=== PATIENT | male | born 1965 | race Caucasian/White ===

== ENCOUNTER 2021-09-25 09:35 | Outpatient (REF) | payer OTHER, SELFPAY ==
[2021-09-25 10:18] LABS: INTERNATIONAL NORM RATIO 1.1 (0.9-1.1); Prothrombin Time 12.8 SEC (9.9-13.0)
[2021-09-25 10:54] LABS: Vitamin D 25-OH Total 34.6 ng/mL (>30)
== END 2021-09-25 09:36 | disposition home or self-care (01) ==
LOC: HO.LAB 09:35
PROVIDERS: PCP Physician Assistant; Visit Provider Physician Assistant
DX: I48.0 Paroxysmal atrial fibrillation (principal); E66.01 Morbid (severe) obesity due to excess calories; Z68.41 Body mass index [BMI] 40.0-44.9, adult
CPT/HCPCS: 36415; 82306; 85610

== ENCOUNTER → 2021-09-27 14:06 | Outpatient (BNVA) | payer OTHER, SELFPAY | PROVIDERS: PCP Physician Assistant; Referring Provider Physician Assistant; Visit Provider Internal Medicine | DX: I48.0 Paroxysmal atrial fibrillation (principal); E66.01 Morbid (severe) obesity due to excess calories; G47.33 Obstructive sleep apnea (adult) (pediatric) | CPT/HCPCS: 93005 ==

== ENCOUNTER 2021-11-09 13:06 | Outpatient (REF) | payer OTHER, SELFPAY ==
[2021-11-09 13:34] LABS: MANUAL DIFF FLAG NO
[2021-11-09 13:44] LABS: Eosinophils Absolute Auto 0.7 X10*3/uL (0.0-0.4); Hematocrit 42.7 % (42.0-52.0); Hemoglobin 14.8 g/dl (14.0-18.0); Imm Gran Abs Auto 0.03 X10*3/uL (0.00-0.03); Imm Gran Pct Auto 0.6 % (0.0-0.4); Lymphocytes Absolute Auto 1.4 X10*3/uL (1.2-4.9); Lymphocytes Percent Auto 28.6 % (20-40); Mean Corpuscular HGB Conc 34.7 g/dl (31.0-36.0); Mean Corpuscular Hemoglobin 32.3 pg (27.0-33.0); Mean Corpuscular Volume 93.2 fL (80.0-98.0); Mean Platelet Volume 10.8 fL (9.4-12.4); Monocytes Absolute Auto 0.6 X10*3/uL (0.1-1.2); Monocytes Percent Auto 12.6 % (2-11); Neutrophils Absolute Auto 2.3 x10*3/uL (2.0-8.3); Neutrophils Percent Auto 45.2 % (45-73); Platelet Count 206 X10*3/uL (160-400); Red Blood Count 4.58 X10*6/uL (4.60-5.80); Red Cell Distribution Width 11.4 % (11.0-16.0)
[2021-11-09 13:53] LABS: Estimated Average Glucose 94 mg/dL; Hemoglobin A1c % 4.9 %
[2021-11-09 14:34] LABS: Alanine Aminotransferase 58 U/L (0-40); Albumin Level 4.1 g/dL (3.5-5.0); Alkaline Phosphatase 62 U/L (39-117); Anion Gap 12 (12-20); Aspartate Amino Transferase 39 U/L (5-37); Bilirubin Total 1.1 mg/dL (0.0-1.0); Blood Urea Nitrogen 12 mg/dL (9-16); Carbon Dioxide 23 mmol/L (22-29); Chloride 107 mmol/L (96-108); Cholesterol 125 mg/dL; Estimated Glomerular Filt Rate 60; Glucose Fasting 97 mg/dL (60-99); HDL Cholesterol 30 mg/dL; LDL Cholesterol Calculated 68 mg/dl; Potassium 4.3 mmol/L (3.3-5.1); Sodium 138 mmol/L (135-145); Total Protein 7.1 g/dL (6.5-8.0); Triglycerides 138 mg/dL
[2021-11-09 14:42] LABS: Prostate Specific Antigen Scr 0.54 ng/mL (<0.05-4.0); TSH reflex Free T4 2.05 uIU/mL (0.32-4.0)
[2021-11-09 15:13] LABS: Creatinine Urine 286.08 mg/dL; Microalbum/Creatinine Ratio Ur 76.2 ug/mg cr
== END 2021-11-09 13:07 | disposition home or self-care (01) ==
LOC: HO.LAB 13:06
PROVIDERS: Visit Provider Physician Assistant
DX: I10 Essential (primary) hypertension (principal); R05.9 Cough, unspecified; Z12.5 Encounter for screening for malignant neoplasm of prostate
CPT/HCPCS: 36415; 80053; 80061; 82043; 83036; 84153; 84443; 85025

== ENCOUNTER 2021-11-10 11:19 | Outpatient (REF) | payer OTHER, SELFPAY ==
[2021-11-10 12:03] LABS: Binax Internal Control QC Valid; Binax Now Covid-19 Ag Positive (Negative)
== END 2021-11-10 11:20 | disposition home or self-care (01) ==
LOC: HO.LAB 11:19
PROVIDERS: Internal Medicine; PCP Physician Assistant; Visit Provider Nurse Practitioner Family
DX: Z20.822 Contact with and (suspected) exposure to COVID-19 (principal)
CPT/HCPCS: 36415; C9803

== ENCOUNTER 2021-11-17 15:52 | Outpatient (REF) | payer OTHER, SELFPAY ==
[2021-11-17 16:12] LABS: MANUAL DIFF FLAG NO
[2021-11-17 16:33] LABS: Basophils Percent Auto 0.3 % (0-2); Eosinophils Absolute Auto 0.6 X10*3/uL (0.0-0.4); Eosinophils Percent Auto 7.5 % (0-4); Hematocrit 41.7 % (42.0-52.0); Hemoglobin 14.3 g/dl (14.0-18.0); Imm Gran Abs Auto 0.07 X10*3/uL (0.00-0.03); Imm Gran Pct Auto 0.9 % (0.0-0.4); Lymphocytes Absolute Auto 1.9 X10*3/uL (1.2-4.9); Mean Corpuscular HGB Conc 34.3 g/dl (31.0-36.0); Mean Corpuscular Hemoglobin 31.6 pg (27.0-33.0); Mean Corpuscular Volume 92.3 fL (80.0-98.0); Mean Platelet Volume 11.1 fL (9.4-12.4); Monocytes Absolute Auto 0.8 X10*3/uL (0.1-1.2); Monocytes Percent Auto 10.4 % (2-11); Neutrophils Absolute Auto 4.3 x10*3/uL (2.0-8.3); Neutrophils Percent Auto 55.9 % (45-73); Platelet Count 233 X10*3/uL (160-400); Red Blood Count 4.52 X10*6/uL (4.60-5.80); Red Cell Distribution Width 11.4 % (11.0-16.0); White Blood Count 7.7 X10*3/uL (4.8-10.8)
[2021-11-20 05:13] LABS: HBS Num1 0.57 mIU/mL (0-7.99); HBsAGNum1 0.25 S/CO (0.00-0.99); Hepatitis B Core Antibody Nonreactive (Nonreactive); Hepatitis B Surface Antigen Negative (Negative); ~Hepatitis B Surface Antibody NONREACTIVE (Nonreactive)
[2021-11-20 05:49] LABS: ~HepC Num1 0.11 S/CO (0.00-0.79); ~Hepatitis C Antibody Nonreactive (Nonreactive)
[2021-11-22 04:40] LABS: Hepatitis A Antibody IgM 0.12 Index (0-0.79); ~Hepatitis A Antibody IgM Nonreactive (Nonreactive)
== END 2021-11-17 15:53 | disposition home or self-care (01) ==
LOC: HO.LAB 15:52
PROVIDERS: PCP Internal Medicine; Visit Provider Nurse Practitioner Family
DX: R05.9 Cough, unspecified (principal); R79.89 Other specified abnormal findings of blood chemistry
CPT/HCPCS: 36415; 85025; 86704; 86706; 86709; 86803; 87340

== ENCOUNTER → 2021-12-06 09:11 | Outpatient (BNVA) | payer OTHER, SELFPAY | PROVIDERS: PCP Internal Medicine; Visit Provider Nurse Practitioner Family ==

== ENCOUNTER → 2022-01-04 09:27 | Outpatient (BNVA) | payer OTHER, SELFPAY | PROVIDERS: PCP Internal Medicine; Referring Provider Internal Medicine; Visit Provider Internal Medicine ==

== ENCOUNTER 2022-01-20 17:02 | Emergency (ER) | payer OTHER, SELFPAY ==
--- NOTE | 2022-01-20 | ECG_ITS ---
Test Reason : CHEST PAIN Blood Pressure : / mmHG Vent. Rate : 070 BPM Atrial Rate : 070 BPM P-R Int : 162 ms QRS Dur : 086 ms QT Int : 404 ms P-R-T Axes : 002 -14 005 degrees QTc Int : 436 ms Normal sinus rhythm Normal ECG No previous ECGs available Referred By: Generic ED Physician Electronically Signed By:WERNER GUPTA
--- NOTE | ~2022-01-20 | XR_ITS ---
EXAMINATION: XR CHEST CLINICAL INFORMATION: Chest pain COMPARISON: None TECHNIQUE: Frontal portable view of the chest was obtained. 1835 hours FINDINGS: No significant abnormality is noted involving the heart, lungs, mediastinum, bony thorax or soft tissues. XR/XR chest 1V IMPRESSION: Unremarkable examination.
[2022-01-20 17:12] VITALS: BP 128/79; PULSE 72; RESP 18; TEMP 36.5; O2SAT 97; BMI 41.1
--- NOTE | 2022-01-20 17:28 | ED_ITS ---
HPI - Chest Pain General Chief Complaint: Chest Pain Stated Complaint: chest pain, every couple of minutes, Afib Time Seen by Provider: 01/20/22 17:17 Source: patient Mode of arrival: ambulatory Limitations: no limitations History of Present Illness HPI narrative: patient thinks his symptoms are due to his CPAP leaking all night and he woke up gasping multiple times complaint: chest pain Pertinent past history: other (PAF with hx of multiple ablations states has had clean cardiac caths in the past 2 years ago) Onset (ago): hour(s) (around 830am, no chest pain now) Timing of current episode: episodic Prior episodes: No Onset: during rest and during exertion Pain location: substernal Pain radiation: none Severity: moderate Quality: heaviness and sharp Relieving factors: nothing Exacerbating factors: nothing Associated symptoms: dyspnea Treatment prior to arrival: none and other (did take his medications today including eliquis) Related Data Home Medications Medication Instructions Recorded Confirmed albuterol sulfate 90 mcg/actuation 2 puff PO Q4H PRN 10/26/20 01/04/22 aerosol inhaler apixaban 5 mg tablet 5 mg PO BID 10/26/20 01/04/22 Previous Rx's Medication Instructions Recorded benzonatate 100 mg capsule 100 mg PO BEDTIME PRN #14 cap 11/08/21 lisinopril 5 mg tablet 5 mg PO DAILY 30 Days #30 tab 11/23/21 trazodone 50 mg tablet 25 - 50 mg PO BEDTIME PRN 30 Days 12/06/21 #30 tab semaglutide 3 mg tablet (Rybelsus) 3 mg PO DAILY 30 Days #30 tab 12/18/21 Allergies Allergy/AdvReac Type Severity Reaction Status Date / Time No Known Allergies Allergy Verified 01/04/22 09:33 Review of Systems Review of Systems: Constitutional : No Weight loss, No Fever, No Chills ENT/Mouth : No sore throat, No Rhinorrhea Eyes: No Eye Pain, No Swelling Cardiovascular : pos Chest Pain, pos SOB, no Dyspnea on Exertion, No Orthopnea, No Edema, No Palpitations Respiratory : No Cough, No Sputum Gastrointestinal : no Nausea, No Vomiting, No Diarrhea, No abdominal Pain, No Hematochezia, No Melena Genitourinary : No Dysuria, No Urinary Frequency Musculoskeletal : No joint pain, No Myalgias, No Joint Swelling Skin : No Skin Lesions, No rash Neuro : No Weakness, No Numbness, No Dizziness, No Headache Psych : No Anxiety/Panic, No Depression Heme/Lymph: No Bruising, No Lymphadenopathy Endocrine : No Polyuria, No Polydipsia All other systems reviewed and are negative [facility] Past Medical History Attestation statement: The following information was validated with the patient. Medical History Elevated LFTs HTN (hypertension) Morbid obesity LAYNE (obstructive sleep apnea) PAF (paroxysmal atrial fibrillation) Surgical History H/O prior ablation treatment History of lymph node excision History of prior ablation treatment Family History Family History Father CAD (coronary artery disease) History of partial colectomy Hypertension CVD (cardiovascular disease) Alzheimers disease Mother Asthma Brother Hepatitis Sister Family history of thyroid problem Social History Social History Housing: House Alcohol intake: never Patient Tobacco Use Status: Never used Tobacco e-Cigarette/Vaping Use: Never Used Second Hand Smoke Exposure: No Advance Directives: No Advance Directives Information Provided: No service: No Current occupational status: employed Cognitive needs: No Hearing needs: No Vision needs: No Physical Exam Vital Signs: Vital Signs: Last Vital Signs Temp 98.1 F 01/20/22 17:33 Pulse 59 01/20/22 21:21 Resp 18 01/20/22 21:21 BP 144/77 H 01/20/22 21:21 Pulse Ox 96 01/20/22 21:21 BMI result Body Mass Index 41.1 Appearance: Alert. Oriented X3. No acute distress. Eyes: Pupils equal, round and reactive to light. ENT: Pharynx normal. Neck: Normal inspection. Neck supple. CVS: Normal heart rate and rhythm. Pulses normal. Respiratory: No respiratory distress. Breath sounds normal. Abdomen: Soft and nontender. Skin: Skin warm and dry. Normal skin color. Normal skin turgor. Extremities: No lower extremity edema. No calf ttp Neuro: Oriented X 3. No motor deficit. No sensory deficit. Course Course Course Narrative: cath report from [facility] requested 6pm ddimer under normal limits doubt PE no cardiac cath report from [facility] listed - but non obs cardiac ds listed in notes trop flat x 2, atypical pain, EKG nonischemic, ddimer negative symptoms all day stable for DC MDM - Chest Pain MDM Narrative Medical decision making narrative: 56 yo male with hx of LAYNE, afib, obesity on eliquis notes since 830am intermittent abrupt sharp like paroxysmal chest pains that last seconds with some dyspnea that have been happening all day. He has some mild dyspnea. He notes he has had cardiac caths and thinks he had a normal one in the last two years. He does have some new t wave inversions in III and aVF - his symptoms are somewhat atypical given they are paroxysmal and brief in nature will obtain troponin x 2, ddimer, CXR, he has no pain now and was instructed to let us know if his pain returns. He did take his eliquis this AM. Lab Data Result diagrams: 01/20/22 18:00 01/20/22 18:51 Labs: Lab Results 01/20/22 01/20/22 01/20/22 Range/Units 16:00 17:19 18:00 WBC 9.3 (4.8-10.8) X10*3/uL RBC 3.96 L (4.60-5.80) X10*6/uL Hgb 12.9 L (14.0-18.0) g/dl Hct 36.9 L (42.0-52.0) % MCV 93.2 (80.0-98.0) fL MCH 32.6 (27.0-33.0) pg MCHC 35.0 (31.0-36.0) g/dl RDW 11.7 (11.0-16.0) % Plt Count 232 (160-400) X10*3/uL MPV 11.8 (9.4-12.4) fL Immature Gran % (Auto) 0.3 (0.0-0.4) % Neut % (Auto) 49.7 (45-73) % Lymph % (Auto) 29.6 (20-40) % [place] % (Auto) 10.5 (2-11) % Eos % (Auto) 9.7 H (0-4) % Baso % (Auto) 0.2 (0-2) % Lymph # (Auto) 2.8 (1.2-4.9) X10*3/uL [place] # (Auto) 1.0 (0.1-1.2) X10*3/uL Eos # (Auto) 0.9 H (0.0-0.4) X10*3/uL Baso # (Auto) 0.0 (0.0-0.2) X10*3/uL Abs Immat Gran (auto) 0.03 (0.00-0.03) X10*3/uL Absolute Neuts (auto) 4.6 (2.0-8.3) x10*3/uL Absolute Nucleated RBC 0.000 (0.0-0.012) X10*3/uL Nucleated RBC % (auto) 0.0 (0.0-0.2) /100WBC PT (9.9-13.0) SEC INR (0.9-1.1) APTT (24.1-38.0) SEC D-Dimer High Sensitivty Sodium (135-145) mmol/L Potassium (3.3-5.1) mmol/L Chloride (96-108) mmol/L Carbon Dioxide (22-29) mmol/L Anion Gap (12-20) BUN (9-16) mg/dL Creatinine (0.5-1.4) mg/dL Estim Creat Clear Calc Estimated GFR Random Glucose (60-115) mg/dL Calcium (8.4-10.2) mg/dL Magnesium (1.6-2.6) mg/dL Total Bilirubin (0.0-1.0) mg/dL Direct Bilirubin (0.0-0.5) mg/dL AST (5-37) U/L ALT (0-40) U/L Alkaline Phosphatase (39-117) U/L Troponin I High Sens < 3.5 (<3.5-35.0) ng/L Total Protein (6.5-8.0) g/dL Albumin (3.5-5.0) g/dL Lipase (8-78) U/L COVID-19 (GAGAN) Negative (Negative) COVID-19 Clin Com See Note 01/20/22 01/20/22 01/20/22 Range/Units 18:00 18:51 18:51 WBC (4.8-10.8) X10*3/uL RBC (4.60-5.80) X10*6/uL Hgb (14.0-18.0) g/dl Hct (42.0-52.0) % MCV (80.0-98.0) fL MCH (27.0-33.0) pg MCHC (31.0-36.0) g/dl RDW (11.0-16.0) % Plt Count (160-400) X10*3/uL MPV (9.4-12.4) fL Immature Gran % (Auto) (0.0-0.4) % Neut % (Auto) (45-73) % Lymph % (Auto) (20-40) % [place] % (Auto) (2-11) % Eos % (Auto) (0-4) % Baso % (Auto) (0-2) % Lymph # (Auto) (1.2-4.9) X10*3/uL [place] # (Auto) (0.1-1.2) X10*3/uL Eos # (Auto) (0.0-0.4) X10*3/uL Baso # (Auto) (0.0-0.2) X10*3/uL Abs Immat Gran (auto) (0.00-0.03) X10*3/uL Absolute Neuts (auto) (2.0-8.3) x10*3/uL Absolute Nucleated RBC (0.0-0.012) X10*3/uL Nucleated RBC % (auto) (0.0-0.2) /100WBC PT 13.5 H (9.9-13.0) SEC INR 1.2 H (0.9-1.1) APTT 39.4 H (24.1-38.0) SEC D-Dimer High Sensitivty Cancelled 164 Sodium 138 (135-145) mmol/L Potassium 4.2 (3.3-5.1) mmol/L Chloride 107 (96-108) mmol/L Carbon Dioxide 23 (22-29) mmol/L Anion Gap 12 (12-20) BUN 16 (9-16) mg/dL Creatinine 1.05 (0.5-1.4) mg/dL Estim Creat Clear Calc 107.0 Estimated GFR > 60 Random Glucose 95 (60-115) mg/dL Calcium 9.3 (8.4-10.2) mg/dL Magnesium 2.3 (1.6-2.6) mg/dL Total Bilirubin 0.8 (0.0-1.0) mg/dL Direct Bilirubin 0.3 (0.0-0.5) mg/dL AST 37 (5-37) U/L ALT 58 H (0-40) U/L Alkaline Phosphatase 60 (39-117) U/L Troponin I High Sens (<3.5-35.0) ng/L Total Protein 6.7 (6.5-8.0) g/dL Albumin 4.1 (3.5-5.0) g/dL Lipase 32 (8-78) U/L COVID-19 (GAGAN) (Negative) COVID-19 Clin Com 01/20/22 01/20/22 Range/Units 18:51 21:03 WBC (4.8-10.8) X10*3/uL RBC (4.60-5.80) X10*6/uL Hgb (14.0-18.0) g/dl Hct (42.0-52.0) % MCV (80.0-98.0) fL MCH (27.0-33.0) pg MCHC (31.0-36.0) g/dl RDW (11.0-16.0) % Plt Count (160-400) X10*3/uL MPV (9.4-12.4) fL Immature Gran % (Auto) (0.0-0.4) % Neut % (Auto) (45-73) % Lymph % (Auto) (20-40) % [place] % (Auto) (2-11) % Eos % (Auto) (0-4) % Baso % (Auto) (0-2) % Lymph # (Auto) (1.2-4.9) X10*3/uL [place] # (Auto) (0.1-1.2) X10*3/uL Eos # (Auto) (0.0-0.4) X10*3/uL Baso # (Auto) (0.0-0.2) X10*3/uL Abs Immat Gran (auto) (0.00-0.03) X10*3/uL Absolute Neuts (auto) (2.0-8.3) x10*3/uL Absolute Nucleated RBC (0.0-0.012) X10*3/uL Nucleated RBC % (auto) (0.0-0.2) /100WBC PT (9.9-13.0) SEC INR (0.9-1.1) APTT (24.1-38.0) SEC D-Dimer High Sensitivty Sodium (135-145) mmol/L Potassium (3.3-5.1) mmol/L Chloride (96-108) mmol/L Carbon Dioxide (22-29) mmol/L Anion Gap (12-20) BUN (9-16) mg/dL Creatinine (0.5-1.4) mg/dL Estim Creat Clear Calc Estimated GFR Random Glucose (60-115) mg/dL Calcium (8.4-10.2) mg/dL Magnesium (1.6-2.6) mg/dL Total Bilirubin (0.0-1.0) mg/dL Direct Bilirubin (0.0-0.5) mg/dL AST (5-37) U/L ALT (0-40) U/L Alkaline Phosphatase (39-117) U/L Troponin I High Sens < 3.5 < 3.5 (<3.5-35.0) ng/L Total Protein (6.5-8.0) g/dL Albumin (3.5-5.0) g/dL Lipase (8-78) U/L COVID-19 (GAGAN) (Negative) COVID-19 Clin Com ECG Data ECG #1: Attestation: I personally reviewed and interpreted this ECG as follows: ECG interpretation date: 01/20/22 ECG interpretation time: 17:29 Interpretation: Rate: 73 Rhythm: NSR [place]: left Normal P waves. Normal TUTU. Normal QRS complex. ST T wave : no HAO, inverted III and aVF qTC: normal prior studies: changed t waves from 2020 The study has been interpreted contemporaneously by me. . ECG #2: Attestation: I personally reviewed and interpreted this ECG as follows: ECG interpretation date: 01/20/22 ECG interpretation time: 18:10 Interpretation: Rate: 70 Rhythm: NSR [place]: left Normal P waves. Normal UTTU. Normal QRS complex. ST T wave : on HAO, flattened III and aVF qTC: normal prior studies: t wave inversions improved - improved The study has been interpreted contemporaneously by me. Discharge Plan Discharge Clinical Impression: Atypical chest pain Patient Disposition: Home, Self-Care Instructions: Chest Pain (ED) Additional Instructions: return to ED for any worsening symptoms or concerns please call your database specialist Saturday and follow up Prescriptions: No Action lisinopril 5 mg tablet 5 mg PO DAILY 30 Days Qty: 30 3RF Eliquis 5 mg tablet 5 mg PO BID 0RF albuterol sulfate 90 mcg/actuation HFA aerosol inhaler 2 puff PO Q4H PRN (Reason: wheezing) 0RF benzonatate 100 mg capsule 100 mg PO BEDTIME PRN (Reason: cough) Qty: 14 0RF Rybelsus 3 mg tablet 3 mg PO DAILY 30 Days Qty: 30 1RF trazodone 50 mg tablet 25 - 50 mg PO BEDTIME PRN (Reason: sleep) 30 Days Qty: 30 3RF Stand Alone Forms: Work/School Release
[2022-01-20 17:33] VITALS: BP 139/81; PULSE 72; RESP 13; TEMP 36.7; O2SAT 97
[2022-01-20 18:12] LABS: MANUAL DIFF FLAG NO
[2022-01-20 18:16] LABS: Basophils Percent Auto 0.2 % (0-2); Eosinophils Absolute Auto 0.9 X10*3/uL (0.0-0.4); Eosinophils Percent Auto 9.7 % (0-4); Hematocrit 36.9 % (42.0-52.0); Hemoglobin 12.9 g/dl (14.0-18.0); Imm Gran Abs Auto 0.03 X10*3/uL (0.00-0.03); Imm Gran Pct Auto 0.3 % (0.0-0.4); Lymphocytes Absolute Auto 2.8 X10*3/uL (1.2-4.9); Lymphocytes Percent Auto 29.6 % (20-40); Mean Corpuscular Hemoglobin 32.6 pg (27.0-33.0); Mean Corpuscular Volume 93.2 fL (80.0-98.0); Mean Platelet Volume 11.8 fL (9.4-12.4); Monocytes Percent Auto 10.5 % (2-11); Neutrophils Absolute Auto 4.6 x10*3/uL (2.0-8.3); Neutrophils Percent Auto 49.7 % (45-73); Platelet Count 232 X10*3/uL (160-400); Red Blood Count 3.96 X10*6/uL (4.60-5.80); Red Cell Distribution Width 11.7 % (11.0-16.0); White Blood Count 9.3 X10*3/uL (4.8-10.8)
[2022-01-20 18:26] LABS: COVID-19 Test Negative (Negative); IDNOW Serial# 16C4AD1C
[2022-01-20 18:33] LABS: Troponin-I High Sensitivity < 3.5 ng/L (<3.5-35.0)
[2022-01-20 19:04] LABS: INTERNATIONAL NORM RATIO 1.2 (0.9-1.1); Prothrombin Time 13.5 SEC (9.9-13.0)
[2022-01-20 19:06] LABS: D Dimer High Sensitivity 164 NG/ML; Partial Thromboplastin Time 39.4 SEC (24.1-38.0)
[2022-01-20 19:12] LABS: Alanine Aminotransferase 58 U/L (0-40); Albumin Level 4.1 g/dL (3.5-5.0); Alkaline Phosphatase 60 U/L (39-117); Anion Gap 12 (12-20); Aspartate Amino Transferase 37 U/L (5-37); Bilirubin Direct 0.3 mg/dL (0.0-0.5); Bilirubin Total 0.8 mg/dL (0.0-1.0); Blood Urea Nitrogen 16 mg/dL (9-16); Calcium 9.3 mg/dL (8.4-10.2); Carbon Dioxide 23 mmol/L (22-29); Chloride 107 mmol/L (96-108); Estimated Glomerular Filt Rate > 60; Glucose Random 95 mg/dL (60-115); Lipase 32 U/L (8-78); Magnesium 2.3 mg/dL (1.6-2.6); Potassium 4.2 mmol/L (3.3-5.1); Sodium 138 mmol/L (135-145); Total Protein 6.7 g/dL (6.5-8.0)
[2022-01-20 19:17] LABS: Troponin-I High Sensitivity < 3.5 ng/L (<3.5-35.0)
[2022-01-20 21:21] VITALS: BP 144/77; PULSE 59; RESP 18; O2SAT 96
[2022-01-20 21:29] LABS: Troponin-I High Sensitivity < 3.5 ng/L (<3.5-35.0)
== END 2022-01-20 22:04 | disposition home or self-care (01) ==
PROVIDERS: Emergency Provider Emergency Medicine; PCP Physician Assistant
DX: R07.89 Other chest pain (principal); R06.02 Shortness of breath; I48.0 Paroxysmal atrial fibrillation; I10 Essential (primary) hypertension; Z79.01 Long term (current) use of anticoagulants; Z20.822 Contact with and (suspected) exposure to COVID-19
CPT/HCPCS: 36415; 71045; 80048; 80076; 83690; 83735; 84484; 85025; 85379; 85610; 85730; 87635; 93005; 99283; 99285

== ENCOUNTER → 2022-02-01 09:22 | Outpatient (BNVA) | payer OTHER, SELFPAY | PROVIDERS: PCP Physician Assistant; Referring Provider Physician Assistant; Visit Provider Physician Assistant | DX: Z13.89 Encounter for screening for other disorder (principal) ==

== ENCOUNTER 2022-02-05 08:16 | Outpatient (REF) | payer OTHER, SELFPAY ==
--- NOTE | ~2022-02-05 | US_ITS ---
EXAMINATION: US ABDOMEN COMPLETE CLINICAL INFORMATION: Elevated LFTs, rule out fatty liver. COMPARISON: None TECHNIQUE: Real-time imaging of the abdominal viscera. FINDINGS: PANCREAS: Limited. The visualized pancreatic head and body are normal in appearance. The remainder of the pancreas is obscured from visualization by the overlying bowel gas. ABDOMINAL AORTA: The proximal, mid, and distal segments are normal in caliber. INFERIOR VENA CAVA: Visualized portions are normal. LIVER: There is diffuse increased liver parenchymal echogenicity. No focal hepatic mass is seen. The liver is normal in size and contour. No biliary ductal dilatation. GALLBLADDER: Normal. The gallbladder is physiologically distended without evidence of stones, sludge, polyps, wall thickening or pericholecystic fluid. COMMON BILE DUCT: Normal in caliber measuring 0.5 cm in diameter. RIGHT KIDNEY: At the interpolar aspect, a 6 mm in maximal diameter anechoic, simple cyst is seen. At the lower pole, a 7 mm in maximal diameter anechoic, simple cyst is seen. No hydronephrosis or renal calculi. The kidney measures 12.7 cm in maximum dimension. LEFT KIDNEY: Normal. No hydronephrosis. No renal calculi or focal parenchymal lesions. The kidney measures 12.0 cm in maximum dimension. SPLEEN: Normal. The spleen measures 10.1 cm in maximum dimension. FREE FLUID: None. US/US abdomen complete IMPRESSION: 1. There is generalized increase in hepatic echotexture, consistent with fatty infiltration or hepatocellular disease. Please correlate clinically. No focal hepatic mass or intrahepatic biliary dilatation is seen. 2. Tiny simple right renal cysts are of incidental note. 3. Technically limited ultrasound examination of the pancreatic tail.
== END 2022-02-05 08:17 | disposition home or self-care (01) ==
LOC: HO.US 08:16
PROVIDERS: PCP Physician Assistant; Visit Provider Physician Assistant
DX: R94.5 Abnormal results of liver function studies (principal)
CPT/HCPCS: 76700

== ENCOUNTER 2022-04-02 09:35 | Emergency (ER) | payer OTHER, SELFPAY ==
[2022-04-02 09:42] VITALS: BP 120/80; PULSE 68; RESP 18; TEMP 36.3; O2SAT 99; BMI 41.1
--- NOTE | 2022-04-02 10:00 | ED.GENADULT ---
HPI - General Adult General Chief complaint: Back Pain/Injury Stated complaint: Back Pain S/P WC Injury Time Seen by Provider: 04/02/22 10:00 Source: patient Mode of arrival: ambulatory Limitations: no limitations History of Present Illness HPI narrative: Patient is a 56 year old male presenting to the emergency department today with middle back pain. Patient states that last night he was turned towards his left side for an extended period of time and now he is having pain. Patient states that he is currently on eliquis. Patient denies any dizziness, lightheadedness, abdominal pain, nausea, vomiting, fever, chills, blurry vision, double vision, loss of vision, chest pain, difficulty breathing, shortness of breath, night sweats, pain with urination, increased urinary frequency, increased urinary urgency, blood in his urine or stool, syncope or a near syncopal episode, recent trauma or falls, bowel incontinence, bladder incontinence, bowel retention, bladder retention, or any other complaints at this time. Onset (ago): hour(s) Location: back Radiation: non-radiation Severity: mild Severity scale (1-10): 2 Quality: dull Pain Consistency: intermittent Relieving factors: none Exacerbating factors: none Associated symptoms: denies other symptoms Treatments prior to arrival: none Related Data Home Medications Medication Instructions Recorded Confirmed albuterol sulfate 90 mcg/actuation 2 puff PO Q4H PRN 10/26/20 01/04/22 aerosol inhaler apixaban 5 mg tablet 5 mg PO BID 10/26/20 02/01/22 Previous Rx's Medication Instructions Recorded lisinopril 5 mg tablet 5 mg PO DAILY 30 Days #30 tab 02/26/22 cyclobenzaprine 10 mg tablet 10 mg PO TID PRN 7 Days #21 tab 04/02/22 Allergies Allergy/AdvReac Type Severity Reaction Status Date / Time No Known Allergies Allergy Verified 01/04/22 09:33 Review of Systems Constitutional: Constitutional: Reports no additional constitutional complaints, Denies chills, Denies fever(s) and Denies night sweats Eyes: Eyes: Reports no additional eye complaints, Denies blurry vision, Denies change in vision, Denies diplopia, Denies eye discharge, Denies loss of vision and Denies eye pain ENT: Denies dizziness Cardiovascular: Cardiovascular: Reports no additional cardiovascular complaints, Denies chest pain, Denies lightheadedness, Denies Loss of Consciousness and Denies dyspnea Respiratory: Respiratory: Reports no additional respiratory complaints and Denies dyspnea Gastrointestinal: Gastrointestinal: Reports no additional gastrointestinal complaints, Denies abdominal pain, Denies melena, Denies hematochezia, Denies change in bowel habits and Denies change in stool character Genitourinary: Genitourinary: Reports no additional male genitourinary complaints, Denies hematuria, Denies oliguria, Denies difficulty urinating, Denies dysuria, Denies urinary frequency, Denies urinary hesitancy, Denies urinary incontinence and Denies urinary urgency Musculoskeletal: Musculoskeletal: Reports no additional musculoskeletal complaints, Reports back pain, Denies numbness and Denies tingling Neurologic: Denies dizziness, Denies loss of vision, Denies numbness and Denies tingling Psychiatric: Psychiatric: Reports no additional psychiatric complaints Endocrine: Endocrine: Reports no additional endocrine complaints Hematologic/Lymphatic: Hematologic/Lymphatic: Reports no additional hematologic/lymphatic complaints Allergic/Immunologic: Allergic/Immunologic: Reports no additional allergic/immunologic complaints [facility] Past Medical History Attestation statement: The following information was validated with the patient. Source: old records reviewed Medical History Elevated LFTs HTN (hypertension) Morbid obesity LAYNE (obstructive sleep apnea) PAF (paroxysmal atrial fibrillation) Surgical History H/O prior ablation treatment History of lymph node excision History of prior ablation treatment Family History Family History Father CAD (coronary artery disease) History of partial colectomy Hypertension CVD (cardiovascular disease) Alzheimers disease Mother Asthma Brother Hepatitis Sister Family history of thyroid problem Social History Social History Housing: House Alcohol intake: never Patient Tobacco Use Status: Never used Tobacco e-Cigarette/Vaping Use: Never Used Second Hand Smoke Exposure: No Advance Directives: No Advance Directives Information Provided: No service: No Current occupational status: employed Current occupation: [employer] Cognitive needs: No Hearing needs: No Vision needs: No Physical Exam ED Vital Signs: Vital Signs - 24 hr 04/02/22 09:42 Temperature 97.4 F Pulse Rate 68 Respiratory Rate 18 Blood Pressure 120/80 Pulse Oximetry 99 BMI result Body Mass Index 41.1 Const General: cooperative, no acute distress, alert and awake Nutritional Appearance: well nourished Orientation/consciousness: patient oriented x3 Limitations: no limitations HENMT Head: Yes normal to inspection and Yes atraumatic Ears: hearing grossly normal bilaterally and external ears normal General nose exam: Normal external nose present, no nasal discharge noted and no epistaxis Face and sinus: Yes normal facial exam, No abrasion and No laceration Mouth: Normal oral and palatal mucosa present, no drooling and no muffled voice Eyes General: appearance normal, both eyes and all related structures Periorbital: periorbital findings normal Eyelids: Yes eyelids normal Conjunctivae: conjunctivae normal Pupils: Equal, round and reactive pupils present EOM: EOMs intact bilaterally Neck Neck: Yes normal visual inspection, Yes full ROM and Yes no lymphadenopathy Chest Chest palpation & inspection: normal inspection of the chest Resp Effort & Inspection: normal respiratory effort and able to speak in complete sentences Auscultation: clear to auscultation bilaterally Cardio Rate: regular rate Rhythm: regular rhythm GI Inspection: Yes normal to inspection General: Yes no CVA tenderness Back/Spine/Pelvis Back: no CVA tenderness Cervical Spine: normal cervical lordosis and cervical ROM normal Thoracic/Lumbar Spine: thoracic and lumbar spine normal to inspection and thoraco-lumbar ROM normal Neuro General: patient oriented x3 and moves all extremities Cranial nerves: Yes Equal, round and reactive pupils present Cognition (Neuro): normal cognition Motor exam (neuro): 5/5 motor strength present throughout Sensory Exam: Normal double simultaneous stimulation for sensation Coordination: [id number] test normal Extrem General: Yes normal to inspection, Yes full ROM and Yes capillary refill normal Psych Appearance: grossly normal Mental Status: mental status grossly normal Affect: normal affect Attitude: cooperative Thought process: Normal thought process present Thought content: Normal thought content present Insight: Good insight present (Psych) Medical Decision Making MDM Narrative Medical decision making narrative: Patient is a 56 year old male presenting to the emergency department today with back pain. Patient's physical exam was unremarkable. I explained my physical exam findings to the patient. I answered all questions asked by the patient. Patient received PO Flexeril which he stated helped his symptoms significantly. I stressed the importance of the patient taking his medication as prescribed. I stressed the importance of the patient following up with his primary care provider. I stressed the importance of the patient returning to the emergency department immediately if his symptoms were to worsen or if he were to develop any dizziness, shortness of breath, difficulty breathing, chest pain, blurry vision, loss of vision, nausea, vomiting, abdominal pain, fever, chills, back pain, or any other complaints. Patient verbalized agreement and understanding with this treatment plan and discharge. Differential Diagnosis Differential Diagnosis: back strain Medical Records Medical records reviewed: Yes I reviewed the patient's medical records. Discharge Plan Discharge Clinical Impression: Back pain Patient Disposition: Home, Self-Care Instructions: Back Pain (ED) Additional Instructions: Follow up with your primary care provider. Return to the emergency department immediately if your symptoms worsen or if you develop any dizziness, shortness of breath, difficulty breathing, chest pain, blurry vision, loss of vision, nausea, vomiting, abdominal pain, fever, chills, back pain, or any other complaints. Prescriptions: New cyclobenzaprine 10 mg tablet 10 mg PO TID PRN (Reason: muscle spasm) 7 Days Qty: 21 0RF No Action lisinopril 5 mg tablet 5 mg PO DAILY 30 Days Qty: 30 0RF Eliquis 5 mg tablet 5 mg PO BID 0RF albuterol sulfate 90 mcg/actuation HFA aerosol inhaler 2 puff PO Q4H PRN (Reason: wheezing) 0RF Referrals: Jonathan Barnett PA-C [Primary Care Provider] - Stand Alone Forms: Work/School Release Print Language: Malay
[2022-04-02] MEDS: Cyclobenzaprine HCl 10 MG TABLET PO (10:30)
== END 2022-04-02 10:35 | disposition home or self-care (01) ==
PROVIDERS: Emergency Provider Emergency Medicine; PCP Physician Assistant
DX: M54.50 Low back pain, unspecified (principal); Z79.899 Other long term (current) drug therapy
CPT/HCPCS: 99282; 99283

== ENCOUNTER 2022-04-23 10:35 | Outpatient (REF) | payer OTHER, SELFPAY ==
--- NOTE | ~2022-04-23 | XR_ITS ---
EXAMINATION: CHEST, DORSAL SPINE AND LUMBAR SPINE. CLINICAL INFORMATION: Cough. COMPARISON: Chest x-ray 01/20/2022. TECHNIQUE: 4 views lumbar spine, 2 views dorsal spine into views chest. FINDINGS: Chest: Both lungs are fairly well-expanded and clear. Heart size and pulmonary vascularity is normal. There is mild levoscoliosis. No gross bony abnormality seen. Lumbar spine: There is normal lumbar lordosis. The vertebral heights, alignment and disc heights are normal. There is no visible acute fracture, dislocation or lytic process seen. The paravertebral soft tissues are normal. XR/XR lumbar spine 2-3V IMPRESSION: Unremarkable chest exam. Unremarkable lumbar spine exam.
--- NOTE | ~2022-04-23 | XR_ITS ---
EXAMINATION: CHEST, DORSAL SPINE AND LUMBAR SPINE. CLINICAL INFORMATION: Cough. COMPARISON: Chest x-ray 01/20/2022. TECHNIQUE: 4 views lumbar spine, 2 views dorsal spine into views chest. FINDINGS: Chest: Both lungs are fairly well-expanded and clear. Heart size and pulmonary vascularity is normal. There is mild levoscoliosis. No gross bony abnormality seen. Lumbar spine: There is normal lumbar lordosis. The vertebral heights, alignment and disc heights are normal. There is no visible acute fracture, dislocation or lytic process seen. The paravertebral soft tissues are normal. XR/XR thoracic spine 2V IMPRESSION: Unremarkable chest exam. Unremarkable lumbar spine exam.
--- NOTE | ~2022-04-23 | XR_ITS ---
EXAMINATION: CHEST, DORSAL SPINE AND LUMBAR SPINE. CLINICAL INFORMATION: Cough. COMPARISON: Chest x-ray 01/20/2022. TECHNIQUE: 4 views lumbar spine, 2 views dorsal spine into views chest. FINDINGS: Chest: Both lungs are fairly well-expanded and clear. Heart size and pulmonary vascularity is normal. There is mild levoscoliosis. No gross bony abnormality seen. Lumbar spine: There is normal lumbar lordosis. The vertebral heights, alignment and disc heights are normal. There is no visible acute fracture, dislocation or lytic process seen. The paravertebral soft tissues are normal. XR/XR chest 2V IMPRESSION: Unremarkable chest exam. Unremarkable lumbar spine exam.
[2022-04-23 19:17] LABS: Influenza A PCR NEGATIVE (Negative); Influenza B PCR NEGATIVE (Negative); Resp Syncy Virus RNA Qual PCR NEGATIVE (Negative); SARS COV2 PCR INHOUSE NEGATIVE (Negative)
== END 2022-04-23 10:36 | disposition home or self-care (01) ==
LOC: HO.XRAY 10:35
PROVIDERS: PCP Physician Assistant; Visit Provider Physician Assistant
DX: Z20.822 Contact with and (suspected) exposure to COVID-19 (principal); R05.9 Cough, unspecified; M54.9 Dorsalgia, unspecified; B34.9 Viral infection, unspecified
CPT/HCPCS: 0241U; 71046; 72070; 72100; 87071

== ENCOUNTER 2022-08-01 23:15 | Emergency (ER) | payer OTHER, SELFPAY ==
[2022-08-02 00:34] VITALS: BP 145/97; PULSE 81; RESP 18; TEMP 37.7; O2SAT 98; BMI 40.3
[2022-08-02 00:59] LABS: Basophils Absolute Auto 0.1 X10*3/uL (0.0-0.2); Basophils Percent Auto 0.3 % (0-2); Eosinophils Absolute Auto 0.8 X10*3/uL (0.0-0.4); Eosinophils Percent Auto 5.9 % (0-4); Hematocrit 41.3 % (42.0-52.0); Imm Gran Abs Auto 0.08 X10*3/uL (0.00-0.03); Imm Gran Pct Auto 0.6 % (0.0-0.4); Lymphocytes Absolute Auto 2.3 X10*3/uL (1.2-4.9); Lymphocytes Percent Auto 15.9 % (20-40); MANUAL DIFF FLAG SCAN; Mean Corpuscular HGB Conc 33.9 g/dl (31.0-36.0); Mean Corpuscular Hemoglobin 31.8 pg (27.0-33.0); Mean Corpuscular Volume 93.9 fL (80.0-98.0); Mean Platelet Volume 10.7 fL (9.4-12.4); Monocytes Absolute Auto 1.7 X10*3/uL (0.1-1.2); Monocytes Percent Auto 11.6 % (2-11); Neutrophils Absolute Auto 9.4 x10*3/uL (2.0-8.3); Neutrophils Percent Auto 65.7 % (45-73); Platelet Count 281 X10*3/uL (160-400); Red Cell Distribution Width 11.4 % (11.0-16.0); SCAN SMEAR FLAG 1; White Blood Count 14.3 X10*3/uL (4.8-10.8)
[2022-08-02 01:07] LABS: COVID-19 Test Negative (Negative); IDNOW Serial# 16C4AD1C
[2022-08-02 01:12] LABS: Alanine Aminotransferase 36 U/L (0-40); Albumin Level 4.2 g/dL (3.5-5.0); Alkaline Phosphatase 70 U/L (39-117); Anion Gap 15 (12-20); Aspartate Amino Transferase 23 U/L (5-37); Bilirubin Direct 0.4 mg/dL (0.0-0.5); Blood Urea Nitrogen 17 mg/dL (9-16); Carbon Dioxide 24 mmol/L (22-29); Chloride 101 mmol/L (96-108); Creatinine Clr Calc Pharmacy 105.8; Estimated Glomerular Filt Rate > 60; Glucose Random 106 mg/dL (60-115); Potassium 3.9 mmol/L (3.3-5.1); Sodium 136 mmol/L (135-145)
[2022-08-02 01:28] LABS: SLIDE REVIEW VERIFIED
[2022-08-02 01:44] VITALS: BP 136/86; PULSE 77; RESP 19; TEMP 37.1; O2SAT 96
== END 2022-08-02 05:50 | disposition left against medical advice (07) ==
LOC: HO.ED 08-02 05:47
PROVIDERS: Emergency Provider Emergency Medicine; PCP Physician Assistant
DX: R10.9 Unspecified abdominal pain (principal); R11.2 Nausea with vomiting, unspecified; Z20.822 Contact with and (suspected) exposure to COVID-19
CPT/HCPCS: 36415; 80053; 80076; 82248; 85025; 87635; 99282; 99283

== ENCOUNTER 2022-08-02 15:07 | Outpatient (REF) | payer OTHER, SELFPAY ==
--- NOTE | ~2022-08-02 | XR_ITS ---
EXAMINATION: XR ABDOMEN COMPLETE CLINICAL INDICATION: Epigastric pain COMPARISON: None TECHNIQUE: 2 views of the abdomen. FINDINGS: The bowel gas pattern is normal with no evidence of ileus or obstruction. No unusual soft tissue calcifications are noted. The bones are unremarkable. XR/XR abdomen min 2V IMPRESSION: Unremarkable examination.
== END 2022-08-02 15:08 | disposition home or self-care (01) ==
LOC: HO.XRAY 15:07
PROVIDERS: PCP Physician Assistant; Visit Provider Physician Assistant
DX: R10.13 Epigastric pain (principal)
CPT/HCPCS: 74019

== ENCOUNTER 2022-08-03 15:08 | Outpatient (REF) | payer OTHER, SELFPAY ==
[2022-08-03 15:56] LABS: Lipase 14 U/L (8-78)
== END 2022-08-03 15:09 | disposition home or self-care (01) ==
LOC: HO.LAB 15:08
PROVIDERS: Visit Provider Physician Assistant
DX: R10.13 Epigastric pain (principal)
CPT/HCPCS: 36415; 83690; 87338

== ENCOUNTER 2022-08-31 11:01 | Outpatient (REF) | payer OTHER, SELFPAY ==
--- NOTE | ~2022-08-31 | CT_ITS ---
EXAMINATION: CT ABDOMEN AND PELVIS WITHOUT CONTRAST CLINICAL INFORMATION: Epigastric pain. COMPARISON: KUB 08/02/2022, ultrasound abdomen 02/05/2022. TECHNIQUE: Multidetector volumetric imaging was performed from the superior aspect of the liver through the pubic symphysis. Sagittal and coronal reformatted images were obtained on the technologist's workstation. This CT examination was performed using dose optimization techniques as appropriate, variously including the following: *Automated exposure control *Adjustment of mA and/or kV according to patient size (this includes techniques or standardized protocols for targeted exams where dose is matched to indication/reason for exam; i.e. extremities or head) *Use of iterative reconstruction technique DLP: 790 mGy-cm FINDINGS: LUNG BASES: Coronary calcifications are present. LIVER, GALLBLADDER, AND BILIARY TREE: The liver is normal in size and shape but demonstrates decreased attenuation consistent with hepatic steatosis. There is an ovoid 1.8 x 1.3 cm soft tissue density seen just in front of the left crura which probably represents a small gastrohepatic ligament lymph node. No focal hepatic lesion or biliary ductal dilatation is present. The gallbladder is unremarkable with no evidence of radiopaque gallstones, gallbladder wall thickening, or obvious pericholecystic inflammatory changes. PANCREAS: Unremarkable. SPLEEN: Unremarkable. ADRENAL GLANDS: Unremarkable. KIDNEYS AND URETERS: The kidneys are normal in size, shape, and attenuation. There is a 1 cm right lower pole posterior cortical hyperattenuating cyst present. This is Bosniak class II and needs no additional follow up or imaging. No suspicious renal masses are seen. No hydronephrosis, hydroureter, or calculi seen. No perinephric stranding. BLADDER: Unremarkable. GASTROINTESTINAL TRACT: There is an abnormal region in the mesentery in the right mid abdomen measuring 10.3 x 5.9 x 6.7 cm. This measures fat density but is of increased attenuation compared to the normal surrounding fat in the mesentery (-50 Hounsfield units versus -105 Hounsfield units). Most likely diagnosis would be an omental infarct. The small and large bowel are unremarkable. The appendix is unremarkable. ABDOMINAL WALL: Tiny inguinal hernias are seen containing only fat. LYMPH NODES: No retroperitoneal lymphadenopathy. VASCULAR: Unremarkable. PELVIC VISCERA: Unremarkable. OSSEOUS STRUCTURES: Unremarkable. CT/CT abdomen pelvis wo IV con IMPRESSION: 1. Omental infarct as described above. This could certainly be playing a role in the patient's epigastric pain. 2. Incidental note made of hepatic steatosis and other findings described above. Fleischner guidelines were followed.
== END 2022-08-31 11:02 | disposition home or self-care (01) ==
LOC: HO.CT 11:01
PROVIDERS: Visit Provider Physician Assistant
DX: R10.13 Epigastric pain (principal)
CPT/HCPCS: 74176

== ENCOUNTER 2022-09-28 06:11 | Outpatient (REF) | payer OTHER, SELFPAY ==
--- NOTE | ~2022-09-28 | CT_ITS ---
STUDY PERFORMED: CTA ABDOMEN AND PELVIS WITHOUT AND WITH CONTRAST HISTORY: Abdominal pain, evaluate for mesenteric ischemia DESCRIPTION: Routine abdomen and pelvis CTA protocol with contrast was performed. 80 mL of Omnipaque 350 was administered. 3D POSTPROCESSING: Multiple 3-D angiographic images were processed from the initial data set by the [facility] under concurrent physician supervision. DOSE LOWERING TECHNIQUES: This CT examination was performed using dose optimization techniques as appropriate, variously including the following: - Automated exposure control - Adjustment of mA and/or kV according to patient size (this includes techniques or standardized protocols for targeted exams where dose is matched to indication/reason for exam; i.e. extremities or head) - Use of iterative reconstruction technique DLP: 433 mGycm. COMPARISON: Noncontrast CT scan from 08/31/2022 FINDINGS: VASCULAR: ABDOMINAL AORTA: Normal in caliber and patent. No evidence of aneurysm or dissection. Minimal atherosclerotic wall calcification seen. RIGHT LOWER EXTREMITY: Common iliac, external iliac, internal iliac and measures femoral arteries are widely patent and normal caliber. LEFT LOWER EXTREMITY: Common iliac, external iliac, internal iliac and measures femoral arteries are widely patent and normal caliber. CELIOMESENTERIC ARTERIES: Celiac artery, superior mesenteric artery and inferior mesenteric artery are widely patent. RENAL ARTERIES: There are 2 left and 2 right renal arteries which are widely patent. NONVASCULAR: Lung Bases: The visualized lung bases are unremarkable. Liver, Gallbladder and Biliary Tree: Liver is decreased in density consistent with hepatic steatosis. No focal hepatic lesions. The gallbladder is unremarkable with no evidence of radiopaque gallstones, gallbladder wall thickening, or obvious pericholecystic inflammatory changes. Pancreas: Unremarkable. Spleen: Unremarkable. Adrenal Glands: Unremarkable. Kidneys and Ureters: The kidneys are normal in size, shape, and attenuation. No hydronephrosis, hydroureter, or calculi seen. No perinephric stranding. Bladder: Unremarkable. Gastrointestinal Tract: The small and large bowel are unremarkable. The appendix is unremarkable. Focal inflammatory stranding is again seen within the adjacent mesenteric fat at the level of the hepatic flexure of the colon. Inflammatory stranding has decreased compared to the prior exam. Area measures approximately 7.6 x 2.5 x 5.9 cm, previously measuring 10.3 x 5.9 x 6.7 cm. The findings consistent with a resolving omental infarct Abdominal Wall: No significant hernia is appreciated. Lymph Nodes: Normal. Pelvic Viscera: Unremarkable. Osseous Structures: Unremarkable. CT/CT angio abdomen pelvis IMPRESSION: CTA of the abdomen and pelvis including the mesenteric vessels are widely patent Evolving omental infarct within the right abdomen as described above
[2022-09-28 07:54] LABS: Anion Gap 15 (12-20); Blood Urea Nitrogen 12 mg/dL (9-16); Calcium 9.4 mg/dL (8.4-10.2); Carbon Dioxide 27 mmol/L (22-29); Chloride 104 mmol/L (96-108); Estimated Glomerular Filt Rate > 60; Glucose Random 86 mg/dL (60-115); Potassium 4.6 mmol/L (3.3-5.1); Sodium 141 mmol/L (135-145)
[2022-09-28] MEDS: iohexoL 350 MG/ML 100 ML INFUS..BTL IV (11:51)
== END 2022-09-28 06:12 | disposition home or self-care (01) ==
LOC: HO.CT 06:11
PROVIDERS: PCP Physician Assistant; Visit Provider Physician Assistant
DX: Z01.812 Encounter for preprocedural laboratory examination (principal); K55.069 Acute infarction of intestine, part and extent unspecified
CPT/HCPCS: 36415; 74174; 80048; Q9967

== ENCOUNTER 2022-11-22 07:54 | Day surgery (SDC) | payer OTHER, SELFPAY ==
[2022-11-19 10:11] VITALS: BMI 41.8
[2022-11-19 10:33] VITALS: BMI 41.8
--- NOTE | 2022-11-19 13:36 | P.CONAN_ITS ---
Documented by User: Katie Youngblood NP 11/19/22 13:45 HPI - Anesthesia Eval Consult details Narrative: 57yo M for Colonoscopy Eliquis for afib, ablation 2019 with recurrence PMFSH Active Problems Active Problems: All Active Problems (Updated 11/19/22 @ 10:33 by Lyn Rodriguez, RN) Afib (Acute) Colon cancer screening (Acute) Tinea (Acute) Insomnia (Acute) Obese (Acute) Cough (Acute) Microalbuminuria (Acute) Mid back pain (Acute) Viral illness (Acute) Positive colorectal cancer screening using Cologuard test (Acute) Pre-op examination (Acute) Epigastric abdominal pain (Acute) Omental infarction (Acute) Pre-procedure lab exam (Acute) COVID-19 (Acute) Omental infarction (Acute) LAYNE (obstructive sleep apnea) (Acute) Morbid obesity (Acute) Past Medical History Medical History (Updated 11/19/22 @ 10:33 by Lyn Rodriguez RN) Diarrhea Elevated LFTs History of COVID-19 HTN (hypertension) Insulin resistance Morbid obesity Omental infarction LAYNE (obstructive sleep apnea) PAF (paroxysmal atrial fibrillation) Family History Family History Father CAD (coronary artery disease) History of partial colectomy Hypertension CVD (cardiovascular disease) Alzheimers disease Mother Asthma Brother Hepatitis Sister Family history of thyroid problem Breast cancer Paternal Grandfather Stomach cancer Surgical History Surgical History H/O prior ablation treatment History of lymph node excision History of prior ablation treatment Social History Social History Housing: House Are you a primary skin care instructor to a significant other at home: No Do you presently have visiting nurse or other home services: No Alcohol intake: never Patient Tobacco Use Status: Never used Tobacco e-Cigarette/Vaping Use: Never Used Second Hand Smoke Exposure: No Use of substances other than those prescribed or required for medical reasons: No Have you been hit, kicked, punched, or otherwise hurt by someone within the past year? If so, by whom?: No Are you DNR?: No Advance Directives: No Advance Directives Information Provided: Yes (brochure mailed) Advance Directives on File: No Recently lost weight without trying: No Eating poorly because of decreased appetite: No Nutrition Risks: No Nutritional Risk service: No Current occupational status: employed Current occupation: [employer] Cognitive needs: No Hearing needs: No Vision needs: No Meds Allergies Allergy/AdvReac Type Severity Reaction Status Date / Time No Known Allergies Allergy Verified 11/16/22 11:35 Home Medications Medication Instructions Recorded Confirmed Last Taken Type apixaban 5 mg tablet 5 mg PO BID 10/26/20 11/19/22 Unknown History metoprolol succinate 50 mg 50 mg PO DAILY PRN afib 04/23/22 11/19/22 Unknown History tablet,extended release 24 hr metformin 500 mg tablet 500 mg PO DAILY 10/15/22 11/19/22 Unknown History Exam Exam Date and Time: November 19, 2022 1336 Height,Weight and Vital Signs: Height 5 ft 11 in Weight 136.248 kg Pertinent Lab Results Pertinent Lab Results: Laboratory Tests 08/02/22 09/28/22 00:46 06:14 WBC 14.3 H Hgb 14.0 Hct 41.3 L Plt Count 281 Sodium 141 Potassium 4.6 Chloride 104 Carbon Dioxide 27 BUN 12 Creatinine 1.05 Narrative Narrative: EKG 07/2022 per cardiac note NSR, otherwise normal Assessment and Plan Assessment Anesthesia Assessment: Chart Reviewed Documented by User: Milo Lozada MD 11/22/22 09:04 [facility] Past Medical History Medical History (Updated 11/19/22 @ 10:33 by Lyn Rodriguez RN) Diarrhea Elevated LFTs History of COVID-19 HTN (hypertension) Insulin resistance Morbid obesity Omental infarction LAYNE (obstructive sleep apnea) PAF (paroxysmal atrial fibrillation) Family History Family History Father CAD (coronary artery disease) History of partial colectomy Hypertension CVD (cardiovascular disease) Alzheimers disease Mother Asthma Brother Hepatitis Sister Family history of thyroid problem Breast cancer Paternal Grandfather Stomach cancer Family history of problems with anesthesia: No Surgical History Surgical History H/O prior ablation treatment History of lymph node excision History of prior ablation treatment History of Problems with Anesthesia: No Social History Social History Housing: House Are you a primary skin care instructor to a significant other at home: No Do you presently have visiting nurse or other home services: No Alcohol intake: never Patient Tobacco Use Status: Never used Tobacco e-Cigarette/Vaping Use: Never Used Second Hand Smoke Exposure: No Use of substances other than those prescribed or required for medical reasons: No Have you been hit, kicked, punched, or otherwise hurt by someone within the past year? If so, by whom?: No Are you DNR?: No Advance Directives: No Advance Directives Information Provided: Yes (brochure mailed) Advance Directives on File: No Recently lost weight without trying: No Eating poorly because of decreased appetite: No Nutrition Risks: No Nutritional Risk service: No Current occupational status: employed Current occupation: [employer] Cognitive needs: No Hearing needs: No Vision needs: No Meds Allergies Allergy/AdvReac Type Severity Reaction Status Date / Time No Known Allergies Allergy Verified 11/16/22 11:35 Home Medications Medication Instructions Recorded Confirmed Last Taken Type apixaban 5 mg tablet 5 mg PO BID 10/26/20 11/19/22 Unknown History metoprolol succinate 50 mg 50 mg PO DAILY PRN afib 04/23/22 11/19/22 Unknown History tablet,extended release 24 hr metformin 500 mg tablet 500 mg PO DAILY 10/15/22 11/19/22 Unknown History Exam Airway Mallampati Class: II TM Dist: >3cm Neck ROM: Full Heart: rrr Lungs: cta Assessment and Plan Assessment Anesthesia Assessment: Anesthesia Plan Discussed Final Anesthetic Review Family History of Problems with Anesthesia: No History of Problems with Anesthesia: No NPO: Yes ASA Class: III Final Preanesthetic Review: No Changes in Pt Med Stat, Meds/Allgs Chart Reviewed, Consent Obtained/Reviewed and Anes Risks/Benef Reviewed Patient Risk: Intermediate Procedure Risk: Low Anesthetic Plan Anesthetic Plan: MAC: and Agree w/ Assess. and Plan Disposition: Standard PACU
[2022-11-22 08:21] VITALS: BP 128/81; PULSE 64; RESP 16; TEMP 36.2; O2SAT 96
[2022-11-22] MEDS: Lactated Ringers 1,000 ML 100 ML IVCONT (08:37)
[2022-11-22 08:40] LABS: Glucose, Whole Blood 104 mg/dL (60-115)
--- NOTE | 2022-11-22 08:51 | P.HPSUR_ITS ---
Pre-Procedural Eval Section A Date of Service: 11/22/22 Section B Chief Complaint: pos cologuard stool Relevant Family History (Specify if Yes): No Relevant Social History: None Present Medications: see Short Stay Collaborative assessment Medical History: Significant History (Diarrhea Elevated LFTs History of COVID-19 HTN (hypertension) Insulin resistance Morbid obesity Omental infarction LAYNE (obstructive sleep apnea) PAF (paroxysmal atrial fibrillation)) History of Previous Operations: Relevant previous surgery/procedure and date(s) (H/O prior ablation treatment History of lymph node excision History of prior ablation treatment) Allergies: Allergies Allergy/AdvReac Type Severity Reaction Status Date / Time No Known Allergies Allergy Verified 11/16/22 11:35 Review of Systems Sugical H&P ROS: Negative: Constitution, Cardiovascular, Respiratory, Edd rological, Psychiatric, Hem-Onc, Allergic/Immunologic, Gastrointestinal, Genitourinary, Musculoskeletal, Integumentary, Endocrine and Eyes/Ears/Nose/Throat Exam Surgical H&P Exam: Normal: HEENT, Normal: Heart, Normal: Lungs, Normal: Extremities, Normal: Abdomen, Normal: Skin and Normal: Neurological Exam Comment: high BMI Plan Diagnosis/Plan: Unchanged I have reviewed the history and physical and performed a pertinent physical examination on my patient. No changes have occurred unless specified. Time Spent With Patient Time: Total time managing care of this patient today ____ minutes.
--- NOTE | 2022-11-22 08:52 | W.PM.OPN ---
Operative Note Operative Note Date of Service: 11/22/22 Narrative: Operative Information Procedure Description: Colonoscopy Indication: pos cologuard test Anesthesia: MAC COLONOSCOPY Instrument: Olympus variable stiffness adult scope 190L Colonoscopy Monitoring: Vital signs and clinical assessment, continuous EKG monitoring, Pulse oximetry, Carbon Dioxide monitoring and blood pressure monitoring were done throughout the procedure. Colon withdrawal time was 10 minutes. Procedure: The patient was placed in the left lateral decubitis position and pre-procedure medications were administered. After a digital rectal examination of the ano-rectum, the video colonoscope was inserted into the rectum and advanced through the colon to the cecum/TI. The colonoscope was slowly withdrawn in a retrograde panoramic fashion and the colon mucosa was carefully examined including a retroflexed view of the rectum. Findings and interventions are described below. Procedure Difficulty: moderate Findings: Terminal Ileum-normal Cecum:normal Ascending Colon: normal Transverse Colon - x1 sessile polyp 6-7 mm removed with cold forceps, x1 sessile polyp 10 mm removed with cold snare Descending Colon:normal Sigmoid Colon: normal Rectum: Retroflexion with small internal hemorrhoids, grade I Anorectum - normal Colon preparation: Carrabelle Bowel Preparation Scale Right colon; 3 Transverse colon: 3 Left colon; 3 (0 = Unprepared colon segment with mucosa not seen due to solid stool that cannot be cleared. 1 = Portion of mucosa of the colon segment seen, but other areas of the colon segment not well seen due to staining, residual stool and/or opaque liquid. 2 = Minor amount of residual staining, small fragments of stool and/or opaque liquid, but mucosa of colon segment seen well. 3 = Entire mucosa of colon segment seen well with no residual staining, small fragments of stool or opaque liquid) Impression and Post Procedure Diagnosis: polyps internal hemorrhoids Plan: High fiber diet leaflet Avoid straining at stool, epsom salts and sitz bath, anusol supps or cream Repeat Colonoscopy in 5 years or earlier if clinically indicated Above findings were reviewed with the patient and relevant handouts were provided if indicated.
[2022-11-22 09:45] VITALS: BP 126/74; PULSE 88; RESP 18; TEMP 36.2; O2SAT 93
[2022-11-22 10:01] VITALS: BP 116/65; PULSE 79; RESP 18; TEMP 36.1; O2SAT 95
== END 2022-11-22 10:55 | disposition home or self-care (01) ==
PROVIDERS: PCP Physician Assistant; Visit Provider Internal Medicine Gastroenterology
PROC: 0DJD8ZZ Inspection of Lower Intestinal Tract, Via Natural or Artificial Opening Endoscopic (ICD-10-PCS; CPT 45378; principal; 2022-11-22 09:10)
DX: R19.5 Other fecal abnormalities (principal); D12.3 Benign neoplasm of transverse colon; K64.0 First degree hemorrhoids; K55.069 Acute infarction of intestine, part and extent unspecified; Z80.0 Family history of malignant neoplasm of digestive organs; R19.7 Diarrhea, unspecified; E88.81 Metabolic syndrome and other insulin resistance; I10 Essential (primary) hypertension; G47.33 Obstructive sleep apnea (adult) (pediatric); I48.0 Paroxysmal atrial fibrillation; R79.89 Other specified abnormal findings of blood chemistry; Z79.01 Long term (current) use of anticoagulants; Z79.84 Long term (current) use of oral hypoglycemic drugs; Z79.899 Other long term (current) drug therapy; E66.01 Morbid (severe) obesity due to excess calories; Z68.41 Body mass index [BMI] 40.0-44.9, adult; Z86.16 Personal history of COVID-19
CPT/HCPCS: 45380; 82947; 88305

== ENCOUNTER 2022-11-24 15:10 | Emergency (ER) | payer OTHER, SELFPAY ==
--- NOTE | ~2022-11-24 | XR_ITS ---
EXAMINATION: XR CHEST CLINICAL INFORMATION: Cough. COMPARISON: Chest done on 04/23/2022. TECHNIQUE: 2 views of the chest were obtained. FINDINGS: No significant abnormality is noted involving the heart, lungs, mediastinum, bony thorax or soft tissues. No significant change. XR/XR chest 2V IMPRESSION: Unremarkable examination. No significant change since 04/23/2022.
[2022-11-24 15:34] VITALS: BP 147/97; PULSE 66; RESP 16; TEMP 36.5
--- NOTE | 2022-11-24 16:34 | ED_ITS ---
HPI - General Adult General Chief complaint: General Medical Stated complaint: lower back pain,runny nose,cough,colonoscopy11/22 Time Seen by Provider: 11/24/22 16:00 History of Present Illness HPI narrative: Patient complains of coughing and bringing up sputum over the past 3 days and th en today developed pain in his left lower back after coughing, this pain has improved it is not associated with any change to bowel or bladder there is no dysuria no frequency no blood in the urine no incontinence no numbness weakness or tingling no radiation of the pain The cough is not associated with any chest pain or shortness of breath, there is a mild runny nose there are some body aches and fatigue no nausea vomiting or diarrhea Related Data Home Medications Medication Instructions Recorded Confirmed apixaban 5 mg tablet 5 mg PO BID 10/26/20 11/29/22 metoprolol succinate 50 mg 50 mg PO DAILY PRN afib 04/23/22 11/29/22 tablet,extended release 24 hr metformin 500 mg tablet 500 mg PO DAILY 10/15/22 11/29/22 Previous Rx's Medication Instructions Recorded albuterol sulfate 90 mcg/actuation 2 puff PO Q4H PRN wheezing 30 days 04/23/22 aerosol inhaler #8.5 grams lisinopril 5 mg tablet 5 mg PO DAILY 90 days #90 tabs 04/23/22 CPAP (CPAP Machine/Device) #1 ea 09/25/22 Allergies Allergy/AdvReac Type Severity Reaction Status Date / Time No Known Allergies Allergy Verified 12/07/22 16:15 [facility] Past Medical History Source: nursing notes reviewed Medical History Diarrhea Elevated LFTs Family history of gastric cancer History of COVID-19 HTN (hypertension) Insulin resistance Morbid obesity Omental infarction LAYNE (obstructive sleep apnea) PAF (paroxysmal atrial fibrillation) Surgical History H/O prior ablation treatment History of lymph node excision History of prior ablation treatment Family History Family History Father CAD (coronary artery disease) History of partial colectomy Hypertension CVD (cardiovascular disease) Alzheimers disease Mother Asthma Brother Hepatitis Sister Family history of thyroid problem Breast cancer Paternal Grandfather Stomach cancer Social History Social History Housing: House Are you a primary primary care pediatrician to a significant other at home: No Do you presently have visiting nurse or other home services: No Alcohol intake: never Patient Tobacco Use Status: Never used Tobacco e-Cigarette/Vaping Use: Never Used Second Hand Smoke Exposure: No service: No Current occupational status: employed Current occupation: [employer] Cognitive needs: No Hearing needs: No Vision needs: No Physical Exam ED Vital Signs: Vital Signs - 24 hr 11/24/22 15:34 Temperature 97.7 F Pulse Rate 66 Respiratory Rate 16 Blood Pressure 147/97 H BMI result Body Mass Index 0.5 general appearance is no acute distress Eyes anicteric no pallor The sinuses nontender The pharynx is clear Neck is supple Chest clear to auscultation bilateral Heart no murmur Abdomen soft nontender Skin no rashes Course Course Course Narrative: Chest x-ray was normal COVID and flu testing were negative Patient's back pain has basically resolved with no treatment He is prescribed doxycycline antibiotic for bronchitis, he understands that this may very well be a viral illness but is concerned as 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 and wants to get any possible treatment for his cough Well-appearing patient ambulated easily breathing easily is discharged Medical Decision Making Lab Data Labs: Lab Results 11/24/22 11/24/22 Range/Units 17:04 17:04 COVID-19 (GAGAN) Negative (Negative) COVID-19 Clin Com See Note Influenza Type A (ROBERTO) Negative (Negative) Influenza Type B (ROBERTO) Negative (Negative) Influenza A & B Note See Note Discharge Plan Discharge Clinical Impression: Bronchitis Patient Disposition: Home, Self-Care Additional Instructions: Chest x-ray and COVID testing were negative, as was flu testing We are treating for possible bronchitis with antibiotic doxycycline, but is very possible this is a viral cough that may need to run its course Doxycycline is best taken with food as sometimes on an empty stomach it can make you nauseous Return any time for difficulty breathing any worse condition or any concerns Prescriptions: No Action (DME) CPAP Machine/Device Device See Rx Instructions .Route Qty: 1 0RF Rx Instructions: As directed Eliquis 5 mg tablet 5 mg PO BID metoprolol succinate 50 mg tablet extended release 24 hr 50 mg PO DAILY PRN (Reason: afib) albuterol sulfate 90 mcg/actuation HFA aerosol inhaler 2 puff PO Q4H PRN (Reason: wheezing) 30 Days Qty: 8.5 1RF lisinopril 5 mg tablet 5 mg PO DAILY 90 Days Qty: 90 1RF metformin 500 mg tablet 500 mg PO DAILY Stand Alone Forms: Work/School Release Interventions: ED Discharge Assessment Last Done: 11/24/22 18:22 Discharge Date/Time: 11/24/22 18:22
[2022-11-24 17:43] LABS: IDNOW Serial# 55D5AD1C; Influenza A Negative (Negative); Influenza B2 Negative (Negative)
[2022-11-24 17:47] LABS: COVID-19 Test Negative (Negative); IDNOW Serial# 6674DD1D
== END 2022-11-24 18:22 | disposition home or self-care (01) ==
PROVIDERS: Physician Assistant Medical; Emergency Provider Emergency Medicine; PCP Physician Assistant
DX: J40 Bronchitis, not specified as acute or chronic (principal); Z20.822 Contact with and (suspected) exposure to COVID-19; I10 Essential (primary) hypertension; I48.0 Paroxysmal atrial fibrillation; Z79.01 Long term (current) use of anticoagulants; Z79.84 Long term (current) use of oral hypoglycemic drugs; Z79.899 Other long term (current) drug therapy
CPT/HCPCS: 71046; 87502; 87635; 99282; 99283

== ENCOUNTER → 2022-11-28 09:38 | Outpatient (BNVA) | payer OTHER, SELFPAY | PROVIDERS: PCP Physician Assistant; Visit Provider Surgery | DX: Z13.89 Encounter for screening for other disorder (principal) ==

== ENCOUNTER → 2022-12-07 15:50 | Outpatient (BNVA) | payer OTHER, SELFPAY | PROVIDERS: PCP Physician Assistant; Visit Provider Nurse Practitioner | DX: Z13.89 Encounter for screening for other disorder (principal) ==

== ENCOUNTER 2023-03-17 15:14 | Emergency (ER) | payer OTHER, SELFPAY ==
--- NOTE | ~2023-03-17 | CT_ITS ---
EXAMINATION: CT ABDOMEN AND PELVIS WITH CONTRAST CLINICAL INFORMATION: GI bleeding on eliquis COMPARISON: CT dated 09/28/2022 TECHNIQUE: Multidetector volumetric images were obtained from the superior aspect of the liver through the pubic symphysis following administration 85 mL of Omnipaque 350 intravenous contrast. Sagittal and coronal reformatted images were obtained on the technologist's workstation. Oral contrast: No This CT examination was performed using dose optimization techniques as appropriate, variously including the following: *Automated exposure control *Adjustment of mA and/or kV according to patient size (this includes techniques or standardized protocols for targeted exams where dose is matched to indication/reason for exam; i.e. extremities or head) *Use of iterative reconstruction technique DLP: 922 mGy-cm FINDINGS: LUNG BASES: The visualized lung bases are unremarkable. LIVER, GALLBLADDER, AND BILIARY TREE: The liver is normal in size, shape, and attenuation. No focal hepatic lesion or biliary ductal dilatation is present. The gallbladder is unremarkable with no evidence of radiopaque gallstones, gallbladder wall thickening, or obvious pericholecystic inflammatory changes. PANCREAS: Unremarkable. SPLEEN: Unremarkable. ADRENAL GLANDS: Unremarkable. KIDNEYS AND URETERS: The kidneys are normal in size, shape, and attenuation. A subcentimeter cyst in the upper pole of the right kidney is benign. No follow-up imaging recommended. No hydronephrosis, hydroureter, or calculi seen. Benign cortical calcification along the medial interpolar cortex of the right kidney. No perinephric stranding. BLADDER: Unremarkable. GASTROINTESTINAL TRACT: The small and large bowel are unremarkable. The appendix is unremarkable. Interval evolution of a now chronic omental infarct in the right upper quadrant. ABDOMINAL WALL: No significant hernia is appreciated. LYMPH NODES: Normal. VASCULAR: Unremarkable. PELVIC VISCERA: Unremarkable. OSSEOUS STRUCTURES: No acute or suspicious osseous abnormalities. CT/CT abdomen pelvis w IV con IMPRESSION: * No acute findings within the abdomen or pelvis to explain the patient's symptomatology. * Interval evolution of a now chronic omental infarct in the right upper quadrant.
[2023-03-17 15:29] VITALS: BP 144/75; PULSE 65; RESP 16; TEMP 36.6; O2SAT 99; BMI 39.5
--- NOTE | 2023-03-17 15:30 | ED.GENADULT ---
HPI - General Adult General Chief complaint: GI Bleed Stated complaint: Bleeding in bowels Time Seen by Provider: 03/17/23 16:03 Source: patient Mode of arrival: ambulatory Limitations: no limitations History of Present Illness HPI narrative: This is a 57-year-old male history of tubular adenoma of colon, atrial fib related anticoagulated on apixaban, insomnia, LAYNE, obesity presenting for evaluation of blood in stool x1 day. Patient reports he is got to the bathroom 3 times a day in each time when he wipes he is noted blood on toilet paper. Reports bright red blood. He is on Eliquis and reports he took it today. Last colonoscopy was last urine he tells me was unremarkable. Patient reports some nausea. Denies abdominal pain, fevers, chills, chest pain, shortness of breath, headache, vision changes, dizziness, weakness. Related Data Home Medications Medication Instructions Recorded Confirmed apixaban 5 mg tablet 5 mg PO BID 10/26/20 11/29/22 metoprolol succinate 50 mg 50 mg PO DAILY PRN afib 04/23/22 11/29/22 tablet,extended release 24 hr metformin 500 mg tablet 500 mg PO DAILY 10/15/22 11/29/22 Previous Rx's Medication Instructions Recorded albuterol sulfate 90 mcg/actuation 2 puff PO Q4H PRN wheezing 30 days 04/23/22 aerosol inhaler #8.5 grams lisinopril 5 mg tablet 5 mg PO DAILY 90 days #90 tabs 04/23/22 CPAP (CPAP Machine/Device) #1 ea 09/25/22 Allergies Allergy/AdvReac Type Severity Reaction Status Date / Time No Known Allergies Allergy Verified 12/07/22 16:15 Review of Systems Review of Systems: Constitutional : No Weight loss, No Fever, No Chills, No Fatigue, No Malaise ENT/Mouth : No sore throat, No Rhinorrhea Eyes: No Eye Pain, No Swelling, No Redness Cardiovascular : No Chest Pain, No SOB, No Dyspnea on Exertion, No Orthopnea, No Edema, No Palpitations Respiratory : No Cough, No Sputum, No Wheezing Gastrointestinal : No Nausea, No Vomiting, No Diarrhea, No Constipation, No abdominal Pain, + Hematochezia, No Melena Genitourinary : No Dysuria, No Urinary Frequency, No Hematuria, Musculoskeletal : No joint pain, No Myalgias, No Joint Swelling Skin : No Skin Lesions, No rash Neuro : No Weakness, No Numbness, No Dizziness, No Headache Psych : No Anxiety/Panic, No Depression All other systems reviewed and are negative Yes all other systems are reviewed and are negative [facility] Past Medical History Medical History Diarrhea Elevated LFTs Family history of gastric cancer History of COVID-19 HTN (hypertension) Insulin resistance Morbid obesity Omental infarction LAYNE (obstructive sleep apnea) PAF (paroxysmal atrial fibrillation) Surgical History H/O prior ablation treatment History of lymph node excision History of prior ablation treatment Family History Family History Father CAD (coronary artery disease) History of partial colectomy Hypertension CVD (cardiovascular disease) Alzheimers disease Mother Asthma Brother Hepatitis Sister Family history of thyroid problem Breast cancer Paternal Grandfather Stomach cancer Social History Social History Housing: House Are you a primary care aide to a significant other at home: No Do you presently have visiting nurse or other home services: No Alcohol intake: never Patient Tobacco Use Status: Never used Tobacco e-Cigarette/Vaping Use: Never Used Second Hand Smoke Exposure: No Use of substances other than those prescribed or required for medical reasons: No Advance Directives: No Advance Directives Information Provided: No service: No Current occupational status: employed Current occupation: M Cognitive needs: No Hearing needs: No Vision needs: No Physical Exam ED Vital Signs: Vital Signs - 24 hr 03/17/23 15:29 03/17/23 18:46 Temperature 97.8 F 98.1 F Pulse Rate 65 62 Respiratory Rate 16 14 Blood Pressure 144/75 H 143/92 H Pulse Oximetry 99 98 Oxygen Delivery Method Room Air Room Air BMI result Body Mass Index 39.5 vss Appearance: Alert.? Oriented X3.? No acute distress.? Head: Normocephalic, atraumatic, no step-offs or deformities Eyes: Pupils equal, round and reactive to light.? CVS: Normal heart rate and rhythm.? Pulses normal.? Respiratory: No respiratory distress.? Breath sounds normal.? Abdomen: Soft and nontender.? Skin: Skin warm and dry.? Normal skin color.? Normal skin turgor.? Extremities: No lower extremity edema.? No calf ttp. 5/5 strength to bilateral upper and lower extremities Back: No midline tenderness, no C-spine tenderness, full range of motion, no CVA tenderness bilaterally Neuro: Oriented X 3.? No motor deficit.? No sensory deficit. CN 2-12 intact Rectal exam. Normal tone, no appreciated blood on KAREN, unable to appreciate any internal or external hemorrhoids. Course Course Course Narrative: RME performed by Vilma Lewis PA-C. Patient is a 57 year old assigned male at presenting to the emergency department with bloody stools. Patient states that he takes Eliquis for atrial fib and recently has had blood in his bowel movements. Patient states that his bowel movements have been dark read and water. Labs ordered. Patient placed back in the waiting room pending room availability and results. Reevaluation(s) Reevaluation #1: Patient's CBC stable x2. Chemistry with no acute electrolyte abnormalities requiring intervention. Lipase within normal limits. Coags at baseline. Stool occult negative. Patient has had any episodes of blood in stool while in the department hemodynamically stable have him hold Eliquis for 1 day, discuss this case with my attending who agrees with plan. Have him follow-up with his PCP and GI. Educated patient on diagnosis and treatment plan, answered all question, patient verbalizes understanding. At this time patient will be discharged home, advised to return with new or worsening symptoms. Educated on worrisome signs and symptoms and when to return. At this time I feel comfortable discharge home. Time: 18:20 Reevaluation #2: CT of the abdomen and pelvis with no acute findings within the abdomen or pelvis to explain patient's symptoms. Interval evolution of chronic omental infarct in the right upper quadrant however no abdominal tenderness to palpation. Will have him follow-up with GI/PCP for this. Time: 19:45 Medications Administered Discontinued Medications Generic Name Dose Route Start Last Admin Trade Name Freq PRN Reason Stop Dose Admin Iohexol 100 ml 03/17/23 17:33 03/17/23 17:37 Iohexol 350 Mg/Ml 100 Ml Infus..Btl IV 03/17/23 17:34 85 ml ONCE ONE Administration Medical Decision Making Medical Decision Making MDM Narrative: 1700 57-year-old male presents with rectal bleeding x1 day, anticoagulated on Eliquis. Last colonoscopy a year ago and within normal limits per patient. Physical exam benign. No abdominal tenderness. Normal rectal exam. Unable to appreciate internal or external hemorrhoids, no anal fissures. Concerns for possible hemorrhoids versus anal fissures. Other differentials include lower GI bleed. No signs of acute abdomen. Plan at this time labs, urine, OBS. Differential Diagnosis Differential Diagnoses: The differential diagnosis associated with the presentation includes Concerns for possible hemorrhoids versus anal fissures. Other differentials include lower GI bleed. No signs of acute abdomen. Admission/Observation Consideration of admission/observation: Escalation of care including admission/observation considered Lab Data [facility] Lab Attestation statement: I reviewed the patient's lab results. 03/17/23 15:39 03/17/23 15:39 Labs: Lab Results 03/17/23 03/17/23 03/17/23 Range/Units 15:39 15:39 15:39 WBC 10.3 (4.8-10.8) X10*3/uL RBC 4.43 L (4.60-5.80) X10*6/uL Hgb 14.1 (14.0-18.0) g/dl Hct 41.9 L (42.0-52.0) % MCV 94.6 (80.0-98.0) fL MCH 31.8 (27.0-33.0) pg MCHC 33.7 (31.0-36.0) g/dl RDW 11.3 (11.0-16.0) % Plt Count 250 (160-400) X10*3/uL MPV 11.0 (9.4-12.4) fL Immature Gran % (Auto) 0.4 (0.0-0.4) % Neut % (Auto) 60.4 (45-73) % Lymph % (Auto) 22.6 (20-40) % [place] % (Auto) 8.8 (2-11) % Eos % (Auto) 7.5 H (0-4) % Baso % (Auto) 0.3 (0-2) % Lymph # (Auto) 2.3 (1.2-4.9) X10*3/uL [place] # (Auto) 0.9 (0.1-1.2) X10*3/uL Eos # (Auto) 0.8 H (0.0-0.4) X10*3/uL Baso # (Auto) 0.0 (0.0-0.2) X10*3/uL Abs Immat Gran (auto) 0.04 H (0.00-0.03) X10*3/uL Absolute Neuts (auto) 6.3 (2.0-8.3) x10*3/uL Absolute Nucleated RBC 0.000 (0.0-0.012) X10*3/uL Nucleated RBC % (auto) 0.0 (0.0-0.2) /100WBC PT 13.5 H (10.0-13.1) SEC INR 1.2 H (0.9-1.1) APTT 40.2 H (26.0-36.4) SEC Sodium 140 (135-145) mmol/L Potassium 4.2 (3.3-5.1) mmol/L Chloride 105 (96-108) mmol/L Carbon Dioxide 28 (22-29) mmol/L Anion Gap 11 L (12-20) BUN 19 H (9-16) mg/dL Creatinine 1.18 (0.5-1.4) mg/dL Estim Creat Clear Calc 92.0 Estimated GFR > 60 Random Glucose 93 (60-115) mg/dL Calcium 9.5 (8.4-10.2) mg/dL Magnesium 2.1 (1.6-2.6) mg/dL Total Bilirubin 1.6 H (0.0-1.0) mg/dL AST 28 (5-37) U/L ALT 47 H (0-40) U/L Alkaline Phosphatase 67 (39-117) U/L Total Protein 7.0 (6.5-8.0) g/dL Albumin 4.3 (3.5-5.0) g/dL Lipase 32 (8-78) U/L Urine Color Urine Appearance Urine pH (5.0-9.0) Ur Specific [place] (1.005-1.025) Urine Protein (Neg-Trace) mg/dL Urine Glucose (UA) (Negative) mg/dL Urine Ketones (Negative) mg/dL Urine Blood (Negative) Urine Nitrite (Negative) Ur Leukocyte Esterase (Negative) Urine RBC (0-2) /HPF Urine WBC (0-5) /HPF Ur Squamous Epith Cells (0-2) /HPF Urine Bacteria (None Seen) Hyaline Casts (0-2) /LPF Stool Occult Blood (NEGATIVE) 03/17/23 03/17/23 03/17/23 Range/Units 16:33 17:41 18:45 WBC 10.4 (4.8-10.8) X10*3/uL RBC 4.11 L (4.60-5.80) X10*6/uL Hgb 13.3 L (14.0-18.0) g/dl Hct 39.2 L (42.0-52.0) % MCV 95.4 (80.0-98.0) fL MCH 32.4 (27.0-33.0) pg MCHC 33.9 (31.0-36.0) g/dl RDW 11.3 (11.0-16.0) % Plt Count 229 (160-400) X10*3/uL MPV 11.1 (9.4-12.4) fL Immature Gran % (Auto) 0.5 H (0.0-0.4) % Neut % (Auto) 57.1 (45-73) % Lymph % (Auto) 23.4 (20-40) % [place] % (Auto) 9.7 (2-11) % Eos % (Auto) 9.1 H (0-4) % Baso % (Auto) 0.2 (0-2) % Lymph # (Auto) 2.4 (1.2-4.9) X10*3/uL [place] # (Auto) 1.0 (0.1-1.2) X10*3/uL Eos # (Auto) 0.9 H (0.0-0.4) X10*3/uL Baso # (Auto) 0.0 (0.0-0.2) X10*3/uL Abs Immat Gran (auto) 0.05 H (0.00-0.03) X10*3/uL Absolute Neuts (auto) 5.9 (2.0-8.3) x10*3/uL Absolute Nucleated RBC 0.000 (0.0-0.012) X10*3/uL Nucleated RBC % (auto) 0.0 (0.0-0.2) /100WBC PT (10.0-13.1) SEC INR (0.9-1.1) APTT (26.0-36.4) SEC Sodium (135-145) mmol/L Potassium (3.3-5.1) mmol/L Chloride (96-108) mmol/L Carbon Dioxide (22-29) mmol/L Anion Gap (12-20) BUN (9-16) mg/dL Creatinine (0.5-1.4) mg/dL Estim Creat Clear Calc Estimated GFR Random Glucose (60-115) mg/dL Calcium (8.4-10.2) mg/dL Magnesium (1.6-2.6) mg/dL Total Bilirubin (0.0-1.0) mg/dL AST (5-37) U/L ALT (0-40) U/L Alkaline Phosphatase (39-117) U/L Total Protein (6.5-8.0) g/dL Albumin (3.5-5.0) g/dL Lipase (8-78) U/L Urine Color Yellow Urine Appearance Clear Urine pH 6.5 (5.0-9.0) Ur Specific [place] >= 1.030 H (1.005-1.025) Urine Protein Negative (Neg-Trace) mg/dL Urine Glucose (UA) Negative (Negative) mg/dL Urine Ketones Negative (Negative) mg/dL Urine Blood Negative (Negative) Urine Nitrite Negative (Negative) Ur Leukocyte Esterase Negative (Negative) Urine RBC 0-2 (0-2) /HPF Urine WBC 0-5 (0-5) /HPF Ur Squamous Epith Cells 0-2 (0-2) /HPF Urine Bacteria None Seen (None Seen) Hyaline Casts 0-2 (0-2) /LPF Stool Occult Blood NEGATIVE (NEGATIVE) Core Measures AMI core measures followed: Yes Measure exclusions: not indicated Critical Care Time Critical Care Time Critical Care Time: No Discharge Plan Discharge Clinical Impression: Blood in stool Patient Disposition: Home, Self-Care Instructions: Rectal Bleeding (ED) Additional Instructions: Take your medications as prescribed. If you were prescribed antibiotics today, it is important that you take your medication to their entirety, do not skip any doses, do not finish them early. Follow-up with your primary care provider this week. Return to the emergency department with new or worsening symptoms. Such as fevers, chills, chest pain, shortness of breath, nausea, vomiting, dizziness, headache, vision changes, lethargy In case of emergency call 911 Hold your eliquis for one day . If rectal bleeding worsens or comes back, you should return immediately. Your labs were reassuring. Your rectal exam showed no blood. CT was unremarkable. CT/CT abdomen pelvis w IV con IMPRESSION: *? No acute findings within the abdomen or pelvis to explain the patient's symptomatology. *? Interval evolution of a now chronic omental infarct in the right upper quadrant --> Follow up with PCP for this. ? Prescriptions: No Action (DME) CPAP Machine/Device Device See Rx Instructions .Route Qty: 1 0RF Rx Instructions: As directed Eliquis 5 mg tablet 5 mg PO BID metoprolol succinate 50 mg tablet extended release 24 hr 50 mg PO DAILY PRN (Reason: afib) albuterol sulfate 90 mcg/actuation HFA aerosol inhaler 2 puff PO Q4H PRN (Reason: wheezing) 30 Days Qty: 8.5 1RF lisinopril 5 mg tablet 5 mg PO DAILY 90 Days Qty: 90 1RF metformin 500 mg tablet 500 mg PO DAILY Referrals: [facility] [place] [facility] [Provider Group] - 2 days Jonathan Barnett PA-C [Primary Care Provider] - 2 days
[2023-03-17 15:53] LABS: MANUAL DIFF FLAG NO
--- NOTE | 2023-03-17 15:55 | PC.NURSE ---
Pt reports two episodes of loose bloody stool, since has resolved. Denies any pain, only stating he has nausea off and on.
[2023-03-17 15:56] LABS: Basophils Percent Auto 0.3 % (0-2); Eosinophils Absolute Auto 0.8 X10*3/uL (0.0-0.4); Eosinophils Percent Auto 7.5 % (0-4); Hematocrit 41.9 % (42.0-52.0); Hemoglobin 14.1 g/dl (14.0-18.0); Imm Gran Abs Auto 0.04 X10*3/uL (0.00-0.03); Imm Gran Pct Auto 0.4 % (0.0-0.4); Lymphocytes Absolute Auto 2.3 X10*3/uL (1.2-4.9); Lymphocytes Percent Auto 22.6 % (20-40); Mean Corpuscular HGB Conc 33.7 g/dl (31.0-36.0); Mean Corpuscular Hemoglobin 31.8 pg (27.0-33.0); Mean Corpuscular Volume 94.6 fL (80.0-98.0); Monocytes Absolute Auto 0.9 X10*3/uL (0.1-1.2); Monocytes Percent Auto 8.8 % (2-11); Neutrophils Absolute Auto 6.3 x10*3/uL (2.0-8.3); Neutrophils Percent Auto 60.4 % (45-73); Platelet Count 250 X10*3/uL (160-400); Red Blood Count 4.43 X10*6/uL (4.60-5.80); Red Cell Distribution Width 11.3 % (11.0-16.0); White Blood Count 10.3 X10*3/uL (4.8-10.8)
[2023-03-17 16:01] LABS: INTERNATIONAL NORM RATIO 1.2 (0.9-1.1); Prothrombin Time 13.5 SEC (10.0-13.1)
[2023-03-17 16:04] LABS: Partial Thromboplastin Time 40.2 SEC (26.0-36.4)
[2023-03-17 16:10] LABS: Alanine Aminotransferase 47 U/L (0-40); Albumin Level 4.3 g/dL (3.5-5.0); Alkaline Phosphatase 67 U/L (39-117); Anion Gap 11 (12-20); Aspartate Amino Transferase 28 U/L (5-37); Bilirubin Total 1.6 mg/dL (0.0-1.0); Blood Urea Nitrogen 19 mg/dL (9-16); Calcium 9.5 mg/dL (8.4-10.2); Carbon Dioxide 28 mmol/L (22-29); Chloride 105 mmol/L (96-108); Estimated Glomerular Filt Rate > 60; Glucose Random 93 mg/dL (60-115); Lipase 32 U/L (8-78); Magnesium 2.1 mg/dL (1.6-2.6); Potassium 4.2 mmol/L (3.3-5.1); Sodium 140 mmol/L (135-145)
[2023-03-17 16:39] LABS: OBS Int Ctl Valid YES
[2023-03-17 16:40] LABS: OBS1 NEGATIVE (NEGATIVE)
[2023-03-17] MEDS: iohexoL 350 MG/ML 100 ML INFUS..BTL IV (17:37)
[2023-03-17 18:11] LABS: MANUAL DIFF FLAG NO
[2023-03-17 18:12] LABS: Basophils Percent Auto 0.2 % (0-2); Eosinophils Absolute Auto 0.9 X10*3/uL (0.0-0.4); Eosinophils Percent Auto 9.1 % (0-4); Hematocrit 39.2 % (42.0-52.0); Hemoglobin 13.3 g/dl (14.0-18.0); Imm Gran Abs Auto 0.05 X10*3/uL (0.00-0.03); Imm Gran Pct Auto 0.5 % (0.0-0.4); Lymphocytes Absolute Auto 2.4 X10*3/uL (1.2-4.9); Lymphocytes Percent Auto 23.4 % (20-40); Mean Corpuscular HGB Conc 33.9 g/dl (31.0-36.0); Mean Corpuscular Hemoglobin 32.4 pg (27.0-33.0); Mean Corpuscular Volume 95.4 fL (80.0-98.0); Mean Platelet Volume 11.1 fL (9.4-12.4); Monocytes Percent Auto 9.7 % (2-11); Neutrophils Absolute Auto 5.9 x10*3/uL (2.0-8.3); Neutrophils Percent Auto 57.1 % (45-73); Platelet Count 229 X10*3/uL (160-400); Red Blood Count 4.11 X10*6/uL (4.60-5.80); Red Cell Distribution Width 11.3 % (11.0-16.0); White Blood Count 10.4 X10*3/uL (4.8-10.8)
[2023-03-17 18:46] VITALS: BP 143/92; PULSE 62; RESP 14; TEMP 36.7; O2SAT 98
[2023-03-17 19:31] LABS: Appearance Urine Clear; Color Urine Yellow; Glucose Urine UA Negative (Negative); Leukocyte Esterase Urine Negative (Negative); Nitrite Urine Negative (Negative); PH 6.5 (5.0-9.0); Specific Gravity - Urine >= 1.030 (1.005-1.025); Urine Blood Negative (Negative); Urine Ketones Negative (Negative); Urine Protein Negative (Neg-Trace)
[2023-03-17 19:36] LABS: Bacteria Urine None Seen (None Seen); Hyaline Casts Urine 0-2 /LPF (0-2); RBC Urine 0-2 /HPF (0-2); Squamous Epithelial Cell Urine 0-2 /HPF (0-2); WBC Urine 0-5 /HPF (0-5)
== END 2023-03-17 20:00 | disposition home or self-care (01) ==
PROVIDERS: Physician Assistant; Physician Assistant Medical; Emergency Provider Internal Medicine; PCP Physician Assistant
DX: K92.1 Melena (principal); R10.30 Lower abdominal pain, unspecified; Z79.899 Other long term (current) drug therapy
CPT/HCPCS: 36415; 74177; 80053; 81001; 82272; 83690; 83735; 85025; 85610; 85730; 99284; Q9967

== ENCOUNTER 2023-03-21 02:23 | Emergency (ER) | payer OTHER, SELFPAY ==
[2023-03-21 02:29] VITALS: BP 145/88; PULSE 65; RESP 18; TEMP 36.4; O2SAT 96; BMI 39.5
[2023-03-21 02:47] LABS: MANUAL DIFF FLAG NO
[2023-03-21 02:49] LABS: Basophils Percent Auto 0.3 % (0-2); Eosinophils Percent Auto 8.3 % (0-4); Hemoglobin 13.7 g/dl (14.0-18.0); Imm Gran Abs Auto 0.06 X10*3/uL (0.00-0.03); Imm Gran Pct Auto 0.5 % (0.0-0.4); Lymphocytes Absolute Auto 2.7 X10*3/uL (1.2-4.9); Lymphocytes Percent Auto 23.4 % (20-40); Mean Corpuscular HGB Conc 34.3 g/dl (31.0-36.0); Mean Corpuscular Hemoglobin 31.9 pg (27.0-33.0); Mean Platelet Volume 11.1 fL (9.4-12.4); Monocytes Absolute Auto 1.2 X10*3/uL (0.1-1.2); Monocytes Percent Auto 9.9 % (2-11); Neutrophils Absolute Auto 6.7 x10*3/uL (2.0-8.3); Neutrophils Percent Auto 57.6 % (45-73); Platelet Count 250 X10*3/uL (160-400); Red Cell Distribution Width 11.1 % (11.0-16.0); White Blood Count 11.7 X10*3/uL (4.8-10.8)
[2023-03-21 03:04] LABS: Alanine Aminotransferase 47 U/L (0-40); Albumin Level 4.2 g/dL (3.5-5.0); Alkaline Phosphatase 67 U/L (39-117); Anion Gap 13 (12-20); Aspartate Amino Transferase 28 U/L (5-37); Bilirubin Total 1.1 mg/dL (0.0-1.0); Blood Urea Nitrogen 15 mg/dL (9-16); Calcium 9.3 mg/dL (8.4-10.2); Carbon Dioxide 25 mmol/L (22-29); Chloride 106 mmol/L (96-108); Estimated Glomerular Filt Rate > 60; Glucose Random 103 mg/dL (60-115); Potassium 4.1 mmol/L (3.3-5.1); Sodium 140 mmol/L (135-145); Total Protein 6.8 g/dL (6.5-8.0)
[2023-03-21 03:08] VITALS: BP 134/94; PULSE 68; RESP 20; TEMP 36.9; O2SAT 96
[2023-03-21 06:08] VITALS: BP 113/67; PULSE 57; RESP 17; O2SAT 97
--- NOTE | 2023-03-21 06:47 | ED_ITS ---
HPI - GI Bleed General Chief complaint: GI Bleed Stated complaint: rectal bleeding Time Seen by Provider: 03/21/23 06:32 Source: patient Mode of arrival: ambulatory Limitations: no limitations History of Present Illness HPI Narrative: 57 year old male with a PMH of afirb (on Eliquis), sleep apnea, tubular adenoma and internal hemorroids (colonoscopy otherwise normal Dec 2022) and omental infaraction. He presents back today for rectal bleeding after being seen on Saturday 03/17 for the same issue. He was told on Saturday to return to the ED if his symptoms persist and to pause his Eliquis. He resumed Eliquis Saturday night 03/19. He states he only notices that he is having rectal bleeding when he is wiping with toilet paper, although he has had some some drops of blood into the toilet when he is not wiping. He mentions this occurred three times on Saturday, and twice today. He denies pain, blood in his stool, straining, and actually endorses diarrhea on Saturday. He denies abdominal pain fever, nausea, chest pain, SOB, and headache. MD complaint: blood on toilet paper Onset (ago): day(s) (4) Pain Consistency: other (none) Severity: mild Relieving factors: none Exacerbating factors: bowel movement Context: hemorrhoids Associated symptoms: other (diarrhea ) Treatments Prior to Arrival: none Related Data Home Medications Medication Instructions Recorded Confirmed apixaban 5 mg tablet 5 mg PO BID 10/26/20 11/29/22 metoprolol succinate 50 mg 50 mg PO DAILY PRN afib 04/23/22 11/29/22 tablet,extended release 24 hr metformin 500 mg tablet 500 mg PO DAILY 10/15/22 11/29/22 Previous Rx's Medication Instructions Recorded albuterol sulfate 90 mcg/actuation 2 puff PO Q4H PRN wheezing 30 days 04/23/22 aerosol inhaler #8.5 grams lisinopril 5 mg tablet 5 mg PO DAILY 90 days #90 tabs 04/23/22 CPAP (CPAP Machine/Device) #1 ea 09/25/22 Allergies Allergy/AdvReac Type Severity Reaction Status Date / Time No Known Allergies Allergy Verified 12/07/22 16:15 Review of Systems Review of Systems: Yes all other systems are reviewed and are negative PMFSH Past Medical History Medical History Diarrhea Elevated LFTs Family history of gastric cancer History of COVID-19 HTN (hypertension) Insulin resistance Morbid obesity Omental infarction LAYNE (obstructive sleep apnea) PAF (paroxysmal atrial fibrillation) Surgical History H/O prior ablation treatment History of lymph node excision History of prior ablation treatment Family History Family History Father CAD (coronary artery disease) History of partial colectomy Hypertension CVD (cardiovascular disease) Alzheimers disease Mother Asthma Brother Hepatitis Sister Family history of thyroid problem Breast cancer Paternal Grandfather Stomach cancer Social History Social History Housing: House Are you a primary child care lead teacher to a significant other at home: No Do you presently have visiting nurse or other home services: No Alcohol intake: never Patient Tobacco Use Status: Never used Tobacco Smoked in Last 30 Days: No e-Cigarette/Vaping Use: Never Used Second Hand Smoke Exposure: No Use of substances other than those prescribed or required for medical reasons: No Advance Directives: No Advance Directives Information Provided: No service: No Current occupational status: employed Current occupation: [employer] [place] Cognitive needs: No Hearing needs: No Vision needs: No Physical Exam Vital Signs: Vital Signs: Last Vital Signs Temp 97.8 F 03/21/23 07:28 Pulse 61 03/21/23 07:28 Resp 14 03/21/23 07:28 BP 144/94 H 03/21/23 07:28 Pulse Ox 97 03/21/23 07:28 O2 Del Method Room Air 03/21/23 07:28 BMI result Body Mass Index 39.5 Appearance: Alert. Oriented X3. No acute distress. Head: normocephalic, atraumatic. . Neck: Normal inspection. CVS: Normal heart rate and rhythm. Pulses normal. Respiratory: No respiratory distress. Breath sounds normal. Abdomen: Soft and nontender. +BS x4 Rectal: No external irritation or bleeding. No hemorroids or lesions felt in rectal cavity. No blood or stool in rectal cavity. Skin: Skin warm and dry. Normal skin color. Normal skin turgor. No rashes. Extremities: No lower extremity edema. No joint swelling. Neuro/psych: Oriented X 3. No motor deficit. No sensory deficit. . Normal speech and cognition. Medical Decision Making Medical Decision Making MDM Narrative: 57 yo male with hx afib on eliqiuis with rectal bleeding that is most likely benign. He had an abdominal CT and labs performed that showed no acute abnormailities or bleed present. He had no hemorroids on exam, but had a colonoscopy in November that showed internal hemorrhoids. We consulted GI who believes his bleeding is likely internal hemorroids and to follow up with g eneral surgery. We will plan to temporarily pause Eliquis and transition to aspirin for a few days. His CHADSVASC score is 1. We discussed this as well as stroke risk, he is currently in NSR. 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 He is stable for d/c home with close outpatient follow up. Differential Diagnosis Differential Diagnoses: The differential diagnosis associated with the presentation includes Internal hemorroids Diverticulosis Anal fissure Doubt brisk upper GI bleed Admission/Observation Consideration of admission/observation: Escalation of care including admission/observation considered Consult Healthcare Provider Management of the patient was discussed with: Dedicated Regional Driver Dr. hoff Lab Data stable anemia 03/21/23 02:38 03/21/23 02:38 Labs: Lab Results 03/21/23 03/21/23 03/21/23 Range/Units 02:38 02:38 07:27 WBC 11.7 H (4.8-10.8) X10*3/uL RBC 4.30 L (4.60-5.80) X10*6/uL Hgb 13.7 L (14.0-18.0) g/dl Hct 40.0 L (42.0-52.0) % MCV 93.0 (80.0-98.0) fL MCH 31.9 (27.0-33.0) pg MCHC 34.3 (31.0-36.0) g/dl RDW 11.1 (11.0-16.0) % Plt Count 250 (160-400) X10*3/uL MPV 11.1 (9.4-12.4) fL Immature Gran % (Auto) 0.5 H (0.0-0.4) % Neut % (Auto) 57.6 (45-73) % Lymph % (Auto) 23.4 (20-40) % [place] % (Auto) 9.9 (2-11) % Eos % (Auto) 8.3 H (0-4) % Baso % (Auto) 0.3 (0-2) % Lymph # (Auto) 2.7 (1.2-4.9) X10*3/uL [place] # (Auto) 1.2 (0.1-1.2) X10*3/uL Eos # (Auto) 1.0 H (0.0-0.4) X10*3/uL Baso # (Auto) 0.0 (0.0-0.2) X10*3/uL Abs Immat Gran (auto) 0.06 H (0.00-0.03) X10*3/uL Absolute Neuts (auto) 6.7 (2.0-8.3) x10*3/uL Absolute Nucleated RBC 0.000 (0.0-0.012) X10*3/uL Nucleated RBC % (auto) 0.0 (0.0-0.2) /100WBC Sodium 140 (135-145) mmol/L Potassium 4.1 (3.3-5.1) mmol/L Chloride 106 (96-108) mmol/L Carbon Dioxide 25 (22-29) mmol/L Anion Gap 13 (12-20) BUN 15 (9-16) mg/dL Creatinine 1.13 (0.5-1.4) mg/dL Estim Creat Clear Calc 96.0 Estimated GFR > 60 Random Glucose 103 (60-115) mg/dL Calcium 9.3 (8.4-10.2) mg/dL Total Bilirubin 1.1 H (0.0-1.0) mg/dL AST 28 (5-37) U/L ALT 47 H (0-40) U/L Alkaline Phosphatase 67 (39-117) U/L Total Protein 6.8 (6.5-8.0) g/dL Albumin 4.2 (3.5-5.0) g/dL Stool Occult Blood POSITIVE (NEGATIVE) Radiology Impression Discussion of test interpretation with radiology: I have reviewed the radiologist's reading. Radiologist Impression: CT/CT abdomen pelvis w IV con IMPRESSION: *? No acute findings within the abdomen or pelvis to explain the patient's symptomatology. *? Interval evolution of a now chronic omental infarct in the right upper quadrant. ? External Record Review External record reviewed: Office record, Outpatient record, Prior outpatient labs and Prior outpatient radiology Chronic Conditions Patient?s care impacted by: Hypertension and Other (afib on eliquis) Discharge Plan Discharge Clinical Impression: Rectal bleeding Patient Disposition: Home, Self-Care Instructions: Rectal Bleeding (ED) Additional Instructions: Your blood counts today were stable. Your exam did not reveal any active bleeding or cause but you have known internal hemorrhoids from your colonoscopy in November. Recommend holding your Eliquis for several days until the bleeding is completely resolved. You can take a baby aspirin instead - discuss with your Client Reporting Associate. Recommend following up with General Surgery and GI - numbers below If you develop new or worsening symptoms call 911 or come back to the ER for further evaluation. Prescriptions: No Action (DME) CPAP Machine/Device Device See Rx Instructions .Route Qty: 1 0RF Rx Instructions: As directed Eliquis 5 mg tablet 5 mg PO BID metoprolol succinate 50 mg tablet extended release 24 hr 50 mg PO DAILY PRN (Reason: afib) albuterol sulfate 90 mcg/actuation HFA aerosol inhaler 2 puff PO Q4H PRN (Reason: wheezing) 30 Days Qty: 8.5 1RF lisinopril 5 mg tablet 5 mg PO DAILY 90 Days Qty: 90 1RF metformin 500 mg tablet 500 mg PO DAILY Referrals: [facility] [place] [facility] [Provider Group] [facility] [facility] [Provider Group] (rectal bleeding) Jonathan Barnett PA-C [Primary Care Provider] -
[2023-03-21 07:28] VITALS: BP 144/94; PULSE 61; RESP 14; TEMP 36.6; O2SAT 97
--- NOTE | 2023-03-21 07:33 | PC.NURSE ---
Resting comfortably in bed, offering no complaints. Pt states he only came back because that's what the discharge instructions said . [place] within reach.
[2023-03-21 07:40] LABS: OBS Int Ctl Valid YES; OBS1 POSITIVE (NEGATIVE)
== END 2023-03-21 08:34 | disposition home or self-care (01) ==
PROVIDERS: Physician Assistant; Emergency Provider Student in an Organized Health Care Education/Training Program; PCP Physician Assistant
DX: K62.5 Hemorrhage of anus and rectum (principal); I10 Essential (primary) hypertension; I48.0 Paroxysmal atrial fibrillation; Z79.01 Long term (current) use of anticoagulants; Z79.84 Long term (current) use of oral hypoglycemic drugs; Z79.899 Other long term (current) drug therapy
CPT/HCPCS: 36415; 80053; 82272; 85025; 99283; 99284

== ENCOUNTER 2023-04-16 20:18 | Observation (INO) | payer OTHER, SELFPAY ==
--- NOTE | ~2023-04-16 | XR_ITS ---
EXAMINATION: XR CHEST CLINICAL INFORMATION: Chest pain COMPARISON: Previous chest x-ray November 2022 TECHNIQUE: Frontal view of the chest was obtained. FINDINGS: No significant abnormality is noted involving the heart, lungs, mediastinum, bony thorax or soft tissues. XR/XR chest 1V IMPRESSION: Unremarkable examination.
--- NOTE | 2023-04-16 20:20 | ECG_ITS ---
Test Reason : CHEST PAIN Blood Pressure : / mmHG Vent. Rate : 087 BPM Atrial Rate : 087 BPM P-R Int : 162 ms QRS Dur : 088 ms QT Int : 382 ms P-R-T Axes : 010 -12 016 degrees QTc Int : 459 ms Normal sinus rhythm Normal ECG When compared with ECG of 20-JAN-2022 17:58, No significant change was found Referred By: Jenise Coates Electronically Signed By:QUINTON RUTH MD
--- NOTE | 2023-04-16 20:22 | ED.CHESTPAIN ---
HPI - Chest Pain General Chief Complaint: Chest Pain Stated Complaint: CP, SOB this am. Not experiencing it rn tho Time Seen by Provider: 04/16/23 21:28 Source: patient Mode of arrival: ambulatory Limitations: no limitations History of Present Illness HPI narrative: Patient history of hypertension , atrial fibrillation on Eliquis, sleep apnea on CPAP comes here for mid chest pain started at 13:00 while at work pain was in mid chest heaviness lasted for about 30 minutes without any radiation felt slightly short winded and diaphoretic and exhausted went home rested for some time and came to the ER on arrival patient had very mild discomfort. Patient denies any palpitation checked his blood pressure was 110/60 pulse rate was 60s no cough no fever no chills patient had cardiac ablation 3 years ago at the same time angiogram no coronary disease at that time Related Data Home Medications Medication Instructions Recorded Confirmed apixaban 5 mg tablet 5 mg PO BID 10/26/20 04/17/23 metoprolol succinate 50 mg 50 mg PO DAILY PRN afib 04/23/22 11/29/22 tablet,extended release 24 hr metformin 500 mg tablet 500 mg PO DAILY 10/15/22 11/29/22 empagliflozin 25 mg-metformin ER 1 tab PO DAILY 04/16/23 04/17/23 1,000 mg tablet,extended release 24hr (Synjardy XR) Previous Rx's Medication Instructions Recorded albuterol sulfate 90 mcg/actuation 2 puff PO Q4H PRN wheezing 30 days 04/23/22 aerosol inhaler #8.5 grams CPAP (CPAP Machine/Device) #1 ea 09/25/22 losartan 25 mg tablet 25 mg PO DAILY 30 days #30 tabs 04/15/23 Allergies Allergy/AdvReac Type Severity Reaction Status Date / Time No Known Allergies Allergy Verified 12/07/22 16:15 Review of Systems Review of Systems: Yes all other systems are reviewed and are negative PMFSH Past Medical History Medical History Diarrhea Elevated LFTs Family history of gastric cancer History of COVID-19 HTN (hypertension) Insulin resistance Morbid obesity Omental infarction LAYNE (obstructive sleep apnea) PAF (paroxysmal atrial fibrillation) Surgical History H/O prior ablation treatment History of lymph node excision History of prior ablation treatment Family History Family History Father CAD (coronary artery disease) History of partial colectomy Hypertension CVD (cardiovascular disease) Alzheimers disease Mother Asthma Brother Hepatitis Sister Family history of thyroid problem Breast cancer Paternal Grandfather Stomach cancer Social History Social History Housing: House Are you a primary adult day care worker to a significant other at home: No Do you presently have visiting nurse or other home services: No Alcohol intake: never Patient Tobacco Use Status: Never used Tobacco Smoked in Last 30 Days: No e-Cigarette/Vaping Use: Never Used Second Hand Smoke Exposure: No Use of substances other than those prescribed or required for medical reasons: No Advance Directives: No Advance Directives Information Provided: No service: No Current occupational status: employed Current occupation: [employer] Cognitive needs: No Hearing needs: No Vision needs: No Physical Exam Vital Signs: Vital Signs: Last Vital Signs Temp 98.6 F 04/16/23 23:44 Pulse 72 04/16/23 23:44 Resp 16 04/16/23 23:44 BP 133/86 04/16/23 23:44 Pulse Ox 98 04/16/23 23:44 O2 Del Method Room Air 04/16/23 23:44 BMI result Body Mass Index 38.4 Appearance: Alert. Oriented X3. No acute distress. Eyes: PERRLA, No Nystagmus ENT: Pharynx normal. Oral Mucosa moist Neck: Normal inspection. Neck supple. CVS: Normal heart rate and rhythm. Pulses normal. Respiratory: No respiratory distress. Equal air entry bilateral, no wheezing/rales/rhonchi Abdomen: Soft and nontender. Bowel sounds are present, no mass palpable, no CVA tenderness Skin: Skin warm and dry. Normal skin color. Normal skin turgor. Extremities: No lower extremity edema. No calf tenderness Neuro: Oriented X 3. No motor deficit. No sensory deficit.No cerebellar signs , cranial nerves II-XII intact Course Course Course Narrative: RME: 57yo M w/PMHx A.fib on Eliquis, LAYNE, obesity, HTN, c/o chest tightness/pressure, SOB, & diaphoresis since 2PM while at work at rest. Admits sx mildly improved at present. self stopped Lisinopril on Saturday/ BP being on lower side, PCP changed to Losartan which patient hasnt picked up from pharmacy yet EKG, labs, CXR ordered Full HPI, ROS and PE to be performed by primary ED provider. Medications Administered Generic Name Dose Route Start Last Admin Trade Name Freq PRN Reason Stop Dose Admin Sodium Chloride 3 ml 04/17/23 00:00 04/17/23 00:11 0.9 % Sodium Chloride Flush 3 Ml Syringe IVFLUSH Not Given QSHIFT STACY Discontinued Medications Generic Name Dose Route Start Last Admin Trade Name Freq PRN Reason Stop Dose Admin Aspirin 81 mg 04/16/23 22:10 04/16/23 22:14 Aspirin Enteric Coated 81 Mg Tablet.Dr VIEIRA 04/16/23 22:11 81 mg ONCE ONE Administration Medical Decision Making Medical Decision Making [facility] Narrative: Patient with chest pain with history of AFib on Eliquis with no prior history of similar chest pain cardiac catheterization 3 years ago was negative pain lasted for 30 minutes likely cardiac initial troponin and EKG was normal will repeat troponin aspirin for now Patient repeat troponin without any delta change patient pain seems to be typical cardiac origin and need further evaluation to rule out ACS will admit patient as patient lives alone Consult Healthcare Provider Management of the patient was discussed with: Hospitalist Lab Data [facility] Lab Attestation statement: I reviewed the patient's lab results. 04/16/23 20:45 04/16/23 20:45 Labs: Lab Results 04/16/23 04/16/23 04/16/23 Range/Units 20:45 20:45 20:45 WBC 10.2 (4.8-10.8) X10*3/uL RBC 4.14 L (4.60-5.80) X10*6/uL Hgb 13.3 L (14.0-18.0) g/dl Hct 39.6 L (42.0-52.0) % MCV 95.7 (80.0-98.0) fL MCH 32.1 (27.0-33.0) pg MCHC 33.6 (31.0-36.0) g/dl RDW 11.6 (11.0-16.0) % Plt Count 242 (160-400) X10*3/uL MPV 10.6 (9.4-12.4) fL Immature Gran % (Auto) 0.3 (0.0-0.4) % Neut % (Auto) 61.9 (45-73) % Lymph % (Auto) 21.4 (20-40) % [place] % (Auto) 8.8 (2-11) % Eos % (Auto) 7.2 H (0-4) % Baso % (Auto) 0.4 (0-2) % Lymph # (Auto) 2.2 (1.2-4.9) X10*3/uL [place] # (Auto) 0.9 (0.1-1.2) X10*3/uL Eos # (Auto) 0.7 H (0.0-0.4) X10*3/uL Baso # (Auto) 0.0 (0.0-0.2) X10*3/uL Abs Immat Gran (auto) 0.03 (0.00-0.03) X10*3/uL Absolute Neuts (auto) 6.3 (2.0-8.3) x10*3/uL Absolute Nucleated RBC 0.000 (0.0-0.012) X10*3/uL Nucleated RBC % (auto) 0.0 (0.0-0.2) /100WBC PT 14.4 H (10.0-13.1) SEC INR 1.2 H (0.9-1.1) Sodium 142 (135-145) mmol/L Potassium 4.1 (3.3-5.1) mmol/L Chloride 106 (96-108) mmol/L Carbon Dioxide 27 (22-29) mmol/L Anion Gap 13 (12-20) BUN 17 H (9-16) mg/dL Creatinine 1.13 (0.5-1.4) mg/dL Estim Creat Clear Calc 94.6 Estimated GFR > 60 POC Glucose (60-115) mg/dL Random Glucose 97 (60-115) mg/dL Calcium 9.6 (8.4-10.2) mg/dL Magnesium 2.0 (1.6-2.6) mg/dL Total Bilirubin 1.5 H (0.0-1.0) mg/dL Direct Bilirubin 0.5 (0.0-0.5) mg/dL AST 29 (5-37) U/L ALT 44 H (0-40) U/L Alkaline Phosphatase 65 (39-117) U/L Total Creatine Kinase 127 (38-174) U/L Troponin I High Sens (<3.5-35.0) ng/L B-Natriuretic Peptide (<100) pg/mL Total Protein 7.4 (6.5-8.0) g/dL Albumin 4.3 (3.5-5.0) g/dL 04/16/23 04/16/23 04/16/23 Range/Units 20:45 20:45 22:48 WBC (4.8-10.8) X10*3/uL RBC (4.60-5.80) X10*6/uL Hgb (14.0-18.0) g/dl Hct (42.0-52.0) % MCV (80.0-98.0) fL MCH (27.0-33.0) pg MCHC (31.0-36.0) g/dl RDW (11.0-16.0) % Plt Count (160-400) X10*3/uL MPV (9.4-12.4) fL Immature Gran % (Auto) (0.0-0.4) % Neut % (Auto) (45-73) % Lymph % (Auto) (20-40) % [place] % (Auto) (2-11) % Eos % (Auto) (0-4) % Baso % (Auto) (0-2) % Lymph # (Auto) (1.2-4.9) X10*3/uL [place] # (Auto) (0.1-1.2) X10*3/uL Eos # (Auto) (0.0-0.4) X10*3/uL Baso # (Auto) (0.0-0.2) X10*3/uL Abs Immat Gran (auto) (0.00-0.03) X10*3/uL Absolute Neuts (auto) (2.0-8.3) x10*3/uL Absolute Nucleated RBC (0.0-0.012) X10*3/uL Nucleated RBC % (auto) (0.0-0.2) /100WBC PT (10.0-13.1) SEC INR (0.9-1.1) Sodium (135-145) mmol/L Potassium (3.3-5.1) mmol/L Chloride (96-108) mmol/L Carbon Dioxide (22-29) mmol/L Anion Gap (12-20) BUN (9-16) mg/dL Creatinine (0.5-1.4) mg/dL Estim Creat Clear Calc Estimated GFR POC Glucose (60-115) mg/dL Random Glucose (60-115) mg/dL Calcium (8.4-10.2) mg/dL Magnesium (1.6-2.6) mg/dL Total Bilirubin (0.0-1.0) mg/dL Direct Bilirubin (0.0-0.5) mg/dL AST (5-37) U/L ALT (0-40) U/L Alkaline Phosphatase (39-117) U/L Total Creatine Kinase (38-174) U/L Troponin I High Sens < 2.7 < 2.7 (<3.5-35.0) ng/L B-Natriuretic Peptide 53 (<100) pg/mL Total Protein (6.5-8.0) g/dL Albumin (3.5-5.0) g/dL 04/16/23 Range/Units 22:51 WBC (4.8-10.8) X10*3/uL RBC (4.60-5.80) X10*6/uL Hgb (14.0-18.0) g/dl Hct (42.0-52.0) % MCV (80.0-98.0) fL MCH (27.0-33.0) pg MCHC (31.0-36.0) g/dl RDW (11.0-16.0) % Plt Count (160-400) X10*3/uL MPV (9.4-12.4) fL Immature Gran % (Auto) (0.0-0.4) % Neut % (Auto) (45-73) % Lymph % (Auto) (20-40) % [place] % (Auto) (2-11) % Eos % (Auto) (0-4) % Baso % (Auto) (0-2) % Lymph # (Auto) (1.2-4.9) X10*3/uL [place] # (Auto) (0.1-1.2) X10*3/uL Eos # (Auto) (0.0-0.4) X10*3/uL Baso # (Auto) (0.0-0.2) X10*3/uL Abs Immat Gran (auto) (0.00-0.03) X10*3/uL Absolute Neuts (auto) (2.0-8.3) x10*3/uL Absolute Nucleated RBC (0.0-0.012) X10*3/uL Nucleated RBC % (auto) (0.0-0.2) /100WBC PT (10.0-13.1) SEC INR (0.9-1.1) Sodium (135-145) mmol/L Potassium (3.3-5.1) mmol/L Chloride (96-108) mmol/L Carbon Dioxide (22-29) mmol/L Anion Gap (12-20) BUN (9-16) mg/dL Creatinine (0.5-1.4) mg/dL Estim Creat Clear Calc Estimated GFR POC Glucose 83 (60-115) mg/dL Random Glucose (60-115) mg/dL Calcium (8.4-10.2) mg/dL Magnesium (1.6-2.6) mg/dL Total Bilirubin (0.0-1.0) mg/dL Direct Bilirubin (0.0-0.5) mg/dL AST (5-37) U/L ALT (0-40) U/L Alkaline Phosphatase (39-117) U/L Total Creatine Kinase (38-174) U/L Troponin I High Sens (<3.5-35.0) ng/L B-Natriuretic Peptide (<100) pg/mL Total Protein (6.5-8.0) g/dL Albumin (3.5-5.0) g/dL Independent Interpretation I performed an independent interpretation of an: EKG Interpretation: Normal sinus rhythm heart rate 87 beats per normal intervals no acute ST-T changes no acute ischemia Discharge Plan Discharge Clinical Impression: ACS (acute coronary syndrome) Patient Disposition: Admitted As Inpatient
[2023-04-16 20:27] VITALS: BP 146/86; PULSE 89; RESP 20; TEMP 36.8; O2SAT 98; BMI 38.4
[2023-04-16 20:51] LABS: MANUAL DIFF FLAG NO
[2023-04-16 20:54] LABS: Basophils Percent Auto 0.4 % (0-2); Eosinophils Absolute Auto 0.7 X10*3/uL (0.0-0.4); Eosinophils Percent Auto 7.2 % (0-4); Hematocrit 39.6 % (42.0-52.0); Hemoglobin 13.3 g/dl (14.0-18.0); Imm Gran Abs Auto 0.03 X10*3/uL (0.00-0.03); Imm Gran Pct Auto 0.3 % (0.0-0.4); Lymphocytes Absolute Auto 2.2 X10*3/uL (1.2-4.9); Lymphocytes Percent Auto 21.4 % (20-40); Mean Corpuscular HGB Conc 33.6 g/dl (31.0-36.0); Mean Corpuscular Hemoglobin 32.1 pg (27.0-33.0); Mean Corpuscular Volume 95.7 fL (80.0-98.0); Mean Platelet Volume 10.6 fL (9.4-12.4); Monocytes Absolute Auto 0.9 X10*3/uL (0.1-1.2); Monocytes Percent Auto 8.8 % (2-11); Neutrophils Absolute Auto 6.3 x10*3/uL (2.0-8.3); Neutrophils Percent Auto 61.9 % (45-73); Platelet Count 242 X10*3/uL (160-400); Red Blood Count 4.14 X10*6/uL (4.60-5.80); Red Cell Distribution Width 11.6 % (11.0-16.0); White Blood Count 10.2 X10*3/uL (4.8-10.8)
[2023-04-16 20:59] VITALS: BP 142/96; PULSE 82; RESP 12; O2SAT 97
[2023-04-16 21:02] LABS: INTERNATIONAL NORM RATIO 1.2 (0.9-1.1); Prothrombin Time 14.4 SEC (10.0-13.1)
--- NOTE | 2023-04-16 21:03 | PC.NURSE ---
pt brought into room 3 from triage. ekg and labs done. pt placed on manager cardiac and vital signs updated. pt denies any pain currently states he is just wiped out and lethargic. call [place] within reach. waiting for ED provider. will CTM
[2023-04-16 21:14] LABS: Alanine Aminotransferase 44 U/L (0-40); Albumin Level 4.3 g/dL (3.5-5.0); Alkaline Phosphatase 65 U/L (39-117); Anion Gap 13 (12-20); Aspartate Amino Transferase 29 U/L (5-37); Bilirubin Direct 0.5 mg/dL (0.0-0.5); Bilirubin Total 1.5 mg/dL (0.0-1.0); Blood Urea Nitrogen 17 mg/dL (9-16); Calcium 9.6 mg/dL (8.4-10.2); Carbon Dioxide 27 mmol/L (22-29); Chloride 106 mmol/L (96-108); Creatinine Clr Calc Pharmacy 94.6; Estimated Glomerular Filt Rate > 60; Glucose Random 97 mg/dL (60-115); Potassium 4.1 mmol/L (3.3-5.1); Sodium 142 mmol/L (135-145); Total Protein 7.4 g/dL (6.5-8.0)
[2023-04-16 21:18] LABS: B Type Natriuretic Peptide 53 pg/mL (<100)
[2023-04-16 21:21] LABS: Troponin-I High Sensitivity < 2.7 ng/L (<3.5-35.0)
[2023-04-16 21:49] VITALS: BP 139/97; PULSE 69; RESP 16; TEMP 36.7; O2SAT 97
[2023-04-16] MEDS: Aspirin Enteric Coated 81 MG TABLET.DR PO (22:14)
[2023-04-16 22:15] VITALS: BP 139/79; PULSE 69; RESP 16; O2SAT 97
--- NOTE | 2023-04-16 22:54 | MHC.EDTECH ---
PT REPEATED TROP DRAWN AND SENT TO LAB ,PT SAID HE NEED NOT EATEN SINCE NOON AND HE PRE DIABETIC ,BLOOD SUGAR CHECK IT WAS 83 ,RN ELEUTERIO SAID ,PT COULD EAT ,PT HAD A HAM SANDWICH AND A DIET JUSTIN ZORAN FOR SNACK .
[2023-04-16 22:57] LABS: Glucose, Whole Blood 83 mg/dL (60-115)
[2023-04-16 23:27] LABS: Troponin-I High Sensitivity < 2.7 ng/L (<3.5-35.0)
--- NOTE | 2023-04-16 23:34 | PM.IMHP ---
History of Present Illness Date of Service: 04/16/23 Chief Complaint: chest pain 57-year-old male with past medical history of hypertension, diabetes, LAYNE on CPAP, morbid obesity, presents the hospital with complaints of chest pain. 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 He felt like somebody was kicking him in the chest. at the same time he felt short of breath, as well as diaphoretic, started sweating profusely, had no palpitations. This lasted about 20-30 minutes, resolving spontaneously, he continued his day but felt very tired and exhausted therefore he decided to come to the hospital. Patient otherwise denies any abdominal pain nausea or vomiting, no diarrhea constipation, no urinary symptoms and no lower extremity edema. Patient does report that he was recently started on any medication that has been going off his blood pressure. His blood pressure has been very unpredictable ranging from 160 systolic to 100 with symptoms of dizziness. he spoke to his doctor about it and medications are being adjusted. On arrival to the ED patient hemodynamically stable Labs are significant for troponin negative x2, labs otherwise unremarkable EKG showed normal sinus rhythm, with no significant abnormalityAnd no evidence of ACS chest x-ray unremarkable Review of Systems Review of Systems: Yes all other systems are reviewed and are negative [facility] Medical History Diarrhea Elevated LFTs Family history of gastric cancer History of COVID-19 HTN (hypertension) Insulin resistance Morbid obesity Omental infarction LAYNE (obstructive sleep apnea) PAF (paroxysmal atrial fibrillation) Family History Father CAD (coronary artery disease) History of partial colectomy Hypertension CVD (cardiovascular disease) Alzheimers disease Mother Asthma Brother Hepatitis Sister Family history of thyroid problem Breast cancer Paternal Grandfather Stomach cancer Surgical History H/O prior ablation treatment History of lymph node excision History of prior ablation treatment Social History Housing: House Are you a primary technical healthcare consultant to a significant other at home: No Do you presently have visiting nurse or other home services: No Alcohol intake: never Patient Tobacco Use Status: Never used Tobacco Smoked in Last 30 Days: No e-Cigarette/Vaping Use: Never Used Second Hand Smoke Exposure: No Use of substances other than those prescribed or required for medical reasons: No Advance Directives: No Advance Directives Information Provided: No Advance Directives on File: No Nutrition Risks: No Nutritional Risk service: No Current occupational status: employed Current occupation: [employer] Cognitive needs: No Hearing needs: No Vision needs: No Meds Allergies Allergy/AdvReac Type Severity Reaction Status Date / Time No Known Allergies Allergy Verified 12/07/22 16:15 Home Medications Medication Instructions Recorded Confirmed Last Taken Type apixaban 5 mg tablet 5 mg PO BID 10/26/20 04/17/23 04/16/23 10:00 History metoprolol succinate 50 mg 50 mg PO DAILY PRN afib 04/23/22 11/29/22 Unknown History tablet,extended release 24 hr metformin 500 mg tablet 500 mg PO DAILY 10/15/22 11/29/22 Unknown History empagliflozin 25 mg-metformin ER 1 tab PO DAILY 04/16/23 04/17/23 04/16/23 History 1,000 mg tablet,extended release 24hr (Synjardy XR) Physical Exam Vital Signs and Narrative: Vital Signs: Last Vital Signs Temp 98.0 F 04/16/23 21:49 Pulse 69 04/16/23 22:15 Resp 16 04/16/23 22:15 BP 139/79 04/16/23 22:15 Pulse Ox 97 04/16/23 22:15 O2 Del Method Room Air 04/16/23 22:15 BMI result Body Mass Index 38.4 Const: General: cooperative and no acute distress Orientation/consciousness: patient oriented x3 Eyes: General: appearance normal, both eyes and all related structures Pupils: Equal, round and reactive pupils present Resp: Effort & Inspection: normal respiratory effort Auscultation: clear to auscultation bilaterally Cardio: Rate: regular rate Rhythm: regular rhythm GI: Palpation (GI): Soft to palpation Auscultation: normal bowel sounds Skin: General skin exam: no rashes or lesions noted Neuro: General: patient oriented x3 Cranial nerves: Yes Equal, round and reactive pupils present Cognition (Neuro): normal cognition Extrem: General: Yes normal to inspection and Yes no pedal edema Results Labs 04/16/23 20:45 04/16/23 20:45 Labs: Laboratory Results - last 24 hr 04/16/23 04/16/23 04/16/23 20:45 20:45 20:45 MCV 95.7 MCH 32.1 MCHC 33.6 RDW 11.6 Plt Count 242 MPV 10.6 Immature Gran % (Auto) 0.3 Neut % (Auto) 61.9 Lymph % (Auto) 21.4 Falls % (Auto) 8.8 Eos % (Auto) 7.2 H Baso % (Auto) 0.4 Lymph # (Auto) 2.2 Falls # (Auto) 0.9 Eos # (Auto) 0.7 H Baso # (Auto) 0.0 Abs Immat Gran (auto) 0.03 Absolute Neuts (auto) 6.3 Absolute Nucleated RBC 0.000 Nucleated RBC % (auto) 0.0 PT 14.4 H INR 1.2 H Anion Gap 13 Estim Creat Clear Calc 94.6 Estimated GFR > 60 POC Glucose Random Glucose 97 Calcium 9.6 Magnesium 2.0 Total Bilirubin 1.5 H Direct Bilirubin 0.5 AST 29 ALT 44 H Alkaline Phosphatase 65 Total Creatine Kinase 127 Troponin I High Sens B-Natriuretic Peptide Total Protein 7.4 Albumin 4.3 04/16/23 04/16/23 04/16/23 20:45 20:45 22:48 MCV MCH MCHC RDW Plt Count MPV Immature Gran % (Auto) Neut % (Auto) Lymph % (Auto) Falls % (Auto) Eos % (Auto) Baso % (Auto) Lymph # (Auto) Falls # (Auto) Eos # (Auto) Baso # (Auto) Abs Immat Gran (auto) Absolute Neuts (auto) Absolute Nucleated RBC Nucleated RBC % (auto) PT INR Anion Gap Estim Creat Clear Calc Estimated GFR POC Glucose Random Glucose Calcium Magnesium Total Bilirubin Direct Bilirubin AST ALT Alkaline Phosphatase Total Creatine Kinase Troponin I High Sens < 2.7 < 2.7 B-Natriuretic Peptide 53 Total Protein Albumin 04/16/23 22:51 MCV MCH MCHC RDW Plt Count MPV Immature Gran % (Auto) Neut % (Auto) Lymph % (Auto) Falls % (Auto) Eos % (Auto) Baso % (Auto) Lymph # (Auto) Falls # (Auto) Eos # (Auto) Baso # (Auto) Abs Immat Gran (auto) Absolute Neuts (auto) Absolute Nucleated RBC Nucleated RBC % (auto) PT INR Anion Gap Estim Creat Clear Calc Estimated GFR POC Glucose 83 Random Glucose Calcium Magnesium Total Bilirubin Direct Bilirubin AST ALT Alkaline Phosphatase Total Creatine Kinase Troponin I High Sens B-Natriuretic Peptide Total Protein Albumin Imaging Radiologist's Impressions: Impressions Chest X-Ray 04/16/23 21:15 IMPRESSION: Unremarkable examination. Assessment and Plan (1) Chest pain: Status: Acute Plan 57-year-old male with risk factors that includes diabetes, hypertension, LAYNE, obesity presents the hospital with complaints of chest pain # acute chest pain - typical cardiac - has multiple risk factors as mentioned above - troponin negative x2 - EKG negative for any ST T wave changes - given his risk factors as well as the typical chest pain patient will be admitted for further evaluation by Cardiology - cardiology consulted # history of AFib - continue Eliquis # diabetes - hold oral antihyperglycemics - will add low-dose sliding scale insulin - diabetic diet # hypertension - stable - continue losartan DVT prophylaxis: Early ambulation Time Spent With Patient Time: Total time managing care of this patient today ____ minutes. Quality Stroke Does the patient have a stroke diagnosis?: No VTE Prior VTE?: No VTE Risk Level:: Medical - low VTE Device Contraindication: Treatment Not Indicated VTE Drug Contraindication: Treatment Not Indicated
[2023-04-16 23:44] VITALS: BP 133/86; PULSE 72; RESP 16; TEMP 37; O2SAT 98
[2023-04-17 03:54] VITALS: BP 134/83; PULSE 62; RESP 15; O2SAT 95
[2023-04-17 04:00] VITALS: BP 128/81; PULSE 61; RESP 16; TEMP 36.6; O2SAT 96
[2023-04-17 05:23] VITALS: BMI 38.4
--- NOTE | 2023-04-17 06:30 | PC.NURSE ---
Patient arrived to the floor at approximately 030 via stretcher, ambulated independently to the bed. Patient reports he was at work and experienced chest tightness that lasted for approximately 30 minutes. Patient called PCP and instructed to go to the ER for evaluation. Patient denies any pain, no assistive devices and denies any falls. Patient oriented to room, call [place] within reach, low fall risk. VSS.
[2023-04-17 07:03] LABS: Alanine Aminotransferase 40 U/L (0-40); Albumin Level 3.9 g/dL (3.5-5.0); Alkaline Phosphatase 60 U/L (39-117); Anion Gap 11 (12-20); Aspartate Amino Transferase 26 U/L (5-37); Bilirubin Total 1.4 mg/dL (0.0-1.0); Blood Urea Nitrogen 15 mg/dL (9-16); Calcium 8.9 mg/dL (8.4-10.2); Carbon Dioxide 25 mmol/L (22-29); Chloride 107 mmol/L (96-108); Creatinine Clr Calc Pharmacy 117.5; Estimated Glomerular Filt Rate > 60; Glucose Random 85 mg/dL (60-115); Potassium 3.6 mmol/L (3.3-5.1); Sodium 139 mmol/L (135-145); Total Protein 6.7 g/dL (6.5-8.0)
[2023-04-17 07:07] VITALS: BP 128/78; PULSE 60; RESP 18; TEMP 36.6; O2SAT 95
[2023-04-17 07:17] LABS: Glucose, Whole Blood 85 mg/dL (60-115)
--- NOTE | 2023-04-17 08:37 | PHA.MEDREC ---
Pharmacy Consult ? Medication Reconciliation Pharmacy has completed the medication reconciliation.
[2023-04-17] MEDS: 0.9 % Sodium Chloride Flush 3 ML SYRINGE IVFLUSH (08:40)
[2023-04-17] MEDS: Apixaban 5 MG TABLET PO (08:40)
[2023-04-17] MEDS: Losartan Potassium 25 MG TABLET PO (08:40)
--- NOTE | 2023-04-17 09:34 | P.DS_ITS ---
DS: Providers Provider Date of Service: 04/17/23 Date of admission: 04/16/23 23:32 Primary care physician: Jonathan Barnett PA-C Consults: 04/16/23 23:32 Consult to Cardiology Routine Consulting Provider: [facility] [place] [facility] Reason for consultation: typical cp w risk factors Has provider been notified: No DS: Diagnosis Discharge Diagnosis (1) Chest pain: Status: Acute DS: Summary Hospital Course Hospital Course: 57-year-old male? with risk factors that includes diabetes, hypertension, LAYNE, obesity presents the hospital with complaints of chest pain acute chest pain. Atypical, Neg troponin, EKG NSR, seen and evaluated by cardiology, plan for outpatient cardiac workup history of AFib continue Eliquis diabetes continue home medications hypertension continue losartan Time Spent with Patient Time attestation: Total time managing care of this patient today ____ minutes. Discharge coordination time: Greater than 30 minutes Quality: Safe Use of Opioids Does Pt have an Active Cancer Diagnosis on the Problem List?: No Quality: Stroke Does the patient have a stroke diagnosis?: No Physical Exam Vital Signs: Vital Signs: Last Vital Signs Temp 97.9 F 04/17/23 07:07 Pulse 60 04/17/23 07:07 Resp 18 04/17/23 07:07 BP 128/78 04/17/23 07:07 Pulse Ox 95 04/17/23 07:07 O2 Del Method CPAP 04/17/23 07:07 BMI result Body Mass Index 38.4 Appearing in no acute distress head is normocephalic atraumatic eyes pupils are PERRLA sclera is anicteric mouth throat mucous membranes are intact and moist neck is supple no lymphadenopathy, no JVD noted lung sounds are clear to auscultation heart regular rate rhythm, clear S1, S2 positive bowel sounds, abdomen is soft, nontender neuro patient is alert x3, no focal deficits DS: Data Data Completed and Pending Labs on day of discharge: Laboratory Results - last 24 hr 04/16/23 04/16/23 04/16/23 20:45 20:45 20:45 WBC 10.2 RBC 4.14 L Hgb 13.3 L Hct 39.6 L MCV 95.7 MCH 32.1 MCHC 33.6 RDW 11.6 Plt Count 242 MPV 10.6 Immature Gran % (Auto) 0.3 Neut % (Auto) 61.9 Lymph % (Auto) 21.4 Geary % (Auto) 8.8 Eos % (Auto) 7.2 H Baso % (Auto) 0.4 Lymph # (Auto) 2.2 Geary # (Auto) 0.9 Eos # (Auto) 0.7 H Baso # (Auto) 0.0 Abs Immat Gran (auto) 0.03 Absolute Neuts (auto) 6.3 Absolute Nucleated RBC 0.000 Nucleated RBC % (auto) 0.0 PT 14.4 H INR 1.2 H Sodium 142 Potassium 4.1 Chloride 106 Carbon Dioxide 27 Anion Gap 13 BUN 17 H Creatinine 1.13 Estim Creat Clear Calc 94.6 Estimated GFR > 60 POC Glucose Random Glucose 97 Calcium 9.6 Magnesium 2.0 Total Bilirubin 1.5 H Direct Bilirubin 0.5 AST 29 ALT 44 H Alkaline Phosphatase 65 Total Creatine Kinase 127 Troponin I High Sens B-Natriuretic Peptide Total Protein 7.4 Albumin 4.3 04/16/23 04/16/23 04/16/23 20:45 20:45 22:48 WBC RBC Hgb Hct MCV MCH MCHC RDW Plt Count MPV Immature Gran % (Auto) Neut % (Auto) Lymph % (Auto) Geary % (Auto) Eos % (Auto) Baso % (Auto) Lymph # (Auto) Geary # (Auto) Eos # (Auto) Baso # (Auto) Abs Immat Gran (auto) Absolute Neuts (auto) Absolute Nucleated RBC Nucleated RBC % (auto) PT INR Sodium Potassium Chloride Carbon Dioxide Anion Gap BUN Creatinine Estim Creat Clear Calc Estimated GFR POC Glucose Random Glucose Calcium Magnesium Total Bilirubin Direct Bilirubin AST ALT Alkaline Phosphatase Total Creatine Kinase Troponin I High Sens < 2.7 < 2.7 B-Natriuretic Peptide 53 Total Protein Albumin 04/16/23 04/17/23 04/17/23 22:51 05:55 07:09 WBC RBC Hgb Hct MCV MCH MCHC RDW Plt Count MPV Immature Gran % (Auto) Neut % (Auto) Lymph % (Auto) Geary % (Auto) Eos % (Auto) Baso % (Auto) Lymph # (Auto) Geary # (Auto) Eos # (Auto) Baso # (Auto) Abs Immat Gran (auto) Absolute Neuts (auto) Absolute Nucleated RBC Nucleated RBC % (auto) PT INR Sodium 139 Potassium 3.6 Chloride 107 Carbon Dioxide 25 Anion Gap 11 L BUN 15 Creatinine 0.91 Estim Creat Clear Calc 117.5 Estimated GFR > 60 POC Glucose 83 85 Random Glucose 85 Calcium 8.9 D Magnesium Total Bilirubin 1.4 H Direct Bilirubin AST 26 ALT 40 Alkaline Phosphatase 60 Total Creatine Kinase Troponin I High Sens B-Natriuretic Peptide Total Protein 6.7 Albumin 3.9 Discharge Plan Discharge Anticipated Discharge Date/Time: 04/17/23 09:31 Patient Disposition: Home, Self-Care Discharge Diagnosis: Chest pain Referrals: Jonathan Barnett PA-C [Primary Care Provider] - 1 Week (April AT 10:00AM) Discharge Medications: Continued (DME) CPAP Machine/Device Device See Rx Instructions .Route Qty: 1 0RF Rx Instructions: As directed Synjardy XR 25-1,000 mg tablet, IR - ER, biphasic 24hr 1 tab PO DAILY Wegovy 1.7 mg/0.75 mL pen injector 1.7 mg subcut SA cyanocobalamin (vitamin B-12) 1,000 mcg Tablet 1,000 mcg PO DAILY cholecalciferol (vitamin D3) 50 mcg (2,000 unit) Tablet 50 mcg PO DAILY apixaban 5 mg tablet 5 mg PO BID albuterol sulfate 90 mcg/actuation HFA aerosol inhaler 2 puff PO Q4H PRN (Reason: wheezing) 30 Days Qty: 8.5 1RF Discharge Orders: Discharge Order (Routine); Ordered 04/17/23 Ordered By: Mayela Santizo Diet: Advance to usual diet Activity on Discharge: As tolerated Stand Alone Forms: Patient Portal Discharge page Care Plan Goals: No further episodes of chest pain Health Concerns: Chest pain Plan of Treatment: Follow-up with cardiology for further workup take all medications as prescribed Assessment: See discharge summary
--- NOTE | 2023-04-17 09:48 | P.CONCA_ITS ---
History of Present Illness History of Present Illness Date of Service: 04/17/23 Requesting physician: Mayela Santizo Consult reason: chest pain Chief complaint: Chest Pain Narrative: I was consulted to see Fito in cardiology consultation today for chest pain. He is a 57-year-old male with prior complicated history with prior history of atrial fibrillation, paroxysmal status post ablation x2 at [facility] very follows with his product control and logistics analyst. Last ablation was 2 years ago. He said he has not had a bout of atrial fibrillation in the last 8 months. He is currently not taking any medications for the same including metoprolol as he said that makes same fatigued and tired. He is on oral anticoagulation with therapy with apixab an due to prior history of omental infarction with atrial fibrillation. He has been doing well. He has been having issues with labile blood pressure. On Saturday said his blood pressure in the morning was elevated at 100 60/100. He was then taken 5 mg of lisinopril and subsequently after his blood pressure was 100 systolic. Making feel not very well. He has been trying to manage his blood pressure through his PCP's office but came to the hospital yesterday after getting retrosternal chest discomfort. Patient says he was standing yesterday at the counter and then suddenly developed chest tightness in the retrosternal area associated with shortness of breath. The lasted for few minutes. Subsequently had multiple bouts of discomfort like somebody kicked in his chest associated with shortness of breath lasting 2 minutes. Symptoms then subsided within 30 minutes and decided to come to the emergency room. In the emergency room his serial troponins were undetectable and is EKG was within normal limits. he was admitted and overnight has had no recurrent chest discomfort. On the monitor he does have multiple short burst of atrial tachycardia. He has no symptoms related to it. He is known history of diabetes currently on metformin therapy and also blood pressure issues for which she is currently on losartan therapy. Review of Systems Constitutional: Constitutional: Reports no additional constitutional complaints Eyes: Eyes: Reports no additional eye complaints Cardiovascular: Cardiovascular: Reports chest pain at rest, Denies rapid heart rate, Denies lightheadedness, Denies Loss of Consciousness, Denies palpitations and Reports dyspnea Respiratory: Respiratory: Reports no additional respiratory complaints and Reports dyspnea Gastrointestinal: Gastrointestinal: Reports no additional gastrointestinal complaints Musculoskeletal: Musculoskeletal: Reports no additional musculoskeletal complaints Integumentary/Breasts: Skin/Breast: Reports system reviewed and no additional complaints, except as docu Neurologic: Reports system reviewed and no additional complaints, except as documented Psychiatric: Psychiatric: Reports no additional psychiatric complaints Endocrine: Endocrine: Reports no additional endocrine complaints and Denies palpitations Hematologic/Lymphatic: Hematologic/Lymphatic: Reports no additional hematologic/lymphatic complaints REPLACED BY [facility] Past Medical History Medical History (Updated 04/17/23 @ 09:54 by Gato Alcaraz MD) Diarrhea Elevated LFTs Family history of gastric cancer History of COVID-19 HTN (hypertension) Insulin resistance Morbid obesity Omental infarction LAYNE (obstructive sleep apnea) PAF (paroxysmal atrial fibrillation) Family History Family History Father CAD (coronary artery disease) History of partial colectomy Hypertension CVD (cardiovascular disease) Alzheimers disease Mother Asthma Brother Hepatitis Sister Family history of thyroid problem Breast cancer Paternal Grandfather Stomach cancer Surgical History Surgical History H/O prior ablation treatment History of lymph node excision History of prior ablation treatment Social History Social History Housing: House Are you a primary technical healthcare consultant to a significant other at home: No Do you presently have visiting nurse or other home services: No Alcohol intake: never Patient Tobacco Use Status: Never used Tobacco e-Cigarette/Vaping Use: Never Used Second Hand Smoke Exposure: No service: No Current occupational status: employed Current occupation: [employer] Cognitive needs: No Hearing needs: No Vision needs: No Meds Allergies Allergy/AdvReac Type Severity Reaction Status Date / Time No Known Allergies Allergy Verified 12/07/22 16:15 Active Medications: Current Medications Acetaminophen (Acetaminophen 325 Mg Tablet) 650 mg PO Q6H PRN PRN Reason: Pain, Mild (Pain Scale 1-3) Apixaban (Apixaban 5 Mg Tablet) 5 mg PO BID STACY Last Admin: 04/17/23 08:40 Dose: 5 mg Docusate Sodium (Docusate Sodium 100 Mg Capsule) 100 mg PO DAILY PRN PRN Reason: Constipation Glucose (Glucose Gel 15 Gm Gel..Gram.) 15 gm PO Q15M PRN; Protocol PRN Reason: per Hypoglycemia Standing Ord. Dextrose (D10) 250 mls @ 750 mls/hr IV Q15M PRN; Protocol PRN Reason: per Hypoglycemia Standing Ord. Insulin Human Lispro (Insulin Lispro 100 Unit/Ml 3 Ml Vial) 0 unit SUBCUT QIDACHS [facility]; Protocol Last Admin: 04/17/23 07:24 Dose: Not Given Losartan Potassium (Losartan Potassium 25 Mg Tablet) 25 mg PO DAILY [facility]; Protocol Last Admin: 04/17/23 08:40 Dose: 25 mg Ondansetron HCl (Ondansetron Hcl 4 Mg/2 Ml Vial) 4 mg IVPUSH Q8H PRN PRN Reason: Nausea and Vomiting Sodium Chloride (0.9 % Sodium Chloride Flush 3 Ml Syringe) 3 ml IVFLUSH QSHIFT [facility] Last Admin: 04/17/23 08:40 Dose: 3 ml Home Medications Medication Instructions Recorded Confirmed Last Taken Type apixaban 5 mg tablet 5 mg PO BID 10/26/20 04/17/23 04/16/23 10:00 History empagliflozin 25 mg-metformin ER 1 tab PO DAILY 04/16/23 04/17/23 04/16/23 History 1,000 mg tablet,extended release 24hr (Synjardy XR) cholecalciferol (vitamin D3) 50 50 mcg PO DAILY 04/17/23 04/17/23 04/16/23 History mcg (2,000 unit) tablet cyanocobalamin (vitamin B-12) 1,000 mcg PO DAILY 04/17/23 04/17/23 04/16/23 History 1,000 mcg tablet semaglutide (weight loss) 1.7 1.7 mg subcut SA 04/17/23 04/17/23 04/13/23 History mg/0.75 mL subcutaneous pen injector (Wegovy) Physical Exam Vital Signs: Vital Signs: Last Vital Signs Temp 97.9 F 04/17/23 07:07 Pulse 60 04/17/23 07:07 Resp 18 04/17/23 07:07 BP 128/78 04/17/23 07:07 Pulse Ox 95 04/17/23 07:07 O2 Del Method CPAP 04/17/23 07:07 BMI result Body Mass Index 38.4 Const: General: cooperative, comfortable, no acute distress, alert and awake Nutritional Appearance: obese Orientation/consciousness: patient oriented x3 Limitations: no limitations HEENT: Head: Yes normocephalic and Yes atraumatic Neck: Neck: Yes trachea midline, Yes supple and Yes no JVD Resp: Effort & Inspection: normal respiratory effort Auscultation: clear to auscultation bilaterally Cardio: Jugular venous distension: no JVD Palpation: normal PMI Rate: regular rate Rhythm: regular rhythm Heart sounds: S1 normal heart sound present, S2 normal heart sound present, no click, no gallops, no murmurs and no rubs GI: Auscultation: normal bowel sounds Skin: General skin exam: no rashes or lesions noted Neuro: General: patient oriented x3 and no focal motor deficits Extrem: General: Yes no clubbing, cyanosis or edema Objective Labs and Meds 04/16/23 20:45 04/17/23 05:55 Lab results: Laboratory Results - last 24 hr 04/16/23 04/16/23 04/16/23 20:45 20:45 20:45 WBC 10.2 RBC 4.14 L Hgb 13.3 L Hct 39.6 L MCV 95.7 MCH 32.1 MCHC 33.6 RDW 11.6 Plt Count 242 MPV 10.6 Immature Gran % (Auto) 0.3 Neut % (Auto) 61.9 Lymph % (Auto) 21.4 [place] % (Auto) 8.8 Eos % (Auto) 7.2 H Baso % (Auto) 0.4 Lymph # (Auto) 2.2 [place]ult[place] # (Auto) 0.9 Eos # (Auto) 0.7 H Baso # (Auto) 0.0 Abs Immat Gran (auto) 0.03 Absolute Neuts (auto) 6.3 Absolute Nucleated RBC 0.000 Nucleated RBC % (auto) 0.0 PT 14.4 H INR 1.2 H Sodium 142 Potassium 4.1 Chloride 106 Carbon Dioxide 27 Anion Gap 13 BUN 17 H Creatinine 1.13 Estim Creat Clear Calc 94.6 Estimated GFR > 60 POC Glucose Random Glucose 97 Calcium 9.6 Magnesium 2.0 Total Bilirubin 1.5 H Direct Bilirubin 0.5 AST 29 ALT 44 H Alkaline Phosphatase 65 Total Creatine Kinase 127 Troponin I High Sens B-Natriuretic Peptide Total Protein 7.4 Albumin 4.3 04/16/23 04/16/23 04/16/23 20:45 20:45 22:48 WBC RBC Hgb Hct MCV MCH MCHC RDW Plt Count MPV Immature Gran % (Auto) Neut % (Auto) Lymph % (Auto) [place] % (Auto) Eos % (Auto) Baso % (Auto) Lymph # (Auto) [place] # (Auto) Eos # (Auto) Baso # (Auto) Abs Immat Gran (auto) Absolute Neuts (auto) Absolute Nucleated RBC Nucleated RBC % (auto) PT INR Sodium Potassium Chloride Carbon Dioxide Anion Gap BUN Creatinine Estim Creat Clear Calc Estimated GFR POC Glucose Random Glucose Calcium Magnesium Total Bilirubin Direct Bilirubin AST ALT Alkaline Phosphatase Total Creatine Kinase Troponin I High Sens < 2.7 < 2.7 B-Natriuretic Peptide 53 Total Protein Albumin 04/16/23 04/17/23 04/17/23 22:51 05:55 07:09 WBC RBC Hgb Hct MCV MCH MCHC RDW Plt Count MPV Immature Gran % (Auto) Neut % (Auto) Lymph % (Auto) [place] % (Auto) Eos % (Auto) Baso % (Auto) Lymph # (Auto) [place] # (Auto) Eos # (Auto) Baso # (Auto) Abs Immat Gran (auto) Absolute Neuts (auto) Absolute Nucleated RBC Nucleated RBC % (auto) PT INR Sodium 139 Potassium 3.6 Chloride 107 Carbon Dioxide 25 Anion Gap 11 L BUN 15 Creatinine 0.91 Estim Creat Clear Calc 117.5 Estimated GFR > 60 POC Glucose 83 85 Random Glucose 85 Calcium 8.9 D Magnesium Total Bilirubin 1.4 H Direct Bilirubin AST 26 ALT 40 Alkaline Phosphatase 60 Total Creatine Kinase Troponin I High Sens B-Natriuretic Peptide Total Protein 6.7 Albumin 3.9 EKG shows normal sinus rhythm with normal EKG Imaging Radiologist's impression: Impressions Chest X-Ray 04/16/23 21:15 IMPRESSION: Unremarkable examination. Assessment and Plan (1) Chest pain: Status: Acute patient present with chest pain which is very atypical for myocardial ischemia. Has normal EKG as well as normal troponin serially. Likelihood of acute cor onary syndrome is low. However given multiple risk factors he needs a ETT. This can be done as outpatient will schedule it for tomorrow. He is advised to follow-up with his primary care physician as well as his primary product control and logistics analyst at [facility] as well. Most likely will also require an echocardiogram which can be done as an outpatient. (2) PAF (paroxysmal atrial fibrillation): Status: Acute Prior history of paroxysmal atrial fibrillation status post ablation x2. Last episode for him symptomatic he was about 8 months ago. He has not had any recurrent episodes. On the monitor he has runs of atrial tachycardia which appear to be left-sided. I thing is benefit from therapy with Cardizem. Will require outpatient Holter monitor /event monitor with his primary product control and logistics analyst. Also has prior history of omental infarction as multiple other risk factors and should be on oral anticoagulation with therapy with Eliquis. However he was reporting some bleeding issues per rectum. This needs to be followed closely. If this becomes an issue should consider as outpatient in alternative with Watchman device. He will follow this up with his primary product control and logistics analyst. Continue CPAP therapy. Continue participate in weight loss program. (3) HTN (hypertension): Qualifiers: Hypertension type: essential hypertension Qualified Code(s): I10 - Essential (primary) hypertension Status: Acute Patient with hypertension with labile blood pressure with super sensitive to low-dose lisinopril therapy. This is suggestive autonomic dysfunction. He says that he had a cervical spine injury about 30 years ago. Not sure if there is any relationship with cervical spine injury are not dysfunction at this point time. However this could be a difficult problem to solve. Advised to maintain adequate hydration. Consider low-salt diet. Continue CPAP therapy. I would switch is losartan to evening time. Patient can be discharged home today. Time Spent With Patient Time: Total time managing care of this patient today ____ minutes. Procedures Date of Service Date of Service: 04/17/23
--- NOTE | 2023-04-17 09:52 | MHC.CM.PN ---
ARIK 04/17/23, EMR REVIEWED, PT ADMITTED W/CHEST PAIN, CM MET W/PT WHO REPORTS HE LIVES ALONE HOWEVER RENTS OUT A ROOM, PT WORKS AT [employer], PT IS INDEP W/ALL CARE AND USES A CPAP FOR DME, NO HOME SERVICES, PT REPORTS HE WOULD LIKE TO D/C TODAY AND PLANS TO RETURN TOMORROW FOR STRESS TEST. PT VERIFIES PCP MIRIAM ESPARZA, DENIES BEING COVID VAXED AND REPORTS HIS FRIEND AQUILES SLAUGHTER IS HIS HCP [phone], COPY REQUESTED. ANTIC PT WILL D/C HOME TODAY SELF CARE, PT WILL SELF TRANSPORT
[2023-04-17 11:11] VITALS: BP 128/78; PULSE 60; RESP 18; TEMP 36.6; O2SAT 98
[2023-04-17 11:20] LABS: Glucose, Whole Blood 97 mg/dL (60-115)
== END 2023-04-17 12:34 | disposition home or self-care (01) ==
LOC: HO.ED 21:28 → HO.EDOVER 23:59 → HO.IMC 04-17 04:09
PROVIDERS: Physician Assistant; Admitting Provider Internal Medicine; Emergency Provider Internal Medicine; PCP Physician Assistant; Visit Provider Nurse Practitioner Acute Care
DX: R07.9 Chest pain, unspecified (principal); R06.02 Shortness of breath; I10 Essential (primary) hypertension; I48.0 Paroxysmal atrial fibrillation; Z79.01 Long term (current) use of anticoagulants; Z79.84 Long term (current) use of oral hypoglycemic drugs; Z79.899 Other long term (current) drug therapy; Z99.89 Dependence on other enabling machines and devices
CPT/HCPCS: 36415; 71045; 80048; 80053; 80076; 82550; 82947; 83735; 83880; 84484; 85025; 85610; 93005; 94660; 99222; 99285

== ENCOUNTER → 2023-04-18 10:38 | Outpatient (REF) | payer OTHER, SELFPAY ==
--- NOTE | 2023-04-18 10:40 | CA_ITS ---
Acquisition Time: 2023-04-18 11:03:13 Total Exercise Time: 00:10:01 Test Indications: Chest Pain Medications: Protocol: SAM Max HR: 173 BPM 107% of Pred: 161 BPM Max BP: 188/090 mmHG Max Work Load: 12.0 METS Exercise stress test exercise 10 min 1 sec of Sam protocol achieving 107 percent MPHR, with mild SOB, no chest discomfort, with isolated PVC and PACs, with normotensive response to exercise, without EKG changes of ischemia. In recovery there were asymptomatic runs of atrial tachycardia alternative with sinus rhythm. Test reviewed with Dr. Alcaraz. Referred By: Gato Alcaraz Overread By: SID CHAUDHARI
== END ==
LOC: HO.CARD 10:38
PROVIDERS: PCP Physician Assistant; Visit Provider Internal Medicine Cardiovascular Disease
DX: R07.9 Chest pain, unspecified (principal); I48.0 Paroxysmal atrial fibrillation
CPT/HCPCS: 93017

== ENCOUNTER 2023-04-21 02:11 | Inpatient (IN) | payer OTHER, SELFPAY ==
[2023-04-21] VITALS (9 sets, daily range): BP systolic 94–136; BP diastolic 71–86; PULSE 73–88; RESP 14–20; TEMP 36.1–37.1; O2SAT 96–99; BMI 37.9; BMI 39.4
--- NOTE | 2023-04-21 | ECG_ITS ---
Test Reason : PALPITATIONS Blood Pressure : / mmHG Vent. Rate : 086 BPM Atrial Rate : 000 BPM P-R Int : 000 ms QRS Dur : 088 ms QT Int : 366 ms P-R-T Axes : 000 -18 011 degrees QTc Int : 437 ms Atrial fibrillation Abnormal ECG When compared with ECG of 16-APR-2023 20:32, Atrial fibrillation has replaced Sinus rhythm Referred By: Generic ED Physician Electronically Signed By:QUINTON RUTH MD
--- NOTE | ~2023-04-21 | XR_ITS ---
EXAMINATION: XR CHEST CLINICAL INFORMATION: Shortness of breath COMPARISON: 04/16/2023 TECHNIQUE: 2 views of the chest were obtained. FINDINGS: No significant abnormality is noted involving the heart, lungs, mediastinum, bony thorax or soft tissues. XR/XR chest 2V IMPRESSION: Unremarkable examination.
[2023-04-21 03:28] LABS: Basophils Percent Auto 0.3 % (0-2); Eosinophils Percent Auto 9.5 % (0-4); Hematocrit 39.6 % (42.0-52.0); Hemoglobin 13.6 g/dl (14.0-18.0); Imm Gran Abs Auto 0.04 X10*3/uL (0.00-0.03); Imm Gran Pct Auto 0.4 % (0.0-0.4); Lymphocytes Absolute Auto 3.3 X10*3/uL (1.2-4.9); Lymphocytes Percent Auto 31.3 % (20-40); MANUAL DIFF FLAG NO; Mean Corpuscular HGB Conc 34.3 g/dl (31.0-36.0); Mean Corpuscular Hemoglobin 32.2 pg (27.0-33.0); Mean Corpuscular Volume 93.6 fL (80.0-98.0); Mean Platelet Volume 10.9 fL (9.4-12.4); Monocytes Absolute Auto 0.9 X10*3/uL (0.1-1.2); Monocytes Percent Auto 8.5 % (2-11); Neutrophils Absolute Auto 5.2 x10*3/uL (2.0-8.3); Platelet Count 255 X10*3/uL (160-400); Red Blood Count 4.23 X10*6/uL (4.60-5.80); Red Cell Distribution Width 11.8 % (11.0-16.0); White Blood Count 10.4 X10*3/uL (4.8-10.8)
[2023-04-21 03:43] LABS: Anion Gap 17 (12-20); Blood Urea Nitrogen 16 mg/dL (9-16); Calcium 9.2 mg/dL (8.4-10.2); Carbon Dioxide 17 mmol/L (22-29); Chloride 109 mmol/L (96-108); Creatinine Clr Calc Pharmacy 105.2; Estimated Glomerular Filt Rate > 60; Glucose Random 110 mg/dL (60-115); Potassium 3.5 mmol/L (3.3-5.1); Sodium 139 mmol/L (135-145)
[2023-04-21 03:52] LABS: Troponin-I High Sensitivity < 2.7 ng/L (<3.5-35.0)
--- NOTE | 2023-04-21 07:13 | ED_ITS ---
HPI - Syncope General Chief Complaint: Arrhythmia/Palpitations Stated Complaint: irregular heart rate/BP Time Seen by Provider: 04/21/23 06:28 Source: patient and old records reviewed Mode of arrival: ambulatory Limitations: no limitations History of Present Illness HPI narrative: 57-year-old male with history of paroxysmal AFib on Eliquis, history of 2 ablations in the past, LAYNE on CPAP, HTN, obesity, DM2 with recent admission to [facility] 04/16-04/17 for chest pain presents to the ER for evaluation of recurrent pre-syncope yesterday x3. During his brief admission he was seen by Cardiology, he had negative troponins and was discharged on Cardizem 120 ER. He had a stress test showing no ischemic EKG changes, atrial tachycardia with exertion. Patient works at the [employer] and states yesterday when he was walking around he had 3 separate episodes of feeling like he was going to pass out. He states his HR would go up to 140s and when he would take his BP it was as low as 90/50s. He states over the last couple of days he has also had episodes of elevated BP and lower HR. He states episodes occurred during walking around and are also present when he goes from sitting to standing. He states during his stress test he had elevated HR after exercise and needed to go vagal maneuvers to try to slow it down but it didnt work. He denies any associated chest pain with his pre- syncopal events. He does report some SOB, nausea and diaphoresis with the episodes. No vomiting, diarrhea. Reports adequate PO intake and hydration. Compliant with low salt diet. MD complaint: felt faint and almost passed out Onset (ago): day(s) (1) -: minutes(s) Prodromal symptoms: lightheaded, palpitations, heart racing and diaphoresis Witnessed: Yes - by Bystander Context: during exertion and standing up Injuries sustained associated with event: none Current symptoms: nausea Treatments prior to arrival: none Related Data Home Medications Medication Instructions Recorded Confirmed apixaban 5 mg tablet 5 mg PO BID 10/26/20 04/17/23 empagliflozin 25 mg-metformin ER 1 tab PO DAILY 04/16/23 04/17/23 1,000 mg tablet,extended release 24hr (Synjardy XR) cholecalciferol (vitamin D3) 50 50 mcg PO DAILY 04/17/23 04/17/23 mcg (2,000 unit) tablet cyanocobalamin (vitamin B-12) 1,000 mcg PO DAILY 04/17/23 04/17/23 1,000 mcg tablet semaglutide (weight loss) 1.7 1.7 mg subcut SA 04/17/23 04/17/23 mg/0.75 mL subcutaneous pen injector (Tangela) Previous Rx's Medication Instructions Recorded albuterol sulfate 90 mcg/actuation 2 puff PO Q4H PRN wheezing 30 days 04/23/22 aerosol inhaler #8.5 grams CPAP (CPAP Machine/Device) #1 ea 09/25/22 diltiazem HCl 120 mg 120 mg PO DAILY #30 caps 04/17/23 capsule,extended release 24 hr (Cardizem CD) Allergies Allergy/AdvReac Type Severity Reaction Status Date / Time No Known Allergies Allergy Verified 12/07/22 16:15 Review of Systems Review of Systems: Yes all other systems are reviewed and are negative PMFSH Past Medical History Medical History (Updated 04/21/23 @ 08:07 by LUIS Paniagua) Diarrhea Elevated LFTs Family history of gastric cancer History of COVID-19 HTN (hypertension) Insulin resistance Morbid obesity Omental infarction LAYNE (obstructive sleep apnea) PAF (paroxysmal atrial fibrillation) Surgical History H/O prior ablation treatment History of lymph node excision History of prior ablation treatment Family History Family History Father CAD (coronary artery disease) History of partial colectomy Hypertension CVD (cardiovascular disease) Alzheimers disease Mother Asthma Brother Hepatitis Sister Family history of thyroid problem Breast cancer Paternal Grandfather Stomach cancer Social History Social History Housing: House Are you a primary care consultant to a significant other at home: No Do you presently have visiting nurse or other home services: No Alcohol intake: never Patient Tobacco Use Status: Never used Tobacco Smoked in Last 30 Days: No e-Cigarette/Vaping Use: Never Used Second Hand Smoke Exposure: No Use of substances other than those prescribed or required for medical reasons: No Advance Directives: No Advance Directives Information Provided: No service: No Current occupational status: employed Current occupation: [employer] Cognitive needs: No Hearing needs: No Vision needs: No Physical Exam Vital Signs: Vital Signs: Last Vital Signs Temp 97.9 F 04/21/23 07:50 Pulse 88 04/21/23 07:49 Resp 14 04/21/23 07:50 BP 94/71 04/21/23 07:49 Pulse Ox 98 04/21/23 07:50 O2 Del Method Nasal Cannula 04/21/23 07:50 O2 Flow Rate 3 04/21/23 07:50 BMI result Body Mass Index 37.9 Appearance: Alert. Oriented X3. No acute distress. Head: normocephalic, atraumatic. Eyes: Pupils equal, round and reactive to light. ENT: Pharynx normal. No tonsillar swelling or exudate. Neck: Normal inspection. Neck supple. CVS: irregularly irregular, regular rate 70-80s, Pulses normal. Respiratory: No respiratory distress. Breath sounds normal. Abdomen: Soft and nontender. +BS x4 Skin: Skin warm and dry. Normal skin color. Normal skin turgor. No rashes. Extremities: No lower extremity edema. No joint swelling. Neuro/psych: Oriented X 3. No motor deficit. No sensory deficit. CN II-XII intact. Normal speech and cognition. Course Reevaluation(s) Reevaluation #1: placed on supplemental O2 for sleep for now, he usually uses CPAP at night for his LAYNE. he is not hypoxic will need CPAP QHS and PRN with naps once admitted. Medications Administered Discontinued Medications Generic Name Dose Route Start Last Admin Trade Name Freq PRN Reason Stop Dose Admin Sodium Chloride 1,000 mls @ 999 mls/hr 04/21/23 08:15 04/21/23 08:28 Ns IVCONT 04/21/23 09:15 999 mls/hr .Q1H1M STACY Administration Medical Decision Making Medical Decision Making MDM Narrative: 57-year-old male with history of paroxysmal AFib on Eliquis, history of 2 ablations in the past, LAYNE on CPAP, HTN, obesity, DM2 with recent admission to [facility] 04/16-04/17 for chest pain presents to the ER for evaluation of recurrent pre-syncope yesterday x3. Vital signs are stable on arrival. His EKG shows he is back in AFib. His rate is controlled 80s. He was recently started on Cardizem by Dr. Alcaraz however he never started this medication. He states he is on Lopressor at home however this is not on his claim history. He was rep ortedly very sensitive to lisinopril, questioning autonomic dysfunction. His orthostatic vital signs are positive. He had a greater than 20 point drop in his systolic blood pressure. IV fluids were ordered. Given his significant symptoms will plan for admission for observation and medication adjustment. Cardiology was consulted who is in agreement with plan Differential Diagnosis Differential Diagnoses: The differential diagnosis associated with the presentation includes orthostatic hypotension, symptomatic afib vs aflutter vs atrial tachycardia, dehydration, autonomic dysfunction Admission/Observation Consideration of admission/observation: Escalation of care including admission/observation considered presyncope, multiple cardiac risk factors, orthostatics + Consult Healthcare Provider Management of the patient was discussed with: Hospitalist and Pe[employer] Sh[employer] T[employer] Dr. Alcaraz Cardiology in agreement with admission for observation and medication adjustments Dr. Cuellar tt for admission Lab Data MDM Lab Attestation statement: I reviewed the patient's lab results. stable anemia, normal renal function 04/21/23 03:23 04/21/23 03:23 Labs: Lab Results 04/21/23 04/21/23 04/21/23 Range/Units 03:23 03:23 03:23 WBC 10.4 (4.8-10.8) X10*3/uL RBC 4.23 L (4.60-5.80) X10*6/uL Hgb 13.6 L (14.0-18.0) g/dl Hct 39.6 L (42.0-52.0) % MCV 93.6 (80.0-98.0) fL MCH 32.2 (27.0-33.0) pg MCHC 34.3 (31.0-36.0) g/dl RDW 11.8 (11.0-16.0) % Plt Count 255 (160-400) X10*3/uL MPV 10.9 (9.4-12.4) fL Immature Gran % (Auto) 0.4 (0.0-0.4) % Neut % (Auto) 50.0 (45-73) % Lymph % (Auto) 31.3 (20-40) % [place] % (Auto) 8.5 (2-11) % Eos % (Auto) 9.5 H (0-4) % Baso % (Auto) 0.3 (0-2) % Lymph # (Auto) 3.3 (1.2-4.9) X10*3/uL [place] # (Auto) 0.9 (0.1-1.2) X10*3/uL Eos # (Auto) 1.0 H (0.0-0.4) X10*3/uL Baso # (Auto) 0.0 (0.0-0.2) X10*3/uL Abs Immat Gran (auto) 0.04 H (0.00-0.03) X10*3/uL Absolute Neuts (auto) 5.2 (2.0-8.3) x10*3/uL Absolute Nucleated RBC 0.000 (0.0-0.012) X10*3/uL Nucleated RBC % (auto) 0.0 (0.0-0.2) /100WBC Sodium 139 (135-145) mmol/L Potassium 3.5 (3.3-5.1) mmol/L Chloride 109 H (96-108) mmol/L Carbon Dioxide 17 L (22-29) mmol/L Anion Gap 17 (12-20) BUN 16 (9-16) mg/dL Creatinine 1.01 (0.5-1.4) mg/dL Estim Creat Clear Calc 105.2 Estimated GFR > 60 Random Glucose 110 (60-115) mg/dL Calcium 9.2 (8.4-10.2) mg/dL Troponin I High Sens < 2.7 (<3.5-35.0) ng/L B-Natriuretic Peptide (<100) pg/mL 04/21/23 Range/Units 08:26 WBC (4.8-10.8) X10*3/uL RBC (4.60-5.80) X10*6/uL Hgb (14.0-18.0) g/dl Hct (42.0-52.0) % MCV (80.0-98.0) fL MCH (27.0-33.0) pg MCHC (31.0-36.0) g/dl RDW (11.0-16.0) % Plt Count (160-400) X10*3/uL MPV (9.4-12.4) fL Immature Gran % (Auto) (0.0-0.4) % Neut % (Auto) (45-73) % Lymph % (Auto) (20-40) % [place] % (Auto) (2-11) % Eos % (Auto) (0-4) % Baso % (Auto) (0-2) % Lymph # (Auto) (1.2-4.9) X10*3/uL [place] # (Auto) (0.1-1.2) X10*3/uL Eos # (Auto) (0.0-0.4) X10*3/uL Baso # (Auto) (0.0-0.2) X10*3/uL Abs Immat Gran (auto) (0.00-0.03) X10*3/uL Absolute Neuts (auto) (2.0-8.3) x10*3/uL Absolute Nucleated RBC (0.0-0.012) X10*3/uL Nucleated RBC % (auto) (0.0-0.2) /100WBC Sodium (135-145) mmol/L Potassium (3.3-5.1) mmol/L Chloride (96-108) mmol/L Carbon Dioxide (22-29) mmol/L Anion Gap (12-20) BUN (9-16) mg/dL Creatinine (0.5-1.4) mg/dL Estim Creat Clear Calc Estimated GFR Random Glucose (60-115) mg/dL Calcium (8.4-10.2) mg/dL Troponin I High Sens (<3.5-35.0) ng/L B-Natriuretic Peptide 439 H (<100) pg/mL Independent Interpretation I performed an independent interpretation of an: EKG and Plain X-Ray Interpretation: ekg with atrial fibrillation, HR 86 bpm, no ST segment elevations or depressions, changed from last week when he was in NSR cxr with clear lungs Radiology Impression Discussion of test interpretation with radiology: I have reviewed the radiologist's reading. Radiologist Impression: XR/XR chest 2V IMPRESSION: Unremarkable examination. External Record Review External record reviewed: Inpatient record, Office record, Outpatient record, Prior outpatient labs and Prior outpatient radiology Prescription Management I considered prescription management with: Other (midodrine for orthostatic hypotension) Chronic Conditions Patient?s care impacted by: Diabetes, Hypertension and Other (afib) Critical Care Time Critical Care Time Critical Care Time: Yes Total Critical Care Time: 39 Attestation: I have personally provided critical care time exclusive of time spent on separately billable procedures. Time includes review of lab data, radiology results, discussion with consultants, and monitoring for potential decompensation. Intervention performed as documented. Discharge Plan Discharge Clinical Impression: Orthostatic hypotension, Pre-syncope Patient Disposition: Admitted As Inpatient
--- NOTE | 2023-04-21 07:55 | PC.NURSE ---
pt is alert and oriented, lungs clear and diminished throughout, orthostats performed, pt was hypotensive upon standing, provider notified, media monitor intact, afib on the monitor, vitals ortherwise stable, call [place] within reach will continue to monitor.
[2023-04-21] MEDS: 0.9 % Sodium Chloride 1,000 ML 999 ML IVCONT (08:28)
--- NOTE | 2023-04-21 08:31 | PC.NURSE ---
IV inserted, labs drawn, IV fluids running per order, will continue to monitor
[2023-04-21 08:53] LABS: B Type Natriuretic Peptide 439 pg/mL (<100)
--- NOTE | 2023-04-21 11:09 | P.HPHOSP_ITS ---
History of Present Illness Date of Service: 04/21/23 Attending physician on admission: Lenore Orozco Chief Complaint: Palpitations, SOB Pt is a 57-year-old male with a PMH significant for?paroxysmal AFib on Eliquis, hx of up ablations x2, HTN, [id number] diabetes type 2, LAYNE on CPAP who presents to the ED for evaluation of presyncopal episodes. Patient was previously admitted to the hospital 5 days prior on 04/16/2023 complaining chest pain. Patient's EKG and troponins were negative. Pt had stress test on 04/18/2023 that was negative. Patient states that his returned in ?full force? on Saturday. Patient was walking around his house when he began to experience presyncope: Began feeling nauseous, lightheaded, dizzy. Patient then laid down felt better, but upon arising, again felt lightheaded and dizzy and almost passed out. In total patient experienced very presyncopal episodes which prompted his visit to the emergency room. Patient states that when he goes of t he AFib he normally feels nauseous, lightheaded, has elevated heart rate, and his blood pressure usually drops. Patient denies chest pain/pressure, palpitations. No shortness of breath. Denies any lower leg edema. No fever, chills, vomiting, abdominal pain. Patient also has a history of spinal injury, and it is uncertain whether his labile blood pressure is an autonomic dysfunction secondary to this injury. Patient is currently lying on his back and states feels okay and denies any lightheadedness or dizziness. Patient also states that he has been trying to drink plenty of liquids. Of note, patient also had an episode of rectal bleeding approximately 1 month ago in March of this year, and had recent changes to his blood pressure medication. In the ED patient was afebrile, normotensive, and with heart rate in the 70s to 80s, satting at 97% on room air. Orthostatics were positive: Systolic change 22 with position change from sitting to standing, diastolic change of 11 from [place] to standing. Labs were significant for stable H&H of 13.6/39.6, BNP 439. Troponins negative. Electrolytes baseline. Renal function baseline. CXR unremarkable. EKG demonstrated atrial fibrillation without evidence of ST elevations or depressions. Pt was treated with 1 L of IVF. Pt will be admitted to the hospital for treatment of symptomatic orthostatics with IVF and paroxysmal AFib with cardioversion. Review of Systems Review of Systems: Nausea Lightheadedness, dizziness Presyncopal episodes x3 Denies chest pain/pressure, palpitations No lower leg edema Denies shortness of breath, orthopnea Fever, chills, abdominal pain, vomiting Yes all other systems are reviewed and are negative PMFSH Medical History Diarrhea Elevated LFTs Family history of gastric cancer History of COVID-19 HTN (hypertension) Insulin resistance Morbid obesity Omental infarction LAYNE (obstructive sleep apnea) PAF (paroxysmal atrial fibrillation) Family History Father CAD (coronary artery disease) History of partial colectomy Hypertension CVD (cardiovascular disease) Alzheimers disease Mother Asthma Brother Hepatitis Sister Family history of thyroid problem Breast cancer Paternal Grandfather Stomach cancer Surgical History H/O prior ablation treatment History of lymph node excision History of prior ablation treatment Social History Housing: House Are you a primary home health caregiver to a significant other at home: No Do you presently have visiting nurse or other home services: No Alcohol intake: never Patient Tobacco Use Status: Never used Tobacco e-Cigarette/Vaping Use: Never Used Second Hand Smoke Exposure: No service: No Current occupational status: employed Current occupation: [employer] Cognitive needs: No Hearing needs: No Vision needs: No Meds Allergies Allergy/AdvReac Type Severity Reaction Status Date / Time No Known Allergies Allergy Verified 12/07/22 16:15 Active Medications: Current Medications Pharmacy Consult (Consult Rx Perform Med Rec) 1 each MISCELLANE ONCE PRN PRN Reason: Consult order Home Medications Medication Instructions Recorded Confirmed Last Taken Type apixaban 5 mg tablet 5 mg PO BID 10/26/20 04/21/23 04/20/23 History empagliflozin 25 mg-metformin ER 1 tab PO DAILY@1200 04/16/23 04/21/23 04/20/23 History 1,000 mg tablet,extended release 24hr (Synjardy XR) cholecalciferol (vitamin D3) 50 50 mcg PO DAILY 04/17/23 04/21/23 04/19/23 History mcg (2,000 unit) tablet cyanocobalamin (vitamin B-12) 1,000 mcg PO DAILY 04/17/23 04/21/23 04/19/23 History 1,000 mcg tablet losartan 25 mg tablet 25 mg PO DAILY 04/21/23 04/21/23 04/20/23 History semaglutide (weight loss) 2.4 2.4 mg subcut SA 04/21/23 04/21/23 04/13/23 History mg/0.75 mL subcutaneous pen injector (Wegovy) Physical Exam Vital Signs and Narrative: Vital Signs: Last Vital Signs Temp 97.9 F 04/21/23 07:50 Pulse 88 04/21/23 07:49 Resp 14 04/21/23 07:50 BP 94/71 04/21/23 07:49 Pulse Ox 98 04/21/23 07:50 O2 Del Method Nasal Cannula 04/21/23 07:50 O2 Flow Rate 3 04/21/23 07:50 BMI result Body Mass Index 37.9 Constitutional: Alert, in no acute distress. Mental Status: Oriented to person, place and time. Eyes: Pupils are equal, round, and reactive to light. Ear, Nose, and Throat: Oropharynx clear, mucous membranes moist. Ears and nose without deformities. Trachea midline. Respiratory: Clear to auscultation bilaterally. No wheezing, rales, or rhonchi. Cardiovascular: Irregularly irregular rhythm. Gastrointestinal: Abdomen soft, non-tender, non-distended, obese. Normal bowel sounds. Neurologic: Cranial nerves II-XII are grossly intact bilaterally. No focal neurological deficits. Moves all extremities spontaneously. Skin: No rashes or lesions noted. Musculoskeletal: No cyanosis or clubbing. Extremities: No edema. Psychiatric: Normal mood and affect. Results Labs 04/21/23 03:23 04/21/23 03:23 Labs: Laboratory Results - last 24 hr 04/21/23 04/21/23 04/21/23 03:23 03:23 03:23 MCV 93.6 MCH 32.2 MCHC 34.3 RDW 11.8 Plt Count 255 MPV 10.9 Immature Gran % (Auto) 0.4 Neut % (Auto) 50.0 Lymph % (Auto) 31.3 [place] % (Auto) 8.5 Eos % (Auto) 9.5 H Baso % (Auto) 0.3 Lymph # (Auto) 3.3 [place] # (Auto) 0.9 Eos # (Auto) 1.0 H Baso # (Auto) 0.0 Abs Immat Gran (auto) 0.04 H Absolute Neuts (auto) 5.2 Absolute Nucleated RBC 0.000 Nucleated RBC % (auto) 0.0 Anion Gap 17 Estim Creat Clear Calc 105.2 Estimated GFR > 60 Random Glucose 110 Calcium 9.2 Troponin I High Sens < 2.7 B-Natriuretic Peptide 04/21/23 08:26 MCV MCH MCHC RDW Plt Count MPV Immature Gran % (Auto) Neut % (Auto) Lymph % (Auto) [place] % (Auto) Eos % (Auto) Baso % (Auto) Lymph # (Auto) [place] # (Auto) Eos # (Auto) Baso # (Auto) Abs Immat Gran (auto) Absolute Neuts (auto) Absolute Nucleated RBC Nucleated RBC % (auto) Anion Gap Estim Creat Clear Calc Estimated GFR Random Glucose Calcium Troponin I High Sens B-Natriuretic Peptide 439 H Imaging Radiologist's Impressions: Impressions Chest X-Ray 04/21/23 02:30 IMPRESSION: Unremarkable examination. Assessment and Plan (1) Orthostatic hypotension: Status: Acute (2) Pre-syncope: Status: Acute Plan Pt is a 57-year-old male with a PMH significant for?paroxysmal AFib on Eliquis, hx of up ablations x2, HTN, [id number] diabetes type 2, LAYNE on CPAP who presents to the ED for evaluation of presyncopal episodes. Pt will be admitted to the hospital for treatment of symptomatic orthostatics with IVF and paroxysmal AFib with cardioversion. Paroxysmal AFib EKG showed patient in AFib Currently rate controlled, in the 70s-80s Patient has had 2 ablations in the past, last 2 years ago Patient states he has not knowingly been in AFib for past 8 months Patient seen by Cardiology, will undergo cardioversion tomorrow a.m. Continue Eliquis Patient will be started on Multaq 400 mg b.i.d. Patient be made NPO after midnight Monitor on telemetry Orthostatic hypotension Patient with systolic drop of 22 and diastolic drop of 11 Patient with 3 presyncopal episodes since yesterday Patient with history of spinal injury, unclear if flucuating BP and autonomic dysfunction Patient received IVF in the ED Thigh-high isiah stockings Repeat orthostatics HTN Patient with history of labile blood pressure Recently blood pressure has been fluctuating, has been low the past few days Will hold all antihypertensive medications for now Patient should continue to hold antihypertensives for the next week and keep a BP diary Follow-up outpatient with Cardiology for medication management Ojj-nhbnsxg-plziosebe diabetes Hold Synjardy Place on SSI Diabetic diet Recent weight loss Patient recently placed semaglutide Has lost 25 lb in the last 3 months Continue at home LAYNE on CPAP Continue CPAP at nighttime Full Code Attending:?Dr. Orozco DVT Prophylaxis: On Eliquis Pt will require a hospitalization of at least two nights for treatment of?symptomatic with the status with IV fluids and paroxysmal AFib with cardi oversion tomorrow. Time Spent With Patient Time: Total time managing care of this patient today ____ minutes. Quality Stroke Does the patient have a stroke diagnosis?: No VTE Prior VTE?: No VTE Risk Level:: Medical - moderate - high VTE Device Contraindication: Treatment Not Indicated VTE Drug Contraindication: N/A - Med Ordered
--- NOTE | 2023-04-21 11:31 | PHA.MEDREC ---
Pharmacy Consult ? Medication Reconciliation Pharmacy has completed the medication reconciliation. Spoke to patient to confirm meds. Patient states they have not started diltiazem ER 120mg, and that it was the first time they heard of it being prescribed when referring to pharmacy claim history. Patient is on Wegovy 2.4mg every saturday.
--- NOTE | 2023-04-21 12:12 | P.CONCA_ITS ---
History of Present Illness History of Present Illness Date of Service: 04/21/23 Consult reason: atrial fibrillation, hypotension and other (Near syncope) Chief complaint: irregular heart rate/BP Narrative: I was consulted to see Fito again in cardiology consultation today. As you know he was recently discharged from the hospital after chest pain syndrome. He subsequently underwent a stress test which at high workload was negative for ischemia but had runs of atrial tachycardia. Also had runs of atrial tachycardia via was admitted and was started on Cardizem therapy at home. However he came to the hospital because his blood pressure is highly variable w ith high blood pressure and subsequently low blood pressure felt like he was going to pass out multiple times yesterday. He also felt nauseous but is symptoms are not similar to what he has had for atrial fibrillation the past. He said last episode of atrial fibrillation was about 8 months ago. He had ablation as you may recall about 2 years ago which was a 2nd ablation. He is currently fully anticoagulated with Eliquis. He has notice that his blood pressure was low and this has happened to him in the past with highly labile blood pressures at home. This is a new problem for him. In the last 3 months he has lost about 25 lb on the new medication for weight loss less diabetes. He denies any neurologic symptoms. Denies any seizure-like events. EKG shows atrial fibrillation which has not replaced sinus rhythm which was present in the past. Rate is controlled. Review of Systems Constitutional: Constitutional: Reports no additional constitutional complaints Eyes: Eyes: Reports no additional eye complaints Cardiovascular: Cardiovascular: Denies chest pain, Reports rapid heart rate, Reports lightheadedness, Denies Loss of Consciousness and Denies dyspnea Respiratory: Respiratory: Reports no additional respiratory complaints and Denies dyspnea Gastrointestinal: Gastrointestinal: Reports no additional gastrointestinal complaints Musculoskeletal: Musculoskeletal: Reports no additional musculoskeletal c omplaints Integumentary/Breasts: Skin/Breast: Reports system reviewed and no additional complaints, except as docu Neurologic: Reports system reviewed and no additional complaints, except as documented Psychiatric: Psychiatric: Reports no additional psychiatric complaints Endocrine: Endocrine: Reports no additional endocrine complaints Hematologic/Lymphatic: Hematologic/Lymphatic: Reports no additional hematologic/lymphatic complaints Allergic/Immunologic: Allergic/Immunologic: Reports no additional allergic/immunologic complaints PMFSH Past Medical History Medical History Diarrhea Elevated LFTs Family history of gastric cancer History of COVID-19 HTN (hypertension) Insulin resistance Morbid obesity Omental infarction LAYNE (obstructive sleep apnea) PAF (paroxysmal atrial fibrillation) Family History Family History Father CAD (coronary artery disease) History of partial colectomy Hypertension CVD (cardiovascular disease) Alzheimers disease Mother Asthma Brother Hepatitis Sister Family history of thyroid problem Breast cancer Paternal Grandfather Stomach cancer Surgical History Surgical History H/O prior ablation treatment History of lymph node excision History of prior ablation treatment Social History Social History Housing: House Are you a primary director of health care marketing to a significant other at home: No Do you presently have visiting nurse or other home services: No Alcohol intake: never Patient Tobacco Use Status: Never used Tobacco Smoked in Last 30 Days: No e-Cigarette/Vaping Use: Never Used Second Hand Smoke Exposure: No Use of substances other than those prescribed or required for medical reasons: No Advance Directives: No Advance Directives Information Provided: No service: No Current occupational status: employed Current occupation: [employer] Cognitive needs: No Hearing needs: No Vision needs: No Meds Allergies Allergy/AdvReac Type Severity Reaction Status Date / Time No Known Allergies Allergy Verified 12/07/22 16:15 Active Medications: Current Medications Acetaminophen (Acetaminophen 325 Mg Tablet) 650 mg PO Q6H PRN PRN Reason: Pain, Mild (Pain Scale 1-3) Docusate Sodium (Docusate Sodium 100 Mg Capsule) 100 mg PO DAILY PRN PRN Reason: Constipation Ondansetron HCl (Ondansetron Hcl 4 Mg/2 Ml Vial) 4 mg IVPUSH Q8H PRN PRN Reason: Nausea and Vomiting Pharmacy Consult (Consult Rx Perform Med Rec) 1 each MISCELLANE ONCE PRN PRN Reason: Consult order Sodium Chloride (0.9 % Sodium Chloride Flush 3 Ml Syringe) 3 ml IVFLUSH [facility] Home Medications Medication Instructions Recorded Confirmed Last Taken Type apixaban 5 mg tablet 5 mg PO BID 10/26/20 04/21/23 04/20/23 History empagliflozin 25 mg-metformin ER 1 tab PO DAILY@1200 0604/21/23 04/20/23 History 1,000 mg tablet,extended release 24hr (Synjardy XR) cholecalciferol (vitamin D3) 50 50 mcg PO DAILY 04/17/23 04/21/23 04/19/23 History mcg (2,000 unit) tablet cyanocobalamin (vitamin B-12) 1,000 mcg PO DAILY 04/17/23 04/21/23 04/19/23 History 1,000 mcg tablet losartan 25 mg tablet 25 mg PO DAILY 04/21/23 04/21/23 04/20/23 History semaglutide (weight loss) 2.4 2.4 mg subcut SA 04/21/23 04/21/23 04/13/23 History mg/0.75 mL subcutaneous pen injector (Wegovy) Physical Exam Vital Signs: Vital Signs: Last Vital Signs Temp 97.9 F 04/21/23 07:50 Pulse 88 04/21/23 07:49 Resp 14 04/21/23 07:50 BP 94/71 04/21/23 07:49 Pulse Ox 98 04/21/23 07:50 O2 Del Method Nasal Cannula 04/21/23 07:50 O2 Flow Rate 3 04/21/23 07:50 BMI result Body Mass Index 37.9 Const: General: cooperative, comfortable, alert, awake and anxious Nutritional Appearance: obese Orientation/consciousness: patient oriented x3 Limitations: no limitations HEENT: Head: Yes normocephalic and Yes atraumatic Neck: Neck: Yes trachea midline, Yes supple and Yes no JVD Resp: Effort & Inspection: normal respiratory effort Auscultation: clear to auscultation bilaterally Cardio: Jugular venous distension: no JVD Rhythm: abnormal rhythm irregularly irregular Heart sounds: S1 normal heart sound present, S2 normal heart sound present, no click, no gallops, no murmurs and no rubs GI: Auscultation: normal bowel sounds Skin: General skin exam: no rashes or lesions noted Neuro: General: patient oriented x3 Extrem: General: Yes no clubbing, cyanosis or edema Psych: Affect: Anxious affect present Objective Labs and Meds 04/21/23 03:23 04/21/23 03:23 Lab results: Laboratory Results - last 24 hr 04/21/23 04/21/23 04/21/23 03:23 03:23 03:23 WBC 10.4 RBC 4.23 L Hgb 13.6 L Hct 39.6 L MCV 93.6 MCH 32.2 MCHC 34.3 RDW 11.8 Plt Count 255 MPV 10.9 Immature Gran % (Auto) 0.4 Neut % (Auto) 50.0 Lymph % (Auto) 31.3 [place] % (Auto) 8.5 Eos % (Auto) 9.5 H Baso % (Auto) 0.3 Lymph # (Auto) 3.3 [place] # (Auto) 0.9 Eos # (Auto) 1.0 H Baso # (Auto) 0.0 Abs Immat Gran (auto) 0.04 H Absolute Neuts (auto) 5.2 Absolute Nucleated RBC 0.000 Nucleated RBC % (auto) 0.0 Sodium 139 Potassium 3.5 Chloride 109 H Carbon Dioxide 17 L Anion Gap 17 BUN 16 Creatinine 1.01 Estim Creat Clear Calc 105.2 Estimated GFR > 60 Random Glucose 110 Calcium 9.2 Troponin I High Sens < 2.7 B-Natriuretic Peptide 04/21/23 08:26 WBC RBC Hgb Hct MCV MCH MCHC RDW Plt Count MPV Immature Gran % (Auto) Neut % (Auto) Lymph % (Auto) [place] % (Auto) Eos % (Auto) Baso % (Auto) Lymph # (Auto) [place] # (Auto) Eos # (Auto) Baso # (Auto) Abs Immat Gran (auto) Absolute Neuts (auto) Absolute Nucleated RBC Nucleated RBC % (auto) Sodium Potassium Chloride Carbon Dioxide Anion Gap BUN Creatinine Estim Creat Clear Calc Estimated GFR Random Glucose Calcium Troponin I High Sens B-Natriuretic Peptide 439 H EKG shows atrial fibrillation with controlled ventricular response Imaging Radiologist's impression: Impressions Chest X-Ray 04/21/23 02:30 IMPRESSION: Unremarkable examination. Assessment and Plan (1) Persistent atrial fibrillation: Status: Acute Persistent atrial fibrillation with poorly tolerated in the past and has done well with rhythm control in the past. Rate is adequately control although he cannot tolerate a lot of the medications including metoprolol and Cardizem which has given him orthostatic hypertension. I will start him on Multaq 400 mg b.i.d.. Continue Eliquis therapy. Keep him NPO after midnight and will plan for cardioversion tomorrow. Does not require ANGELICA as he has been taking his oral anticoagulant religiously. I do not think that this is causing his near-syncope or orthostatic hypertension but probably contributing to it. (2) Pre-syncope: Status: Acute Patient presents with presyncopal episodes most likely related to orthostatic hypertension and intolerance to multiple medications. He has highly variable blood pressures in the past which has become more pronounced recently. He said very often when he is up and about and walking a lot he does get tired and has notice low blood pressure. He is also notice low blood pressure with low-dose lisinopril therapy at home. He has clinical findings consistent with autonomic dysfunction of unclear etiology. He had cervical spine trauma about 30 years ago which could be contributing to it and/or related to his diabetes. This will be a very difficult problem to solve and was discussed with him. At this point time I would continue IV fluids and monitor for orthostatic vitals later in the day today. At this point time will avoid all antihypertensives and advised him to monitor blood pressure at home and maintain all log and then we will guide therapy depending on what his blood pressure readings are. Will continue to follow with you. Thank you for allowing me to partake in his care Time Spent With Patient Time: Total time managing care of this patient today ____ minutes. Procedures Date of Service Date of Service: 04/21/23
--- NOTE | 2023-04-21 13:22 | PC.NURSE ---
spoke with pauline SMITH- he stated he can have the repeat ortho stats performed at 8pm tonight as q shift since they had been performed at approx 8am this am.
[2023-04-21] MEDS: Dronedarone HCl 400 MG TABLET PO ×2 (13:35→21:23)
[2023-04-21] MEDS: Cholecalciferol (Vitamin D3) 25 MCG TABLET 50 MCG PO (13:35)
[2023-04-21] MEDS: Cyanocobalamin (Vitamin B-12) 1,000 MCG TABLET 1000 MCG PO (13:35)
[2023-04-21] MEDS: Apixaban 5 MG TABLET PO ×2 (13:35→21:23)
--- NOTE | 2023-04-21 15:28 | PC.NURSE ---
report called to floor
[2023-04-21 16:47] LABS: Glucose, Whole Blood 92 mg/dL (60-115)
[2023-04-21 21:19] LABS: Glucose, Whole Blood 85 mg/dL (60-115)
[2023-04-22] VITALS (9 sets, daily range): BP systolic 103–133; BP diastolic 66–88; PULSE 63–88; RESP 16–20; TEMP 36.1–36.3; O2SAT 97–98
[2023-04-22] MEDS: 0.9 % Sodium Chloride Flush 3 ML SYRINGE IVFLUSH ×2 (00:24→08:44)
[2023-04-22 06:14] LABS: Hematocrit 41.9 % (42.0-52.0); Hemoglobin 14.3 g/dl (14.0-18.0); Mean Corpuscular HGB Conc 34.1 g/dl (31.0-36.0); Mean Corpuscular Hemoglobin 32.5 pg (27.0-33.0); Mean Corpuscular Volume 95.2 fL (80.0-98.0); Mean Platelet Volume 11.2 fL (9.4-12.4); Platelet Count 258 X10*3/uL (160-400); Red Cell Distribution Width 11.9 % (11.0-16.0); White Blood Count 10.4 X10*3/uL (4.8-10.8)
[2023-04-22 06:15] LABS: Anion Gap 13 (12-20); Blood Urea Nitrogen 15 mg/dL (9-16); Calcium 9.4 mg/dL (8.4-10.2); Carbon Dioxide 26 mmol/L (22-29); Chloride 105 mmol/L (96-108); Creatinine Clr Calc Pharmacy 90.3; Estimated Glomerular Filt Rate > 60; Glucose Random 94 mg/dL (60-115); Potassium 3.7 mmol/L (3.3-5.1); Sodium 140 mmol/L (135-145)
--- NOTE | 2023-04-22 06:45 | ECG_ITS ---
Test Reason : change in rhythm Blood Pressure : / mmHG Vent. Rate : 065 BPM Atrial Rate : 065 BPM P-R Int : 180 ms QRS Dur : 086 ms QT Int : 424 ms P-R-T Axes : 063 026 035 degrees QTc Int : 440 ms Normal sinus rhythm Normal ECG No significant changes when compared with the previous EKG of 21 apr 2023 Referred By: Lenore Orozco Electronically Signed By:WERNER GUPTA
--- NOTE | 2023-04-22 06:54 | PC.NURSE ---
At 0445 registered nurse cardiac telemetry tech called saying pt converted to SR since 2A, Vitals are WNL, pt is quietly asleep with no complaints, Dr. Valentin was made aware. at 0644, Dr. Valentin ordered EKG and done, tracing was forwarded to Dr. Valentin.
[2023-04-22 07:19] LABS: Glucose, Whole Blood 84 mg/dL (60-115)
[2023-04-22] MEDS: Cholecalciferol (Vitamin D3) 25 MCG TABLET 50 MCG PO (08:44)
[2023-04-22] MEDS: Cyanocobalamin (Vitamin B-12) 1,000 MCG TABLET 1000 MCG PO (08:44)
[2023-04-22] MEDS: Dronedarone HCl 400 MG TABLET PO (08:44)
[2023-04-22] MEDS: Apixaban 5 MG TABLET PO (08:44)
--- NOTE | 2023-04-22 09:47 | MHC.CM.PN ---
EMR REVIEWED, PT ADMITTED W/PRE-SYNCOPE/AFIB/CARDIOVERSION. PT REPORTS THE CARDIOVERSION WAS CANCELLED D/T BEING IN NSR. PT REPORTS NOTHING HAS CHANGES SINCE HE WAS HERE LAST WEEK, PT LIVES IN [facility] AND RENTS A ROOM, PT INDEP USES A CPAP AND NO HOME SERVICES, PT DENIES NEED FOR VNA SERVICES UPON D/C. 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
--- NOTE | 2023-04-22 10:28 | P.DS_ITS ---
DS: Providers Provider Date of Service: 04/22/23 Date of admission: 04/21/23 12:18 Date of discharge: 04/22/23 Primary care physician: Unknown Physician Consults: 04/21/23 08:31 Consult to Cardiology Stat Consulting Provider: [facility] Reason for consultation: orthostatic hypotension, afib Has provider been notified: Yes Attending physician on discharge: Lenore Orozco Discharging clinician: Lenore Orozco DS: Diagnosis Discharge Diagnosis (1) Orthostatic hypotension: Status: Acute (2) Pre-syncope: Status: Acute (3) Persistent atrial fibrillation: Status: Acute DS: Summary Hospital Course Hospital Course: 57-year-old male with a PMH significant for?paroxysmal AFib on Eliquis, hx of up ablations x2, HTN, [id number] diabetes type 2, LAYNE on CPAP who presents to the ED for evaluation of presyncopal episodes.? Patient was previously admitted to the hospital 5 days prior on 04/16/2023 complaining chest pain.? Patient's EKG and troponins were negative. Pt had stress test on 04/18/2023 that was negative.? Patient states that his returned in ?full force? on Saturday.? Patient was walking around his house when he began to experience presyncope:? Began feeling nauseous, lightheaded, dizzy.? Patient then laid down felt better, but upon arising, again felt lightheaded and dizzy and almost passed out.? In total patient experienced very presyncopal episodes which prompted his visit to the emergency room.? Patient states that when he goes of the AFib he normally feels nauseous, lightheaded, has elevated heart rate, and his blood pressure usually drops.? Patient denies chest pain/pressure, palpitations.? No shortness of breath.? Denies any lower leg edema.? No fever, chills, vomiting, abdominal pain.? Patient also has a history of spinal injury, and it is uncertain whether his labile blood pressure is an autonomic dysfunction secondary to this injury.? Patient is currently lying on his back and states feels okay and denies any lightheadedness or dizziness.? Patient also states that he has been trying to drink plenty of liquids.? Of note, patient also had an episode of rectal bleeding approximately 1 month ago in March of this year, and had recent changes to his blood pressure medication. In the ED patient was afebrile, normotensive, and with heart rate in the 70s to 80s, satting at 97% on room air.? Orthostatics were positive:? Systolic change 22 with position change from sitting to standing, diastolic change of 11 from supine to standing. Labs were significant for stable H&H of 13.6/39.6, BNP 439.? Troponins negative.? Electrolytes baseline.? Renal function baseline. CXR unremarkable. EKG demonstrated atrial fibrillation without evidence of ST elevations or depressions. Pt was treated with 1 L of IVF. Pt will be admitted to the hospital for treatment of symptomatic orthostatics with IVF and paroxysmal AFib with cardioversion. Hospital course: Patient was admitted for orthostasis, also has underlying AFib, also had presyncope: Patient found to have borderline blood pressure and orthostasis on admission, started on Multaq, hold blood pressure medication, also received IV fluids initially: Subsequently patient seems to feeling better, no orthostasis on repeat check. Currently in sinus rhythm. Cardiology saw the patient recommended to continue Multaq and no need of cardioversion at this point since patient is sinus rhythm. Follow-up with Cardiology out patiently In addition ordered Chidi stocking for orthostasis. Patient was advised for VNA but patient currently refused. plan: continue multaq ,eliquis continue chidi stocking for orthostasis. Above management discussed the patient detail and he understand and in agreement with our plan, time spent 50 minute. Time Spent with Patient Time attestation: Total time managing care of this patient today ____ minutes. Discharge coordination time: Greater than 30 minutes Quality: Safe Use of Opioids Does Pt have an Active Cancer Diagnosis on the Problem List?: No Quality: Stroke Does the patient have a stroke diagnosis?: No Physical Exam Vital Signs: Vital Signs: Last Vital Signs Temp 97.4 F 04/22/23 07:17 Pulse 70 04/22/23 08:00 Resp 16 04/22/23 07:17 BP 106/76 04/22/23 08:00 Pulse Ox 97 04/22/23 07:17 O2 Del Method Room Air 04/22/23 07:17 O2 Flow Rate 3 04/22/23 00:00 BMI result Body Mass Index 39.4 Appearance: Alert.? Oriented X3.? not in distress.? cvs: rrr, [id number]. res: clear to auscultation ,no rhonchii or wheezing abd: no rebound or guarding ,nt, bs present. ext pulses present , no cyanosis. neuro: axo3 , nonfocal. DS: Data Data Completed and Pending Labs on day of discharge: Laboratory Results - last 24 hr 04/21/23 04/21/23 04/22/23 16:42 21:08 05:50 WBC 10.4 RBC 4.40 L Hgb 14.3 Hct 41.9 L MCV 95.2 MCH 32.5 MCHC 34.1 RDW 11.9 Plt Count 258 MPV 11.2 Absolute Nucleated RBC 0.000 Nucleated RBC % (auto) 0.0 Sodium Potassium Chloride Carbon Dioxide Anion Gap BUN Creatinine Estim Creat Clear Calc Estimated GFR POC Glucose 92 85 Random Glucose Calcium 04/22/23 04/22/23 05:50 07:09 WBC RBC Hgb Hct MCV MCH MCHC RDW Plt Count MPV Absolute Nucleated RBC Nucleated RBC % (auto) Sodium 140 Potassium 3.7 Chloride 105 Carbon Dioxide 26 Anion Gap 13 BUN 15 Creatinine 1.20 Estim Creat Clear Calc 90.3 Estimated GFR > 60 POC Glucose 84 Random Glucose 94 Calcium 9.4 Imaging Chest x-ray: Radiologist's impression: ITS Impressions Chest X-Ray 04/21/23 02:30 IMPRESSION: Unremarkable examination. Discharge Plan Discharge Anticipated Discharge Date/Time: 04/22/23 10:22 Patient Disposition: Home, Self-Care Discharge Diagnosis: afib ,orthostasis Referrals: Physician,Unknown J [Physician] - 1 Week Discharge Medications: New Multaq 400 mg Tablet 400 mg PO BID Qty: 60 0RF Continued (DME) CPAP Machine/Device Device See Rx Instructions .Route Qty: 1 0RF Rx Instructions: As directed Synjardy XR 25-1,000 mg tablet, IR - ER, biphasic 24hr 1 tab PO DAILY@1200 Rx Instructions: WITH LUNCH cyanocobalamin (vitamin B-12) 1,000 mcg Tablet 1,000 mcg PO DAILY cholecalciferol (vitamin D3) 50 mcg (2,000 unit) Tablet 50 mcg PO DAILY losartan 25 mg tablet 25 mg PO DAILY Wegovy 2.4 mg/0.75 mL Pen Injector 2.4 mg SUBCUT SA albuterol sulfate 90 mcg/actuation HFA aerosol inhaler 2 puff PO Q4H PRN (Reason: wheezing) 30 Days Qty: 8.5 1RF Discontinued apixaban 5 mg tablet 5 mg PO BID Discharge Orders: Discharge Order (Routine); Ordered 04/22/23 Ordered By: Lenore Orozco Diet: Advance to usual diet Activity on Discharge: As tolerated Stand Alone Forms: Patient Portal Discharge page, Work/School Release Care Plan Goals: Patient was admitted for orthostasis, also has underlying AFib, also had presyncope: Patient found to have borderline blood pressure and orthostasis on admission, started on Multaq, hold blood pressure medication, also received IV fluids initially: Subsequently patient seems to feeling better, no orthostasis on repeat check. Currently in sinus rhythm. Cardiology saw the patient recommended to continue Multaq and no need of cardioversion at this point since patient is sinus rhythm. Follow-up with Cardiology out patiently In addition ordered Chidi stocking for orthostasis. Patient was advised for VNA but patient currently refused. Health Concerns: As above. Plan of Treatment: As above. Assessment: As above. Patient Instructions: A-fib (Atrial Fibrillation) (DC) Discharge Date/Time: 04/22/23 13:06
--- NOTE | 2023-04-22 10:43 | PM.PNCARD ---
Subjective Subjective Date of Service: 04/22/23 Interval history: Patient states that he feels okay. No cardiac symptoms at all. No chest pain or shortness of breath or palpitations. He was scheduled for cardioversion today but already went back to sinus rhythm. Review of Systems Review of Systems Yes all other systems are reviewed and are negative Constitutional: Reports as per HPI and Reports no additional constitutional complaints Eyes: Reports as per HPI and Denies no additional eye complaints Denies system reviewed and no additional complaints, except as documented and Reports as per HPI Cardiovascular: Reports as per HPI, Reports no additional cardiovascular complaints, Denies acrocyanosis, Denies cool extremities, Denies chest pain, Denies leg edema, Denies lightheadedness, Denies palpitations and Denies dyspnea Respiratory: Reports as per HPI, Denies no additional respiratory complaints and Denies dyspnea Gastrointestinal: Reports as per HPI and Denies no additional gastrointestinal complaints Genitourinary: Reports no additional male genitourinary complaints and Reports as per HPI Musculoskeletal: Reports no additional musculoskeletal complaints and Reports as per HPI Skin/Breast: Reports system reviewed and no additional complaints, except as docu Reports system reviewed and no additional complaints, except as documented and Reports as per HPI Psychiatric: Reports no additional psychiatric complaints and Reports as per HPI Endocrine: Reports no additional endocrine complaints, Reports as per HPI and Denies palpitations Hematologic/Lymphatic: Reports no additional hematologic/lymphatic complaints and Reports as per HPI Allergic/Immunologic: Reports no additional allergic/immunologic complaints and Reports as per HPI Physical Exam Vital Signs: Last Vital Signs Temp 97.4 F 04/22/23 07:17 Pulse 70 04/22/23 08:00 Resp 16 04/22/23 07:17 BP 106/76 04/22/23 08:00 Pulse Ox 97 04/22/23 07:17 O2 Del Method Room Air 04/22/23 07:17 O2 Flow Rate 3 04/22/23 00:00 BMI result Body Mass Index 39.4 Const General: comfortable and no acute distress Orientation/consciousness: patient oriented x3 HEENT Other: Unremarkable Head: Yes normal to inspection Neck Neck: Yes normal visual inspection Chest Chest palpation & inspection: normal inspection of the chest Resp Auscultation: clear to auscultation bilaterally Cardio Palpation: normal PMI Heart sounds: S1 normal heart sound present, S2 normal heart sound present, no gallops, no murmurs and no rubs GI Palpation (GI): Soft to palpation Back/Spine/Pelvis Other: unremarkable Skin General skin exam: no rashes or lesions noted Neuro General: patient oriented x3 Extrem General: Yes normal to inspection Psych Mental Status: mental status grossly normal Objective Labs and Meds 04/22/23 05:50 04/22/23 05:50 Lab results: Laboratory Results - last 24 hr 04/21/23 04/21/23 04/22/23 16:42 21:08 05:50 WBC 10.4 RBC 4.40 L Hgb 14.3 Hct 41.9 L MCV 95.2 MCH 32.5 MCHC 34.1 RDW 11.9 Plt Count 258 MPV 11.2 Absolute Nucleated RBC 0.000 Nucleated RBC % (auto) 0.0 Sodium Potassium Chloride Carbon Dioxide Anion Gap BUN Creatinine Estim Creat Clear Calc Estimated GFR POC Glucose 92 85 Random Glucose Calcium 04/22/23 04/22/23 05:50 07:09 WBC RBC Hgb Hct MCV MCH MCHC RDW Plt Count MPV Absolute Nucleated RBC Nucleated RBC % (auto) Sodium 140 Potassium 3.7 Chloride 105 Carbon Dioxide 26 Anion Gap 13 BUN 15 Creatinine 1.20 Estim Creat Clear Calc 90.3 Estimated GFR > 60 POC Glucose 84 Random Glucose 94 Calcium 9.4 Progress Note: A&P Assessment and plan (1) PAF (paroxysmal atrial fibrillation): Status: Acute (2) Encounter for monitoring anti-arrhythmic therapy: Status: Acute Plan He was scheduled for cardioversion today but already went back to sinus rhythm. Hence we may cancel that. With regard to medications, he is on Multaq which has been commenced. To be continued. He already has electrophysiology specialist at [facility]. Can be followed there. Also anticoagulation. In the EKG, underlying rhythm is sinus at 65/Min; normal WA and corrected QT. Time Spent With Patient Time: Total time managing care of this patient today ____ minutes. Progress Note: Quality Stroke Does the patient have a stroke diagnosis?: No Procedures Date of Service Date of Service: 04/22/23
[2023-04-22 11:01] LABS: Glucose, Whole Blood 113 mg/dL (60-115)
--- NOTE | 2023-04-22 11:03 | MHC.CM.PN ---
PT MEDICALLY CLEARED FOR D/C HOME NO SERVICES AND WILL ARRANGE TRANSPORT
== END 2023-04-22 13:06 | disposition home or self-care (01) | DRG 204 ==
LOC: HO.ED 08:07 → HO.EDOVER 12:20 → HO.IMC 14:46
PROVIDERS: Physician Assistant; Admitting Provider Student in an Organized Health Care Education/Training Program; Emergency Provider Student in an Organized Health Care Education/Training Program; PCP Physician Assistant; Visit Provider Internal Medicine
DX: I95.1 Orthostatic hypotension (principal); E11.9 Type 2 diabetes mellitus without complications; I48.0 Paroxysmal atrial fibrillation; G47.33 Obstructive sleep apnea (adult) (pediatric); Z79.01 Long term (current) use of anticoagulants; Z79.899 Other long term (current) drug therapy
CPT/HCPCS: 36415; 71046; 80048; 82947; 83880; 84484; 85025; 85027; 93005; 94660; 97161; 99222; 99285

== ENCOUNTER → 2023-04-30 09:38 | Outpatient (BNVA) | payer OTHER, SELFPAY | PROVIDERS: PCP Physician Assistant; Visit Provider Internal Medicine | DX: Z79.899 Other long term (current) drug therapy (principal) | CPT/HCPCS: 93005 ==

== ENCOUNTER 2023-07-29 09:53 | Outpatient (AMB) | payer OTHER, SELFPAY ==
[2023-07-29 09:59] VITALS: BP 124/88; PULSE 65; O2SAT 98; BMI 35.5
--- NOTE | 2023-07-29 09:59 | A.OFFPC_ITS ---
Vital Signs 07/29/23 09:59 Height 5 ft 11 in Weight 254 lb 6 oz BMI 35.5 BP 124/88 Blood Pressure Location Lt brachial Position Sitting Pulse 65 Pulse Source Pulse Oximeter Pulse Oximetry (%) 98 Oxygen Delivery Method Room Air Intake Visit Reasons: HTN,AFIB,ORTHOSTATIC Intake Note: Pt is here for routine F/U. Hospital Unit Clerk Required: No Accompanied by: Self / Same As Patient Allergies No Known Allergies Allergy (Verified 07/29/23 10:11) Medication List - Last Reconciled 07/29/23 by Jonathan Barnett PA-C apixaban (Eliquis) 5 mg PO BID cholecalciferol (vitamin D3) 50 mcg PO DAILY CPAP (CPAP Machine/Device) As directed cyanocobalamin (vitamin B-12) 1,000 mcg PO DAILY empagliflozin-metformin 25-1,000 mg ER (Synjardy XR) 1 tab PO DAILY@1200 losartan 25 mg PO DAILY metoprolol succinate ER 50 mg PO DAILY miscellaneous medical supply 1 ea miscellaneous DAILY semaglutide (weight loss) (Wegovy) 2.4 mg subcut SA Tobacco use date assessed: 04/26/23 Dental Screening Dental Screen Date: 07/29/23 Did you have a dental visit in the last 12 months?: Yes Did you have a dental problem in the last 6 months where you did not have access to dental care?: No Was dental information given to patient?: Patient has dentist HPI HTN,AFIB,ORTHOSTATIC HPI Details Patient is a 57-year-old male here today follow-up visit . Patient has a past medical history significant for AFib, LAYNE, hip dysplasia. .. Hip dysplasia: Has a congenital hip dysplasia and is followed by orthopedic surgeon. Now back to work though does more sitting at work which has helped his lower back and hip pain. He is doing physical therapy for his hip dysplasia. AFIB: Is now seeing a machine stripper cutter ( Dr So) [facility] though has not followed up his machine stripper cutter..? Continues on Eliquis 5 mg b.i.d. without any overt signs of bleeding. Does take metoprolol PRN for palpatations He is now using CPAP on a nightly basis .. Hypertension: Has been having erratically blood pressures, has been diagnosed with orthostatic hypotension. Continues with losartan 25 mg regularly, though when does have hypotension he hold blood pressure medication. [facility] Medical History Family history of gastric cancer Insulin resistance History of COVID-19 Omental infarction Elevated LFTs Morbid obesity PAF (paroxysmal atrial fibrillation) LAYNE (obstructive sleep apnea) Diarrhea HTN (hypertension) Surgical History H/O prior ablation treatment History of lymph node excision History of prior ablation treatment Family History Father CAD (coronary artery disease) History of partial colectomy Hypertension CVD (cardiovascular disease) Alzheimers disease Mother Asthma Brother Hepatitis Sister Family history of thyroid problem Breast cancer Paternal Grandfather Stomach cancer Social History Household Members: None Housing: House Are you a primary skin care specialist to a significant other at home: No Do you presently have visiting nurse or other home services: No Alcohol intake: never Patient Tobacco Use Status: Never used Tobacco e-Cigarette/Vaping Use: Never Used Second Hand Smoke Exposure: No service: No Current occupational status: employed Current occupation: [employer] Cognitive needs: No Hearing needs: No Vision needs: Yes (Glasses) Questionnaire Thrive Questionnaire Date Thrive assessed: 04/22/23 ENZO-7 AMB Questionnaire ENOZ-7 Date ENZO - 7 assessed: 11/16/22 Source: Developed by Drs. Wicho Zimmer, Sera Roche, Kolton Bowles and colleagues, with an educational joni from [email or web address]. Review of Systems Const Denies headache(s) Eyes Denies loss of vision ENT Denies vertigo, Denies dizziness, Denies headache(s) and Denies sore throat Card Denies chest pain, Denies leg edema and Denies lightheadedness Resp Denies cough, Denies hemoptysis and Denies wheezing GI Denies abdominal pain, Denies melena, Denies constipation, Denies diarrhea and Denies vomiting Denies dysuria, Denies urinary frequency and Denies urinary urgency Musc Details: + hip pain Reports back pain, Denies arthralgias, Denies joint swelling, Denies numbness and Denies tingling Neuro Denies Abnormal speech present, Denies behavioral changes, Denies vertigo, Denies dizziness, Denies headache(s), Denies loss of vision, Denies memory loss, Denies numbness and Denies tingling Psych Denies anxiety, Denies behavioral changes, Denies depression, Denies memory loss and Denies panic attacks Fish/Lymph Denies easy bleeding and Denies easy bruising Aller/Immun Denies wheezing Physical exam (Primary Care) Vital Signs: Last Vital Signs Pulse 65 07/29/23 09:59 BP 124/88 07/29/23 09:59 Pulse Ox 98 07/29/23 09:59 Oxygen Delivery Method Room Air 07/29/23 09:59 BMI result Body Mass Index 35.5 BMI Assessment/Plan discussion: High Tobacco/Smoking Status: Tobacco use Status Tobacco use date assessed 04/26/23 07/29/23 10:01 Patient Tobacco Use Status Never used Tobacco 07/29/23 10:01 e-Cigarette/Vaping Use Never Used 07/29/23 10:01 Thrive Assessment: Date of Thrive Assessment Date Thrive assessed 04/22/23 07/29/23 10:01 Const Other: Obese General: healthy appearing, no acute distress, alert and awake Nutritional Appearance: well nourished Orientation/consciousness: oriented to person, oriented to place and oriented to time HENMT Ears: TM's normal bilaterally General nose exam: Normal nasal mucous membranes and turbinates present Eyes Conjunctivae: conjunctivae normal Sclerae: sclerae normal Pupils: Equal, round and reactive pupils present Neck Neck: Yes no lymphadenopathy and Yes no JVD Thyroid: Thyroid normal Carotids: no bruits Resp Effort & Inspection: normal respiratory effort and not tachypneic Auscultation: no crackles, no rales, no rhonchi and no wheezes Cardio Rate: regular rate Rhythm: regular rhythm Heart sounds: no murmurs and normal S1 and S2 GI Palpation (GI): Soft to palpation, nontender, no hepatomegaly and no s plenomegaly Auscultation: normal bowel sounds Skin General skin exam: no rashes or lesions noted and dry skin Neuro General: oriented to person, oriented to place and oriented to time Cranial nerves: Yes Equal, round and reactive pupils present Speech: No Abnormal speech present Gait exam (Neuro): Normal gait present Motor exam (neuro): no tremor noted Extrem Right upper extremity: full ROM Left upper extremity: full ROM Right lower extremity: full ROM; no edema Left lower extremity: full ROM; no edema Psych Mental Status: mental status grossly normal Speech and movement: Normal speech and movement present Affect: normal affect Attitude: cooperative Thought process: Normal thought process present Assessment and Plan Assessment & Plan (1) Persistent atrial fibrillation: Code(s): I48.19 - Other persistent atrial fibrillation Plan: Patient continues to follow machine stripper cutter and was to [place]. He continues on Eliquis 5 mg b.i.d. without any overt signs of bleeding. Does use metoprolol 50 mg extended release on a p.r.n. basis for heart palpitations. He continues to work a more sedentary job as he is not able to tolerate strenuous activity due to his tachycardia. (2) Tinea: Code(s): B35.9 - Dermatophytosis, unspecified (3) LAYNE (obstructive sleep apnea): Comment: CPAP, further eval testing pending at [facility] Code(s): G47.33 - Obstructive sleep apnea (adult) (pediatric) Plan: Continues with the use of CPAP machine on a nightly basis with good effect . (4) Insulin resistance: Comment: taking meftformin-does not check glucose at home Code(s): E88.81 - Metabolic syndrome Plan: Followed by [facility] and was DWAYNE. Has been placed on Synjardy and [facility] Has lost significant amount weight. Unsure of his last A1c thus will check an A1c. (5) Obese: Code(s): E66.9 - Obesity, unspecified Qualifiers: Obesity type: due to excess calories Obesity classification: adult class 2 (BMI 35 - 39.9) Serious obesity comorbidity presence: with serious comorbidity Body mass index: BMI 35.0-35.9 Qualified Code(s): E66.01 - Morbid (severe) obesity due to excess calories; Z68.35 - Body mass index [BMI] 35.0- 35.9, adult Plan: Patient now on Wegovy and has lost significant amount of weight. BMI now 35.5 Orders: Orders Comprehensive [place]. Panel Fast Today I48.0 - Paroxysmal atrial fibrillation Lipid Panel Today I48.0 - Paroxysmal atrial fibrillation Complete Blood Count no Diff Today I48.0 - Paroxysmal atrial fibrillation Prostate Specific Antigen Scr Today I48.0 - Paroxysmal atrial fibrillation, Z12.5 - Encounter for screening for malignant neoplasm of prostate Hemoglobin A1c Today E88.81 - Metabolic syndrome Medications: New clotrimazole-betamethasone 1-0.05 % 1 appl topical BID 30 days 45 grams 0RF B35.9 - Dermatophytosis, unspecified Coding Level of Care Code Est Pt Level 4 (20652) Diagnoses Persistent atrial fibrillation I48.19 Tinea B35.9 LAYNE (obstructive sleep apnea) G47.33 Insulin resistance E88.81 Class 2 severe obesity due to excess calories with serious comorbidity and body mass index (BMI) of 35.0 to 35.9 in adult E66.01; Z68.35 Obesity type: due to excess calories Obesity classification: adult class 2 (BMI 35 - 39.9) Serious obesity comorbidity presence: with serious comorbidity Body mass index: BMI 35.0-35.9
== END 2023-07-29 10:30 | disposition home or self-care (01) ==
PROVIDERS: PCP Physician Assistant; Visit Provider Physician Assistant
DX: I48.19 Other persistent atrial fibrillation (principal); E66.01 Morbid (severe) obesity due to excess calories; Z68.35 Body mass index [BMI] 35.0-35.9, adult; B35.9 Dermatophytosis, unspecified; G47.33 Obstructive sleep apnea (adult) (pediatric); E88.81 Metabolic syndrome and other insulin resistance
CPT/HCPCS: 99214

== ENCOUNTER 2023-07-29 10:42 | Outpatient (REF) | payer OTHER, SELFPAY ==
[2023-07-29 12:15] LABS: Estimated Average Glucose 82 mg/dL; Hemoglobin A1c % 4.5 % (<6.0)
[2023-07-29 12:18] LABS: Hematocrit 44.3 % (42.0-52.0); Hemoglobin 14.7 g/dl (14.0-18.0); Mean Corpuscular HGB Conc 33.2 g/dl (31.0-36.0); Mean Corpuscular Hemoglobin 32.2 pg (27.0-33.0); Mean Corpuscular Volume 97.1 fL (80.0-98.0); Mean Platelet Volume 11.7 fL (9.4-12.4); Platelet Count 245 X10*3/uL (160-400); Red Blood Count 4.56 X10*6/uL (4.60-5.80); Red Cell Distribution Width 11.8 % (11.0-16.0); White Blood Count 8.1 X10*3/uL (4.8-10.8)
[2023-07-29 13:11] LABS: Alanine Aminotransferase 35 U/L (0-40); Albumin Level 4.3 g/dL (3.5-5.0); Alkaline Phosphatase 80 U/L (39-117); Anion Gap 15 (12-20); Aspartate Amino Transferase 30 U/L (5-37); Bilirubin Total 1.5 mg/dL (0.0-1.0); Blood Urea Nitrogen 13 mg/dL (9-16); Calcium 9.5 mg/dL (8.4-10.2); Carbon Dioxide 25 mmol/L (22-29); Chloride 104 mmol/L (96-108); Cholesterol 151 mg/dL (<200); Estimated Glomerular Filt Rate > 60; Glucose Fasting 83 mg/dL (60-99); HDL Cholesterol 41 mg/dL (>40); LDL Cholesterol Calculated 85 mg/dL (<100); Potassium 4.1 mmol/L (3.3-5.1); Sodium 140 mmol/L (135-145); Total Protein 7.7 g/dL (6.5-8.0); Triglycerides 127 mg/dL (<150)
[2023-07-29 13:43] LABS: Prostate Specific Antigen Scr 0.56 ng/mL (<0.05-4.0)
== END 2023-07-29 10:43 | disposition home or self-care (01) ==
LOC: HO.LAB 10:42
PROVIDERS: PCP Physician Assistant; Visit Provider Physician Assistant
DX: I48.0 Paroxysmal atrial fibrillation (principal); E88.81 Metabolic syndrome and other insulin resistance; Z12.5 Encounter for screening for malignant neoplasm of prostate; G47.33 Obstructive sleep apnea (adult) (pediatric)
CPT/HCPCS: 36415; 80053; 80061; 83036; 84153; 85027

== ENCOUNTER 2023-08-11 16:48 | Emergency (ER) | payer OTHER, SELFPAY ==
[2023-08-11 18:00] VITALS: BP 130/85; RESP 20; TEMP 37.1; O2SAT 97; BMI 35.6
--- NOTE | 2023-08-11 18:03 | ED.GENADULT ---
HPI - General Adult General Chief complaint: Neck Pain/Injury Stated complaint: Neck pain Time Seen by Provider: 08/11/23 21:27 Source: patient Mode of arrival: ambulatory Limitations: no limitations History of Present Illness HPI narrative: 57-year-old male came in for evaluation of neck pain radiating to the left upper extremity, symptoms started 5 days ago pain is more if he turned his neck or lift his left upper extremity above the head or try to walk his dog. No trauma to the neck, no history of heavy lifting, never had similar symptoms in the past, no numbness, no weakness, symptoms relieved if he rests or stay still, no CP or SOB. 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 Related Data Home Medications Medication Instructions Recorded Confirmed empagliflozin 25 mg-metformin ER 1 tab PO DAILY@1200 04/16/23 07/29/23 1,000 mg tablet,extended release 24hr (Synjardy XR) cholecalciferol (vitamin D3) 50 50 mcg PO DAILY 04/17/23 07/29/23 mcg (2,000 unit) tablet cyanocobalamin (vitamin B-12) 1,000 mcg PO DAILY 04/17/23 07/29/23 1,000 mcg tablet losartan 25 mg tablet 25 mg PO DAILY 04/21/23 07/29/23 semaglutide (weight loss) 2.4 2.4 mg subcut SA 04/21/23 07/29/23 mg/0.75 mL subcutaneous pen injector (Wegovy) apixaban 5 mg tablet (Eliquis) 5 mg PO BID 04/27/23 07/29/23 metoprolol succinate 50 mg 50 mg PO DAILY 07/29/23 07/29/23 tablet,extended release 24 hr Previous Rx's Medication Instructions Recorded CPAP (CPAP Machine/Device) #1 ea 09/25/22 miscellaneous medical supply 1 ea miscellaneous DAILY #1 ea 04/29/23 clotrimazole-betamethasone 1 1 appl topical BID 30 days #45 07/29/23 %-0.05 % topical cream grams Allergies Allergy/AdvReac Type Severity Reaction Status Date / Time No Known Allergies Allergy Verified 08/11/23 18:08 Review of Systems Review of Systems: All other systems are reviewed and are negative Constitutional: Reports as per HPI and Reports no additional constitutional complaints Eyes: Reports as per HPI and Reports no additional eye complaints Reports system reviewed and no additional complaints, except as documented Cardiovascular: Reports as per HPI and Reports no additional cardiovascular complaints Respiratory: Reports as per HPI and Reports no additional respiratory complaints Gastrointestinal: Reports as per HPI and Reports no additional gastrointestinal complaints Genitourinary: Reports no additional female genitourinary complaints Musculoskeletal: Reports no additional musculoskeletal complaints Skin/Breast: Reports system reviewed and no additional complaints, except as docu Psychiatric: Reports no additional psychiatric complaints Endocrine: Reports no additional endocrine complaints Hematologic/Lymphatic: Reports no additional hematologic/lymphatic complaints Allergic/Immunologic: Reports no additional allergic/immunologic complaints Reports system reviewed and no additional complaints, except as documented and Reports Abnormal speech present [facility] Past Medical History Medical History Family history of gastric cancer Insulin resistance History of COVID-19 Omental infarction Elevated LFTs Morbid obesity PAF (paroxysmal atrial fibrillation) LAYNE (obstructive sleep apnea) Diarrhea HTN (hypertension) Surgical History H/O prior ablation treatment History of lymph node excision History of prior ablation treatment Family History Family History Father CAD (coronary artery disease) History of partial colectomy Hypertension CVD (cardiovascular disease) Alzheimers disease Mother Asthma Brother Hepatitis Sister Family history of thyroid problem Breast cancer Paternal Grandfather Stomach cancer Social History Social History Household Members: None Housing: House Are you a primary floor care technician to a significant other at home: No Do you presently have visiting nurse or other home services: No Alcohol intake: never Patient Tobacco Use Status: Never used Tobacco e-Cigarette/Vaping Use: Never Used Second Hand Smoke Exposure: No Advance Directives: No Advance Directives Information Provided: No service: No Current occupational status: employed Current occupation: [employer] Cognitive needs: No Hearing needs: No Vision needs: Yes (Glasses) Physical Exam ED Vital Signs: Vital Signs - 24 hr 08/11/23 18:00 08/11/23 21:22 Temperature 98.7 F Pulse Rate 63 Respiratory Rate 20 18 Blood Pressure 130/85 128/82 Pulse Oximetry 97 99 Oxygen Delivery Method Room Air Room Air BMI result Body Mass Index 35.6 Vital signs have been reviewed and appear to be correct. Blood pressure elevated. Heart rate normal. Respiratory rate normal. Temperature normal. Oxygen saturation normal. Appearance: Alert. Oriented X3. No acute distress. Head: Normal external exam. Normocephalic. Atraumatic. No Shi signs noted. No raccoon eyes noted Eyes: PERRLA. EOMI. Conjunctiva and sclera normal. Eyelids normal. ENT: TM's Normal. Pharynx normal. Uvula midline. Moist mucous membranes. No trismus noted. No drooling noted. No muffled voice noted. Neck: Normal inspection. Neck supple. FROM. No adenopathy. No neck tenderness, no step-off, no deformity. Increased pain radiating to the left both upper extremities with turning his head to the right of raise his left upper extremity above his head. Thyroid Normal. No meningeal signs. No neck mass noted. CVS: Normal heart rate and rhythm. Heart sound normal. No murmurs noted. Pulses normal throughout. Respiratory: No respiratory distress. Painless inspiration. Breath sounds normal. No wheezes/rales/rhonchi noted. Chest nontender. No accessory muscle usage noted or decreased air movement noted. Abdomen: Soft and nontender. Bowel sounds normal in all 4 quadrants. No distention noted. No organomegaly noted. No visible injury noted. Back: No CVA tenderness. Full range of motion noted. Skin: Skin warm and dry. Normal skin color. Normal skin turgor. No rashes/lesions/lacerations noted. Extremities: No lower extremity edema. Extremities exhibit normal range of motion. Extremities nontender. Neuro: Oriented X 3. Cranial nerve exam: II-XII are grossly intact No motor deficit. No sensory deficit. Reflexes normal. Course Course Course Narrative: RME: 57 yold male return to the ED for posterior neck pain for one week radiating left shoulder and hurt on movememnt. patient states no chest pain, SOB, or recent trauma. labs EKG ordered due to age. Will order cerivcal spine CT Reevaluation(s) Reevaluation #1: Patient's symptoms is more consistent with left cervical radiculopathy patient was instructed to rest for the next 2-3 days and avoid heavy lifting use NSAIDs/Tylenol for pain and heating pad to the neck area. CT of the cervical spine was ordered by LUIS which is nondiagnostic, labs are unremarkable. Time: 21:43 Medical Decision Making Differential Diagnosis Differential Diagnoses: The differential diagnosis associated with the presentation includes (Cervical radiculopathy, ACS, electrolyte abnormality, severe anemia.) Admission/Observation Consideration of admission/observation: Escalation of care including admission/observation considered Lab Data MDM Lab Attestation statement: I reviewed the patient's lab results. 08/11/23 18:22 08/11/23 18:22 Labs: Lab Results 08/11/23 Range/Units 18:22 WBC 9.7 (4.8-10.8) X10*3/uL RBC 4.35 L (4.60-5.80) X10*6/uL Hgb 13.9 L (14.0-18.0) g/dl Hct 40.5 L (42.0-52.0) % MCV 93.1 (80.0-98.0) fL MCH 32.0 (27.0-33.0) pg MCHC 34.3 (31.0-36.0) g/dl RDW 11.4 (11.0-16.0) % Plt Count 209 (160-400) X10*3/uL MPV 11.6 (9.4-12.4) fL Immature Gran % (Auto) 0.7 H (0.0-0.4) % Neut % (Auto) 55.5 (45-73) % Lymph % (Auto) 22.6 (20-40) % [place] % (Auto) 9.8 (2-11) % Eos % (Auto) 11.1 H (0-4) % Baso % (Auto) 0.3 (0-2) % Lymph # (Auto) 2.2 (1.2-4.9) X10*3/uL [place] # (Auto) 1.0 (0.1-1.2) X10*3/uL Eos # (Auto) 1.1 H (0.0-0.4) X10*3/uL Baso # (Auto) 0.0 (0.0-0.2) X10*3/uL Abs Immat Gran (auto) 0.07 H (0.00-0.03) X10*3/uL Absolute Neuts (auto) 5.4 (2.0-8.3) x10*3/uL Absolute Nucleated RBC 0.000 (0.0-0.012) X10*3/uL Nucleated RBC % (auto) 0.0 (0.0-0.2) /100WBC PT 15.2 H (11.1-13.3) SEC INR 1.3 H (0.9-1.1) APTT 28.4 D (26.0-36.4) SEC Sodium 141 (135-145) mmol/L Potassium 3.7 (3.3-5.1) mmol/L Chloride 109 H (96-108) mmol/L Carbon Dioxide 20 L (22-29) mmol/L Anion Gap 16 (12-20) BUN 14 (9-16) mg/dL Creatinine 0.84 (0.5-1.4) mg/dL Estim Creat Clear Calc 122.5 Estimated GFR > 60 Random Glucose 98 (60-115) mg/dL Calcium 9.3 (8.4-10.2) mg/dL Total Bilirubin 1.1 H (0.0-1.0) mg/dL AST 21 (5-37) U/L ALT 26 (0-40) U/L Alkaline Phosphatase 81 (39-117) U/L Troponin I High Sens < 2.7 (<3.5-35.0) ng/L Total Protein 7.3 (6.5-8.0) g/dL Albumin 4.1 (3.5-5.0) g/dL Independent Interpretation I performed an independent interpretation of an: CT Scan (1. No evidence of acute fracture or traumatic subluxation in the cervical spine. 2. Cervical spondylosis most significant at C5-C6 and C6-C7 with [id number] central canal stenosis at these levels and bilateral neural foraminal stenosis. ) Radiology Impression Discussion of test interpretation with radiology: I have reviewed the radiologist's reading. Discharge Plan Discharge Clinical Impression: Cervical radiculopathy Patient Disposition: Home, Self-Care Instructions: Cervical Radiculopathy (ED) Prescriptions: No Action (DME) CPAP Machine/Device Device See Rx Instructions .Route Qty: 1 0RF Rx Instructions: As directed Synjardy XR 25-1,000 mg tablet, IR - ER, biphasic 24hr 1 tab PO DAILY@1200 Rx Instructions: WITH LUNCH cyanocobalamin (vitamin B-12) 1,000 mcg Tablet 1,000 mcg PO DAILY cholecalciferol (vitamin D3) 50 mcg (2,000 unit) Tablet 50 mcg PO DAILY losartan 25 mg tablet 25 mg PO DAILY Wegovy 2.4 mg/0.75 mL Pen Injector 2.4 mg SUBCUT SA metoprolol succinate 50 mg tablet extended release 24 hr 50 mg PO DAILY clotrimazole-betamethasone 1-0.05 % cream 1 appl topical BID 30 Days Qty: 45 0RF Eliquis 5 mg tablet 5 mg PO BID miscellaneous medical supply Kit 1 ea miscellaneous DAILY Qty: 1 0RF Rx Instructions: KAY hoskins Referrals: Jonathan Barnett PA-C [Primary Care Provider] - Stand Alone Forms: Work/School Release Interventions: ED Discharge Assessment Last Done: 08/11/23 22:15 Discharge Date/Time: 08/11/23 22:15
[2023-08-11 21:22] VITALS: BP 128/82; PULSE 63; RESP 18; O2SAT 99
--- NOTE | 2023-10-28 09:47 | ECG_ITS ---
Test Reason : CP Blood Pressure : / mmHG Vent. Rate : 071 BPM Atrial Rate : 071 BPM P-R Int : 174 ms QRS Dur : 092 ms QT Int : 408 ms P-R-T Axes : 029 -19 009 degrees QTc Int : 443 ms Normal sinus rhythm Normal ECG When compared to the previous EKG of 10/26, rhythm change Referred By: Vilma Lewis Electronically Signed By:WERNER GUPTA
== END 2023-08-11 22:15 | disposition home or self-care (01) ==
PROVIDERS: Emergency Provider Emergency Medicine; PCP Physician Assistant
DX: M54.12 Radiculopathy, cervical region (principal); M54.2 Cervicalgia; M79.602 Pain in left arm; Z79.899 Other long term (current) drug therapy
CPT/HCPCS: 36415; 72125; 80053; 84484; 85025; 85610; 85730; 93005; 99284

== ENCOUNTER 2023-10-26 11:24 | Inpatient (IN) | payer OTHER, SELFPAY ==
[2023-10-26] VITALS (12 sets, daily range): BP systolic 87–116; BP diastolic 52–68; PULSE 61–125; RESP 11–20; TEMP 36.1–36.5; O2SAT 94–97; BMI 34.6
--- NOTE | ~2023-10-26 | XR_ITS ---
EXAMINATION: XR CHEST CLINICAL INFORMATION: Chest pain COMPARISON: None available. TECHNIQUE: Frontal view of the chest was obtained. FINDINGS: No significant abnormality is noted involving the heart, lungs, mediastinum, bony thorax or soft tissues. XR/XR chest 1V IMPRESSION: Unremarkable chest examination.
--- NOTE | ~2023-10-26 | CT_ITS ---
EXAMINATION: CT ANGIOGRAM OF THE CHEST WITH AND WITHOUT CONTRAST (CT PULMONARY ANGIOGRAM FOR PE) CLINICAL INFORMATION: Reason for Exam SOB, a-fib with RVR, hx of clot on Eliquis COMPARISON: None available. TECHNIQUE: Prior to contrast administration, noncontrast localization images were obtained. Subsequently, multidetector volumetric imaging was performed from the thoracic inlet to below the diaphragms following the administration of 65 mL Omnipaque 350 intravenous contrast. No contrast reaction reported Sagittal, coronal, and MIP oblique sagittal reformatted images were obtained on the CT workstation, uploaded to PACS, and reviewed. This CT examination was performed using dose optimization techniques as appropriate, variously including the following: *Automated exposure control *Adjustment of mA and/or kV according to patient size (this includes techniques or standardized protocols for targeted exams where dose is matched to indication/reason for exam; i.e. extremities or head) *Use of iterative reconstruction technique Total exam dose-length product 563 mGy-cm FINDINGS: QUALITY OF STUDY/CONTRAST BOLUS: Satisfactory. PULMONARY ARTERIES: No pulmonary emboli. THORACIC AORTA: No aneurysm. LUNG: No focal consolidation, nodules or masses. Calcified granuloma is present at the right lung base. PLEURA: No pleural effusion or pneumothorax. MEDIASTINUM: Normal heart size. No pericardial effusion. No hilar or mediastinal lymphadenopathy. No evidence of septal bowing or right heart strain. CORONARY ARTERY CALCIFICATION: None visualized on this study. CHEST WALL/AXILLA: No axillary or internal mammary lymphadenopathy. OSSEOUS STRUCTURES: No acute or suspicious osseous abnormality. UPPER ABDOMEN: Unremarkable. No reflux of contrast into the hepatic veins to suggest elevated right heart pressures. CT/CT angio chest PE protocol IMPRESSION: No evidence of pulmonary emboli. VTE: negative.
--- NOTE | 2023-10-26 11:25 | ECG_ITS ---
Test Reason : cp Blood Pressure : / mmHG Vent. Rate : 147 BPM Atrial Rate : 000 BPM P-R Int : 000 ms QRS Dur : 082 ms QT Int : 270 ms P-R-T Axes : 000 -21 051 degrees QTc Int : 422 ms Atrial fibrillation with rapid ventricular response Abnormal ECG When compared with ECG of 11-AUG-2023 18:13, Atrial fibrillation has replaced Sinus rhythm Vent. rate has increased BY 83 BPM Nonspecific T wave abnormality no longer evident in Inferior leads Referred By: Vilma Lewis Electronically Signed By:QUINTON RUTH MD
--- NOTE | 2023-10-26 11:30 | ED_ITS ---
HPI - General Adult General Chief complaint: Chest Pain Stated complaint: afib chest pain Time Seen by Provider: 10/26/23 11:34 Source: patient Mode of arrival: ambulatory History of Present Illness HPI narrative: 57-year-old male who has known atrial fibrillation, currently on chronic anticoagulation in states that he only takes his medicine if he feels like his atrial fibrillation is acting up and so took his oral medication at an hour half ago but reports nausea, lightheadedness, sweaty and feeling chest pain Related Data Home Medications Medication Instructions Recorded Confirmed empagliflozin 25 mg-metformin ER 1 tab PO DAILY@1200 04/16/23 07/29/23 1,000 mg tablet,extended release 24hr (Synjardy XR) cholecalciferol (vitamin D3) 50 50 mcg PO DAILY 04/17/23 07/29/23 mcg (2,000 unit) tablet cyanocobalamin (vitamin B-12) 1,000 mcg PO DAILY 04/17/23 07/29/23 1,000 mcg tablet losartan 25 mg tablet 25 mg PO DAILY 04/21/23 07/29/23 semaglutide (weight loss) 2.4 2.4 mg subcut SA 04/21/23 07/29/23 mg/0.75 mL subcutaneous pen injector ([employer]) apixaban 5 mg tablet (Eliquis) 5 mg PO BID 04/27/23 07/29/23 metoprolol succinate 50 mg 50 mg PO DAILY 07/29/23 07/29/23 tablet,extended release 24 hr Previous Rx's Medication Instructions Recorded CPAP (CPAP Machine/Device) #1 ea 09/25/22 miscellaneous medical supply 1 ea miscellaneous DAILY #1 ea 04/29/23 clotrimazole-betamethasone 1 1 appl topical BID 30 days #45 07/29/23 %-0.05 % topical cream grams Allergies Allergy/AdvReac Type Severity Reaction Status Date / Time No Known Allergies Allergy Verified 08/11/23 18:08 Review of Systems 2 Review of Systems: Pertinent positives and negatives as stated in HPI [facility] Past Medical History Source: nursing notes reviewed Medical History Family history of gastric cancer Insulin resistance History of COVID-19 Omental infarction Elevated LFTs Morbid obesity PAF (paroxysmal atrial fibrillation) LAYNE (obstructive sleep apnea) Diarrhea HTN (hypertension) Surgical History H/O prior ablation treatment History of lymph node excision History of prior ablation treatment Family History Family History Father CAD (coronary artery disease) History of partial colectomy Hypertension CVD (cardiovascular disease) Alzheimers disease Mother Asthma Brother Hepatitis Sister Family history of thyroid problem Breast cancer Paternal Grandfather Stomach cancer Social History Social History Household Members: None Housing: House Are you a primary primary care sales representative to a significant other at home: No Do you presently have visiting nurse or other home services: No Alcohol intake: never Patient Tobacco Use Status: Never used Tobacco Smoked in Last 30 Days: No e-Cigarette/Vaping Use: Never Used Second Hand Smoke Exposure: No Use of substances other than those prescribed or required for medical reasons: No Advance Directives: No Advance Directives Information Provided: No service: No Current occupational status: employed Current occupation: [employer] Cognitive needs: No Hearing needs: No Vision needs: Yes (Glasses) Physical Exam ED Vital Signs: Vital Signs - 24 hr 10/26/23 11:27 10/26/23 11:53 10/26/23 12:00 Temperature 97.4 F Pulse Rate 122 H 125 H Respiratory Rate 18 11 L Blood Pressure 87/61 L 99/57 L 92/52 L Pulse Oximetry 97 96 Oxygen Delivery Method Room Air Room Air 10/26/23 12:25 10/26/23 12:27 10/26/23 12:42 Temperature Pulse Rate 110 H 124 H Respiratory Rate 12 17 Blood Pressure 92/59 L 99/59 L 104/59 L Pulse Oximetry 96 96 Oxygen Delivery Method Room Air Room Air 10/26/23 14:25 Temperature Pulse Rate 61 Respiratory Rate 16 Blood Pressure 101/68 Pulse Oximetry 96 Oxygen Delivery Method Room Air BMI result Body Mass Index 34.6 VITAL SIGNS: Reviewed. GENERAL: Well developed, well nourished, in no acute distress. HEAD: Normocephalic/atraumatic EYES: PERRLA, EOMI intact without pain, no nystagmus/pallor/icterus noted EARS: Ext canals without abnormality, TMs non-bulging and non-erythematous NOSE: Nares patent bilateral OROPHARYNX: no oral lesions noted, posterior pharynx clear and non-erythematous without noted tonsillar enlargement/erythema/exudates NECK: Supple, no adenopathy LUNGS: Normal breath sounds. No adventitious sounds or accessory muscle use. SpO2<97> CARDIOVASCULAR: IRR/IRR and rhythm without noted murmurs, no JVD or lower extremity edema. ABDOMEN: Soft, non-tender, non-distended with bowel sounds. MUSCULOSKELETAL: No tenderness, deformities, or effusions noted on gross inspection. EXTREMITIES: No cyanosis, clubbing or edema. SKIN: Inspection of the skin reveals no rashes, but diaphoretic NEUROLOGIC: Alert and oriented x 4. Strength and sensation to light touch were grossly intact x 4. Course Course Course Narrative: RME performed by Vilma Lewis PA-C. Patient is a 57 year old assigned male at presenting to the emergency department with chest pain. Patient has significant medical history including atrial fib. Labs, imaging, swabs ordered. operating room surgical technologist made aware of patient. Medications Administered Discontinued Medications Generic Name Dose Route Start Last Admin Trade Name Freq PRN Reason Stop Dose Admin Sodium Chloride 500 mls @ 999 mls/hr 10/26/23 11:45 10/26/23 12:39 Ns IV 10/26/23 12:15 Infused .Q31M STACY Infusion Metoprolol Tartrate 5 mg 10/26/23 11:41 10/26/23 11:44 Metoprolol Tartrate 5 Mg/5 Ml Vial IVPUSH 10/26/23 11:42 5 mg ONCE ONE Administration Metoprolol Tartrate 5 mg 10/26/23 12:35 10/26/23 12:40 Metoprolol Tartrate 5 Mg/5 Ml Vial IVPUSH 10/26/23 12:36 5 mg ONCE ONE Administration Medical Decision Making Medical Decision Making MDM Narrative: 57-year-old male with history and clinical presentation consistent with atrial fibrillation with RVR likely secondary to manner in which he takes his atrial fibrillation medication. INTERVENTION: 2.5 mg of Lopressor with blood pressure of 93 systolic, once rate is improved will follow with additional 2.5 and proceed from there. Patient is mentating well. 1152: Repeat blood pressure is stable and will proceed with 2nd 2.5 mg of Lopressor. I reviewed all investigations and hematologic indices demonstrates a not infectious leukocytosis with left shift but no anemia or thrombocytopenia. Coagulation studies are within normal limits and consistent with chronic use of anticoagulation medication. Chemistry indices demonstrate an SUKHJINDER without electrolyte or new liver enzyme derangements, patient does have a chronically elevated T bilirubin, high sensitivity troponin is undetectable. There are no acute changes on EKG other than patient being in atrial fibrillation with RVR. Viral testing negative for influenza/RSV/COVID. Chest x-ray negative for infiltrate or venous congestion and otherwise my interpretation is in agreement with radiology's impression. After a total of 10 mg of Lopressor, heart rate has improved although is noted to fluctuate significantly. Patient remains with low blood pressure and stating that he feels wiped out . I see no documentation that patient takes Lopressor for his noted atrial fibrillation. My plan is to proceed with CT angio with PE protocol to better I signed out to Dr. Arias - f/u CT angio Differential Diagnosis Differential Diagnoses: The differential diagnosis associated with the presentation includes Please see the discussion above Admission/Observation Consideration of admission/observation: Escalation of care including admission/observation considered Please see the discussion above Lab Data MDM Lab Attestation statement: I reviewed the patient's lab results. Please see the discussion above 10/26/23 11:43 10/26/23 15:34 Labs: Lab Results 10/26/23 10/26/23 10/26/23 Range/Units 11:43 11:50 15:34 WBC 11.9 H (4.8-10.8) X10*3/uL RBC 5.11 (4.60-5.80) X10*6/uL Hgb 16.4 (14.0-18.0) g/dl Hct 47.4 (42.0-52.0) % MCV 92.8 (80.0-98.0) fL MCH 32.1 (27.0-33.0) pg MCHC 34.6 (31.0-36.0) g/dl RDW 11.3 (11.0-16.0) % Plt Count 338 D (160-400) X10*3/uL MPV 10.6 (9.4-12.4) fL Immature Gran % (Auto) 0.4 (0.0-0.4) % Neut % (Auto) 73.9 H (45-73) % Lymph % (Auto) 14.3 L (20-40) % Lewis % (Auto) 7.8 (2-11) % Eos % (Auto) 3.3 (0-4) % Baso % (Auto) 0.3 (0-2) % Lymph # (Auto) 1.7 (1.2-4.9) X10*3/uL Lewis # (Auto) 0.9 (0.1-1.2) X10*3/uL Eos # (Auto) 0.4 (0.0-0.4) X10*3/uL Baso # (Auto) 0.0 (0.0-0.2) X10*3/uL Abs Immat Gran (auto) 0.05 H (0.00-0.03) X10*3/uL Absolute Neuts (auto) 8.8 H (2.0-8.3) x10*3/uL Absolute Nucleated RBC 0.000 (0.0-0.012) X10*3/uL Nucleated RBC % (auto) 0.0 (0.0-0.2) /100WBC PT 13.4 H (11.1-13.3) SEC INR 1.1 (0.9-1.1) APTT 41.9 H D (26.0-36.4) SEC Sodium 140 139 (135-145) mmol/L Potassium 4.2 4.0 (3.3-5.1) mmol/L Chloride 103 106 (96-108) mmol/L Carbon Dioxide 27 26 (22-29) mmol/L Anion Gap 14 11 L (12-20) BUN 18 H 18 H (9-16) mg/dL Creatinine 1.42 H 1.12 (0.5-1.4) mg/dL Estim Creat Clear Calc 71.4 90.5 Estimated GFR 51 > 60 Random Glucose 107 89 (60-115) mg/dL Calcium 10.2 D 9.8 (8.4-10.2) mg/dL Magnesium 2.1 (1.6-2.6) mg/dL Total Bilirubin 1.6 H (0.0-1.0) mg/dL AST 28 (5-37) U/L ALT 36 (0-40) U/L Alkaline Phosphatase 90 (39-117) U/L Troponin I High Sens < 2.7 4.2 D (<3.5-35.0) ng/L B-Natriuretic Peptide 33 (<100) pg/mL Total Protein 8.4 H (6.5-8.0) g/dL Albumin 4.7 (3.5-5.0) g/dL Influenza Type A (PCR) NEGATIVE (Negative) Influenza Type B (PCR) NEGATIVE (Negative) RSV RNA Qual (PCR) NEGATIVE (Negative) SARS-CoV-2 RNA (RT-PCR) NEGATIVE (Negative) Independent Interpretation I performed an independent interpretation of an: EKG Interpretation: Atrial fibrillation with RVR, HR-147, no STEMI, QRS/QTC is within normal limits. Radiology Impression Discussion of test interpretation with radiology: I have reviewed the radiologist's reading. Radiologist Impression: Please see the discussion above External Record Review External record reviewed: Outpatient record, Prior outpatient labs and Prior outpatient radiology Chronic Conditions Patient?s care impacted by: Other Atrial fibrillation, chronic anticoagulation Critical Care Time Critical Care Time Critical Care Time: Yes Total Critical Care Time: 60 Attestation: I personally attest to this time spent taking care of the patient. Discharge Plan Discharge Clinical Impression: Atrial fibrillation with RVR Patient Disposition: Still a Patient Prescriptions: No Action (DME) CPAP Machine/Device Device See Rx Instructions .Route Qty: 1 0RF Rx Instructions: As directed Synjardy XR 25-1,000 mg tablet, IR - ER, biphasic 24hr 1 tab PO DAILY@1200 Rx Instructions: WITH LUNCH cyanocobalamin (vitamin B-12) 1,000 mcg Tablet 1,000 mcg PO DAILY cholecalciferol (vitamin D3) 50 mcg (2,000 unit) Tablet 50 mcg PO DAILY losartan 25 mg tablet 25 mg PO DAILY Wegovy 2.4 mg/0.75 mL Pen Injector 2.4 mg SUBCUT SA metoprolol succinate 50 mg tablet extended release 24 hr 50 mg PO DAILY clotrimazole-betamethasone 1-0.05 % cream 1 appl topical BID 30 Days Qty: 45 0RF Eliquis 5 mg tablet 5 mg PO BID miscellaneous medical supply Kit 1 ea miscellaneous DAILY Qty: 1 0RF Rx Instructions: KAY hoskins
[2023-10-26] MEDS: Metoprolol Tartrate 5 MG/5 ML VIAL IVPUSH ×2 (11:44→12:40)
[2023-10-26 11:49] LABS: MANUAL DIFF FLAG NO
[2023-10-26 11:50] LABS: Basophils Percent Auto 0.3 % (0-2); Eosinophils Absolute Auto 0.4 X10*3/uL (0.0-0.4); Eosinophils Percent Auto 3.3 % (0-4); Hematocrit 47.4 % (42.0-52.0); Hemoglobin 16.4 g/dl (14.0-18.0); Imm Gran Abs Auto 0.05 X10*3/uL (0.00-0.03); Imm Gran Pct Auto 0.4 % (0.0-0.4); Lymphocytes Absolute Auto 1.7 X10*3/uL (1.2-4.9); Lymphocytes Percent Auto 14.3 % (20-40); Mean Corpuscular HGB Conc 34.6 g/dl (31.0-36.0); Mean Corpuscular Hemoglobin 32.1 pg (27.0-33.0); Mean Corpuscular Volume 92.8 fL (80.0-98.0); Mean Platelet Volume 10.6 fL (9.4-12.4); Monocytes Absolute Auto 0.9 X10*3/uL (0.1-1.2); Monocytes Percent Auto 7.8 % (2-11); Neutrophils Absolute Auto 8.8 x10*3/uL (2.0-8.3); Neutrophils Percent Auto 73.9 % (45-73); Platelet Count 338 X10*3/uL (160-400); Red Blood Count 5.11 X10*6/uL (4.60-5.80); Red Cell Distribution Width 11.3 % (11.0-16.0); White Blood Count 11.9 X10*3/uL (4.8-10.8)
[2023-10-26] MEDS: 0.9 % Sodium Chloride 500 ML 999 ML IV (11:55)
[2023-10-26 11:58] LABS: INTERNATIONAL NORM RATIO 1.1 (0.9-1.1); Prothrombin Time 13.4 SEC (11.1-13.3)
[2023-10-26 12:00] LABS: Partial Thromboplastin Time 41.9 SEC (26.0-36.4)
--- NOTE | 2023-10-26 12:02 | PC.NURSE ---
pt comes from home for chest pain. pt sts he felt his afib acting up and took his po medications. chest pain did not subside so he came here. pt placed on bedside monitor, HR up to 160s. pt a&o x4, calm, and cooperative. 20G IV started to pt LAC, pt medicated per mar with lopressor, fluids hanging. pt HR down to 110's. last BP 92/52. MD aware. labs drawn and sent. chest x ray complete. awaiting results. call [place] within pt reach. rr even/unlabored. plan of care ongoing.
[2023-10-26 12:04] LABS: Alanine Aminotransferase 36 U/L (0-40); Albumin Level 4.7 g/dL (3.5-5.0); Alkaline Phosphatase 90 U/L (39-117); Anion Gap 14 (12-20); Aspartate Amino Transferase 28 U/L (5-37); Bilirubin Total 1.6 mg/dL (0.0-1.0); Blood Urea Nitrogen 18 mg/dL (9-16); Calcium 10.2 mg/dL (8.4-10.2); Carbon Dioxide 27 mmol/L (22-29); Chloride 103 mmol/L (96-108); Creatinine Clr Calc Pharmacy 71.4; Estimated Glomerular Filt Rate 51; Glucose Random 107 mg/dL (60-115); Magnesium 2.1 mg/dL (1.6-2.6); Potassium 4.2 mmol/L (3.3-5.1); Sodium 140 mmol/L (135-145); Total Protein 8.4 g/dL (6.5-8.0)
[2023-10-26 12:21] LABS: Troponin-I High Sensitivity < 2.7 ng/L (<3.5-35.0)
[2023-10-26 12:39] LABS: Influenza A PCR NEGATIVE (Negative); Influenza B PCR NEGATIVE (Negative); Resp Syncy Virus RNA Qual PCR NEGATIVE (Negative); SARS COV2 PCR INHOUSE NEGATIVE (Negative)
--- NOTE | 2023-10-26 13:01 | PC.NURSE ---
pt medicated per jan. resting quietly on stretcher, no apparent distress. BP appears to be improving as well as HR.
--- NOTE | 2023-10-26 15:03 | PC.NURSE ---
pt resting quietly on stretcher in no apparent distress. rr even/unlabored. pt on monitor. HR still appears to be improved from when pt initially arrived to ED. awaiting UA.
[2023-10-26 15:19] LABS: B Type Natriuretic Peptide 33 pg/mL (<100)
[2023-10-26 15:53] LABS: Anion Gap 11 (12-20); Blood Urea Nitrogen 18 mg/dL (9-16); Calcium 9.8 mg/dL (8.4-10.2); Carbon Dioxide 26 mmol/L (22-29); Chloride 106 mmol/L (96-108); Creatinine Clr Calc Pharmacy 90.5; Estimated Glomerular Filt Rate > 60; Glucose Random 89 mg/dL (60-115); Sodium 139 mmol/L (135-145)
[2023-10-26 16:02] LABS: Troponin-I High Sensitivity 4.2 ng/L (<3.5-35.0)
--- NOTE | 2023-10-26 17:00 | PC.NURSE ---
pt to CT for CTA.
[2023-10-26] MEDS: iohexoL 350 MG/ML 100 ML INFUS..BTL IV (17:14)
[2023-10-26] MEDS: ondansetron HCL 4 MG/2 ML VIAL IVPUSH (18:15)
--- NOTE | 2023-10-26 18:26 | PC.NURSE ---
pt medicated per jan for nausea. speaking in full complete sentences. sts hasn't eaten anything since 7pm last night.
--- NOTE | 2023-10-26 18:44 | PHA.MEDREC ---
Pharmacy Consult ? Medication Reconciliation Pharmacy has completed the medication reconciliation. Spoke to patient to confirm medications. He reports that he just got switched back to Synjardy and stopped taking metformin alone on Saturday. He reports taking losartan and metoprolol prn. He explained that he cannot function at work when taking metoprolol daily. I called [facility] to verify dose since he was unsure however they do not have the metoprolol on record (could indicate that it's more than 2 years old). Used the dose that was already entered in medical record.
--- NOTE | 2023-10-26 19:47 | P.HPHOSP_ITS ---
History of Present Illness Date of Service: 10/26/23 Attending physician on admission: Angela Mendoza Chief Complaint: Chest pain, palpitations Pt is a 57-year-old male with a PMH significant for?paroxysmal AFib on Eliquis, hx of ablations x2 at [facility] in 2018 and 2020, hx of cardioversion x2, HTN, [id number] diabetes type 2, 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 Pt has a long history of paroxysmal Afib despite two ablation and 2 cardioversions. He is not on daily beta-vega or antiarrhythmic due to side effects. States daily use of metoprolol leaves him lightheaded, dizzy, and fatigued. Does have a standing prescription for metoprolol, and only takes it when he feels himself going into AFib, which lately occurs once every 2-3 months. Says it normally takes 24-48 hours before he will convert back into normal sinus rhythm. Reports he normally only experiences lightheadedness when he goes into AFib, but this time also experienced substernal, nonradiating chest pain, shortness of breath, and palpitations. Patient took metoprolol at home but symptoms did not relent, thus prompting his visit to the ED. in the ED EKG showed AFib with RVR of 147. Patient was given metoprolol 5 mg IV x2 doses which brought heart rate down into the 80s -100s, however patient smoked BP remained soft as low as 87/61. Patient also experienced some nausea and vomiting. Currently chest pain, SOB, and palpitations have resolved, but nausea remains. No fever, chills, abdominal pain. Labs were significant for slight leukocytosis of 11.9 otherwise grossly unremarkable. Electrolytes WNL magnesium 2.1. Initial troponin negative with repeat detectable at 4.2. TSH pending. Tested negative for influenza type a and B, RSV, COVID. CXR was unremarkable. CTA of chest showed no evidence of pulmonary emboli. Pt was treated with metoprolol IV 5 mg x 2 doses, IVF, and ondansetron. Pt will be admitted to the hospital under observation for treatment and monitoring of AFib with RVR. Review of Systems 2 Review of Systems: Central, nonradiating chest pain Shortness of breath Lightheadedness, dizziness Palpitations Nausea, vomiting Denies abdominal pain No headache, acute vision changes PMFSH Medical History Family history of gastric cancer Insulin resistance History of COVID-19 Omental infarction Elevated LFTs Morbid obesity PAF (paroxysmal atrial fibrillation) LAYNE (obstructive sleep apnea) Diarrhea HTN (hypertension) Family History Father CAD (coronary artery disease) History of partial colectomy Hypertension CVD (cardiovascular disease) Alzheimers disease Mother Asthma Brother Hepatitis Sister Family history of thyroid problem Breast cancer Paternal Grandfather Stomach cancer Surgical History H/O prior ablation treatment History of lymph node excision History of prior ablation treatment Social History Household Members: None Housing: House Are you a primary customer care agent to a significant other at home: No Do you presently have visiting nurse or other home services: No Alcohol intake: never Patient Tobacco Use Status: Never used Tobacco Smoked in Last 30 Days: No e-Cigarette/Vaping Use: Never Used Second Hand Smoke Exposure: No Use of substances other than those prescribed or required for medical reasons: No Advance Directives: No Advance Directives Information Provided: No Nutrition Risks: No Nutritional Risk service: No Current occupational status: employed Current occupation: [employer] Cognitive needs: No Hearing needs: No Vision needs: Yes (Glasses) Meds Allergies Allergy/AdvReac Type Severity Reaction Status Date / Time No Known Allergies Allergy Verified 08/11/23 18:08 Active Medications: Current Medications Acetaminophen (Acetaminophen 325 Mg Tablet) 650 mg PO Q6H PRN PRN Reason: Pain, Mild (Pain Scale 1-3) Albuterol Sulfate (Albuterol Sulfate 90 Mcg 8 Gm Inhaler) 2 puff INHALE QID PRN PRN Reason: wheezing Apixaban (Apixaban 5 Mg Tablet) 5 mg PO BID STACY Cyanocobalamin (Cyanocobalamin (Vitamin B-12) 1,000 Mcg Tablet) 1,000 mcg PO DAILY STACY Empagliflozin (Empagliflozin 25 Mg Tablet) 25 mg PO DAILY STACY Losartan Potassium (Losartan Potassium 25 Mg Tablet) 25 mg PO DAILY PRN; Protocol PRN Reason: Hypertension Melatonin (Melatonin 3 Mg Tablet) 6 mg PO BEDTIME PRN PRN Reason: Insomnia Metformin HCl (Metformin Hcl Er 500 Mg Tab.Er.24h) 1,000 mg PO DAILY STACY Metoprolol Succinate (Metoprolol Succinate Er 50 Mg Tab.Er.24h) 50 mg PO DAILY PRN; Protocol PRN Reason: heart palpitations Ondansetron HCl (Ondansetron Hcl 4 Mg/2 Ml Vial) 4 mg IVPUSH Q8H PRN PRN Reason: Nausea and Vomiting Sodium Chloride (0.9 % Sodium Chloride Flush 3 Ml Syringe) 3 ml IVFLUSH QSHIFT [facility] Vitamin D (Cholecalciferol (Vitamin D3) 25 Mcg Tablet) 50 mcg PO DAILY [facility] Home Medications Medication Instructions Recorded Confirmed Last Taken Type empagliflozin 25 mg-metformin ER 1 tab PO DAILY 04/16/23 10/26/23 04/20/23 History 1,000 mg tablet,extended release 24hr (Synjardy XR) cholecalciferol (vitamin D3) 50 50 mcg PO DAILY 04/17/23 10/26/23 04/19/23 History mcg (2,000 unit) tablet cyanocobalamin (vitamin B-12) 1,000 mcg PO DAILY 04/17/23 10/26/23 04/19/23 History 1,000 mcg tablet losartan 25 mg tablet 25 mg PO DAILY PRN Hypertension 04/21/23 10/26/23 04/20/23 History apixaban 5 mg tablet (Eliquis) 5 mg PO BID 04/27/23 10/26/23 10/26/23 History metoprolol succinate 50 mg 50 mg PO DAILY PRN heart 07/29/23 10/26/23 10/26/23 History tablet,extended release 24 hr palpitations albuterol sulfate 90 mcg/actuation 2 puff inhalation QID PRN wheezing 10/26/23 10/26/23 Unknown History aerosol inhaler semaglutide (weight loss) 2.4 2.4 mg subcut FR 10/26/23 10/26/23 10/25/23 History mg/0.75 mL subcutaneous pen injector (Tangela) Physical Exam 2 Vital Signs and Narrative: Vital Signs: Last Vital Signs Temp 97.4 F 10/26/23 11:27 Pulse 64 10/26/23 19:09 Resp 18 10/26/23 19:09 BP 90/59 L 10/26/23 19:09 Pulse Ox 95 10/26/23 19:09 O2 Del Method Room Air 10/26/23 19:09 BMI result Body Mass Index 34.6 Constitutional: Alert, in no acute distress. Mental Status: Oriented to person, place and time. Eyes: Pupils are equal, round, and reactive to light. Ear, Nose, and Throat: Oropharynx clear, mucous membranes moist. Ears and nose without deformities. Trachea midline. Respiratory: Clear to auscultation bilaterally. No wheezing, rales, or rhonchi. Cardiovascular: Irregularly irregular rhythm. Gastrointestinal: Abdomen soft, non-tender, non-distended. Normal bowel sounds. Neurologic: Cranial nerves II-XII are grossly intact bilaterally. No focal neurological deficits. Moves all extremities spontaneously. Skin: Warm, dry. Musculoskeletal: No cyanosis or clubbing. Extremities: No edema. Psychiatric: Normal mood and affect. Results Labs 10/26/23 11:43 10/26/23 15:34 Labs: Laboratory Results - last 24 hr 10/26/23 10/26/23 10/26/23 11:43 11:50 15:34 MCV 92.8 MCH 32.1 MCHC 34.6 RDW 11.3 Plt Count 338 D MPV 10.6 Immature Gran % (Auto) 0.4 Neut % (Auto) 73.9 H Lymph % (Auto) 14.3 L [place] % (Auto) 7.8 Eos % (Auto) 3.3 Baso % (Auto) 0.3 Lymph # (Auto) 1.7 [place] # (Auto) 0.9 Eos # (Auto) 0.4 Baso # (Auto) 0.0 Abs Immat Gran (auto) 0.05 H Absolute Neuts (auto) 8.8 H Absolute Nucleated RBC 0.000 Nucleated RBC % (auto) 0.0 PT 13.4 H INR 1.1 APTT 41.9 H D Anion Gap 14 11 L Estim Creat Clear Calc 71.4 90.5 Estimated GFR 51 > 60 Random Glucose 107 89 Calcium 10.2 D 9.8 Magnesium 2.1 Total Bilirubin 1.6 H AST 28 ALT 36 Alkaline Phosphatase 90 B-Natriuretic Peptide 33 Total Protein 8.4 H Albumin 4.7 Influenza Type A (PCR) NEGATIVE Influenza Type B (PCR) NEGATIVE RSV RNA Qual (PCR) NEGATIVE SARS-CoV-2 RNA (RT-PCR) NEGATIVE Imaging Radiologist's Impressions: Impressions Chest X-Ray 10/26/23 11:40 IMPRESSION: Unremarkable chest examination. Chest CTA 10/26/23 17:11 IMPRESSION: No evidence of pulmonary emboli. VTE: negative. Assessment and Plan (1) Atrial fibrillation with RVR: Status: Acute Plan Pt is a 57-year-old male with a PMH significant for?paroxysmal AFib on Eliquis, hx of ablations x2 at [facility] in 2018 and 2020, hx of cardioversion x2, HTN, [id number] diabetes type 2, 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 Pt will be admitted to the hospital under observation for treatment and monitoring of AFib with RVR. AFib with RVR Patient with lightheadedness, chest pain, shortness of breath, palpitations since this morning, not alleviated by p.r.n. metoprolol EKG showed AFib with RVR of 147 Received metoprolol IV 5 mg x2 doses in the ED with improvement to HR Not on home beta blockers or antiarrhythmics Echocardiogram Cardiology consult Monitor on telemetry Soft BP Patient with a history of orthostatic hypotension and labile blood pressure BP in the ED has been soft, improved with small amount of IVF Monitor BP, fluid resuscitation as necessary Nausea Patient given Zofran with little effect Will try Compazine 5 mg IV Off-tuhgaju-ufhtnrddu diabetes Continue Synjardy Sliding-scale insulin Diabetic diet LAYNE CPAP at nighttime Full Code Attending:?Dr. Mendoza DVT Prophylaxis: On Eliquis Patient will be admitted to the hospital under observation for treatment and further evaluation of AFib with RVR. Patient will require close cardiac monitoring and specialist consultation in morning. Quality Stroke Does the patient have a stroke diagnosis?: No VTE Prior VTE?: No VTE Risk Level:: Medical - moderate - high VTE Device Contraindication: Treatment Not Indicated VTE Drug Contraindication: N/A - Med Ordered
[2023-10-26 20:27] LABS: Thyroid Stimulating Hormone 1.62 uIU/mL (0.32-4.0)
[2023-10-26] MEDS: Apixaban 5 MG TABLET PO (21:53)
[2023-10-26] MEDS: 0.9 % Sodium Chloride Flush 3 ML SYRINGE IVFLUSH (21:54)
[2023-10-26] MEDS: Melatonin 3 MG TABLET 6 MG PO (23:06)
[2023-10-27] VITALS (11 sets, daily range): BP systolic 91–103; BP diastolic 52–74; PULSE 58–145; RESP 16–20; TEMP 36.1–36.8; O2SAT 94–98
[2023-10-27 06:03] LABS: Hematocrit 42.1 % (42.0-52.0); Hemoglobin 14.7 g/dl (14.0-18.0); Mean Corpuscular HGB Conc 34.9 g/dl (31.0-36.0); Mean Corpuscular Hemoglobin 32.3 pg (27.0-33.0); Mean Corpuscular Volume 92.5 fL (80.0-98.0); Mean Platelet Volume 10.5 fL (9.4-12.4); Platelet Count 292 X10*3/uL (160-400); Red Blood Count 4.55 X10*6/uL (4.60-5.80); Red Cell Distribution Width 11.5 % (11.0-16.0); White Blood Count 12.1 X10*3/uL (4.8-10.8)
[2023-10-27 06:08] LABS: Anion Gap 15 (12-20); Blood Urea Nitrogen 25 mg/dL (9-16); Calcium 9.4 mg/dL (8.4-10.2); Carbon Dioxide 21 mmol/L (22-29); Chloride 105 mmol/L (96-108); Creatinine Clr Calc Pharmacy 76.8; Estimated Glomerular Filt Rate 56; Glucose Random 97 mg/dL (60-115); Potassium 3.6 mmol/L (3.3-5.1); Sodium 137 mmol/L (135-145)
--- NOTE | 2023-10-27 07:00 | CA_ITS ---
Transthoracic Echocardiogram Patient (Last, First, Middle): Fito Diaz, Gender: Male Date of : 1965 Age: 57 Procedure Date: 10/27/2023 Procedure Type: Transthoracic Echocardiogram [place] [facility] [place]: 180.34 cm Weight: 112.04 kg BSA: 2.31 m2 Heart Rate: bpm BP: 94 / 61 mmHg Mumps Developer: TO/JV Referring MD: Angela Mendoza MD Study Assistant: Gato Alcaraz MD Symptoms: afib with rvr Study Quality: Fair ECG Rhythm: Atrial Fibrillation Conclusions: - 1. Mildly reduced LV ejection fraction of 45-50% 2. RV systolic function appears significantly reduced 3. Mildly dilated left atrium 4. Normal cardiac valvular Doppler next 5. Mildly dilated ascending aorta at 3.7 cm 6. No gross pericardial effusion Findings Left Ventricle Normal left ventricular cavity size. There is normal left ventricular wall thickness. The left ventricular systolic function is mildly decreased. The visually estimated ejection fraction is between 45-50%. Diastolic function is indeterminate on the basis of available data. There is mild septal asymmetric hypertrophy. Right Ventricle Normal right ventricular cavity size. There is severely decreased right ventricular systolic function. Atria The left atrium is mildly dilated. Interatrial shunt cannot be excluded. The right atrium is likely dilated. Aortic Valve Normal aortic valve structure and function. There is no aortic valve stenosis. There is no aortic valve regurgitation. Mitral Valve Normal mitral valve structure and function. There is trace mitral valve regurgitation. There is no mitral valve stenosis. Pulmonic Valve The pulmonic valve is likely normal. Tricuspid Valve Likely normal tricuspid valve structure and function. There is trace tricuspid valve regurgitation. The right ventricular systolic pressure is normal. The right ventricular systolic pressure is 19 mmHg. Normal right atrial pressure. There is no evidence of pulmonary hypertension. Great Vessels The pulmonary artery was not well visualized. There is mild dilatation of the ascending aorta measuring 3.70 cm. Venous The inferior vena cava is normal in size and collapses greater than 50% with inspiration. Pericardium/Pleural There is no evidence of pericardial effusion. Measurements 2D Linear Measurements IVSd: 1.37 0.6-0.9/0.6-1.0 cm LVIDd: 4.52 3.9-5.3/4.2-5.9 cm LVIDd Index: 1.96 2.4-3.2/2.2-3.1 cm/m2 LVIDs: 3.30 2.0-3.6 cm LVPWd: 0.94 0.7-1.1 cm LA Diam: 3.90 2.7-3.8/3.0-4.0 cm LAIDs Index: 1.69 1.5-2.3 cm/m2 LV Mass: 235.90 67-162/88-224 g LV Mass Index: 102.12 43-95/49-115 g/m2 LVOT Diam: 2.60 3.0+(-)1.3 cm 2D Systolic Function EF 4C: 46.50 >55% EF 2C: 50.10 >55% EF BiP: 47.10 >55% Mitral Valve MV Pk E: 0.54 MV Decel Time: 173.00 E'Lateral: 10.70 E'Medial: 8.70 E/E' Med: 6.30 E/E' Lat: 5.10 PHT: 50.00 MVA PHT: 4.40 Decel Miner: 3.21 Aortic Valve AoV Pk Reggie: 1.10 AoV Mn Reggie: 0.85 AoV VTI: 0.19 AoV Pk Grad: 5.00 Aov Mn Grad: 3.00 SUZANNE Cont.VTI: 3.32 LVOT LVOT Pk Reggie: 0.72 LVOT Mn Reggie: 0.46 LVOT VTI: 0.12 LVOT Pk Grad: 2.00 LVOT Mn Grad: 1.00 LVOT Diam: 2.60 LVOT Area: 5.31 Diastolic Function MV Pk E: 0.54 E'Medial: 8.70 E/E' Med: 6.30 E' Laterial: 10.70 E/E' Lat: 5.10 Right Ventricle TAPSE (mm): 9.44 TVS' Reggie: 6.67 Tricuspid Valve TR Pk Reggie: 1.64 TR Pk Grad: 11.00 RA Press: 8.00 RVSP: 19.00 Great Vessels Aorta Sinus of Valsalva: 3.70 2.0-3.5 cm Ao Asc: 3.70 2.1-3.4 cm Updated in Other Vendor System with Status of Final Gato Alcaraz MD electronically signed on 10/27/2023 11:44:27 AM with status of Final
[2023-10-27] MEDS: Empagliflozin 25 MG TABLET PO (08:28)
[2023-10-27] MEDS: 0.9 % Sodium Chloride Flush 3 ML SYRINGE IVFLUSH ×2 (08:28→11:08)
[2023-10-27] MEDS: metFORMIN HCl ER 500 MG TAB.ER.24H 1000 MG PO (08:28)
[2023-10-27] MEDS: Cholecalciferol (Vitamin D3) 25 MCG TABLET 50 MCG PO (08:28)
[2023-10-27] MEDS: Cyanocobalamin (Vitamin B-12) 1,000 MCG TABLET 1000 MCG PO (08:28)
[2023-10-27] MEDS: Apixaban 5 MG TABLET PO ×2 (08:28→20:15)
--- NOTE | 2023-10-27 09:14 | MHC.CM.PN ---
CM met with Patient at bedside and addressed ELISE with him, providing Patient with the original and a copy has been placed on the chart. 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 Home/self care is the goal and CM has initiated and will follow for dc planning. Patient's Girlfriend/Elizabet is the HCP and the PCP/PA is Jonathan Barnett.
--- NOTE | 2023-10-27 10:06 | P.PNIM_ITS ---
Subjective Subjective Date of Service: 10/27/23 Interval History: f/u on AfIB with RVR reports feeling dizzy with palpiation, BP on lower side RVR resolved but still in AFIB Physical Exam 2 Vital Signs: Vital Signs: Last Vital Signs Temp 97.0 F 10/27/23 07:33 Pulse 58 10/27/23 07:33 Resp 18 10/27/23 07:33 BP 94/61 10/27/23 07:33 Pulse Ox 96 10/27/23 07:33 O2 Del Method CPAP 10/27/23 07:33 BMI result Body Mass Index 34.6 Const: Other: General: AO X 3, no acute distress Resp: CTA bilateral iregular iregular GI: +BS, NT, no distention Skin: No rash Neuro: motor grossly intact Psych: appropriate affect Objective Data Active Medications Acetaminophen (Acetaminophen 325 Mg Tablet) 650 mg PO Q6H PRN PRN Reason: Pain, Mild (Pain Scale 1-3) Albuterol Sulfate (Albuterol Sulfate 90 Mcg 8 Gm Inhaler) 2 puff INHALE QID PRN PRN Reason: wheezing Apixaban (Apixaban 5 Mg Tablet) 5 mg PO BID [facility] Last Admin: 10/27/23 08:28 Dose: 5 mg Documented By: BALWINDER Cyanocobalamin (Cyanocobalamin (Vitamin B-12) 1,000 Mcg Tablet) 1,000 mcg PO DAILY [facility] Last Admin: 10/27/23 08:28 Dose: 1,000 mcg Documented By: BALWINDER Empagliflozin (Empagliflozin 25 Mg Tablet) 25 mg PO DAILY [facility] Last Admin: 10/27/23 08:28 Dose: 25 mg Documented By: BALWINDER Losartan Potassium (Losartan Potassium 25 Mg Tablet) 25 mg PO DAILY PRN; Protocol PRN Reason: Hypertension Melatonin (Melatonin 3 Mg Tablet) 6 mg PO BEDTIME PRN PRN Reason: Insomnia Last Admin: 10/26/23 23:06 Dose: 6 mg Documented By: BAYLEE Metformin HCl (Metformin Hcl Er 500 Mg Tab.Er.24h) 1,000 mg PO DAILY [facility] Last Admin: 10/27/23 08:28 Dose: 1,000 mg Documented By: BALWINDER Metoprolol Succinate (Metoprolol Succinate Er 50 Mg Tab.Er.24h) 50 mg PO DAILY PRN; Protocol PRN Reason: heart palpitations Ondansetron HCl (Ondansetron Hcl 4 Mg/2 Ml Vial) 4 mg IVPUSH Q8H PRN PRN Reason: Nausea and Vomiting Prochlorperazine Edisylate (Prochlorperazine Edisylate 10 Mg/2 Ml Vial) 5 mg IVPUSH Q4H PRN PRN Reason: Nausea Sodium Chloride (0.9 % Sodium Chloride Flush 3 Ml Syringe) 3 ml IVFLUSH QSHIFT [facility] Last Admin: 10/27/23 08:28 Dose: 3 ml Documented By: BALWINDER Vitamin D (Cholecalciferol (Vitamin D3) 25 Mcg Tablet) 50 mcg PO DAILY [facility] Last Admin: 10/27/23 08:28 Dose: 50 mcg Documented By: BALWINDER Labs 10/27/23 05:41 10/27/23 05:41 Labs: Laboratory Results - last 24 hr 10/26/23 10/26/23 10/26/23 11:43 11:50 15:34 MCV 92.8 MCH 32.1 MCHC 34.6 RDW 11.3 Plt Count 338 D MPV 10.6 Immature Gran % (Auto) 0.4 Neut % (Auto) 73.9 H Lymph % (Auto) 14.3 L [place] % (Auto) 7.8 Eos % (Auto) 3.3 Baso % (Auto) 0.3 Lymph # (Auto) 1.7 [place] # (Auto) 0.9 Eos # (Auto) 0.4 Baso # (Auto) 0.0 Abs Immat Gran (auto) 0.05 H Absolute Neuts (auto) 8.8 H Absolute Nucleated RBC 0.000 Nucleated RBC % (auto) 0.0 PT 13.4 H INR 1.1 APTT 41.9 H D Anion Gap 14 11 L Estim Creat Clear Calc 71.4 90.5 Estimated GFR 51 > 60 Random Glucose 107 89 Calcium 10.2 D 9.8 Magnesium 2.1 Total Bilirubin 1.6 H AST 28 ALT 36 Alkaline Phosphatase 90 B-Natriuretic Peptide 33 Total Protein 8.4 H Albumin 4.7 TSH Influenza Type A (PCR) NEGATIVE Influenza Type B (PCR) NEGATIVE RSV RNA Qual (PCR) NEGATIVE SARS-CoV-2 RNA (RT-PCR) NEGATIVE 10/26/23 10/27/23 19:45 05:41 MCV 92.5 MCH 32.3 MCHC 34.9 RDW 11.5 Plt Count 292 MPV 10.5 Immature Gran % (Auto) Neut % (Auto) Lymph % (Auto) [place] % (Auto) Eos % (Auto) Baso % (Auto) Lymph # (Auto) [place] # (Auto) Eos # (Auto) Baso # (Auto) Abs Immat Gran (auto) Absolute Neuts (auto) Absolute Nucleated RBC 0.000 Nucleated RBC % (auto) 0.0 PT INR APTT Anion Gap 15 Estim Creat Clear Calc 76.8 Estimated GFR 56 Random Glucose 97 Calcium 9.4 Magnesium Total Bilirubin AST ALT Alkaline Phosphatase B-Natriuretic Peptide Total Protein Albumin TSH 1.62 Influenza Type A (PCR) Influenza Type B (PCR) RSV RNA Qual (PCR) SARS-CoV-2 RNA (RT-PCR) Assessment and Plan (1) Atrial fibrillation with RVR: Status: Acute Plan Pt is a 57-year-old male with a PMH significant for?paroxysmal AFib on Eliquis, hx of ablations x2 at [facility] in 2018 and 2020, hx of cardioversion x2, HTN, [id number] diabetes type 2, 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 Pt will be admitted to the hospital under observation for treatment and monitoring of AFib with RVR. AFib with RVR, RVR has resolved but remains in AFIB, patient says that he feels dizz when in AFIB. He is suppose to be Toprol XL 50 PRN for palpitation Will get cardiology input for direction on better management Low dose metoprolol when BP is better Continue Eliquis Echo pending. BP on lower side and has history of chronic orthostatic hypotension Give some normal saline since not in heart failre and monitor BPs Nausea--resolved, PRN Zofra [id number] diabetes, FBS 97 Continue Synjardy if available, metformin and SSI Diabetic diet LAYNE CPAP at nighttime Full Code Attending:?Dr. Mendoza DVT Prophylaxis: On Eliquis Need for inpatient: Symptomatic afib that needs meds adjustement cardiac monitoring and IVF for hypotension, admission for at least 2 [facility] Quality Stroke Does the patient have a stroke diagnosis?: No VTE Prior VTE?: No VTE Risk Level:: Medical - moderate - high VTE Device Contraindication: Treatment Not Indicated VTE Drug Contraindication: N/A - Med Ordered
[2023-10-27] MEDS: Metoprolol Tartrate 5 MG/5 ML VIAL 2.5 MG IVPUSH ×2 (11:05→18:09)
[2023-10-27] MEDS: 0.9 % Sodium Chloride 1,000 ML 100 ML IVCONT ×2 (11:05→20:14)
[2023-10-27] MEDS: Flecainide Acetate 50 MG TABLET PO ×2 (11:18→18:09)
--- NOTE | 2023-10-27 12:00 | P.CONCA_ITS ---
History of Present Illness History of Present Illness Date of Service: 10/27/23 Requesting physician: Misbah Kee Consult reason: atrial fibrillation Chief complaint: chest discomfort Narrative: I was consulted to see Fito in cardiology consultation today for recurrent atrial fibrillation, highly symptomatic. He said this episode was probably triggered by stress related to his tendons. He converted to atrial fibrillation yesterday and took his metoprolol but remain highly symptomatic and came to the emergency room. In the emergency room he was noted rapid atrial fibrillation was given rate control but with low blood pressure could not tolerate further therapy. This morning he woke up, overnight heart rate was control and this morning his heart rate is elevated is symptomatic. Low blood pressure and is nauseous. He has similar symptoms in the past and has not been able to tolerate atrial fibrillation with low blood pressure due to loss of AV synchrony and/or autonomic dysfunction. Patient also complains of some shortness of breath. He came to the hospital yesterday because he had some chest pressure. He has had multiple treatment options in the past including to ablation is, last ablation March of 2022 as per him. He has been aggressively trying to lose weight and says has lost about 50 lb but still gets intermittent episodes of atrial fibrillation. When he gets his atrial fibrillation he takes p.r.n. metoprolol and can last up to 24 hours. Uses CPAP regularly. Also takes his oral anticoagulation religiously. Last time he was admitted via start him on Multaq and converted prior to cardioversion. Review of Systems 2 Constitutional: Constitutional: Reports no additional constitutional complaints Eyes: Eyes: Reports no additional eye complaints Cardiovascular: Cardiovascular: Reports chest pain, Denies leg edema, Reports lightheadedness, Denies Loss of Consciousness, Reports palpitations, Denies dyspnea, Denies dyspnea on exertion and Denies orthopnea Respiratory: Respiratory: Denies dyspnea and Denies dyspnea on exertion Gastrointestinal: Gastrointestinal: Reports nausea Genitourinary: Genitourinary: Reports no additional male genitourinary complaints Musculoskeletal: Musculoskeletal: Reports no additional musculoskeletal complaints Integumentary/Breasts: Skin/Breast: Reports system reviewed and no additional complaints, except as docu Neurologic: Reports system reviewed and no additional complaints, except as documented Psychiatric: Psychiatric: Reports no additional psychiatric complaints Endocrine: Endocrine: Reports palpitations PMFSH Past Medical History Medical History Family history of gastric cancer Insulin resistance History of COVID-19 Omental infarction Elevated LFTs Morbid obesity PAF (paroxysmal atrial fibrillation) LAYNE (obstructive sleep apnea) Diarrhea HTN (hypertension) Family History Family History Father CAD (coronary artery disease) History of partial colectomy Hypertension CVD (cardiovascular disease) Alzheimers disease Mother Asthma Brother Hepatitis Sister Family history of thyroid problem Breast cancer Paternal Grandfather Stomach cancer Surgical History Surgical History H/O prior ablation treatment History of lymph node excision History of prior ablation treatment Social History Social History Household Members: None Housing: House Are you a primary housekeeper child care to a significant other at home: No Do you presently have visiting nurse or other home services: No Alcohol intake: never Patient Tobacco Use Status: Never used Tobacco Smoked in Last 30 Days: No e-Cigarette/Vaping Use: Never Used Patient Interested in Nicotine Replacement: No Patient Given Instructions on How to Stop Smoking: No Second Hand Smoke Exposure: No Use of substances other than those prescribed or required for medical reasons: No Currently Displaying Signs/Symptoms of Drug Intoxication Withdrawal: No Advance Directives: No Advance Directives Information Provided: No Advance Directives on File: No Nutrition Risks: No Nutritional Risk service: No Current occupational status: employed Current occupation: [employer] Cognitive needs: No Hearing needs: No Vision needs: Yes (Glasses) Meds Allergies Allergy/AdvReac Type Severity Reaction Status Date / Time No Known Allergies Allergy Verified 08/11/23 18:08 Active Medications: Current Medications Acetaminophen (Acetaminophen 325 Mg Tablet) 650 mg PO Q6H PRN PRN Reason: Pain, Mild (Pain Scale 1-3) Albuterol Sulfate (Albuterol Sulfate 90 Mcg 8 Gm Inhaler) 2 puff INHALE QID PRN PRN Reason: wheezing Apixaban (Apixaban 5 Mg Tablet) 5 mg PO BID [facility] Last Admin: 10/27/23 08:28 Dose: 5 mg Cyanocobalamin (Cyanocobalamin (Vitamin B-12) 1,000 Mcg Tablet) 1,000 mcg PO DAILY [facility] Last Admin: 10/27/23 08:28 Dose: 1,000 mcg Empagliflozin (Empagliflozin 25 Mg Tablet) 25 mg PO DAILY [facility] Last Admin: 10/27/23 08:28 Dose: 25 mg Sodium Chloride (Ns) 1,000 mls @ 100 mls/hr IVCONT .Q10H ON LICENSE OF [facility] Last Admin: 10/27/23 11:05 Dose: 100 mls/hr Losartan Potassium (Losartan Potassium 25 Mg Tablet) 25 mg PO DAILY PRN; Protocol PRN Reason: Hypertension Melatonin (Melatonin 3 Mg Tablet) 6 mg PO BEDTIME PRN PRN Reason: Insomnia Last Admin: 10/26/23 23:06 Dose: 6 mg Metformin HCl (Metformin Hcl Er 500 Mg Tab.Er.24h) 1,000 mg PO DAILY [facility] Last Admin: 10/27/23 08:28 Dose: 1,000 mg Metoprolol Succinate (Metoprolol Succinate Er 50 Mg Tab.Er.24h) 50 mg PO DAILY PRN; Protocol PRN Reason: heart palpitations Ondansetron HCl (Ondansetron Hcl 4 Mg/2 Ml Vial) 4 mg IVPUSH Q8H PRN PRN Reason: Nausea and Vomiting Prochlorperazine Edisylate (Prochlorperazine Edisylate 10 Mg/2 Ml Vial) 5 mg IVPUSH Q4H PRN PRN Reason: Nausea Sodium Chloride (0.9 % Sodium Chloride Flush 3 Ml Syringe) 3 ml IVFLUSH QSHIFT ON [facility] Last Admin: 10/27/23 11:08 Dose: 3 ml Vitamin D (Cholecalciferol (Vitamin D3) 25 Mcg Tablet) 50 mcg PO DAILY [facility] Last Admin: 10/27/23 08:28 Dose: 50 mcg Home Medications Medication Instructions Recorded Confirmed Last Taken Type empagliflozin 25 mg-metformin ER 1 tab PO DAILY 04/16/23 10/26/23 04/20/23 History 1,000 mg tablet,extended release 24hr (Synjardy XR) cholecalciferol (vitamin D3) 50 50 mcg PO DAILY 04/17/23 10/26/23 04/19/23 History mcg (2,000 unit) tablet cyanocobalamin (vitamin B-12) 1,000 mcg PO DAILY 04/17/23 10/26/23 04/19/23 History 1,000 mcg tablet losartan 25 mg tablet 25 mg PO DAILY PRN Hypertension 06/10/26/23 04/20/23 History apixaban 5 mg tablet (Eliquis) 5 mg PO BID 04/27/23 10/26/23 10/26/23 History metoprolol succinate 50 mg 50 mg PO DAILY PRN heart 07/29/23 10/26/23 10/26/23 History tablet,extended release 24 hr palpitations albuterol sulfate 90 mcg/actuation 2 puff inhalation QID PRN wheezing 10/26/23 10/26/23 Unknown History aerosol inhaler semaglutide (weight loss) 2.4 2.4 mg subcut FR 10/26/23 10/26/23 10/25/23 History mg/0.75 mL subcutaneous pen injector ([employer]) Physical Exam 2 Vital Signs: Vital Signs: Last Vital Signs Temp 98.0 F 10/27/23 11:14 Pulse 80 10/27/23 11:41 Resp 20 10/27/23 11:14 BP 100/60 10/27/23 11:00 Pulse Ox 95 10/27/23 11:14 O2 Del Method Room Air 10/27/23 11:14 BMI result Body Mass Index 34.6 Const: General: cooperative, comfortable, no acute distress, alert and awake Nutritional Appearance: obese Orientation/consciousness: patient oriented x3 Limitations: no limitations HEENT: Head: Yes normocephalic and Yes atraumatic Neck: Neck: Yes trachea midline, Yes supple and Yes no JVD Resp: Effort & Inspection: normal respiratory effort Auscultation: clear to auscultation bilaterally Cardio: Jugular venous distension: no JVD Rate: tachycardic Rhythm: a bnormal rhythm irregularly irregular Heart sounds: S1 normal heart sound present, S2 normal heart sound present, no click, no gallops, no murmurs and no rubs GI: Auscultation: normal bowel sounds Skin: General skin exam: no rashes or lesions noted Neuro: General: patient oriented x3 and no focal motor deficits Extrem: General: Yes no clubbing, cyanosis or edema Psych: Affect: Anxious affect present Objective Labs and Meds 10/27/23 05:41 10/27/23 05:41 Lab results: Laboratory Results - last 24 hr 10/26/23 10/26/23 10/26/23 11:43 11:50 15:34 WBC RBC Hgb Hct MCV MCH MCHC RDW Plt Count MPV Absolute Nucleated RBC Nucleated RBC % (auto) PT 13.4 H INR 1.1 APTT 41.9 H D Sodium 140 139 Potassium 4.2 4.0 Chloride 103 106 Carbon Dioxide 27 26 Anion Gap 14 11 L BUN 18 H 18 H Creatinine 1.42 H 1.12 Estim Creat Clear Calc 71.4 90.5 Estimated GFR 51 > 60 Random Glucose 107 89 Calcium 10.2 D 9.8 Magnesium 2.1 Total Bilirubin 1.6 H AST 28 ALT 36 Alkaline Phosphatase 90 Troponin I High Sens < 2.7 4.2 D B-Natriuretic Peptide 33 Total Protein 8.4 H Albumin 4.7 TSH Influenza Type A (PCR) NEGATIVE Influenza Type B (PCR) NEGATIVE RSV RNA Qual (PCR) NEGATIVE SARS-CoV-2 RNA (RT-PCR) NEGATIVE 10/26/23 10/27/23 19:45 05:41 WBC 12.1 H RBC 4.55 L Hgb 14.7 Hct 42.1 MCV 92.5 MCH 32.3 MCHC 34.9 RDW 11.5 Plt Count 292 MPV 10.5 Absolute Nucleated RBC 0.000 Nucleated RBC % (auto) 0.0 PT INR APTT Sodium 137 Potassium 3.6 Chloride 105 Carbon Dioxide 21 L Anion Gap 15 BUN 25 H Creatinine 1.32 Estim Creat Clear Calc 76.8 Estimated GFR 56 Random Glucose 97 Calcium 9.4 Magnesium Total Bilirubin AST ALT Alkaline Phosphatase Troponin I High Sens B-Natriuretic Peptide Total Protein Albumin TSH 1.62 Influenza Type A (PCR) Influenza Type B (PCR) RSV RNA Qual (PCR) SARS-CoV-2 RNA (RT-PCR) EKG shows atrial fibrillation with rapid ventricular response Imaging Radiologist's impression: Impressions Chest CTA 10/26/23 17:11 IMPRESSION: No evidence of pulmonary emboli. VTE: negative. Assessment and Plan (1) Atrial fibrillation with RVR: Status: Acute Atrial fibrillation rapid ventricular response with poor tolerance with low blood pressure due to autonomic dysfunction. Patient appears to be quite uncomfortable with it. Has not converted to sinus rhythm with his usual metoprolol dose. Given his prior history and high likelihood underlying structural heart issues as noted by echocardiogram showing mild left atrial enlargement and RV dysfunction probably related to obesity and sleep apnea he is likely to require antiarrhythmic drug support in the future. He was supposed to be on Multaq but currently not taking that. He has been taking his oral anticoagulation therapy religiously. I thing we can try to convert him chemically with flecainide 150 mg along with 2.5 mg of metoprolol IV and can repeat another dose of flecainide if he does not convert. If he remains in atrial fibrillation, would schedule him for synchronized cardioversion tomorrow. Please keep him NPO past midnight. Continue p.r.n. metoprolol use. As discussed with him the require antiarrhythmic drug support in the future. Continue CPAP therapy overnight. I would give him gentle IV hydration due to low blood pressure. Will continue to follow with you Procedures Date of Service Date of Service: 10/27/23
[2023-10-28] VITALS (10 sets, daily range): BP systolic 106–125; BP diastolic 73–82; PULSE 63–116; RESP 18–20; TEMP 36.2–36.7; O2SAT 94–99
[2023-10-28] MEDS: 0.9 % Sodium Chloride 1,000 ML 100 ML IVCONT (06:26)
[2023-10-28] MEDS: metFORMIN HCl ER 500 MG TAB.ER.24H 1000 MG PO (08:09)
[2023-10-28] MEDS: Empagliflozin 25 MG TABLET PO (08:09)
[2023-10-28] MEDS: 0.9 % Sodium Chloride Flush 3 ML SYRINGE IVFLUSH (08:09)
[2023-10-28] MEDS: Apixaban 5 MG TABLET PO (08:09)
[2023-10-28] MEDS: Cholecalciferol (Vitamin D3) 25 MCG TABLET 50 MCG PO (08:09)
[2023-10-28] MEDS: Cyanocobalamin (Vitamin B-12) 1,000 MCG TABLET 1000 MCG PO (08:09)
--- NOTE | 2023-10-28 09:13 | PC.NURSE ---
Patient down for cardioversion at this time.
--- NOTE | 2023-10-28 09:52 | HO.ANESPROP2 ---
HPI - Anesthesia Eval Consult details Narrative: 57 M for cardioversion PMFSH Active Problems Active Problems: All Active Problems (Updated 10/26/23 @ 14:50 by Rossana Valenzuela MD) Atrial fibrillation with RVR (Acute) Insulin resistance (Acute) Bilateral hip pain (Acute) Encounter for monitoring anti-arrhythmic therapy (Acute) Persistent atrial fibrillation (Acute) Orthostatic hypotension (Acute) Pre-syncope (Acute) Tubular adenoma of colon (Acute) Status post colonoscopy (Acute) Family history of gastric cancer (Acute) Afib (Acute) Colon cancer screening (Acute) Tinea (Acute) Obese (Acute) Microalbuminuria (Acute) Viral illness (Acute) Positive colorectal cancer screening using Cologuard test (Acute) Pre-op examination (Acute) Epigastric abdominal pain (Acute) Omental infarction (Acute) Pre-procedure lab exam (Acute) COVID-19 (Acute) Omental infarction (Acute) LAYNE (obstructive sleep apnea) (Acute) Morbid obesity (Acute) Past Medical History Medical History Family history of gastric cancer Insulin resistance History of COVID-19 Omental infarction Elevated LFTs Morbid obesity PAF (paroxysmal atrial fibrillation) LAYNE (obstructive sleep apnea) Diarrhea HTN (hypertension) Family History Family History Father CAD (coronary artery disease) History of partial colectomy Hypertension CVD (cardiovascular disease) Alzheimers disease Mother Asthma Brother Hepatitis Sister Family history of thyroid problem Breast cancer Paternal Grandfather Stomach cancer Family history of problems with anesthesia: No Surgical History Surgical History H/O prior ablation treatment History of lymph node excision History of prior ablation treatment History of Problems with Anesthesia: No Social History Social History Household Members: None Housing: House Are you a primary occasional caregiver to a significant other at home: No Do you presently have visiting nurse or other home services: No Alcohol intake: never Patient Tobacco Use Status: Never used Tobacco Smoked in Last 30 Days: No e-Cigarette/Vaping Use: Never Used Patient Interested in Nicotine Replacement: No Patient Given Instructions on How to Stop Smoking: No Second Hand Smoke Exposure: No Use of substances other than those prescribed or required for medical reasons: No Currently Displaying Signs/Symptoms of Drug Intoxication Withdrawal: No Advance Directives: No Advance Directives Information Provided: No Advance Directives on File: No Nutrition Risks: No Nutritional Risk service: No Current occupational status: employed Current occupation: [employer] Cognitive needs: No Hearing needs: No Vision needs: Yes (Glasses) Meds Allergies Allergy/AdvReac Type Severity Reaction Status Date / Time No Known Allergies Allergy Verified 08/11/23 18:08 Active Medications: Current Medications Acetaminophen (Acetaminophen 325 Mg Tablet) 650 mg PO Q6H PRN PRN Reason: Pain, Mild (Pain Scale 1-3) Albuterol Sulfate (Albuterol Sulfate 90 Mcg 8 Gm Inhaler) 2 puff INHALE QID PRN PRN Reason: wheezing Apixaban (Apixaban 5 Mg Tablet) 5 mg PO BID [facility] Last Admin: 10/28/23 08:09 Dose: 5 mg Cyanocobalamin (Cyanocobalamin (Vitamin B-12) 1,000 Mcg Tablet) 1,000 mcg PO DAILY [facility] Last Admin: 10/28/23 08:09 Dose: 1,000 mcg Empagliflozin (Empagliflozin 25 Mg Tablet) 25 mg PO DAILY [facility] Last Admin: 10/28/23 08:09 Dose: 25 mg Sodium Chloride (Ns) 1,000 mls @ 100 mls/hr IVCONT .Q10H [facility] Last Admin: 10/28/23 06:26 Dose: 100 mls/hr Losartan Potassium (Losartan Potassium 25 Mg Tablet) 25 mg PO DAILY PRN; Protocol PRN Reason: Hypertension Melatonin (Melatonin 3 Mg Tablet) 6 mg PO BEDTIME PRN PRN Reason: Insomnia Last Admin: 10/26/23 23:06 Dose: 6 mg Metformin HCl (Metformin Hcl Er 500 Mg Tab.Er.24h) 1,000 mg PO DAILY [facility] Last Admin: 10/28/23 08:09 Dose: 1,000 mg Metoprolol Succinate (Metoprolol Succinate Er 50 Mg Tab.Er.24h) 50 mg PO DAILY PRN; Protocol PRN Reason: heart palpitations Ondansetron HCl (Ondansetron Hcl 4 Mg/2 Ml Vial) 4 mg IVPUSH Q8H PRN PRN Reason: Nausea and Vomiting Prochlorperazine Edisylate (Prochlorperazine Edisylate 10 Mg/2 Ml Vial) 5 mg IVPUSH Q4H PRN PRN Reason: Nausea Sodium Chloride (0.9 % Sodium Chloride Flush 3 Ml Syringe) 3 ml IVFLUSH QSHIFT [facility] Last Admin: 10/28/23 08:09 Dose: 3 ml Vitamin D (Cholecalciferol (Vitamin D3) 25 Mcg Tablet) 50 mcg PO DAILY [facility] Last Admin: 10/28/23 08:09 Dose: 50 mcg Home Medications Medication Instructions Recorded Confirmed Last Taken Type empagliflozin 25 mg-metformin ER 1 tab PO DAILY 04/16/23 10/26/23 04/20/23 History 1,000 mg tablet,extended release 24hr (Synjardy XR) cholecalciferol (vitamin D3) 50 50 mcg PO DAILY 04/17/23 10/26/23 04/19/23 History mcg (2,000 unit) tablet cyanocobalamin (vitamin B-12) 1,000 mcg PO DAILY 04/17/23 10/26/23 04/19/23 History 1,000 mcg tablet losartan 25 mg tablet 25 mg PO DAILY PRN Hypertension 04/21/23 10/26/23 04/20/23 History apixaban 5 mg tablet (Eliquis) 5 mg PO BID 04/27/23 10/26/23 10/26/23 History metoprolol succinate 50 mg 50 mg PO DAILY PRN heart 07/29/23 10/26/23 10/26/23 History tablet,extended release 24 hr palpitations albuterol sulfate 90 mcg/actuation 2 puff inhalation QID PRN wheezing 10/26/23 10/26/23 Unknown History aerosol inhaler semaglutide (weight loss) 2.4 2.4 mg subcut FR 10/26/23 10/26/23 10/25/23 History mg/0.75 mL subcutaneous pen injector (Tangela) Exam Height,Weight and Vital Signs: Height 5 ft 11 in Weight 247 lb 12.793 oz Last Vital Signs Temp 97.6 F 10/28/23 09:33 Pulse 97 10/28/23 09:33 Resp 20 10/28/23 09:33 BP 125/82 10/28/23 09:33 Pulse Ox 96 10/28/23 09:33 O2 Del Method Room Air 10/28/23 09:33 Pertinent Lab Results Pertinent Lab Results: Laboratory Tests 10/26/23 10/26/23 10/26/23 11:43 11:50 15:34 WBC 11.9 H RBC 5.11 Hgb 16.4 Hct 47.4 MCV 92.8 MCH 32.1 MCHC 34.6 RDW 11.3 Plt Count 338 D MPV 10.6 Immature Gran % (Auto) 0.4 Neut % (Auto) 73.9 H Lymph % (Auto) 14.3 L Sherman % (Auto) 7.8 Eos % (Auto) 3.3 Baso % (Auto) 0.3 Lymph # (Auto) 1.7 Sherman # (Auto) 0.9 Eos # (Auto) 0.4 Baso # (Auto) 0.0 Abs Immat Gran (auto) 0.05 H Absolute Neuts (auto) 8.8 H Absolute Nucleated RBC 0.000 Nucleated RBC % (auto) 0.0 PT 13.4 H INR 1.1 APTT 41.9 H D Sodium 140 139 Potassium 4.2 4.0 Chloride 103 106 Carbon Dioxide 27 26 Anion Gap 14 11 L BUN 18 H 18 H Creatinine 1.42 H 1.12 Estim Creat Clear Calc 71.4 90.5 Estimated GFR 51 > 60 Random Glucose 107 89 Calcium 10.2 D 9.8 Magnesium 2.1 Total Bilirubin 1.6 H AST 28 ALT 36 Alkaline Phosphatase 90 Troponin I High Sens < 2.7 4.2 D B-Natriuretic Peptide 33 Total Protein 8.4 H Albumin 4.7 TSH Influenza Type A (PCR) NEGATIVE Influenza Type B (PCR) NEGATIVE RSV RNA Qual (PCR) NEGATIVE SARS-CoV-2 RNA (RT-PCR) NEGATIVE 10/26/23 10/27/23 19:45 05:41 WBC 12.1 H RBC 4.55 L Hgb 14.7 Hct 42.1 MCV 92.5 MCH 32.3 MCHC 34.9 RDW 11.5 Plt Count 292 MPV 10.5 Immature Gran % (Auto) Neut % (Auto) Lymph % (Auto) Sherman % (Auto) Eos % (Auto) Baso % (Auto) Lymph # (Auto) Sherman # (Auto) Eos # (Auto) Baso # (Auto) Abs Immat Gran (auto) Absolute Neuts (auto) Absolute Nucleated RBC 0.000 Nucleated RBC % (auto) 0.0 PT INR APTT Sodium 137 Potassium 3.6 Chloride 105 Carbon Dioxide 21 L Anion Gap 15 BUN 25 H Creatinine 1.32 Estim Creat Clear Calc 76.8 Estimated GFR 56 Random Glucose 97 Calcium 9.4 Magnesium Total Bilirubin AST ALT Alkaline Phosphatase Troponin I High Sens B-Natriuretic Peptide Total Protein Albumin TSH 1.62 Influenza Type A (PCR) Influenza Type B (PCR) RSV RNA Qual (PCR) SARS-CoV-2 RNA (RT-PCR) Airway Mallampati Class: II TM Dist: >3cm Assessment and Plan Assessment Anesthesia Assessment: Anesthesia Plan Discussed Final Anesthetic Review Family History of Problems with Anesthesia: No History of Problems with Anesthesia: No NPO: Yes ASA Class: III Final Preanesthetic Review: No Changes in Pt Med Stat, Meds/Allgs Chart Reviewed, Consent Obtained/Reviewed and Anes Risks/Benef Reviewed Patient Risk: Intermediate Procedure Risk: Low Anesthetic Plan Anesthetic Plan: MAC: Disposition: Standard PACU
--- NOTE | 2023-10-28 10:05 | HO.CARDIVERS ---
Cardioversion Procedure Note Cardioversion Date of Procedure: Today Ordering Provider: Myself Performing Provider: Myself Indication for Procedure: persistent symptomatic atrial fibrillation. Pre-Op Diagnosis: Same Post-Op Diagnosis: Same Performed with Transesophageal Echo: No History: See my consult note Consent: Verbal and Written consent was obtained from the patient before starting and after starting oral anticoagulation. The patient was made aware of the risk of synchronized cardioversion including benefits and alternatives Procedure: After consent obtained, cardioversion pads were attached in anteroposterior configuration and the patient was sedated by the anesthesia team. Once adequate sedation achieved, patient was delivered 200 joules of biphasic synchronized energy in anteroposterior configuration. Complications: None Impression: Successful conversion to sinus rhythm Recommendations: 1. 12 lead EKG 2. Multaq 400 mg b.i.d. to be started today and maintained 3. Continue full oral anticoagulation
--- NOTE | 2023-10-28 10:13 | PM.PNCARD ---
Subjective Subjective Date of Service: 10/28/23 Principal diagnosis: Recurrent atrial fibrillation Interval history: Patient underwent synchronized cardioversion this morning. Blood pressure is on the lower side. Symptomatic. Echocardiogram showed mildly reduced LV ejection fraction, no signs of heart failure Review of Systems Constitutional: Reports no additional constitutional complaints Cardiovascular: Reports lightheadedness and Reports palpitations Respiratory: Reports no additional respiratory complaints Gastrointestinal: Reports no additional gastrointestinal complaints Skin/Breast: Reports system reviewed and no additional complaints, except as docu Endocrine: Reports palpitations Physical Exam Vital Signs: Last Vital Signs Temp 98 F 10/28/23 10:05 Pulse 74 10/28/23 10:05 Resp 18 10/28/23 10:05 BP 120/81 10/28/23 10:05 Pulse Ox 95 10/28/23 10:05 O2 Del Method Room Air 10/28/23 10:05 O2 Flow Rate 2 10/28/23 09:55 BMI result Body Mass Index 34.6 Const General: cooperative, comfortable, no acute distress, alert and awake Nutritional Appearance: obese Orientation/consciousness: patient oriented x3 Limitations: no limitations HEENT Head: Yes normocephalic and Yes atraumatic Neck Neck: Yes trachea midline, Yes supple and Yes no JVD Resp Effort & Inspection: normal respiratory effort Auscultation: clear to auscultation bilaterally Cardio Jugular venous distension: no JVD Rhythm: regular rhythm Heart sounds: S1 normal heart sound present, S2 normal heart sound present, no click, no gallops, no murmurs and no rubs GI Auscultation: normal bowel sounds Skin General skin exam: no rashes or lesions noted Neuro General: patient oriented x3 and no focal motor deficits Extrem General: Yes no clubbing, cyanosis or edema Psych Affect: Anxious affect present Objective Labs and Meds 10/27/23 05:41 10/27/23 05:41 Progress Note: A&P Assessment and plan (1) Atrial fibrillation with RVR: Status: Acute Assessment and Plan: Patient status post cardioversion, he will require antiarrhythmic drug therapy. Given his low blood pressure and difficulty use of metoprolol therapy, would suggest Multaq 400 mg b.i.d.. Discharge on this last time he was admitted, not show discontinued it. I think given his structural nature of atrial fibrillation will require antiarrhythmic drug therapy. Continue full oral anticoagulation with Eliquis. Continue CPAP therapy. After receiving his 1st dose patient can be discharged home in couple of hours. Will sign of the case. Patient can follow-up with his environmental protection officer. Time Spent With Patient Time: Total time managing care of this patient today ____ minutes. Progress Note: Quality Stroke Does the patient have a stroke diagnosis?: No Procedures Date of Service Date of Service: 10/28/23
--- NOTE | 2023-10-28 10:21 | PC.NURSE ---
Patient back from procedure at this time
--- NOTE | 2023-10-28 10:27 | P.DS_ITS ---
DS: Providers Provider Date of Service: 10/28/23 Date of admission: 10/27/23 10:47 Primary care physician: Jonathan Barnett PA-C Consults: 10/26/23 19:11 Consult to Cardiology Routine Consulting Provider: [facility] [place] [facility] Reason for consultation: afib with rvr Has provider been notified: Yes DS: Diagnosis Discharge Diagnosis (1) Atrial fibrillation with RVR: Status: Acute DS: Summary Hospital Course Hospital Course: Date of Service: 10/26/23 Attending physician on admission: Angela Mendoza Chief Complaint: Chest pain, palpitations Pt is a 57-year-old male with a PMH significant for?paroxysmal AFib on Eliquis, hx of ablations x2 at [facility] in 2018 and 2020, hx of cardioversion x2, HTN, [id number] diabetes type 2, hx of omental infarction while on Eliquis , and LAYNE on CPAP who presents to the ED with?lightheadedness, chest pain, SOB, and palpitations since this morning. Pt has a long history of paroxysmal Afib despite two ablation and 2 cardioversions. He is not on daily beta-vega or antiarrhythmic due to side effects. States daily use of metoprolol leaves him lightheaded, dizzy, and fatigued. Does have a standing prescription for metoprolol, and only takes it when he feels himself going into AFib, which lately occurs once every 2-3 months. Says it normally takes 24-48 hours before he will convert back into normal sinus rhythm. Reports he normally only experiences lightheadedness when he goes into AFib, but this time also experienced substernal, nonradiating chest pain, shortness of breath, and palpitations. Patient took metoprolol at home but symptoms did not relent, thus prompting his visit to the ED. in the ED EKG showed AFib with RVR of 147. Patient was given metoprolol 5 mg IV x2 doses which brought heart rate down into the 80s -100s, however patient smoked BP remained soft as low as 87/61. Patient also experienced some nausea and vomiting. Currently chest pain, SOB, and palpitations have resolved, but nausea remains. No fever, chills, abdominal pain. Labs were significant for slight leukocytosis of 11.9 otherwise grossly unremarkable. Electrolytes WNL magnesium 2.1. Initial troponin negative with repeat detectable at 4.2. TSH pending. Tested negative for influenza type a and B, RSV, COVID. CXR was unremarkable. CTA of chest showed no evidence of pulmonary emboli. Pt was treated with metoprolol IV 5 mg x 2 doses, IVF, and ondansetron. Pt will be admitted to the hospital under observation for treatment and monitoring of AFib with RVR. Hospital course: 57-year-old male with a PMH significant for?paroxysmal AFib on Eliquis, hx of ablations x2 at [facility] in 2018 and 2020, hx of cardioversion x2, HTN, [id number] diabetes type 2, hx of omental infarction while on Eliquis, and LAYNE on CPAP who presents to the ED with?lightheadedness, chest pain, SOB, and palpitations and admitted to the hospital under observation for treatment and monitoring of AFib with RVR. AFib with RVR, patient admitted to telemetry unit noted to have low blood pressures with history of chronic orthostatic hypotension, was seen in consultation by workforce services representative Dr. Abbasi was given 1 dose of flecainide and subsequently underwent cardioversion this morning converted to normal sinus rhythm,postcardioversion started on Multaq 400 mg b.i.d. , an echocardiogram showed an EF 45-50% and significantly reduced right ventricular systolic function, diastolic function is indeterminate on the basis of available data, he is recommended close outpatient cardiology follow and compliance with CPAP. [id number] diabetes, noted to have stable blood sugars recommend to continue home medications and diabetic diet. LAYNE continue CPAP at nighttime Time Attestation Discharge coordination time: Greater than 30 minutes Quality: Safe Use of Opioids Does Pt have an Active Cancer Diagnosis on the Problem List?: No Quality: Stroke Does the patient have a stroke diagnosis?: No Physical Exam Vital Signs: Vital Signs: Last Vital Signs Temp 98 F 10/28/23 10:05 Pulse 74 10/28/23 10:05 Resp 18 10/28/23 10:05 BP 120/81 10/28/23 10:05 Pulse Ox 95 10/28/23 10:05 O2 Del Method Room Air 10/28/23 10:05 O2 Flow Rate 2 10/28/23 09:55 BMI result Body Mass Index 34.6 Const: Other: General awake alert x3, resting comfortably in no acute distress. Neck no JVD. CVS regular rate rhythm, Respiratory lungs clear to auscultation, no respiratory distress, no wheeze, no rhonchi. Gastrointestinal abdomen soft, non tender, bowel sounds audible, no guarding , no rigidity. Extremities no edema. Neuro nonfocal Skin no rash Discharge Plan Discharge Anticipated Discharge Date/Time: 10/28/23 10:24 Patient Disposition: Home, Self-Care Discharge Diagnosis: Atrial fibrillation with RVR Referrals: Jonathan Barnett PA-C [Primary Care Provider] - 1 Week Discharge Medications: New Multaq 400 mg tablet 400 mg PO BID Qty: 60 0RF Rx Instructions: must administer with a meal/food Continued (DME) CPAP Machine/Device Device See Rx Instructions .Route Qty: 1 0RF Rx Instructions: As directed Synjardy XR 25-1,000 mg tablet, IR - ER, biphasic 24hr 1 tab PO DAILY Rx Instructions: WITH LUNCH cyanocobalamin (vitamin B-12) 1,000 mcg Tablet 1,000 mcg PO DAILY cholecalciferol (vitamin D3) 50 mcg (2,000 unit) Tablet 50 mcg PO DAILY albuterol sulfate 90 mcg/actuation HFA aerosol inhaler 2 puff INHALATION QID PRN (Reason: wheezing) Wegovy 2.4 mg/0.75 mL pen injector 2.4 mg subcut FR losartan 25 mg tablet 25 mg PO DAILY PRN (Reason: Hypertension) metoprolol succinate 50 mg tablet extended release 24 hr 50 mg PO DAILY PRN (Reason: heart palpitations) Eliquis 5 mg tablet 5 mg PO BID Discharge Orders: Discharge Order (Routine); Ordered 10/28/23 Ordered By: Violet Vazquez Diet: Diabetic diet Activity on Discharge: As tolerated Stand Alone Forms: Patient Portal Discharge page Care Plan Goals: Take Multaq 400 mg 1 tablet twice daily Return to check with recurrent symptoms of lightheadedness dizziness or palpitations Take all other medications as prescribed Health Concerns: Diabetes mellitus follow diabetic diet. Plan of Treatment: Outpatient follow-up with Cardiology call for appointment Assessment: As above
[2023-10-28] MEDS: Dronedarone HCl 400 MG TABLET PO (10:52)
--- NOTE | 2023-10-28 11:11 | MHC.CM.PN ---
Per RN, Patient has been cardioverted and will be medically cleared for dc to home today, self care. CM has set up a [employer] to transport Patient to home at 11:30 AM.
--- NOTE | 2023-10-28 11:18 | MHC.CM.PN ---
The stock car driver for the 11:30 AM [employer] ride, cancelled the trip; [employer] is trying to find another stock car driver. RN made aware and CM will follow.
--- NOTE | 2023-10-28 11:32 | MHC.CM.PN ---
Karina has found a ride, arriving at noon; RN has been made aware.
== END 2023-10-28 11:41 | disposition home or self-care (01) | DRG 201 ==
LOC: HO.ED 18:05 → HO.EDOVER 19:13 → HO.IMC 19:47
PROVIDERS: Internal Medicine Cardiovascular Disease; Physician Assistant Medical; Student in an Organized Health Care Education/Training Program; Admitting Provider Student in an Organized Health Care Education/Training Program; Emergency Provider Emergency Medicine; PCP Physician Assistant; Visit Provider Hospitalist
PROC: 5A2204Z Restoration of Cardiac Rhythm, Single (ICD-10-PCS; principal; 2023-10-28 09:30)
DX: I48.0 Paroxysmal atrial fibrillation (principal); G90.9 Disorder of the autonomic nervous system, unspecified; G47.33 Obstructive sleep apnea (adult) (pediatric); E11.9 Type 2 diabetes mellitus without complications; I10 Essential (primary) hypertension; Z20.822 Contact with and (suspected) exposure to COVID-19; Z79.01 Long term (current) use of anticoagulants; Z79.85 Long-term (current) use of injectable non-insulin antidiabetic drugs; Z79.899 Other long term (current) drug therapy
CPT/HCPCS: 0241U; 36415; 71045; 71275; 80048; 80053; 83735; 83880; 84443; 84484; 85025; 85027; 85610; 85730; 92960; 93005; 93306; 94660; 99285; J2405; J2704; Q9957; Q9967

== ENCOUNTER → 2023-10-26 11:25 | Outpatient (BNV) | payer OTHER, SELFPAY | PROVIDERS: Admitting Provider Student in an Organized Health Care Education/Training Program; Emergency Provider Emergency Medicine; PCP Physician Assistant; Visit Provider Internal Medicine Cardiovascular Disease | DX: I48.91 Unspecified atrial fibrillation (principal); R94.31 Abnormal electrocardiogram [ECG] [EKG] | CPT/HCPCS: 93010 ==

== ENCOUNTER → 2023-10-26 19:09 | Outpatient (BNV) | payer OTHER, SELFPAY | PROVIDERS: Admitting Provider Student in an Organized Health Care Education/Training Program; Emergency Provider Emergency Medicine; PCP Physician Assistant; Visit Provider Student in an Organized Health Care Education/Training Program | DX: I48.91 Unspecified atrial fibrillation (principal) | CPT/HCPCS: 99222; 99232; 99239 ==

== ENCOUNTER → 2023-10-27 07:00 | Outpatient (BNV) | payer OTHER, SELFPAY | PROVIDERS: Admitting Provider Student in an Organized Health Care Education/Training Program; Emergency Provider Emergency Medicine; PCP Physician Assistant; Visit Provider Internal Medicine Cardiovascular Disease | DX: I48.91 Unspecified atrial fibrillation (principal); R94.31 Abnormal electrocardiogram [ECG] [EKG] | CPT/HCPCS: 93306 ==

== ENCOUNTER → 2023-10-27 10:47 | Outpatient (BNV) | payer OTHER, SELFPAY | PROVIDERS: Admitting Provider Student in an Organized Health Care Education/Training Program; Emergency Provider Emergency Medicine; PCP Physician Assistant; Visit Provider Internal Medicine Cardiovascular Disease | DX: I48.19 Other persistent atrial fibrillation (principal) | CPT/HCPCS: 92960; 99222; 99232 ==

== ENCOUNTER → 2023-10-28 09:47 | Outpatient (BNV) | payer OTHER, SELFPAY | PROVIDERS: Emergency Provider Emergency Medicine; PCP Physician Assistant; Visit Provider Internal Medicine | DX: R07.9 Chest pain, unspecified (principal) | CPT/HCPCS: 93010 ==

== ENCOUNTER 2023-11-21 13:33 | Outpatient (AMB) | payer SELFPAY ==
--- NOTE | 2023-11-21 13:35 | MHC.PC.OV ---
Vital Signs 11/21/23 13:37 Height 5 ft 11 in Weight 241 lb 6 oz BMI 33.7 BP 132/84 Blood Pressure Location Lt brachial Position Sitting Pulse 69 Pulse Source Pulse Oximeter Pulse Oximetry (%) 96 Oxygen Delivery Method Room Air Intake Visit Reasons: AFIB/Low BP Intake Note: Patient is here to follow-up after a visit the emergency department and hospital stay at [facility] on 10/28/23 Nurse Monitoring Required: No Director Of Email Marketing: Not Required per policy Accompanied by: Self / Same As Patient Allergies No Known Allergies Allergy (Verified 11/21/23 14:02) Medication List - Last Reconciled 11/21/23 by Edinson Abebe MD albuterol sulfate 90 mcg/actuation 2 puffs inhalation QID PRN apixaban (Eliquis) 5 mg PO BID cholecalciferol (vitamin D3) 50 mcg PO DAILY CPAP (CPAP Machine/Device) As directed cyanocobalamin (vitamin B-12) 1,000 mcg PO DAILY dronedarone (Multaq) 400 mg PO BID empagliflozin-metformin 25-1,000 mg ER (Synjardy XR) 1 tab PO DAILY losartan 25 mg PO DAILY PRN metoprolol succinate ER 50 mg PO DAILY PRN semaglutide (weight loss) (Wegovy) 2.4 mg subcut FR Tobacco use date assessed: 11/21/23 Dental Screening Dental Screen Date: 11/21/23 Did you have a dental visit in the last 12 months?: No Did you have a dental problem in the last 6 months where you did not have access to dental care?: No Was dental information given to patient?: Patient has dentist HPI AFIB/Low BP HPI Details 58-year-old male presents to the office to discuss his medical concerns. I am covering for his regular primary care provider. Patient was recently admitted to the hospital for AFib and low blood pressure. He has been put on Multaq which he is only able to tolerate at once a day dosage. Patient continues to be on Eliquis. He had a blood clot despite being on Eliquis. He has been ablated twice and cardioverted 3 times. Patient works at the [employer] in the [employer] section. Due to fatigue and tiredness he is unable to fully function at work. He is on FMLA but the dates have to be changed. [facility] Medical History Family history of gastric cancer Insulin resistance History of COVID-19 Omental infarction Elevated LFTs Morbid obesity PAF (paroxysmal atrial fibrillation) LAYNE (obstructive sleep apnea) Diarrhea HTN (hypertension) Surgical History H/O prior ablation treatment History of lymph node excision History of prior ablation treatment Family History Father CAD (coronary artery disease) History of partial colectomy Hypertension CVD (cardiovascular disease) Alzheimers disease Mother Asthma Brother Hepatitis Sister Family history of thyroid problem Breast cancer Paternal Grandfather Stomach cancer Social History Household Members: None Housing: House Are you a primary critical care cns to a significant other at home: No Do you presently have visiting nurse or other home services: No Alcohol intake: never Patient Tobacco Use Status: Never used Tobacco e-Cigarette/Vaping Use: Never Used Second Hand Smoke Exposure: No service: No Current occupational status: employed 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 1. Little interest or pleasure in doing things: not at all 2. Feeling down, depressed, or hopeless: not at all 3. Trouble falling or staying asleep, or sleeping too much: not at all 4. Feeling tired or having little energy: not at all 5. Poor appetite or overeating: not at all 6. Feeling bad about yourself - or that you are a failure or have let yourself or your family down: not at all 7. Trouble concentrating on things, such as reading the newspaper or watching television: not at all 8. Moving or speaking so slowly that other people could have noticed. Or the opposite - being so fidgety or restless that you have been moving around a lot more than usual: not at all 9. Thoughts that you would be better off or of hurting yourself in some way: not at all Total score: 0 Depression Screening Interpretation: Negative Depression Screening Done: Yes Source: Developed by Drs. Wicho Zimmer, Sera Roche, Kolton Bowles and colleagues, with an educational joni from [employer]. Thrive Questionnaire Date Thrive assessed: 11/21/23 I am a: Patient What is your living situation today?: I have a steady place to live Within the past 12 months, did the food you bought not last and you didn't have the money to get more?: Never true Within the past 12 months, did you worry whether your food would run out before you got money to buy more?: Never true Do you have trouble paying for medicines?: No Do you have trouble getting transportation to medical appointments?: No Do you have trouble paying your heating and electricity bill?: No Do you have trouble taking care of your child, family member or friend?: No Do you have trouble with day-to-day activities such as bathing, preparing meals, shopping, managing finances, etc.?: No Are you currently unemployed and looking for a job?: No Are you interested in more education?: No Currently or been in a relationship where the following occur: no concerns reported AUDIT C Alcohol Use Questionnaire (AUDIT-C) 1. How often do you have a drink containing alcohol?: Never Total Score: 0 ENZO-7 AMB Questionnaire ENZO-7 Date ENZO - 7 assessed: 11/21/23 Feeling nervous, anxious, or on edge: 0 = Not at all Not being able to stop or control worryin = Not at all Worrying too much about different things: 0 = Not at all Trouble relaxin = Not at all Being so restless that it is hard to sit still: 0 = Not at all Becoming easily annoyed or irritable: 0 = Not at all Feeling afraid as if something awful might happen: 0 = Not at all Total ENZO-7 score (0-4 normal; 5-9 mild; 10-14 moderate; 15-21 severe): 0 Source: Developed by Drs. Wicho Zimmer, Sera Roche, Kolton Bowles and colleagues, with an educational joni from [employer]. Physical exam (Primary Care) Vital Signs: Last Vital Signs Pulse 69 11/21/23 13:37 BP 132/84 11/21/23 13:37 Pulse Ox 96 11/21/23 13:37 Oxygen Delivery Method Room Air 11/21/23 13:37 BMI result Body Mass Index 33.7 Tobacco/Smoking Status: Tobacco use Status Tobacco use date assessed 11/21/23 11/21/23 13:43 Patient Tobacco Use Status Never used Tobacco 11/21/23 13:43 e-Cigarette/Vaping Use Never Used 11/21/23 13:43 PHQ-9: PHQ-9 Score PHQ-9: Total score 0 11/21/23 13:43 Depression Screening Interpretation: Negative Thrive Assessment: Date of Thrive Assessment Date Thrive assessed 11/21/23 11/21/23 13:43 Currently or been in a relationship where the following occur: no concerns reported Const General: cooperative and healthy appearing Nutritional Appearance: well nourished Orientation/consciousness: patient oriented x3 Limitations: no limitations HENMT Head: Yes normal to inspection Eyes General: appearance normal, both eyes and all related structures Neck Neck: Yes normal visual inspection Chest Chest palpation & inspection: normal palpation of entire chest wall Resp Effort & Inspection: normal respiratory effort Neuro General: patient oriented x3 Assessment and Plan Assessment & Plan (1) Afib: Comment: Ablation x2 unsuccessful-recent ED visit with chest pain Code(s): I48.91 - Unspecified atrial fibrillation Qualifiers: Atrial fibrillation type: paroxysmal Qualified Code(s): I48.0 - Paroxysmal atrial fibrillation Plan: Hospital discharge reviewed. FMLA form filled. Continue medications at same dosage. Coding Level of Care Code Est Pt Level 4 (80349) Diagnoses Paroxysmal atrial fibrillation I48.0 Atrial fibrillation type: paroxysmal
[2023-11-21 13:37] VITALS: BP 132/84; PULSE 69; O2SAT 96; BMI 33.7
== END 2023-11-21 14:11 | disposition home or self-care (01) ==
PROVIDERS: PCP Physician Assistant; Visit Provider Internal Medicine
DX: I48.0 Paroxysmal atrial fibrillation (principal)
CPT/HCPCS: 99214

== ENCOUNTER 2024-02-20 14:52 | Outpatient (AMB) | payer OTHER, SELFPAY ==
[2024-02-20 15:24] VITALS: BP 120/74; PULSE 62; O2SAT 6; BMI 36.3
--- NOTE | 2024-02-20 15:24 | MHC.PC.OV ---
Vital Signs 02/20/24 15:24 Height 5 ft 11 in Weight 260 lb 6 oz BMI 36.3 BP 120/74 Blood Pressure Location Lt brachial Position Sitting Pulse 62 Pulse Source Pulse Oximeter Pulse Oximetry (%) 6 L Oxygen Delivery Method Room Air Intake Visit Reasons: annual exam Intake Note: Patient is here today for a physical. It Application Administrator Required: No Accompanied by: Self / Same As Patient Allergies No Known Allergies Allergy (Verified 02/20/24 15:41) Medication List - Last Reconciled 02/20/24 by Jonathan Barnett PA-C albuterol sulfate 90 mcg/actuation 2 puffs inhalation QID PRN apixaban (Eliquis) 5 mg PO BID cholecalciferol (vitamin D3) 50 mcg PO DAILY CPAP (CPAP Machine/Device) As directed cyanocobalamin (vitamin B-12) 1,000 mcg PO DAILY dofetilide (Tikosyn) 500 mcg PO Q12H empagliflozin (Jardiance) 10 mg PO DAILY losartan 25 mg PO DAILY PRN metoprolol succinate ER 50 mg PO DAILY PRN semaglutide (weight loss) (Wegovy) 2.4 mg subcut FR Tobacco use date assessed: 11/21/23 Dental Screening Dental Screen Date: 11/21/23 HPI annual exam HPI Details Patient is a 58-year-old male here today follow-up visit . Patient has a past medical history significant for AFib, LAYNE, hip dysplasia. Concern--> reports having left flank pain only when twisting his torso at work. 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 He denies any trauma to his left flank. He denies any urinary symptoms. AFIB: Is now seeing a administration vice president ( Dr So) [facility] though has not followed up his administration vice president..? Continues on Eliquis 5 mg b.i.d. without any overt signs of bleeding. Does take metoprolol PRN for palpatations. Recently saw his administration vice president and a new antiarrhythmic medication was added. Fortunately still has symptoms of AFib with medication and does report side effects to the AFib medications. He is now using CPAP on a nightly basis. He will be scheduled in near future for a new cardiac ablation. .. Obese : Was prescribed Wegovy his insulin resistance by Endocrinology at [facility]. He lost 60 lb. Due to insurance coverage for Wegovy stopped using it for 1 month and gained 25 lb back. He is restarted Wegovy and plans to lose more weight. .. Hypertension: Has been having erratically blood pressures, has been diagnosed with orthostatic hypotension. Continues with losartan 25 mg as needed, though when does have hypotension he hold blood pressure medication. Colon cancer screening: Colonoscopy done in 2022, polyp found, repeat 5 years Vaccines: Up-to-date with pneumonia vaccine, Unknown when he got Tdap , Considering shingles PFSH Medical History (Updated 02/24/24 @ 07:24 by Jonathan Barnett PA-C) Family history of gastric cancer Insulin resistance History of COVID-19 Omental infarction Elevated LFTs PAF (paroxysmal atrial fibrillation) LAYNE (obstructive sleep apnea) Diarrhea HTN (hypertension) Surgical History H/O prior ablation treatment History of lymph node excision History of prior ablation treatment Family History Father CAD (coronary artery disease) History of partial colectomy Hypertension CVD (cardiovascular disease) Alzheimers disease Mother Asthma Brother Hepatitis Sister Family history of thyroid problem Breast cancer Paternal Grandfather Stomach cancer Social History Household Members: None Housing: House Are you a primary career development facilitator to a significant other at home: No Do you presently have visiting nurse or other home services: No Alcohol intake: never Patient Tobacco Use Status: Never used Tobacco e-Cigarette/Vaping Use: Never Used Second Hand Smoke Exposure: No service: No Current occupational status: employed Current occupation: [employer] Cognitive needs: No Hearing needs: No Vision needs: Yes (Glasses) Questionnaire Thrive Questionnaire Date Thrive assessed: 11/21/23 ENZO-7 AMB Questionnaire ENZO-7 Date ENZO - 7 assessed: 11/21/23 Source: Developed by Drs. Wicho Zimmer, Sera Roche, Kolton Bowles and colleagues, with an educational joni from [employer]. Review of Systems Const Denies body aches, Denies chills, Denies excessive sweating, Denies fatigue, Denies fever(s) and Denies headache(s) Eyes Denies blurry vision ENT Denies dysphagia, Denies vertigo, Denies dizziness, Denies headache(s), Denies hearing loss and Denies tinnitus Card Denies chest pain, Denies chest pain with activity, Denies syncope, Denies irregular heart rhythm and Denies dyspnea Resp Denies chest congestion, Denies cough, Denies hemoptysis, Denies dyspnea and Denies wheezing GI Denies abdominal pain, Denies melena, Denies hematochezia, Denies coffee ground emesis, Denies dysphagia, Denies diarrhea, Denies nausea and Denies vomiting Denies difficulty urinating, Denies dysuria, Denies urinary frequency, Denies urinary hesitancy and Denies urinary urgency Musc Denies arthralgias, Denies limited range of motion, Denies muscle cramps and Denies muscle weakness Skin/Breast Denies rash and Denies skin ulcer Neuro Denies Abnormal speech present, Denies confusion, Denies vertigo, Denies dizziness, Denies syncope, Denies headache(s), Denies memory loss and Denies seizure-like activity Psych Denies anxiety, Denies confusion, Denies depression, Denies memory loss, Denies panic attacks and Denies paranoia Endo Denies excessive sweating, Denies fatigue, Denies flushing, Denies polydipsia and Denies polyuria Aller/Immun Denies wheezing Physical exam (Primary Care) Vital Signs: Last Vital Signs Pulse 62 02/20/24 15:24 BP 120/74 02/20/24 15:24 Pulse Ox 6 L 02/20/24 15:24 Oxygen Delivery Method Room Air 02/20/24 15:24 BMI result Body Mass Index 36.3 BMI Assessment/Plan discussion: High BMI High, discussed plan: lifestyle, weight reduction, dietary and physical activity Tobacco/Smoking Status: Tobacco use Status Tobacco use date assessed 11/21/23 02/20/24 15:32 Patient Tobacco Use Status Never used Tobacco 02/20/24 15:32 e-Cigarette/Vaping Use Never Used 02/20/24 15:32 Thrive Assessment: Date of Thrive Assessment Date Thrive assessed 11/21/23 02/20/24 15:32 Const General: cooperative, comfortable, no acute distress, alert and awake; No confusion Orientation/consciousness: oriented to person, oriented to place, patient oriented x3 and No confusion HENMT Head: Yes normocephalic Ears: external ears normal and TM's normal bilaterally Face and sinus: No sinus tenderness Mouth: Normal oral and palatal mucosa present and tongue normal Teeth and gingiva: dentition normal and gingiva normal Throat: Yes posterior oropharynx normal, Yes tonsils normal and Yes uvula midline Eyes Conjunctivae: conjunctivae normal Sclerae: sclerae normal Pupils: Equal, round and reactive pupils present EOM: EOMs intact bilaterally Direct Ophthalmoscopy: No no photophobia Neck Neck: Yes no lymphadenopathy, No tender and Yes no JVD Thyroid: Thyroid normal Carotids: no bruits Chest Chest palpation & inspection: no tenderness Resp Effort & Inspection: normal respiratory effort, no audible wheezes, not labored and no stridor Auscultation: no crackles, no rales, no rhonchi and no wheezes Cardio Jugular venous distension: no JVD Rate: regular rate, not bradycardic and not tachycardic Rhythm: regular rhythm Bruits: no carotid bruits Peripheral pulses: Peripheral pulses 2+ throughout GI Inspection: Yes normal to inspection, No abdominal wall ecchymosis and No visible herniation Palpation (GI): Soft to palpation, nontender, no guarding, not rigid and No hepatosplenomegaly present Auscultation: normoactive bowel sounds General: Yes no CVA tenderness Back/Spine/Pelvis Back: no CVA tenderness and No back tenderness Cervical Spine: cervical ROM normal Thoracic/Lumbar Spine: thoracic and lumbar spine normal to inspection, straight leg raise negative bilaterally, No thoraco-lumbar ROM limited and No lumbar spinal tenderness Skin Lesions: no lesions Rashes: no rashes Wounds: no wounds Neuro General: oriented to person, oriented to place, patient oriented x3, CN's II-XI intact bilaterally and No confusion Cranial nerves: Yes Equal, round and reactive pupils present and Yes Normal accommodation reflex present Cognition (Neuro): normal cognition Speech: No Abnormal speech present Gait exam (Neuro): Normal gait present Motor exam (neuro): 5/5 motor strength present throughout Extrem Right upper extremity: full ROM; no cyanosis Left upper extremity: full ROM; no cyanosis Right lower extremity: no edema Left lower extremity: no edema Psych Appearance: grossly normal Mental Status: mental status grossly normal Affect: normal affect Attitude: cooperative Thought process: Normal thought process present Assessment and Plan Assessment & Plan (1) Persistent atrial fibrillation: Code(s): I48.19 - Other persistent atrial fibrillation Plan: Patient continues to follow administration vice president and was to [place]. He continues on Eliquis 5 mg b.i.d. without any overt signs of bleeding. Does use metoprolol 50 mg extended release on a p.r.n. basis for heart palpitations. Unfortunately still has AFib symptoms on a regular basis which hinders his ability to perform his job duties quite often. He continues to work a more sedentary job as he is not able to tolerate strenuous activity due to his tachycardia. He will be scheduled for a new cardiac ablation in near future at [facility]. (2) LAYNE (obstructive sleep apnea): Comment: CPAP, further eval testing pending at [facility] Code(s): G47.33 - Obstructive sleep apnea (adult) (pediatric) Plan: Continues with the use of CPAP machine on a nightly basis with good effect . (3) Insulin resistance: Code(s): E88.81 - Metabolic syndrome and other insulin resistance Plan: Followed by nurse prn and was recently started on Wegovy lost significant amount of weight. Will continue to follow fasting blood sugar and A1c. Goal A1c is to remain below 6.5 (4) Obese: Code(s): E66.9 - Obesity, unspecified Qualifiers: Body mass index: BMI 36.0-36.9 Obesity classification: adult class 2 (BMI 35 - 39.9) Obesity type: due to excess calories Serious obesity comorbidity presence: with serious comorbidity Qualified Code(s): E66.01 - Morbid (severe) obesity due to excess calories; Z68.36 - Body mass index [BMI] 36.0-36.9, adult Plan: Patient does understand his BMI is over 30 will work on being more physically active and adapting to better eating habits. Patient now on Wegovy by endocrinology at [facility] and has lost significant amount of weight. BMI now 35.5 (5) Omental infarction: Comment: sees Dr. Eisenberg Code(s): K55.069 - Acute infarction of intestine, part and extent unspecified Plan: Has seen general surgeon chest after presentation of his abdominal pain- was found to have a omental infarct- Has resolved Orders: Orders Microalbumin, Random (w Creat) 02/20/24 R80.9 - Proteinuria, unspecified Complete Blood Count no Diff 02/20/24 I48.19 - Other persistent atrial fibrillation Lipid Panel 02/20/24 E88.81 - Metabolic syndrome and other insulin resistance Hemoglobin A1c 02/20/24 E88.81 - Metabolic syndrome and other insulin resistance Patient Instructions: Goals: Controlled AFib symptoms Barriers: Weight, Finding medication or cardiac procedure that will help his AFib Coding Level of Care Code Est Pt Prev Care 40-64y(06606) Diagnoses Persistent atrial fibrillation I48.19 LAYNE (obstructive sleep apnea) G47.33 Insulin resistance E88.81 Class 2 severe obesity due to excess calories with serious comorbidity and body mass index (BMI) of 36.0 to 36.9 in adult E66.01; Z68.36 Body mass index: BMI 36.0-36.9 Obesity classification: adult class 2 (BMI 35 - 39.9) Obesity type: due to excess calories Serious obesity comorbidity presence: with serious comorbidity Omental infarction K55.069
== END 2024-02-20 16:06 | disposition home or self-care (01) ==
PROVIDERS: PCP Physician Assistant; Visit Provider Physician Assistant
DX: Z00.00 Encounter for general adult medical examination without abnormal findings (principal); E88.819 Insulin resistance, unspecified; E66.01 Morbid (severe) obesity due to excess calories; Z68.36 Body mass index [BMI] 36.0-36.9, adult; K55.069 Acute infarction of intestine, part and extent unspecified
CPT/HCPCS: 99396

== ENCOUNTER 2024-06-24 13:09 | Outpatient (AMB) | payer BC, SELFPAY ==
[2024-06-24 13:17] VITALS: BP 110/82; PULSE 70; O2SAT 97; BMI 36.7
--- NOTE | 2024-06-24 13:17 | MHC.PC.OV ---
Vital Signs 06/24/24 13:17 Height 5 ft 11 in Weight 263 lb 2 oz BMI 36.7 BP 110/82 Blood Pressure Location Lt brachial Position Sitting Pulse 70 Pulse Source Pulse Oximeter Pulse Oximetry (%) 97 Oxygen Delivery Method Room Air Intake Visit Reasons: f/u AFIB Inspector Receiving Required: No Accompanied by: Self / Same As Patient Allergies No Known Allergies Allergy (Verified 06/24/24 13:46) Medication List - Last Reconciled 06/24/24 by Jonathan Barnett PA-C albuterol sulfate 90 mcg/actuation 2 puffs inhalation QID PRN apixaban (Eliquis) 5 mg PO BID cholecalciferol (vitamin D3) 50 mcg PO DAILY CPAP (CPAP Machine/Device) As directed cyanocobalamin (vitamin B-12) 1,000 mcg PO DAILY dofetilide (Tikosyn) 500 mcg PO Q12H empagliflozin (Jardiance) 10 mg PO DAILY fluticasone propionate 50 mcg/actuation 2 sprays intranasal DAILY losartan 25 mg PO DAILY PRN metoprolol succinate ER 50 mg PO DAILY PRN montelukast 10 mg PO DAILY semaglutide (weight loss) (Wegovy) 2.4 mg subcut FR Tobacco use date assessed: 11/21/23 Dental Screening Dental Screen Date: 11/21/23 HPI f/u AFIB HPI Details Patient is a 58-year-old male here today follow-up visit . Patient has a past medical history significant for AFib, LAYNE, hip dysplasia. Patient recently seen at [facility] ER for acute vision issues and was found to haveretinal detachment . Has seen ophthalmology and got urgent procedure done to fix his retina now has good vision. AFIB: Cavernous seeing a identity access management architect ( Dr So) [facility] though has not followed up his identity access management architect..? Continues on Eliquis 5 mg b.i.d. without any overt signs of bleeding. Has recently under went a new cardiac full field ablation procedure which has worked tremendously. Has started on new cardiac medication as well. He is now using CPAP on a nightly basis which has been helpful for sleep. .. Obese : Was prescribed Wegovy his insulin resistance by Endocrinology at [facility]. Has been restarted on Wegovy and feels his weight is maintained .. Environmental bronchitis: Was found to have an environmental allergy at his job related to air vents. He was started on montelukast which has resolved his rhinitis and cough. .. Hypertension: Blood pressure acceptable today in office , blood pressure has been much better controlled since AFib has been controlled. [facility] Medical History (Updated 06/24/24 @ 15:04 by Jonathan Barnett PA-C) Family history of gastric cancer Insulin resistance History of COVID-19 Elevated LFTs PAF (paroxysmal atrial fibrillation) LAYNE (obstructive sleep apnea) Diarrhea HTN (hypertension) Surgical History H/O prior ablation treatment History of lymph node excision History of prior ablation treatment Family History Father CAD (coronary artery disease) History of partial colectomy Hypertension CVD (cardiovascular disease) Alzheimers disease Mother Asthma Brother Hepatitis Sister Family history of thyroid problem Breast cancer Paternal Grandfather Stomach cancer Social History Household Members: None Housing: House Are you a primary career law clerk to a significant other at home: No Do you presently have visiting nurse or other home services: No Alcohol intake: never Patient Tobacco Use Status: Never used Tobacco e-Cigarette/Vaping Use: Never Used Second Hand Smoke Exposure: No service: No Current occupational status: employed Current occupation: [employer] Cognitive needs: No Hearing needs: No Vision needs: Yes (Glasses) Questionnaire Thrive Questionnaire Date Thrive assessed: 11/21/23 ENZO-7 AMB Questionnaire ENZO-7 Date ENZO - 7 assessed: 11/21/23 Source: Developed by Drs. Wicho Zimmer, Sera Roche, Kolton Bowles and colleagues, with an educational joni from [employer]. Review of Systems Const Denies headache(s) Eyes Denies loss of vision ENT Denies vertigo, Denies dizziness, Denies headache(s) and Denies sore throat Card Denies chest pain, Denies leg edema and Denies lightheadedness Resp Denies cough, Denies hemoptysis and Denies wheezing GI Denies abdominal pain, Denies melena, Denies constipation, Denies diarrhea and Denies vomiting Denies dysuria, Denies urinary frequency and Denies urinary urgency Musc Denies arthralgias, Denies joint swelling, Denies numbness and Denies tingling Neuro Denies Abnormal speech present, Denies behavioral changes, Denies vertigo, Denies dizziness, Denies headache(s), Denies loss of vision, Denies memory loss, Denies numbness and Denies tingling Psych Denies anxiety, Denies behavioral changes, Denies depression, Denies memory loss and Denies panic attacks Fish/Lymph Denies easy bleeding and Denies easy bruising Aller/Immun Denies wheezing Physical exam (Primary Care) Vital Signs: Last Vital Signs Pulse 70 06/24/24 13:17 BP 110/82 06/24/24 13:17 Pulse Ox 97 06/24/24 13:17 Oxygen Delivery Method Room Air 06/24/24 13:17 BMI result Body Mass Index 36.7 Tobacco/Smoking Status: Tobacco use Status Tobacco use date assessed 11/21/23 06/24/24 13:22 Patient Tobacco Use Status Never used Tobacco 06/24/24 13:22 e-Cigarette/Vaping Use Never Used 06/24/24 13:22 Thrive Assessment: Date of Thrive Assessment Date Thrive assessed 11/21/23 06/24/24 13:22 Const General: healthy appearing, no acute distress, alert and awake Nutritional Appearance: well nourished Orientation/consciousness: oriented to person, oriented to place and oriented to time HENMT Ears: TM's normal bilaterally General nose exam: Normal nasal mucous membranes and turbinates present Eyes Conjunctivae: conjunctivae normal Sclerae: sclerae normal Pupils: Equal, round and reactive pupils present Neck Neck: Yes no lymphadenopathy and Yes no JVD Thyroid: Thyroid normal Carotids: no bruits Resp Effort & Inspection: normal respiratory effort and not tachypneic Auscultation: no crackles, no rales, no rhonchi and no wheezes Cardio Rate: regular rate Rhythm: regular rhythm Heart sounds: no murmurs and normal S1 and S2 GI Palpation (GI): Soft to palpation, nontender, no hepatomegaly and no splenomegaly Auscultation: normal bowel sounds Skin General skin exam: no rashes or lesions noted and dry skin Neuro General: oriented to person, oriented to place and oriented to time Cranial nerves: Yes Equal, round and reactive pupils present Speech: No Abnormal speech present Gait exam (Neuro): Normal gait present Motor exam (neuro): no tremor noted Extrem Right upper extremity: full ROM Left upper extremity: full ROM Right lower extremity: full ROM; no edema Left lower extremity: full ROM; no edema Psych Mental Status: mental status grossly normal Speech and movement: Normal speech and movement present Affect: normal affect Attitude: cooperative Thought process: Normal thought process present Assessment and Plan Assessment & Plan (1) Persistent atrial fibrillation: Code(s): I48.19 - Other persistent atrial fibrillation Plan: As per HPI patient did undergo a new cardiac ablation full field procedure which has put him into normal rhythm. Now on new antiarrhythmic medication as well. He reports he feels well and has better energy. No recurrent episodes of AFib over the last few months. (2) Insulin resistance: Code(s): E88.81 - Metabolic syndrome and other insulin resistance Plan: Followed by home health speech therapist and was recently restarted on Wegovy and feels his weight has been maintained (3) LAYNE (obstructive sleep apnea): Comment: CPAP, further eval testing pending at [facility] Code(s): G47.33 - Obstructive sleep apnea (adult) (pediatric) Plan: Continues with CPAP machine use on a nightly basis with good effect on his sleep. Orders: Orders Prostate Specific Antigen Scr Today Z12.5 - Encounter for screening for malignant neoplasm of prostate Comprehensive [place]. Panel Fast Today I48.0 - Paroxysmal atrial fibrillation Patient Instructions: Goal: Blood pressure to remain below 140/90, AFib rhythm to be controlled Barriers: Adherence to physical healthy eating habits Coding Level of Care Code Est Pt Level 4 (78715) Diagnoses Persistent atrial fibrillation I48.19 Insulin resistance E88.81 LAYNE (obstructive sleep apnea) G47.33
== END 2024-06-24 14:00 | disposition home or self-care (01) ==
PROVIDERS: PCP Physician Assistant; Visit Provider Physician Assistant
DX: I48.19 Other persistent atrial fibrillation (principal); E88.819 Insulin resistance, unspecified; G47.33 Obstructive sleep apnea (adult) (pediatric)
CPT/HCPCS: 99214

== ENCOUNTER 2024-06-24 14:05 | Outpatient (REF) | payer BC, SELFPAY ==
[2024-06-24 15:56] LABS: Hematocrit 47.1 % (42.0-52.0); Hemoglobin 15.8 g/dl (14.0-18.0); Mean Corpuscular HGB Conc 33.5 g/dl (31.0-36.0); Mean Corpuscular Hemoglobin 32.2 pg (27.0-33.0); Mean Corpuscular Volume 95.9 fL (80.0-98.0); Mean Platelet Volume 11.1 fL (9.4-12.4); Platelet Count 244 X10*3/uL (160-400); Red Blood Count 4.91 X10*6/uL (4.60-5.80); Red Cell Distribution Width 11.7 % (11.0-16.0); White Blood Count 9.5 X10*3/uL (4.8-10.8)
[2024-06-24 16:41] LABS: Alanine Aminotransferase 31 U/L (0-40); Albumin Level 4.6 g/dL (3.5-5.0); Alkaline Phosphatase 79 U/L (39-117); Anion Gap 11 (12-20); Aspartate Amino Transferase 28 U/L (5-37); Bilirubin Total 1.5 mg/dL (0.0-1.0); Blood Urea Nitrogen 17 mg/dL (9-16); Carbon Dioxide 28 mmol/L (22-29); Chloride 106 mmol/L (96-108); Cholesterol 179 mg/dL (<200); Estimated Glomerular Filt Rate > 60; Glucose Fasting 82 mg/dL (60-99); HDL Cholesterol 46 mg/dL (>40); LDL Cholesterol Calculated 112 mg/dL (<100); Potassium 3.9 mmol/L (3.3-5.1); Sodium 141 mmol/L (135-145); Total Protein 7.8 g/dL (6.5-8.0); Triglycerides 106 mg/dL (<150)
[2024-06-24 16:52] LABS: Prostate Specific Antigen Scr 0.55 ng/mL (<0.05-4.0)
[2024-06-24 17:57] LABS: Estimated Average Glucose 82 mg/dL; Hemoglobin A1c % 4.5 % (<6.0)
[2024-06-24 18:20] LABS: Creatinine Urine 318.35 mg/dL; Microalbum/Creatinine Ratio Ur 13.1 ug/mg cr (<30)
== END 2024-06-24 14:06 | disposition home or self-care (01) ==
LOC: HO.LAB 14:05
PROVIDERS: PCP Physician Assistant; Visit Provider Physician Assistant
DX: I48.19 Other persistent atrial fibrillation (principal); Z12.5 Encounter for screening for malignant neoplasm of prostate; I48.0 Paroxysmal atrial fibrillation; R80.9 Proteinuria, unspecified; E88.810 Metabolic syndrome; Z13.1 Encounter for screening for diabetes mellitus
CPT/HCPCS: 36415; 80053; 80061; 82043; 82570; 83036; 84153; 85027

== ENCOUNTER → 2024-11-09 16:54 | Outpatient (BNV) | payer BC, SELFPAY | PROVIDERS: PCP Physician Assistant; Visit Provider Internal Medicine | DX: R07.9 Chest pain, unspecified (principal) | CPT/HCPCS: 93010 ==

== ENCOUNTER → 2024-11-09 17:24 | Outpatient (BNV) | payer BC, SELFPAY | PROVIDERS: PCP Physician Assistant; Visit Provider Radiology Diagnostic Radiology | DX: R07.9 Chest pain, unspecified (principal) | CPT/HCPCS: 71045 ==

== ENCOUNTER 2025-02-23 14:46 | Outpatient (AMB) | payer OTHER, SELFPAY ==
--- NOTE | 2025-02-23 14:47 | MHC.PC.OV ---
Vital Signs 02/23/25 15:09 Height 5 ft 11 in Weight 245 lb 6 oz BMI 34.2 BP 102/80 Blood Pressure Location Lt brachial Position Sitting Pulse 75 Pulse Source Pulse Oximeter Temp 97.1 F Temp Source Temporal Artery Scan Pulse Oximetry (%) 97 Oxygen Delivery Method Room Air Intake Visit Reasons: annual exam Elevator Examiner And Adjuster Required: No Accompanied by: Self / Same As Patient Allergies oral contrast Adverse Reaction (Uncoded 02/23/25 15:25) Vomiting Medication List - Last Reconciled 02/23/25 by Jonathan Barnett PA-C albuterol sulfate 90 mcg/actuation 2 puffs inhalation QID 30 days apixaban (Eliquis) 5 mg PO BID aspirin (Adult Aspirin Regimen) 81 mg PO DAILY atorvastatin 40 mg PO DAILY cholecalciferol (vitamin D3) 50 mcg PO DAILY clopidogrel 75 mg PO DAILY CPAP (CPAP Machine/Device) As directed cyanocobalamin (vitamin B-12) 1,000 mcg PO DAILY empagliflozin (Jardiance) 25 mg PO DAILY ezetimibe 10 mg PO DAILY fluticasone propionate 50 mcg/actuation 2 sprays intranasal DAILY isosorbide mononitrate ER 30 mg PO DAILY losartan 25 mg PO DAILY PRN metoprolol succinate ER 50 mg PO DAILY PRN montelukast 10 mg PO DAILY nitroglycerin 0.4 mg sublingual Q5M PRN ranolazine ER 500 mg PO BID tirzepatide (weight loss) (Zepbound) mg subcut Tobacco use date assessed: 02/23/25 Dental Screening Dental Screen Date: 02/23/25 Did you have a dental visit in the last 12 months?: Yes Did you have a dental problem in the last 6 months where you did not have access to dental care?: No Was dental information given to patient?: Patient has dentist HPI annual exam HPI Details Patient is a 59-year-old male here today for routine annual physical. Patient has a past medical history significant for AFib, LAYNE, hip dysplasia. Coronary artery disease: He recently underwent a coronary intervention for a 95% blockage in the right coronary artery, resolved with a stent. He describes initial post-procedural chest pain now improved through medication regulation. His medication regimen includes atorvastatin and ezetimibe for hyperlipidemia. --> we believe he is on atorvastatin 80 mg though will talk to his director of safety and security about dosage statin therapy at this time. Goal LDL to be below 55 AFIB: Cavernous seeing a director of safety and security ( Dr So) [facility] though has not followed up his director of safety and security..? Continues on Eliquis 5 mg b.i.d. without any overt signs of bleeding. Has recently under went a new cardiac full field ablation procedure which has worked tremendously. He continues on CPAP therapy on a nightly basis with good effect .. Obese : Was prescribed Wegovy his insulin resistance by Endocrinology at [facility]. Has been restarted on Wegovy and feels his weight is maintained .. Environmental allergies: Was found to have an environmental allergy at his job related to air vents. He was started on montelukast which has resolved his rhinitis and cough. .. Hypertension: Blood pressure acceptable today in office , blood pressure has been much better controlled since AFib has been controlled. Colon cancer screening: Colonoscopy done in 2022, polyp found, repeat 5 years Vaccines: Needs up-to-date pneumonia vaccine and Tdap , Considering shingles PFSH Medical History (Updated 02/24/25 @ 07:23 by Jonathan Barnett PA-C) Obese Family history of gastric cancer Insulin resistance History of COVID-19 Elevated LFTs PAF (paroxysmal atrial fibrillation) LAYNE (obstructive sleep apnea) Diarrhea HTN (hypertension) Surgical History H/O prior ablation treatment History of lymph node excision History of prior ablation treatment Family History Father CAD (coronary artery disease) History of partial colectomy Hypertension CVD (cardiovascular disease) Alzheimers disease Mother Asthma Brother Hepatitis Sister Family history of thyroid problem Breast cancer Paternal Grandfather Stomach cancer Social History Household Members: None Housing: House Are you a primary care coordination manager to a significant other at home: No Do you presently have visiting nurse or other home services: No Alcohol intake: never Patient Tobacco Use Status: Never used Tobacco e-Cigarette/Vaping Use: Never Used Second Hand Smoke Exposure: No service: No Current occupational status: employed Current occupation: [employer] Cognitive needs: No Hearing needs: No Vision needs: Yes (Glasses) Questionnaire PHQ-9 Over the last 2 weeks, how often have you been bothered by any of the following problems? 1. Little interest or pleasure in doing things: not at all 2. Feeling down, depressed, or hopeless: not at all 3. Trouble falling or staying asleep, or sleeping too much: nearly every day 4. Feeling tired or having little energy: more than half the days 5. Poor appetite or overeating: not at all 6. Feeling bad about yourself - or that you are a failure or have let yourself or your family down: not at all 7. Trouble concentrating on things, such as reading the newspaper or watching television: not at all 8. Moving or speaking so slowly that other people could have noticed. Or the opposite - being so fidgety or restless that you have been moving around a lot more than usual: not at all 9. Thoughts that you would be better off or of hurting yourself in some way: not at all Total score: 5 Depression Screening Interpretation: Positive Depression Screening Follow-up: Existing condition Depression Screening Done: Yes 98335 - PHQ-9 Billing: Yes Source: Developed by Drs. Wicho Zimmer, Sera Roche, Kolton Bowles and colleagues, with an educational joni from [employer]. Thrive Questionnaire Date Thrive assessed: 02/23/25 I am a: Patient What is your living situation today?: I choose not to answer this question Within the past 12 months, did the food you bought not last and you didn't have the money to get more?: Never true Within the past 12 months, did you worry whether your food would run out before you got money to buy more?: Never true Do you have trouble paying for medicines?: I choose not to answer this question Do you have trouble getting transportation to medical appointments?: No Do you have trouble paying your heating and electricity bill?: No Do you have trouble taking care of your child, family member or friend?: No Do you have trouble with day-to-day activities such as bathing, preparing meals, shopping, managing finances, etc.?: No Are you currently unemployed and looking for a job?: No Are you interested in more education?: No Please select the resources that you would like help with: None Currently or been in a relationship where the following occur: No concerns reported THRIVE Score: 0 AUDIT C Alcohol Use Questionnaire (AUDIT-C) 1. How often do you have a drink containing alcohol?: Never 3. How often do you have six or more drinks on one occasion?: Never Total Score: 0 ENZO-7 AMB Questionnaire ENZO-7 Date ENZO - 7 assessed: 02/23/25 Feeling nervous, anxious, or on edge: 0 = Not at all Not being able to stop or control worryin = Not at all Worrying too much about different things: 0 = Not at all Trouble relaxin = Not at all Being so restless that it is hard to sit still: 0 = Not at all Becoming easily annoyed or irritable: 0 = Not at all Feeling afraid as if something awful might happen: 0 = Not at all Total ENZO-7 score (0-4 normal; 5-9 mild; 10-14 moderate; 15-21 severe): 0 Source: Developed by Drs. Wicho Zimmer, Sera Roche, Kolton Bowels and colleagues, with an educational joni from [employer]. ENZO-7 Assessment Billing ENZO-7 Assessment Tool: ENZO-7 Assessment 98190 Physical exam (Primary Care) Vital Signs: Last Vital Signs Temp 97.1 F 02/23/25 15:09 Pulse 75 02/23/25 15:09 BP 102/80 02/23/25 15:09 Pulse Ox 97 02/23/25 15:09 Oxygen Delivery Method Room Air 02/23/25 15:09 BMI result Body Mass Index 34.2 Tobacco/Smoking Status: Tobacco use Status Tobacco use date assessed 02/23/25 02/23/25 15:00 Patient Tobacco Use Status Never used Tobacco 02/23/25 14:47 e-Cigarette/Vaping Use Never Used 02/23/25 14:47 PHQ-9: PHQ-9 Score PHQ-9: Total score 5 02/23/25 15:43 Depression Screening Interpretation: Positive Depression Screening Follow-up: Existing condition Thrive Assessment: Date of Thrive Assessment Date Thrive assessed 02/23/25 02/23/25 14:53 Currently or been in a relationship where the following occur: No concerns reported Results AMB Hemoglobin A1c AMB Hemoglobin A1c 4.1 % Last Edit by TRE Anguiano on 02/23/25 15:28 Immunizations pneumoc 20-jennifer conj-dip cr(PF) 0.5 mL IM syringe Performing Provider: Jonathan Barnett PA-C [facility] Administered by: TRE Anguiano on 02/23/25 15:43 Dose Route Admin Location Dispensed Lot Number Expiration Date NDC In Home Sales Consultant 0.5 mL IM Left Deltoid 0.5 mL [id number] 12/05/25 [email or web address] VIS Given Date VIS Provided VIS Publication Date 02/23/25 Single Vaccine 19 Eligibility Eligibility Date Funding Source Not [facility] Eligible 02/23/25 Private Results Reviewed Results Reviewed: Laboratory Last Values Hgb A1c (Clinic) 4.1 % (4.0-6.0) 02/23/25 15:26 Coding Level of Care Code Est Pt Prev Care 40-64y(99468) Diagnoses Annual physical exam Z00.00 Coronary artery disease involving [place] coronary artery of [place] heart without angina pectoris I25.10 Associated angina: without angina Coronary Disease-Associated Artery/Lesion type: [place] artery [place] vs. transplanted heart: [place] heart Paroxysmal atrial fibrillation I48.0 Atrial fibrillation type: paroxysmal Insulin resistance E88.81 LAYNE (obstructive sleep apnea) G47.33 Class 1 obesity E66.811 Additional Codes ENZO-7 Assessment Billing - ENZO-7 Assessment Tool: ENZO-7 Assessment 68737 ([id number]) PHQ-9 - 49660 - PHQ-9 Billing: Yes ([id number]) Assessment & Plan Assessment & Plan (1) Annual physical exam: Code(s): Z00.00 - Encounter for general adult medical examination without abnormal findings Category: Medical Plan: as per HPI (2) CAD (coronary artery disease): Code(s): I25.10 - Atherosclerotic heart disease of [place] coronary artery without angina pectoris Category: Medical Qualifiers: Associated angina: without angina Coronary Disease-Associated Artery/Lesion type: [place] artery [place] vs. transplanted heart: [place] heart Qualified Code(s): I25.10 - Atherosclerotic heart disease of [place] coronary artery without angina pectoris Plan: Recently found to right-sided her coronary artery disease and stent was placed. Followed by director of safety and security [facility]. At high potency statin aspirin, clopidogrel Goal LDL to be below 55 (3) Afib: Comment: Ablation x2 unsuccessful-recent ED visit with chest pain Code(s): I48.91 - Unspecified atrial fibrillation Category: Medical Qualifiers: Atrial fibrillation type: paroxysmal Qualified Code(s): I48.0 - Paroxysmal atrial fibrillation Plan: Patient continues to see cardiology in [place]. He is anticoagulated with Eliquis at this time without any overt signs of bleeding besides occasional bright red blood per rectum.- of note does have internal hemorrhoids. He has undergone multiple cardiac procedures including ablation Also he is under rate and rhythm control with metoprolol and ranolazine (4) Insulin resistance: Code(s): E88.81 - Metabolic syndrome and other insulin resistance Category: Medical Plan: Continues to see an grease renderer at [facility]. He is now on monitor raw and has lost weight. Most recent A1c at 4.1. (5) LAYNE (obstructive sleep apnea): Comment: CPAP, further eval testing pending at [facility] Code(s): G47.33 - Obstructive sleep apnea (adult) (pediatric) Category: Medical Plan: Continues to use CPAP on a nightly basis with good effect. (6) Class 1 obesity: Code(s): E66.811 - Obesity, class 1 Category: Medical Plan: Patient does understand his BMI is over 30 will continue working on trying to be more physically active and adapting to better eating habits. He continues on a GLP 1 and will up titrate with his grease renderer. Has benefitted significantly from GLP 1 therapy Orders: Orders AMB Hemoglobin A1c 02/23/25 E88.81 - Metabolic syndrome and other insulin resistance Pneumococcal 20 Immunization 02/23/25 Z23 - Encounter for immunization Prostate Specific Antigen Scr 02/23/25 Z12.5 - Encounter for screening for malignant neoplasm of prostate Medications: Changed From albuterol sulfate 90 mcg/actuation 2 puffs inhalation QID PRN wheezing To albuterol sulfate 90 mcg/actuation 2 puffs inhalation QID 8.5 grams 0RF wheezing 30 days Patient Instructions: Goal: A1c to remain below 6.5, LDL to be below 55, blood pressure to remain below 140/90 Barriers: Adherence to physical activity and healthy eating habits.
[2025-02-23 15:09] VITALS: BP 102/80; PULSE 75; TEMP 36.2; O2SAT 97; BMI 34.2
--- OUTSIDE RECORDS SUMMARY | 2025-02-23 17:39 | XMS_ITS | Encounter Summary ---
Author Organization [facility] Address [address] [place] [address] Care Team Providers Care Airport Driver Name Role Phone Jonathan Barnett Primary Care Provider [phone] Reason for Visit * Reason Onset Date Comments PAC Patient Request Call Back 02/15/2025 Encounter Details Date Type Department Care Team (Late st Contact Info) Description 02/15/2025 Telephone [facility] 4th floor Cardiology Medicine [address] [place] [address] Military Technician: Juan Velasco MD [address] [place] [address] [phone] PAC Patient Request Call Back Social History Tobacco Use Types Packs/Day Years Used Date Smoking Tobacco: Never Passive Smoke Exposure: Never Smokeless Tobacco: Never Alcohol Use Standard Drinks/Week Comments Not Currently 0 (1 standard drink = 0.6 oz pur e alcohol) no alcohol in 30+ years Sex and Gender Information Value Date Recorded Sex Assigned at Male 02/20/2022 9:30 AM EDT Legal Sex Male 2:20 PM EDT Gender Identity Male 02/20/2022 9:30 AM EDT Sexual Orientation Straight 02/20/2022 9: 34 AM EDT 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 Please reach out to patient at [phone] Thank you. * Telephone Encounter - Toby Kelley - 02/16/2025 2:23 PM EDT Pt is calling to check on this message. * Telephone Encounter - Elana Hunter - 02/15/2025 3:00 PM EDT Baldomero Woodall is returning your call Best call back [phone] Thank you * Telephone Encounter - Elana Hunter - 02/15/2025 11:16 AM EDT Fito Woodall had a stent put in on 02/[address] Saenz, Pt is calling to report that he is still experiencing chest pain, as more active he gets the more its getting noticeable. Pt states that he's also very fatigue, and a little short of breath No other symptoms Best call back [phone] Thank you documented in this encounter Plan of Treatment Upcoming Encounters Date Type Department Care Team (Late st Contact Info) Description 03/01/2025 1:40 PM EDT Telehealth [facility] Endocrinology Clinic [address] [place] [address] Military Technician: Otilia Edwards, Adrian 03/02/2025 8:00 AM EDT Office Visit [facility] 4th floor Cardiology Medicine [address] [place] [address] Military Technician: Amirah Membreno 03/05/2025 2:00 PM EDT Telehealth [facility] [employer] Telehealth [address] [place] [address] Tracie Westbrook NP [address] [place] [address] 03/11/2025 10:00 AM EDT Follow-Up [facility] [address] [place] Pulmonology [address] [address] Kian Cuello MD [address] [address] 06/09/2025 2:30 PM EDT Office Visit [facility] Endocrinology Clinic [address] [place] [address] Military Technician: Elana Soni NP [address] [place] [address] 08/09/2025 2:30 PM EDT Follow-Up [facility] 4th floor Cardiology Medicine [address] [place] [address] Military Technician: Tiki Peña PA [address] [place] [address] 12/13/2025 2:40 PM EST Office Visit [facility] Endocrinology Clinic 7 [address] [place] [address] Henrietta Weeks MD [address] [place] [address] documented as of this encounter Visit Diagnoses Not on filedocumented in this encounter Care Teams Airport Driver Relationship Specialty Start Date End Date Jonathan Barnett PA [address] [place] [address] PCP - General 12/14/21 documented as of this encounter
--- OUTSIDE RECORDS SUMMARY | 2025-02-23 17:39 | XMS_ITS | Encounter Summary ---
Author Organization [facility] Address [address] [place] [address] Care Team Providers Care Duck Operator Name Role Phone Jonathan Barnett Primary Care Provider [phone] Encounter Details Date Type Department Care Team (Late Contact Info) Description 10/04/2022 [employer] Message [facility] Building [address] [place] [address] [employer], Generic Provider [address] [place] [address] [facility] specialty pharmacy liaison contact information. 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 Not on file Not on file documented as of this encounter Plan of Treatment Upcoming Encounters Date Type Department Care Team (Late st Contact Info) Description 03/01/2025 1:40 PM EDT Telehealth [facility] Endocrinology Clinic [address] [place] [address] Color Paste Mixing Supervisor: Otilia Edwards, PhilippeD 03/02/2025 8:00 AM EDT Office Visit [facility] 4th floor Cardiology Medicine [address] [place] [address] Color Paste Mixing Supervisor: Amirah Membreno 03/05/2025 2:00 PM EDT Telehealth [facility] [employer] Telehealth [address] [place] [address] Tracie Westbrook NP [address] [place] [address] 03/11/2025 10:00 AM EDT Follow-Up [facility] [address] [place] Pulmonology [address] [place] [address] Kian Cuello MD [address] [address] 06/09/2025 2:30 PM EDT Office Visit [facility] Endocrinology Clinic [address] [place] [address] Color Paste Mixing Supervisor: Elana Soni NP [address] [place] [address] 08/09/2025 2:30 PM EDT Follow-Up [facility] 4th floor Cardiology Medicine [address] [place] [address] Color Paste Mixing Supervisor: Tiki Peña PA [address] [place] [address] 12/13/2025 2:40 PM EST Office Visit [facility] Endocrinology Clinic 7 [address] [place] [address] Henrietta Weeks MD [address] [place] [address] documented as of this encounter Visit Diagnoses Not on filedocumented in this encounter Care Teams Duck Operator Relationship Specialty Start Date End Date Jonathan Barnett PA [address] [place] [address] PCP - General 12/14/21 documented as of this encounter
--- OUTSIDE RECORDS SUMMARY | 2025-02-23 17:39 | XMS_ITS | Encounter Summary ---
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 Boswell. He would like to know status of [facility] papers. He has a physical with his PCP nextweek. He would like to know if you feel he should go or reschedule. He can be reached at [phone]. Flcaa Zulema documented in this encounter Plan of Treatment Upcoming Encounters Date Type Department Care Team (Late st Contact Info) Description 03/01/2025 1:40 PM EDT Telehealth [facility] Endocrinology Clinic [address] [place] [address] Resistance Welding Machine Operator: Otilia Edwards, Adrian 03/02/2025 8:00 AM EDT Office Visit [facility] 4th floor Cardiology Medicine [address] [place] [address] Resistance Welding Machine Operator: Amirah Membreno 03/05/2025 2:00 PM EDT Telehealth [facility] [employer] Telehealth [address] [place] [address] Tracie Westbrook NP [address] [place] [address] 03/11/2025 10:00 AM EDT Follow-Up [address] Pulmonology [address] [place] [address] Kian Cuello MD [address] [place] [address] 06/09/2025 2:30 PM EDT Office Visit [facility] Endocrinology Clinic [address] [place] [address] Resistance Welding Machine Operator: Elana Soni NP [address] [place] [address] 08/09/2025 2:30 PM EDT Follow-Up [facility] 4th floor Cardiology Medicine [address] [place] [address] Resistance Welding Machine Operator: Tiki Peña PA [address] [place] [address] 12/13/2025 2:40 PM EST Office Visit [facility] Endocrinology Clinic 7 [address] [place] [address] Henrietta Weeks MD [address] [place] [address] documented as of this encounter Visit Diagnoses Not on filedocumented in this encounter Care Teams Parts Classifier Relationship Specialty Start Date End Date Jonathan Barnett PA [address] [place] [address] PCP - General 12/14/21 documented as of this encounter
--- OUTSIDE RECORDS SUMMARY | 2025-02-23 17:39 | XMS_ITS | Encounter Summary ---
Author Organization [facility] Address [address] [place] [address] Care Team Providers Care Canceling And Cutting Control Clerk Name Role Phone Jonathan Barnett Primary Care Provider [phone] Encounter Details Date Type Department Care Team (Late st Contact Info) Description 02/03/2025 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 Also asking when he should have his labs drawn for this. He did want to let you know that he still has not received his isosorbide mononitrate. He is askingif [facility] [place] Also he had to stop his statin because of muscle pain, a burning sensation in his feet and his knees were buckling on him. He stopped this med 3-4 days ago and he has seen improvements in his symptoms. Flaca Coyne documented in this encounter Plan of Treatment Upcoming Encounters Date Type Department Care Team (Late st Contact Info) Description 03/01/2025 1:40 PM EDT Telehealth [facility] Endocrinology Clinic [address] [place] [address] Chemicals Fermentation Operator: Otilia Edwards, Adrian 03/02/2025 8:00 AM EDT Office Visit [facility] 4th floor Cardiology Medicine [address] [place] [address] Chemicals Fermentation Operator: Amirah Membreno 03/05/2025 2:00 PM EDT Telehealth [facility] [employer] Telehealth [address] [place] [address] Tracie Westbrook NP [address] [place] [address] 03/11/2025 10:00 AM EDT Follow-Up [facility] [address] [place] Pulmonology [address] [place] [address] Kian Cuello MD [address] [address] 06/09/2025 2:30 PM EDT Office Visit [facility] Endocrinology Clinic [address] [place] [phone] Chemicals Fermentation Operator: Elana Soni NP [address] [place] [address] 08/09/2025 2:30 PM EDT Follow-Up [facility] 4th floor Cardiology Medicine [address] [place] [address] Chemicals Fermentation Operator: Tiki Peña PA [address] [place] [address] 12/13/2025 2:40 PM EST Office Visit [facility] Endocrinology Clinic 7 [address] [place] [address] Henrietta Weeks MD [address] [place] [address] documented as of this encounter Visit Diagnoses Not on filedocumented in this encounter Care Teams Canceling And Cutting Control Clerk Relationship Specialty Start Date End Date Jonathan Barnett PA [address] [place] [address] PCP - General 12/14/21 documented as of this encounter
--- OUTSIDE RECORDS SUMMARY | 2025-02-23 17:39 | XMS_ITS | Encounter Summary ---
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 Not on file Not on file documented as of this encounter Plan of Treatment Upcoming Encounters Date Type Department Care Team (Late st Contact Info) Description 03/01/2025 1:40 PM EDT Telehealth [facility] Endocrinology Clinic [address] [place] [address] Coil Former: Otilia Edwards, Adrian 03/02/2025 8:00 AM EDT Office Visit [address] floor Cardiology Medicine [address] [place] [address] Coil Former: Amirah Membreno 03/05/2025 2:00 PM EDT Telehealth [facility] [employer] Telehealth [address] [place] [address] Tracie Westbrook NP [address] [place] [address] 03/11/2025 10:00 AM EDT Follow-Up [facility] 85 [place] Pulmonology [address] [place] [address] Kian Cuello MD [address] [address] 06/09/2025 2:30 PM EDT Office Visit [facility] Endocrinology Clinic [address] [place] [address] Coil Former: Elana Soni NP [address] [place] [address] 08/09/2025 2:30 PM EDT Follow-Up [facility] 4th floor Cardiology Medicine [address] [place] [address] Coil Former: Tiki Peña PA [address] [place] [address] 12/13/2025 2:40 PM EST Office Visit [facility] Endocrinology Clinic 7 [address] [place] [address] Henrietta Weeks MD [address] [place] [address] documented as of this encounter Visit Diagnoses Not on filedocumented in this encounter Care Teams Pneumatic Systems Operator Relationship Specialty Start Date End Date Jonathan Barnett PA [address] [place] [address] PCP - General 12/14/21 documented as of this encounter
--- OUTSIDE RECORDS SUMMARY | 2025-02-23 17:39 | XMS_ITS | Encounter Summary ---
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 PT is unable to make this appt due to a CT scan for a blood clot scheduled at the same time. PT is just looking to re-schedule this appointment. PT can best be reached at [phone] documented in this encounter Plan of Treatment Upcoming Encounters Date Type Department Care Team (Late st Contact Info) Description 03/01/2025 1:40 PM EDT Telehealth [facility] Endocrinology Clinic [address] [place] [address] [employer] Ren[employer] Chef [employer] Restaurant Owner: Otilia Edwards PharmD 03/02/2025 8:00 AM EDT Office Visit [address] floor Cardiology Medicine [address] [place] [address] World Renowned Chef And Restaurant Owner: Amirah Membreno 03/05/2025 2:00 PM EDT Telehealth [facility] [employer] Telehealth [address] [place] [address] Tracie Westbrook NP [address] [place] [address] 03/11/2025 10:00 AM EDT Follow-Up [facility] 85 [place] Pulmonology [address] [place] [address] Kian Cuello MD [address] [address] 06/09/2025 2:30 PM EDT Office Visit [facility] Endocrinology Clinic [address] [place] [address] World Renowned Chef And Restaurant Owner: Elana Soni NP [address] [place] [address] 08/09/2025 2:30 PM EDT Follow-Up [address] floor Cardiology Medicine [address] [place] [address] World Renowned Chef [employer] Restaurant Owner: Tiki Peña PA [address] [place] [address] 12/13/2025 2:40 PM EST Office Visit [facility] Endocrinology Clinic 7 [address] [place] [address] Henrietta Weeks MD [address] [place] [address] documented as of this encounter Visit Diagnoses Not on filedocumented in this encounter Care Teams Tension Machine Operator Relationship Specialty Start Date End Date Jonathan Barnett PA [address] [place] [address] PCP - General 12/14/21 documented as of this encounter
--- OUTSIDE RECORDS SUMMARY | 2025-02-23 17:39 | XMS_ITS | Referral Summary ---
Author Organization [facility] Address [address] [place] [address] Care Team Providers Care Business Project Manager Name Role Phone Jonathan Barnett Primary Care Provider [phone] Encounters Date Type Department Care Team Description 02/19/[address] Cardiology Medicine [address] [place] [address] [phone] Program Arranger: Juan Velasco MD 02/17/[address] Cardiology Medicine [address] [place] [address] 96176 Program Arranger: Marlen Felix MD 02/17/2025 Orders Only [facility] Nuclear Medicine [address] [place] [address] 07413 Wicho Cruz MD 02/17/2025 2:00 PM EDT Office Visit [address] Cardiology Medicine [address] [place] [address] 12835 Program Arranger: Simran Stewart NP Coronary artery disease involving shoshone-bannock coronary artery of shoshone-bannock heart without angina pectoris (Primary Dx); Dyslipidemia (high LDL; low HDL); Chronic heart failure with preserved ejection fraction (HCC); Essential hypertension; Persistent atrial fibrillation (HCC) 02/15/[address] floor Cardiology Medicine [address] [place] [address] 95632 Program Arranger: Juan Velasco MD PAC Patient Request Call Back 02/09/2025 Telephone [facility] 4th floor Cardiology Medicine [address] [place] [address] 56837 Program Arranger: Izabel Dhillon NP PAC Appt Request - Established 02/08/2025 7:30 AM EDT - 02/08/2025 9:05 AM EDT Surgery [facility] Heart and Vascular Interventional Lab [address] [place] [address] 61451 Marlen Saenz MD Coronary angiography 02/08/2025 6:35 AM EDT - 02/08/2025 2:45 PM EDT Hospital Encounter [facility] Heart and Vascular Interventional Lab [address] [place] [address] 15979 Marlen Saenz MD Coronary artery disease involving shoshone-bannock coronary artery of shoshone-bannock heart, unspecified whether angina present (Primary Dx); Angina pectoris, unstable; Coronary artery disease involving shoshone-bannock coronary artery of shoshone-bannock heart with unstable angina pectoris Discharge Disposition: Home or Self Care (01) 02/07/2025 Orders Only [facility] 4th floor Cardiology Medicine [address] [place] [address] 29998 Program Arranger: Ovi Lisa MD PhD 02/05/2025 Refill [facility] 4th floor Cardiology Medicine [address] [place] [address] 22812 Program Arranger: Dana Simms LPN 02/04/2025 Orders Only [facility] 4th floor Cardiology Medicine [address] [place] [address] 17056 Program Arranger: Juan Velasco MD 02/04/2025 Orders Only [facility] Heart and Vascular Interventional Lab [address] [place] [address] 29845 Shaneka Salcedo PA 02/04/2025 Telephone [facility] Heart and Vascular Interventional Lab [address] [place] [address] 58704 Shaneka Salcedo PA 02/04/2025 3:27 PM EDT - 02/04/2025 11:59 PM EDT Hospital Encounter [facility] Cardiac Ultrasound [address] [place] [address] 33718 Chest pain, unspecified type Discharge Disposition: Home or Self Care (01) 02/03/2025 Refill [facility] 4th floor Cardiology Medicine [address] [place] [address] 20875 Program Arranger: Juan Velasco MD 02/02/2025 Telephone [facility] Heart and Vascular Interventional Lab [address] [place] [address] Shaneka Salcedo PA 01/14/2025 Telephone [facility] Heart Station [address] [place] [address] 85999 Alisia Gibson DO 01/13/[address] floor Cardiology Medicine [address] [place] [address] 61642 Program Arranger: Juan Velasco MD 01/07/2025 Orders Only [facility] 4th floor Cardiology Medicine [address] [place] [address] 80452 Program Arranger: Juan Velasco MD 01/07/2025 myChart Message [facility] 4th floor Cardiology Medicine [address] [place] [address] 98495 Program Arranger: Jesus Delaney Provider pre procedure instructions 01/06/2025 Telephone [facility] 4th floor Cardiology Medicine [address] [place] [address] 56098 Program Arranger: Juan Velasco MD 01/06/2025 Documentation [facility] 4th floor Cardiology Medicine [address] [place] [address] 63414 Program Arranger: Merary Pereira PA 01/06/2025 Orders Only [facility] 4th floor Cardiology Medicine [address] [place] [address] 21316 Program Arranger: Merary Pereira PA Angina pectoris, unstable (Primary Dx) 01/06/2025 Telephone [facility]ology [facility] [address] [place] [address] 24630 Program Arranger: Henrietta Hobson MD Prior Authorization 12/23/2024 10:10 AM EST - 12/23/2024 11:59 PM EST Hospital Encounter [facility] [address] [place] [address] 06181 Chest pain, unspecified type; Palpitations Discharge Disposition: Home or Self Care () 12/23/2024 myChart Message [facility] [employer] [address] [place] [address] 55993 Mychart, Generic Provider Pharamcy Account Dispute 12/18/2024 Results Follow-Up [facility] 4th floor Cardiology Medicine [address] [place] [address] 44734 Program Arranger: Tiki Peña PA 12/17/2024 Telephone [facility] 4th floor Cardiology Medicine [address] [place] [address] 81088 Program Arranger: Juan Velasco MD 12/17/2024 Orders Only [facility] 4th floor Cardiology Medicine [address] [place] [address] 14181 Program Arranger: Juan Velasco MD Angina pectoris, unstable (Primary Dx) 12/17/2024 Orders Only [facility] Interventional Radiology [address] [place] [address] [phone] Claudia Joyce NP 12/17/2024 1:13 PM EST - 12/17/2024 11:59 PM EST Hospital Encounter [facility] CT Scan [address] [place] [address] Chest pain, unspecified type Discharge Disposition: Home or Self Care (01) 12/10/2024 Telephone [facility] [address] [place] [address] 04954 Program Arranger: Lizbet Low Prior Authorization (ZEPBOUND) 12/09/2024 2:00 PM EST Office Visit [facility]ology [facility] [address] [place] [address] 00118 Program Arranger: Henrietta Hobson MD Obesity, endogenous (Primary Dx); LAYNE (obstructive sleep apnea); Type 2 diabetes mellitus without complication, without long-term current use of insulin; Essential hypertension 12/07/2024 [employer] Message [facility] [employer] [address] [place] [address] 28983 [employer] Generic Provider Account Review 12/02/2024 2:20 PM EST Follow-Up [facility] 4th floor Cardiology Medicine [address] [place] [address] 23875 Program Arranger: Juan Velasco MD Dyslipidemia (high LDL; low HDL) (Primary Dx); Persistent atrial fibrillation; SVT (supraventricular tachycardia); Morbid obesity, unspecified obesity type; Chest pain, unspecified type from Last 3 Months Allergies Active Allergy Reactions Criticality Noted Date Comments Iodinated Contrast Media Nausea,Vomiting 2024 Medications cholecalcifero l (VITAMIN D3) 1,000 unit tablet Take 1,000 Units by mouth daily. Active losartan (COZAAR) 25 mg tablet PRN high BP 06/02/20 23 Active metoprolol tartrate (LOPRESSOR) 50 mg tablet Take 1 tablet (50 mg total) by mouth 2 times a day as needed (Afib episode). 30 tablet 3 11/20/19 24 Active apixaban (ELIQUIS) 5 mg tablet Take 1 tablet (5 mg total) by mouth every 12 hours. 180 tablet 3 12/27/19 24 Active pyridoxine (VITAMIN B6) 25 mg tablet Take 25 mg by mouth once a day. Active albuterol (PROAIR HFA,VENTOLIN HFA) 90 mcg inhalerIndicat ions:Dyspnea, unspecified type Inhale 2 puffs (180 mcg total) by mouth every 4 hours as needed for wheezing or shortness of breath. Use with spacer. 8.5 g 04/24/20 24 025 Active montelukast (SINGULAIR) 10 mg tabletIndicati ons:Dyspnea, unspecified type Take 1 tablet (10 mg total) by mouth nightly. 30 tablet 11 04/24/20 24 025 Active fluticasone propionate (FLONASE) 50 mcg/actuation nasal sprayIndicatio ns:Postnasal drip Administer 2 sprays into each nostril once a day. 16 g 11 08/04/20 24 Active Additional Information Patient taking differently:2 spray both nostrilsAs needed, Reported on 02/17/2025 empagliflozin (JARDIANCE) 25 mg tablet Take 1 tablet (25 mg total) by mouth once a day. 90 tablet 3 12/02/19 25 Active Zepbound 10 mg/0.5 mL pen injector pen injector Inject 0.5 mL (10 mg total) under the skin per week. Switch from wegovy 2 mL 5 5 5:42 PM EDT 12/09/19 25 Active nitroglycerin (NITROSTAT) 0.[address] 1 tablet (0.4 mg total) under the tongue every 5 minutes as needed for chest pain. May repeat 1 tab every 5 min, up to 3 doses total 30 tablet 3 12/17/19 25 026 Active isosorbide mononitrate ER (IMDUR) 30 mg tablet Take 1 tablet (30 mg total) by mouth once a day. 30 tablet 3 02/05/20 25 Active predniSONE (DELTASONE) 10 mg tablet Take 5 tabs 13 hours prior to procedure arrival time, then 5 tabs 7 hours prior to procedure arrival time, and then 5 tabs 1 hour prior to procedure arrival time. 15 tablet 02/08/20 25 Active Additional Information Patient not taking.Reported on 02/17/2025 aspirin chewable tablet 81 mg Chew and swallow 1 tablet (81 mg total) by mouth once a day. STOP AFTER 30 DAYS POST CATH. 02/09/20 25 025 Active clopidogreL (PLAVIX) 75 mg tablet Take 1 tablet (75 mg total) by mouth once a day. 30 tablet 5 5 11:20 AM EDT 02/09/20 25 Active ezetimibe (ZETIA) 10 mg tablet Take 1 tablet (10 mg total) by mouth once a day. 30 tablet 5 5 12:31 PM EDT 02/09/20 25 Active atorvastatin (LIPITOR) 80 mg tablet Take 1 tablet (80 mg total) by mouth once a day. 30 tablet 5 5 12:31 PM EDT 02/09/20 25 Active ranolazine ER (Ranexa) 500 mg tablet Take 1 tablet (500 mg total) by mouth 2 times a day. 60 tablet 3 02/18/20 25 Active famotidine (PEPCID) 20 mg tablet Take 1 tablet (20 mg total) by mouth 2 times a day as needed for heartburn. 03/17/20 24 025 Discontinued(E rror) rosuvastatin (CRESTOR) 40 mg tablet Take 1 tablet (40 mg total) by mouth once a day. 90 tablet 3 12/17/19 25 025 Discontinued(S top Taking at Discharge) isosorbide mononitrate ER (IMDUR) 30 mg tablet Take 1 tablet (30 mg total) by mouth once a day. 30 tablet 3 01/08/20 25 025 Discontinued dofetilide (TIKOSYN) 500 mcg capsule Take 1 capsule (500 mcg total) by mouth every 12 hours. 60 capsule 11 02/06/20 25 025 Discontinued aspirin chewable tablet 81 mg Chew and swallow 81 mg by mouth once a day. 025 Discontinued Active Problems Problem Noted Date Diagnosed Date CAD (coronary artery disease) 02/08/2025 Assessment & Plan (02/08/2025 1:50 PM EDT): Patient is now s/p left heart cath with PCI to RPDA. He was accessed right radial artery. Site remained soft, no hematoma or oozing. TR band removed per protocol. He was loaded with Plavix 600 mg in the lab and will now continue on Plavix 75 mg daily for 6 mo. EKG post procedure showed NSR. Patient with mild nausea after procedure, he received 250 cc fluids (LVEDP 6 mmHg), and zofran 4 mg x1 (he is on tikosyn QTc post procedure was 472ms). He was also given a dose of losartan 25 mg for elevated BP post procedure. Patient reports having labile blood pressures and usually more on the low end, BP was not over corrected because of this. He was recovered in 2 short stay and remained stable. Patient denies chest pain, shortness of breath, palpitations. His 4 hour post PCI labs showed K 3.5 (repleted with 40 mEq of PO potassium), creatinine 1.0, and HCT 37. He is stable for a same day discharge. - Same day discharge - Lipid panel today per Dr. Boswell, LDL still 108, will switch patient from crestor to atorva due to unpleasant symptoms (ankle/knee buckling), START zetia 10 mg daily, and referred to ATX for PCSK9 - Continue other home medications including nitroglycerin PRN, imdur, losartan - Per Dr. Saenz, the pt will need triple therapy for 4 week, then d/c aspirin and continue Eliquis and plavix (DAPT) for 6 months. After 6 months, plavix may be d/c and he should begin aspirin again and continue on Eliquis. - Follow-up in ~4 weeks with cardiology requested Angina pectoris, unstable 12/17/2024 Chest pain 12/02/2024 Assessment & Plan (12/02/2024 3:00 PM EST): Fito had chest discomfort that was nonanginal in nature. He continues to be active does not have any exertional chest pain. To evaluate this, he currently has a coronary CTA, echo and MCOT ordered. I agree with all of this testing. In addition, I did recommend that we recheck his lipids, hemoglobin A1c, and LP(a) for overall risk stratification. SVT (supraventricular tachycardia) 03/17/2024 Assessment & Plan (12/02/2024 2:57 PM EST): No recurrence of SVT. This was a slower SVT immediately following ablation has not recurred Assessment & Plan (03/17/2024 7:55 AM EDT): Asymptomatic SVT noted on telemetry with rates up to the 140s. Spoke to Dr. Boswell and patient who decided to continue lopressor 50 mg BID palpitations or rapid heart rate. He's had issues with lower blood BP. Potassium was repleted. -Continue lopressor 50 mg BID PRN Chronic heart failure with preserved ejection fr action 01/29/2024 Assessment & Plan (12/02/2024 2:57 PM EST): We discussed that he did have a somewhat dilated left atrium. Reassuring is that his LA pressure was lower at this ablation than prior. However it was still slightly above normal despite being on Jardiance 10 mg daily. For maximum benefit I did recommend we increase into the target dose of 25 mg daily. With that he will increase Jardiance from 10 up to 25 mg daily Assessment & Plan (03/17/2024 7:19 AM EDT): Chronic diastolic heart failure with an elevated BNP 103 and most recent EF of 55-60% on jardiance 10 mg daily. Euvolemic on exam. -I&Os, daily weights, sodium restricted diet -Restart jardiance on 03/17/24 Assessment & Plan (01/29/2024 2:06 PM EDT): Currently euvolemic by history and exam. On Jardiance currently. Objectively, does have mildly dilated left atrium and history of elevated BNP and elevated left atrial pressure at time of ablation Persistent atrial fibrillation 12/25/2023 Assessment & Plan (12/02/2024 2:58 PM EST): Fito has symptomatic persistent symptomatic persistent atrial fibrillation. His symptoms included fatigue and dizziness. He is now status post cryoablation in 2018, and redo A. fib ablation in 2020 with RF, and redo PFA ablation 03/2024. His sleep apnea is now well treated. He is losing weight at a remarkable rate with Wegovy and is now back on Wegovy with the help of Dr. Weeks. His CHADSVASc score is 2 (HTN, HFpEF). Given CHADS2 Vascor is now 2, he will continue with Eliquis 5 mg twice daily He does not take rate control agents, though has a prescription for metoprolol tartrate 50 mg twice daily as needed for A-fib. Regarding rhythm control, he is now status post 3 ablations, lost over 50 pounds, is compliant with CPAP. Given his LA has remained dilated and LA pressure was still slightly elevated ablation, we are increasing Jardiance from 10 up to 25 mg daily for more comprehensive AF management Assessment & Plan (03/17/2024 7:21 AM EDT): Patient is a 58 year old male who presents with symptomatic afib despite multiple ablations. He failed antiarrhythmic therapy with Sotalol, Flecainide and dronaderone. He is now managed on tikosyn. He is on eliquis for a [id number] of 3 iso of DM2, HTN, and HFpEF. Patient is s/p successful ANGELICA (missed dose of eliquis) and re-do Afib ablation with Dr. Boswell. Right femoral vein access site with perclose x2 and vascade x1 is CDI without hematoma or oozing. Lower extremity CSMs intact. Right DP dopplerable with 2+ PT. Post procedure EKG demonstrates normal sinus rhythm. Patient denies chest pain, palpitations, shortness of breath, dizziness or lightheadedness. Staying overnight as he does not have anyone to stay with him overnight. Right groin ooze at change of shift, resolved with stat seal placement. POD1: VSS. Labs notable for WBC 13.1 but he is afebrile. Right groin is CDI without hematoma or oozing. He will discharge home in stable condition. Plan: -Discharge home without services -Continue home eliquis 5 mg BID for thromboembolic protection -Continue home dofetilide 500mcg BID for rhythm control; lopressor 50 mg BID PRN rapid heart rate -Resume jardiance 10 mg daily on 03/17/24 -Follow up in 10-15 days with an EP LUIS MIGUEL for a wound check Assessment & Plan (01/29/2024 2:20 PM EDT): Fito has symptomatic persistent symptomatic persistent atrial fibrillation. His symptoms included fatigue and dizziness. He is now status post cryoablation in 2019, and redo A. fib ablation in 2020. At repeat ablation, his left upper vein, right upper vein, and left-sided jey had reconnected. His sleep apnea is now well treated. He is losing weight at a remarkable rate with Wegovy. Unfortunately he recently lost access to Wegovy with recent changes, and as he has gained back 11 pounds over the last month and a half, his A-fib has become more frequent he notices. His CHADSVASc score is 2 (HTN, HFpEF). Given CHADS2 Vascor is now 2, he will continue with Eliquis 5 mg twice daily He does not take rate control agents, though has a prescription for metoprolol tartrate 50 mg twice daily as needed for A-fib. Regarding rhythm control, he is now status post 2 ablations, lost over 50 pounds, is compliant with CPAP, has had breakthrough A-fib despite trials with dronedarone as well as more recently decreasing. Interestingly, now that he is off Wegovy for the last 6 weeks or so he has been gaining weight and A-fib has now gotten more frequent. Thus, he is hoping to proceed with repeat ablation. We also did focus on the importance of him getting back on his pharmacal weight loss agent given it was working so well which he is working diligently on. We have gone over the concept of technique of redo ablation, particularly with pulsed field ablation. With that, came up with following plan: Case request entered for A-fib redo ablation. Will plan to use pulsed field ablation. He knows he needs to remain on Eliquis 5 mg twice daily without any missed doses, including the day of ablation He is working diligently on addressing his insurance issues so that he can attain access back to Jardiance as well as Wegovy He would like to stay overnight after ablation Labs entered for anesthesia PSE visit Assessment & Plan (12/27/2023 5:23 PM EST): Patient is a 58 year old male with difficult to control atrial fibrillation. Has required DCCV x2, most recent in October 2023 at an OSH. He has undergone a cryoablation in April 2019, with a re-do cryoablation in February 2021. He is on AC with Eliquis for a [id number] of 2. For antiarrhythmic control he has failed medical therapy with both Sotalol Flecainide. He was started on Dronedarone 400mg BID however experienced GI upset so it was decreased to 400mg daily. From a risk stratification stand point he is compliant with is CPAP, has started Wegovy and lost 60 lbs. Despite all this, he has had 3 break through episodes of atrial fibrillation for which he is symptomatic with nausea, light headedness, dizziness, palpitations. He had been taking lopressor PRN with episodes of AF however his most recent episode in October 2023 required DCCV. Because of this, he met with Dr. Boswell and the decision was made to directly admit patient for initiation of tikosyn for rhythm control. He endorses strict compliance with his Eliquis, has not missed any doses. His Dronedarone has been on hold since Saturday12/22/23. On admission he is in NSR rate 64, QTc manually corrected to 413ms using [place]. K was 4.0, mag 1.9, CrCl 125. 12/26: No acute overnight events. Patient remains in sinus rhythm. K-3.7, 40 mEq of Potassium given. QTC after 1 dose:454 ms QTC after 2 dose:468 ms QTC after 3 dose: 454 ms QTC after 4 dose: 476 ms QTC after 5 dose: 468 ms He reported some diarrhea after the third dose. Per his report, his diarrhea has resolved. -Discharge home without services -Continue dofetilide (tikosyn) at 500mcg PO Q12 hrs -Continue Eliquis 5mg BID -Stop Dronedarone (stopped 12/22/13) -Hold lopressor, was only taking PRN as an outpatient -Follow up EKG ordered for 01/02/24 -Follow up with Dr. Boswell 01/29/24 Type 2 diabetes mellitus wit hout complication, without long-term current use of insulin 12/25/2023 Assessment & Plan (03/16/2024 11:39 AM EDT): Latest Ref Rng & Units 10/23/2023 1:27 PM HgbA1c Hemoglobin A1C <5.7 % of total Hgb 4.6 Well controlled managed on jardiance 10 mg daily. -Continue medication on 03/17/24 Assessment & Plan (12/27/2023 7:34 AM EST): History of T2DM on metformin ER 1000mg daily as well as Jardiance 10mg daily. Well controlled, most recent HgbA1C in our system from 10/23/23 is 4.6 -Continue home metformin 1000mg BID and Jardiance 10mg PO daily (pending PA under new insurance) Insulin resistance 10/12/2022 Assessment & Plan (02/07/2024 5:22 PM EDT): No changes in current tx with metformin and SGLT2 Assessment & Plan (01/14/2023 10:15 AM EDT): he is at risk for developing DM and its complications rec DPP recommendations for LSM and Tx Will continue Metformin, titrate as it directed in the instructions. Will benefit from SGLT2 Will transition to combo SGLT2/metformin We discussed how this medication works and potential side effects in great detail. The patient advised to notify me if any concern of side effects including UTI Assessment & Plan (10/12/2022 12:26 PM EST): New Dx via abnormal OGTT, abnormal A1c, abnormal insulin tests. Discussed pathophysiology in full She is at risk for developing DM and its complications rec DPP recommendations for LSM and Tx Will start Metformin We discussed how Metformin works and potential side effects - in great detail, including multiple symptoms of GI discomfort. The patient advised to notify me if there are any concerns of side effects. Will benefit from GLP-1 Discuss MACE benefits Ozempic instruction provided to MiguelJoe, including: purpose and action, New Pen Setup, injection technique, sites for injection. Potential side-effects including but not limited to nausea/vomiting and rare cases of pancreatitis were discussed in great detail. Patient was instructed to notify office of any low BG's/abdominal pain/vomitting. Abnormal weight gain 08/28/2022 Assessment & Plan (01/14/2023 10:37 AM EDT): Obesity Class III with severe co-morbidities - Stage 2 and abnormal weight gain in the setting of Afib The readiness for intensive lifestyle modifications was assessed and the patient appears to be motivated to make changes. Intensive lifestyle modifications were discussed in detail and listed in the patient instructions Mr. Diaz was advised to continue a structural lifestyle modification program. Patient is managed with LSM and medical treatment of obesity with wegovy. Recent start of tx lost 3 lbs in first 3 weeks of therapy Still on 0.25 Will continue titration Mr. Diaz at high risks for co-morbidities related to obesity, which include, but not limited cardiovascular diseases:CAD, CHF, poor controlled HTN, stroke, respiratory conditions, such CRPD, LAYNE, GI condition: NAFLD and HOPE as a concerning start for developing liver cirrhosis, depression, cancers of colon, liver, and etc Assessment & Plan (10/12/2022 5:52 PM EST): Obesity Class III with severe co-morbidities - Stage 2 and abnormal weight gain in the setting of LAYNE Obesity, likely multifactorial, with likely genetic predisposition and unfavorable lifestyle Indeed, the majority of cases are related to social/ behavioral causes. Significant alimentary component from food/portion selection. Intensive lifestyle modifications were discussed in detail and listed in the patient instructions Mr. Diaz was advised to continue a structural lifestyle modification program. Patient will be managed with LSM and medical treatment of IR. Mr. Diaz at high risks for co-morbidities related to obesity, which include, but not limited cardiovascular diseases:CAD, CHF, poor controlled HTN, stroke, respiratory conditions, such CRPD, LAYNE, GI condition: NAFLD and HOPE as a concerning start for developing liver cirrhosis, depression, cancers of colon, liver and etc Assessment & Plan (08/28/2022 5:46 PM EDT): Obesity Class III with severe co-morbidities - Stage 2 and abnormal weight gain in the setting of recent abd pain and pending CT abd Obesity, likely multifactorial + lack of activity due to Afib and C6 Fx in the past Possible metabolic abnormalities related to recent weight gain. The readiness for intensive lifestyle modifications was assessed and the patient appears to be motivated to make changes. Intensive lifestyle modifications were discussed in detail and listed in the patient instructions Mr. Diaz was advised to start a structural lifestyle modification program. Patient will be managed with LSM and medical treatment of obesity. Mr. Diaz at high risks for co-morbidities related to obesity, which include, but not limited cardiovascular diseases:CAD, CHF, poor controlled HTN, stroke, respiratory conditions, such CRPD, LAYNE, GI condition: NAFLD and HOPE as a concerning start for developing liver cirrhosis, depression, cancers of colon, liver, and etc Will obtain labs as listed in the orders to assess for possible metabolic abnormalities related to weight gain An initial weight loss goal of 5 to 7 percent of body weight is realistic .A weight loss of more than 5 percent can reduce risk factors for cardiovascular disease, such as dyslipidemia, hypertension and diabetes mellitus Isolated proteinuria 12/14/2021 Assessment & Plan (12/14/2021 12:37 PM EST): He tells me he was prescribed lisinopril for proteinuria Essential hypertension 12/14/2021 Assessment & Plan (12/02/2024 2:59 PM EST): Blood pressure well-controlled. Not making changes Assessment & Plan (03/16/2024 11:37 AM EDT): Well controlled managed on losartan 25 mg daily PRN HTN. -Bps per unit protocol Assessment & Plan (01/29/2024 2:02 PM EDT): Blood pressure is well-controlled. Current agents are metoprolol as needed as well as losartan 25 mg a day. Assessment & Plan (12/27/2023 7:35 AM EST): Patient has a history of hypertension. He has had issues with orthostasis and intermittent soft blood pressures. As a result, he only takes losartan 25mg when his BP is elevated. -Resume losartan on discharge PRN Assessment & Plan (11/20/2023 4:13 PM EST): With weight loss, blood pressure now running on the lower side. He only takes losartan if blood pressure is running higher Assessment & Plan (01/14/2023 10:38 AM EDT): Blood pressure today is within target 130/78 Treatment recommendations: On polytherapy He reports needs of stopping lisinopril every few days due to low BG Advised to decrease the dose to 2.5 mg No changes in BB adding SGLT2 I rec close monitoring in order to prevent anti-HTN med-induced hypotension with weight loss on weight loss therapy. Assessment & Plan (08/01/2022 3:14 PM EDT): Blood pressure currently well controlled Had some dizziness on standing with higher dose. We will continue lisinopril 5 mg a day Assessment & Plan (03/01/2022 12:17 PM EDT): Blood pressure is currently well controlled on lisinopril 5. Episode of mild dizziness on standing has now resolved. It was associated with a low heart rate based on his watch. It is still unclear to me what this rhythm was. He is pending a 14-day event monitor which I have ordered, also we discussed the AdmitSee mobile device for more rare events that are unpredictable. He is quite interested in this, I provided him the name, and he will plan on purchasing it. Assessment & Plan (12/14/2021 12:37 PM EST): It appears as though Fito now meets definition for hypertension and in the majority of his blood pressures be above 125-130 mmHg systolic. His blood pressure is elevated today in the 140s At his next visit he will plan to bring in his blood pressure cuff and have it calibrated to confirm. We will plan to see him back in about 4 months to reassess blood pressures Dyspnea 09/08/2020 Assessment & Plan (09/08/2020 1:15 PM EST): His dyspnea is only with a couple flights stairs and is stable and not progressing. Dyslipidemia (high LDL; low HDL) 09/08/2020 Assessment & Plan (12/02/2024 2:59 PM EST): Historically has been managed with diet and lifestyle alone based on most recent lipids. Given his episode of chest pain we are evaluating for coronary disease, repeating lipids with LP(a) and hemoglobin A1c-I ordered this today Assessment & Plan (12/25/2023 9:52 AM EST): Images from the original note were not included. Chronic. Latest Ref Rng & Units 01/10/2021 3:12 PM 09/08/2020 1:26 PM 04/02/2019 10:51 AM Lipids Cholesterol <200 mg/dL 155 138 161 Triglycerides <150 mg/dL 118 183 179 Cholesterol, HDL 40 - 59 mg/dL 45 41 36 LDL Cholesterol <100 mg/dL 86 60 89 Plan: -AHA diet Assessment & Plan (08/01/2022 3:15 PM EDT): Managed with diet and lifestyle. Has upcoming lipid panel pending Assessment & Plan (12/14/2021 12:29 PM EST): Managed with diet and lifestyle. He has a follow-up with you pending. Would recommend annual lipid panels Assessment & Plan (04/06/2021 11:12 AM EDT): Is managed with diet and lifestyle, next visit would plan to recheck lipid panel Assessment & Plan (12/23/2020 10:02 AM EST): We will plan to recheck lipids with his preprocedure labs. Is currently managed with diet and lifestyle Assessment & Plan (12/01/2020 12:21 PM EST): This is managed with diet and lifestyle only. LDL is 60 off therapy Assessment & Plan (09/08/2020 1:14 PM EST): I will recheck his lipid panel today with his basic blood work. LAYNE (obstructive sleep apnea) 02/17/2019 Assessment & Plan (12/02/2024 2:57 PM EST): Fito uses CPAP for his LAYNE. He understands the relationship with AF and LAYNE Assessment & Plan (03/16/2024 4:40 PM EDT): LAYNE on CPAP. -Continue Wegovy on discharge for weight loss -Continue home CPAP settings Assessment & Plan (01/29/2024 2:02 PM EDT): He remains compliant with CPAP, and knows the relationship with AFib. Assessment & Plan (12/25/2023 10:54 PM EST): Patient has a history of LAYNE and is compliance with his CPAP. On admission he brought his home device with him. -CPAP QHS with home settings Assessment & Plan (11/20/2023 4:13 PM EST): Remains compliant with CPAP. He remains quite well versed and understand the relationship with A-fib Assessment & Plan (08/01/2022 3:13 PM EDT): Corresponded with Dr. Cuello. He indeed has severe sleep apnea, but CPAP is effective. Assessment & Plan (04/11/2022 2:22 PM EDT): I had referred him in the past for LAYNE evaluation. His appointment scheduled with Dr. Cuello on 05/16 Assessment & Plan (03/01/2022 12:13 PM EDT): I referred him last visit. He is still waiting on his visit Assessment & Plan (12/14/2021 12:26 PM EST): He is having trouble with his CPAP. Feels as though is not working. He is interested in some here at [facility]. Thus I referred him to our sleep medicine clinic, Dr. Cuello Assessment & Plan (04/05/2021 3:18 PM EDT): Fito remains under percent compliant with CPAP. He actually endorses that he is unable to sleep without it. He understands the connection between A. fib and sleep apnea as well Assessment & Plan (02/24/2021 11:18 AM EDT): Stable on CPAP Plan: Continue on CPAP Assessment & Plan (12/23/2020 10:04 AM EST): He has reached out to sleep medicine doctor in [place] Assessment & Plan (12/01/2020 12:18 PM EST): We spent a while again discussing the link to his sleep apnea and atrial fibrillation. He tells me that he is sleeping only 3 hours at a stretch. I discussed that I would refer him to one of our sleep medicine doctors here, however he would like to get in touch with his current sleep medicine doctor in [place]. I said that if he is not making any headway I be happy to help not however I can Assessment & Plan (09/08/2020 1:14 PM EST): He reports 100% compliance with his CPAP. We again discussed the strong relationship between sleep apnea and atrial fibrillation. Assessment & Plan (12/16/2019 4:01 PM EST): He continues to be compliant with his CPAP. Assessment & Plan (04/06/2019 4:21 PM EDT): Con't home CPAP +15 at HS. - Supplement O2 for goal SPO2 > 92% Assessment & Plan (02/17/2019 9:50 AM EDT): Currently compliant. Hiatal hernia 02/17/2019 Assessment & Plan (12/23/2020 10:02 AM EST): We will keep this in mind for his upcoming ablation. Assessment & Plan (12/01/2020 12:20 PM EST): He has a hiatal hernia, we may be headed for repeat RF ablation, and so I note this here Assessment & Plan (09/08/2020 1:14 PM EST): I note this here in case we are waiting to undergo a repeat radiofrequency ablation. Obesity, endogenous 02/17/2019 Assessment & Plan (12/02/2024 2:59 PM EST): He gained some weight back about 30 pounds when he was off Wegovy, now is back on it with Dr. Weeks Assessment & Plan (03/16/2024 11:38 AM EDT): BMI 40kg/m2. Managed on wegovy 1 mg subcutaneous weekly. He has recently changed insurance providers and did not have access to wegovy at this time. He restarted his medication recently and has held it prior to his afib ablation. -Continue wegovy on discharge -AHA diet Assessment & Plan (02/07/2024 5:22 PM EDT): Obesity Class II with co-morbidities - Stage 2 and abnormal weight gain in the setting of CVD Obesity, likely multifactorial Possible metabolic abnormalities related to recent weight gain. Intensive lifestyle modifications were discussed in detail and listed in the patient instructions Mr. Diaz was advised to continue a structural lifestyle modification program. Patient will be managed with LSM and medical treatment of obesity. Medical therapy of obesity as adjunct to intensive LSM with GLP-1 agonists, approved by FDA is recommended due to SELECT trial Mr. Diaz at high risks for co-morbidities related to obesity, which include, but not limited cardiovascular diseases:CAD, CHF, poor controlled HTN, stroke, respiratory conditions, such CRPD, LAYNE, GI condition: MAFLD and MASH as a concerning start for developing liver cirrhosis, depression, cancers of colon, liver and etc An initial weight loss goal of 5 to 7 percent of body weight is realistic .A weight loss of more than 5 percent can reduce risk factors for cardiovascular disease, such as dyslipidemia, hypertension and diabetes mellitus Assessment & Plan (12/25/2023 10:55 PM EST): Has a history of obesity. BMI previously 43 and 300lbs, now down to 33 BMI and 240 lbs after starting Wegovy 2.4mg SQ every Saturday in January 2023. -Wegovy non formulary, will resume on discharge Assessment & Plan (11/20/2023 4:12 PM EST): He has seen Dr. Weeks. He has now lost approximately 60 pounds with both metformin and Wegovy. I encouraged him on this he is quite happy with his progress. We discussed that this is perhaps the most important things he could have done for his cardiovascular care going forward Assessment & Plan (08/01/2022 3:14 PM EDT): Has appoint with Dr. Weeks on weight loss clinic coming up on August I confirm this appointment in [facility], and encouraged him to attend it. He is planning on Assessment & Plan (04/11/2022 2:23 PM EDT): I referred him to our endocrinology multidisciplinary weight loss clinic with Dr. Weeks. His appointment is in August Assessment & Plan (03/01/2022 12:16 PM EDT): Referral for Dr. Weeks is in, still pending Assessment & Plan (12/14/2021 12:29 PM EST): I had referred him to our weight loss clinic. He was offered bariatric surgery but elected to declined at that time. I did mention medications that are available including semaglutide, and he will discuss these with you. We were quite clear that increasing weight make it more difficult to control going forward and at risk to possible catheter-based ablation procedures Assessment & Plan (04/06/2021 11:12 AM EDT): He understands connection between weight and atrial fibrillation, we touched on this again, and he remains dedicated to weight loss and is making progress Assessment & Plan (02/24/2021 11:18 AM EDT): BMI 41.4 Plan: Recommend weight loss program Assessment & Plan (12/23/2020 10:01 AM EST): He is having difficulty with access to the clinic. He did make phone contact, let them know I would reach out to the nutrition clinic again. Assessment & Plan (12/01/2020 12:20 PM EST): He said that he had trouble getting into the dietitian/weight clinic. Thus I will reenter referral and contact them to help facilitate this. He is still interested in getting into the weight clinic Assessment & Plan (09/08/2020 1:11 PM EST): To today, we again discussed the strong relationship between atrial fibrillation and obesity. Today he was willing to be referred for weight clinic. Thus I referred him to our weight management center. Assessment & Plan (04/06/2019 8:54 AM EDT): BMI 44.18. - Encourage increased physical activity, weight loss, diet and lifestyle modification - Consider referral to weight loss program such as [employer]. Cervical spinal cord injury 02/17/2019 Assessment & Plan (12/23/2020 10:02 AM EST): This occurred when he was when mountain biking -did not have surgery, has completely recovered. Part of this was the reason for his weight gain Assessment & Plan (12/01/2020 12:18 PM EST): This occurred when he was when mountain biking -did not have surgery, has completely recovered. Part of this was the reason for his weight gain Assessment & Plan (02/17/2019 9:51 AM EDT): When mountain biking - no surgery, has completely recovered. Resolved Problems Problem Noted Date Diagnosed Date Resolved Date Persistent atrial fibrillation 02/17/2019 12/25/2023 Assessment & Plan (11/20/2023 4:15 PM EST): iFto has symptomatic persistent symptomatic persistent atrial fibrillation. His symptoms included fatigue and dizziness. He is now status post cryoablation in 2018, and redo A. fib ablation in 2020. At repeat ablation, his left upper vein, right upper vein, and left-sided jey had reconnected. His sleep apnea is now well treated. He is losing weight at a remarkable rate with Wegovy. His CHADSVASc score is now likely 1 (HTN). Given CHADS2 Vascor is now 1, he will continue with Eliquis 5 mg twice daily He does not take rate control agents, though has a prescription for metoprolol succinate as needed 50 mg. He did take this with his recent episode, and we changed today to metoprolol tartrate 50 mg twice daily given more rapid rates with A-fib for faster onset as well Regarding rhythm control, he has had about 3 episodes over the last calendar year he estimates. He is taking dronedarone at a reduced dose of 400 mg once daily as he had GI upset with the other higher dose. We discussed options at this point of redo A-fib ablation versus Tikosyn. I previously checked the cost of this and was estimated at $10 per month from her pharmacy. We discussed that given his remarkably favorable course of weight loss that we would prefer antiarrhythmic drug such as Tikosyn as post redo ablation, and he was in agreement. We went over the rationale for dofetilide initiation as an inpatient in the protocol, specifically monitoring QT interval and on telemetry to assess for dosing of Tikosyn and risk of ventricular arrhythmias. As such, came up the following plan: Will arrange for dofetilide initiation if affordable otherwise could use sotalol. He will stop dronedarone 2 days prior to admission for Tikosyn Changed to metoprolol prescription to metoprolol to tartrate as needed as opposed to metoprolol succinate for faster onset of action should he have another episode of A-fib Assessment & Plan (08/01/2022 3:16 PM EDT): Fito has symptomatic persistent symptomatic persistent atrial fibrillation. His symptoms included fatigue and dizziness. He is now status post cryoablation in 2018, and redo A. fib ablation in 2020. At repeat ablation, his left upper vein, right upper vein, and left-sided jey had reconnected. His sleep apnea is now well treated. He is losing weight, and has his upcoming appointment within a month with Dr. Weeks His CHADSVASc score is now likely 1 (HTN). Given CHADS2 Vascor is now 1, he will continue with Eliquis 5 mg twice daily He does not take rate control agents, though has a prescription for metoprolol succinate as needed 50 mg. He did take this with his recent episode which he has not needed. Back to sinus rhythm Regarding rhythm control, he is happy with current management. We have previously checked the cost of dofetilide which is only $10 a month for him. 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 His symptoms included fatigue and dizziness. He is now status post cryoablation in 2019, and redo A. fib ablation in 2020. At repeat ablation, his left upper vein, right upper vein, and left-sided jey had reconnected. He is still pending his sleep apnea appointment, and also waiting on the appoint with Dr. Weeks. His CHADSVASc score is now likely 1 (HTN). Given CHADS2 Vascor is now 1, he will continue with Eliquis 5 mg twice daily He does not take rate control agents, though has a prescription for metoprolol succinate as needed 50 mg. He did take this with his recent episode which he has not needed. Back to sinus rhythm Regarding rhythm control, we discussed antiarrhythmic medications given his episode of A. fib. He has had a few episodes of atrial fibrillation in the past few months, but is happy with his current management. We discussed possibly using flecainide again or using Tikosyn (which is $10 a month for him). He is current only happy with his current management and would like to proceed with getting sleep apnea evaluated and treated and working on weight loss. 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 His symptoms included fatigue and dizziness. He is now status post cryoablation in 2019, and redo A. fib ablation in 2020. At repeat ablation, his left upper vein, right upper vein, and left-sided jey had reconnected. He had a few episodes over the summer in the setting of having influenza infection, but since fall he has not had any episodes He is still pending his sleep apnea appointment, and also waiting on the appoint with Dr. Weeks. His CHADSVASc score is now likely 1 (HTN). Given CHADS2 Vascor is now 1, he will continue with Eliquis 5 mg twice daily He does not take rate control agents, though has a prescription for metoprolol succinate as needed 50 mg. He did take this with his recent episode which he has not needed. Back to sinus rhythm Regarding rhythm control, we discussed antiarrhythmic medications given his episode of A. fib. He is currently quite happy with his management however, we did discuss Tikosyn as well as other possible options as well. I have ran a cost analysis for Tikosyn as well, which is $10 a month Assessment & Plan (12/14/2021 12:28 PM EST): Mr. 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 His symptoms included fatigue and dizziness. He is now status post cryoablation in 2019, and redo A. fib ablation in 2020. At repeat ablation, his left upper vein, right upper vein, and left-sided jey had reconnected. He had a few episodes over the summer in the setting of having influenza infection, but since fall he has not had any episodes Given his weight has remained an issue, I had referred him to our weight clinic who offered him bariatric surgery which she had declined at the time. Given recent FDA approval of other medications for weight loss, including semaglutide, I provided him with these names and he will discuss these with you. Also, referred him for a updated sleep medicine referral at his request as above His CHADSVASc score is now likely 1 (HTN). Given CHADS2 Vascor is now 1, he will continue with Eliquis 5 mg twice daily He currently takes no rate control medications Assessment & Plan (04/05/2021 3:23 PM EDT): Mr. 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 His symptoms included fatigue and dizziness. He is now status post cryoablation in 2019, and redo A. fib ablation in 2020. At repeat ablation, his left upper vein, right upper vein, and left-sided jey had reconnected. He remains dedicated to modifying modifiable risk factors, including weight loss, exercise, abstinence from alcohol, sleep apnea treatment, and he is not using fish oil. His CHADSVASc score is 0. He should continue Eliquis for 3 months following ablation, after that, he can discontinue Eliquis and resume his aspirin 81 mg daily for primary prevention of cardiovascular disease as he was previously taking He currently takes no rate control medications Assessment & Plan (02/24/2021 5:21 PM EDT): Persistent, refractory to Flecainide, Sotalol, and DCCV - Now redo Afib ablation Radiofrequency -omeprazole 20 mg po daily for 30 days - CHADSVASC2 score zero. Con't home Eliquis 5mg BID - did not take am eliquis, give dose as soon recovers in pacu Assessment & Plan (12/23/2020 10:01 AM EST): Mr. 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 His symptoms included fatigue and dizziness. Initially after his cryoablation in 04/2019 he only had an episode of A. fib with a viral illness now he has had muktiple recurrences without any clear trigger, despite flecainide. We went over the options of adjusting medical therapy versus ablation. Becoming frustrated unfortunately with his atrial fibrillation. Also we discussed that he has been doing everything he can to manage his comorbidities, namely he is gotten in contact with our nutrition/weight loss clinic and is 100% compliant with his CPAP, he is exercising and not using alcohol. Thus, after again going over risks, benefits, technique and rationale of A. fib ablation, he would like to proceed with a redo A. fib ablation. His CHADSVASc score is 0. He only takes aspirin 81 mg for primary prevention of cardiovascular disease. He will stop aspirin and start Eliquis 5 mg twice daily. He is having fatigue with metoprolol, he will discontinue this replace it with diltiazem 120 mg daily. He is having some blurry vision since starting flecainide, and we will cut the dose down to 50 mg twice daily Regarding rhythm control, he has been cardioverted on 2 separate occasions, he has failed flecainide (recurrence, but was prior to cryoablation) as well as sotalol (bradycardia), now status post cryoablation in April 2019. I told him it is still okay to use as needed atenolol should he have breakthrough atrial fibrillation with RVR After our discussion, I have entered a case request for redo A. fib ablation. I will plan to use CARTO mapping, and use a single transseptal approach with the Penta ray. Assessment & Plan (12/01/2020 12:20 PM EST): Mr. 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 His symptoms included fatigue and dizziness. Initially after his cryoablation in 04/2019 he only had an episode of A. fib with a viral illness now he has had 2 recurrences without any clear trigger His CHADSVASc score is 0. He only takes aspirin 81 mg for primary prevention of cardiovascular disease. We are not planning an ablation and will not start Eliquis. Regarding rhythm control, he has been cardioverted on 2 separate occasions, he has failed flecainide (recurrence, but was prior to cryoablation) as well as sotalol (bradycardia), now status post cryoablation in April 2019. Now that he has had recurrent episodes, we discussed repeat ablation versus medical therapy. We decided together on a strategy of medical therapy. We will start metoprolol succinate 25 mg a day along with flecainide 100 mg twice daily. I told him it is still okay to use as needed atenolol should he have breakthrough atrial fibrillation with RVR Assessment & Plan (09/08/2020 1:13 PM EST): Mr. 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 His symptoms included fatigue and dizziness. He did have palpitations with his most recent episode. Overall this is only episode of atrial fibrillation following his cryoablation April 2019, and it occurred in the setting of a severe viral respiratory illness requiring treatment with inhalers as well as azithromycin. His CHADSVASc score is 0. Given that he was not cardioverted, I asked him to discontinue the Eliquis and replace it with the aspirin 81 mg daily which he was on previously for primary prevention of cardiovascular disease. For rate control, he had fatigue while taking metoprolol. He will also stop his metoprolol. Regarding rhythm control, he has been cardioverted on 2 separate occasions, he has failed flecainide (recurrence, but was prior to cryoablation) as well as sotalol (bradycardia), now status post cryoablation in April 2019. When he went into atrial fibrillation, his heart rate was in the 150s to 160s off AV aris agents. Again metoprolol is causing fatigue, so given a prescription of atenolol 25 mg twice daily as needed for atrial fibrillation. While this is atypical strategy, we discussed pill in pocket propafenone as well as repeat ablation, but since his events both clearly triggered by severe respiratory viral illness, and then a bacterial pneumonia, he wants to avoid antiarrhythmics and ablation at this time if possible. Assessment & Plan (12/16/2019 4:02 PM EST): Mr. 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 His symptoms included fatigue and dizziness. He did have palpitations with his most recent episode. Overall this is only episode of atrial fibrillation following his cryoablation April 2019, and it occurred in the setting of a severe viral respiratory illness requiring treatment with inhalers as well as azithromycin. His CHADSVASc score is 0. Given that he was not cardioverted, I asked him to discontinue the Eliquis and replace it with the aspirin 81 mg daily which he was on previously for primary prevention of cardiovascular disease. For rate control, he had fatigue while taking metoprolol. He will also stop his metoprolol. Regarding rhythm control, he has been cardioverted on 2 separate occasions, he has failed flecainide (recurrence) as well as sotalol (bradycardia), now status post cryoablation in April 2019. Assessment & Plan (08/05/2019 9:24 AM EDT): Mr. 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 His symptoms included fatigue and dizziness. His CHADSVASc score is 0. He completed 2 months of Eliquis following ablation and has been since discontinued. He now takes aspirin 81 mg daily. He has not had any bleeding issues. For rate control, he had fatigue while taking metoprolol. He self discontinued about a month ago and feels great. He would like to continue not taking any rate control medications for the time being. Regarding rhythm control, he has been cardioverted on 2 separate occasions, he has failed flecainide (recurrence) as well as sotalol (bradycardia), now status post cryoablation in April 2019. Assessment & Plan (04/07/2019 10:42 AM EDT): Persistent, refractory to Flecainide, Sotalol, and DCCV x3. - Now POD #1 s/p Afib Cryoablation - Currently in SB 50s-SR 60s, QTC 458ms on prost-procedure EKG - Endorsed SOB in recovery, has since returned to baseline (see fluid overload). Denies palpitations, CP, groin pain. - CHADSVASC2 score zero. Con't home Eliquis 5mg BID - Con't home Lopressor 12.5mg Q12, Digoxin 125mcg daily, Amio 400mg BID - Given Protonix 40mg IV x1 in PACU. Start PPI in AM x1 month - Telemetry. AM H/H, BMP, Digoxin level, EKG - Outpt follow up with LUIS Barton In 2 weeks Assessment & Plan (02/17/2019 9:54 AM EDT): Mr. Diaz has persistent symptomatic atrial fibrillation. He comes in essentially to inquire about the ablation. 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 His CHADSVASc score is 0. He has been anticoagulated with Eliquis 5 mg twice daily given his 2 recent cardioversions. For rate control, he is taking the Toprol tartrate 25 mg 3 times a day. He would like to continue with this. Regarding rhythm control, he has been cardioverted on 2 separate occasions in the last 4 months, he has failed flecainide (recurrence) as well as sotalol (bradycardia), now would like to proceed with an ablation. Given that he is failed 2 antiarrhythmic medications as well as 2 cardioversions, after shared decision making, Fito would like to proceed with an ablation. With that, I have entered the case request for a atrial fibrillation cryoablation without mapping. I have entered basic labs for the PSE visit, transthoracic echo, as well as a cardiac CT scan. 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 Not on file Not on file Not on file Last Filed Vital Signs Vital Sign Reading Time Taken Comments Blood Pressure 117/81 02/17/2025 2:13 PM EDT Pulse 64 02/17/2025 2:13 PM EDT Temperature 36.7 ??C (98.1 ??F) 02/08/2025 6:51 AM ED T Respiratory Rate 17 02/17/2025 2:13 PM EDT Oxygen Saturation 97% 02/17/2025 2:13 PM EDT Inhaled Oxygen Concentration - - Weight 113 kg (249 lb 1.9 oz) 02/17/2025 2:13 PM EDT Height 180.3 cm (5' 11 ) 02/17/2025 2:13 PM EDT Body Mass Index 34.75 02/17/2025 2:13 PM EDT Plan of Treatment Upcoming Encounters Date Type Department Care Team (Late st Contact Info) Description 03/01/2025 1:40 PM EDT Telehealth [facility] [address] [place] [address] Program Arranger: Otilia Edwards, Adrian 03/02/2025 8:00 AM EDT Office Visit [facility] 4th floor Cardiology Medicine [address] [place] [address] Program Arranger: Amirah Membreno 03/05/2025 2:00 PM EDT Telehealth [facility] [employer] Telehealth [address] [place] [address] Tracie Westbrook NP [address] [place] [address] 03/11/2025 10:00 AM EDT Follow-Up [facility] [address] [facility] [address] [place], [place] [address], [place] [address] Kian Cuello MD [address] [address] 06/09/2025 2:30 PM EDT Office Visit [facility] [address] [place] [address] Program Arranger: Elana Soni NP [address] [place] [address] 08/09/2025 2:30 PM EDT Follow-Up [facility] 4th floor Cardiology Medicine [address] [place] [address] Program Arranger: Amirah Jackson, LUIS Herrera [address] [place] [address] 12/13/2025 2:40 PM EST Office Visit [facility] 7 [address] [place] [address] Henrietta Weeks MD [address] [place] [address] Medical Devices Implanted Type Area General Labor Device Identifier Shelf Expiration Date Model / Serial / Lot System Closure And Repair Suture-Mediat ed Perclose Prostyle - [id number] Implanted:Qty : 1 on 03/16/2024 by Eddie Mills MD at [facility] [employer] [id number] 01/01/2026 [id number] / / [id number] System Closure And Repair Suture-Mediat ed Perclose Prostyle - [id number] Implanted:Qty : 1 on 03/16/2024 by Eddie Mills MD at [facility] Implant Right: Groin [employer] [id number] 01/01/2026 [id number] / / [id number] System Closure Vascular Venous Mvp 6-12fr Vascade - [id number] Implanted:Qty : 1 on 03/16/2024 by Eddie Mills MD at [facility] Implant Right: Groin [employer] 12/06/2025 [id number] / / [id number] System Closure Vascular Venous Mvp 6-12fr Vascade - [id number] Implanted:Qty : 1 on 03/16/2024 by Eddie Mills MD at [facility] Implant Right: Groin [employer] 12/06/2025 [id number] / / [id number] Stent Coronary Everolimus-El uting [place] Chromium [id number] Synergy Xd - [id number] Implanted:Qty : 1 on 02/08/2025 by Marlen Saenz MD at [facility] Stent Right: Coronary [place] [employer] [id number] 10/13/2026 [id number] / / [id number] Stent Coronary [id number] [place] Ellery Rx - [id number] Implanted:Qty : 1 on 02/08/2025 by Marlen Saenz MD at [facility] Stent Right: Coronary [employer] [id number] 09/20/2027 [id number] / / [id number] Procedures * Due to [place] state law, this organization might not be sharing negative HIV tests. Procedure Name Priority Date/Time Associated Diagnosis Comments ECG 12-LEAD Routine 02/17/2025 2:11 PM EDT Persistent atrial fibrillation (HCC) POCT I-STAT CHEMISTRY 8 PANEL Routine 02/08/2025 1:30 PM EDT ECG 12-LEAD STAT 02/08/2025 9:42 AM EDT CARDIAC CATHETERIZATION Routine 02/09/20 9:29 AM EDT Angina pectoris, unstable (HCC) CARDIAC CATHETERIZATION Routine 02/09/20 9:29 AM EDT Angina pectoris, unstable (HCC) CARDIAC CATHETERIZATION Routine 02/09/20 9:29 AM EDT Angina pectoris, unstable (HCC) CARDIAC CATHETERIZATION Routine 02/09/20 9:29 AM EDT Angina pectoris, unstable (HCC) CARDIAC CATHETERIZATION Routine 02/09/20 9:29 AM EDT Angina pectoris, unstable (HCC) CARDIAC CATHETERIZATION Routine 02/09/20 9:29 AM EDT Angina pectoris, unstable (HCC) POCT I-STAT ACTIVATED CLOTTING TIME Routine 02/08/2025 8:51 AM EDT POCT I-STAT ACTIVATED CLOTTING TIME Routine 02/08/2025 8:27 AM EDT POCT I-STAT ACTIVATED CLOTTING TIME Routine 02/08/2025 8:14 AM EDT ECG 12-LEAD Routine 02/08/2025 6:50 AM EDT MOBILE CARDIAC PAIRER (MCOT) 7 DAY MAIL OUT Routine 02/05/2025 8:24 AM EDT Chest pain, unspecified type Palpitations LIPID PANEL W/REFLEX TO DIRECT LDL Add-On 02/04/2025 4:32 PM EDT BASIC METABOLIC PANEL Routine 02/04/2025 4:32 PM EDT Angina pectoris, unstable (HCC) CBC Routine 02/04/2025 4:32 PM EDT Angina pectoris, unstable (HCC) TRANSTHORACIC ECHO (TTE) COMPLETE Routine 02/04/2025 3:51 PM EDT Chest pain, unspecified type CT LIMITED FOLLOW UP WO CONTRAST Routine 12/17/2024 2:04 PM EST Chest pain, unspecified type CT CARDIAC CORONARY AND CALCIUM SCORING Routine 12/17/2024 2:04 PM EST Chest pain, unspecified type CBC AUTO DIFFERENTIAL Routine 12/02/2024 3:14 PM EST Persistent atrial fibrillation Dyslipidemia (high LDL; low HDL) COMPREHENSIVE METABOLIC PANEL Routine 12/02/2024 3:14 PM EST Persistent atrial fibrillation Dyslipidemia (high LDL; low HDL) HEMOGLOBIN A1C Routine 12/02/2024 3:14 PM EST Persistent atrial fibrillation Dyslipidemia (high LDL; low HDL) LIPID PANEL W/REFLEX TO DIRECT LDL Routine 12/02/2024 3:14 PM EST Persistent atrial fibrillation Dyslipidemia (high LDL; low HDL) LIPOPROTEIN A (LPA) Routine 12/02/2024 3 :14 PM EST Persistent atrial fibrillation Dyslipidemia (high LDL; low HDL) ECG 12-LEAD Routine 12/02/2024 2:37 PM EST Persistent atrial fibrillation from Last 3 Months Results * Due to [place] state law, this organization might not be sharing negative HIV tests. * ECG 12 lead (02/17/2025 2:11 PM EDT) Only the most recent of4 resultswithin the time period is included. Ventricular Rate EKG 64 BPM MUSE EKG Atrial Rate 64 BPM MUSE EKG LA Interval 176 ms MUSE EKG QRS Interval 90 ms MUSE EKG QT Interval 444 ms MUSE EKG QTC Interval 458 ms MUSE EKG P [place] 49 degrees MUSE EKG R [place] -6 degrees MUSE EKG T Wave [place] 8 degrees MUSE EKG 02/17/2025 2:11 PM EDT 02/17/2025 7:44 PM EDT Impressions MUSE EKG - 02/17/2025 7:44 PM EDT NORMAL SINUS RHYTHM NORMAL ECG WHEN COMPARED WITH ECG OF 08-FEB-2025 09:42, NO SIGNIFICANT CHANGE WAS FOUND Confirmed by Zoran Jimenez ([id number]) on 02/17/2025 7:44:55 PM us Juan Boswell MD ECG ORDERABLES Final Result MUSE EKG * (ABNORMAL) POCT I-STAT Chemistry 8 Panel, interfaced (02/08/2025 1:30 PM EDT) Sample Type, POCT Venous 025 1:36 PM EDT [facility] Sodium, POCT 138 135 - 145 mmol/L 02/08/2025 1:36 PM EDT [facility] Potassium, POCT 3.5 3.5 - 5.3 mmol/L 02/08/2025 1:36 PM EDT [facility] Chloride, POCT 102 97 - 110 mmol/L 02/08/2025 1:36 PM EDT [facility] TCO2, POCT 22(L) 24 - 32 mmol/L 02/08/2025 1:36 PM EDT [facility] Anion Gap, POCT 14 5 - 15 mmol/L 02/08/2025 1:36 PM EDT [facility] iCA, POCT 4.7 4.6 - 5.3 mg/dL 02/08/2025 1:36 PM EDT [facility] Glucose, POCT 131(H) 70 - 99 mg/dL 02/08/2025 1:36 PM EDT [facility] BUN, POCT 12 7 - 23 mg/dL 02/08/2025 1:36 PM EDT [facility] Creatinine, POCT 1.0 0.6 - 1.3 mg/dL 02/08/2025 1:36 PM EDT [facility] eGFR 86 >=60 mL/min/1. 73m2 02/08/2025 1:36 PM EDT [facility] Comment:The estimated glomer ular filtration rate (eGFR) is calculated using a new formula developed by the NKF-ASN task force to eliminate race-based correction factors. The new formula uses serum/plasma creatinine, age, and gender to determine eGFR. A value below 60mls/min might indicate kidney disease and will be flagged. For additional information, see Tom et al, Am J Kidney Dis. 2021;79(2):268- 288, A Unifying Approach for GFR estimation: Recommendations of the NKF-ASN Task Force on Reassessing the Inclusion of Race in Diagnosing Kidney Disease . HCT, POCT 37(L) 42 - 52 % 02/08/2025 1:36 PM EDT [facility] Blood 02/08/2025 1:30 PM EDT 02/08/2025 1:36 PM EDT Narrative [facility] - 02/08/2025 1:36 PM EDT i-STAT analyzer cannot determine presence of hemolysis in sample us Marlen Saenz MD LAB POCT ORDERABLES - DEVICE Final Result [facility] [address] [place] [address], [place] * CORONARY ANGIOGRAPHY, CORONARY INTERVENTION (PCI), LEFT HEART CATHETERIZATION, PRESSURE WIRE, OPTICAL COHERENCE TOMOGRAPHY (OCT), INTRAVASCULAR ULTRASOUND (IVUS) (02/08/2025 9:29 AM EDT) Anatomical Region Laterality Modality Heart X-Ray Angiograph y Narrative 02/08/2025 12:04 PM EDT Findings: Typical exertional angina and abnormal coronary CTA s/p coronary angiogram, LHC, RFR/OCT/IVUS and PCI of RPDA via right radial artery as detailed below. LVEDP = 8 mmHg. Coronary anatomy: Right dominant circulation. RCA: large dominant artery with diffuse mild non-obstructive disease from proximal to distal segments. It gives extensive moderate sized RPL system which ahs only diffuse mild disease. It also gives a moderate size RPDA which has severe tubular 85-95% proximal disease with ANTHONY 3 flow distally. The RPDA distal to this lesion has diffuse mild disease. LM: large vessel with distal 30-40% disease. Lcx: small, non-dominant vessel with only mild diffuse luminal irregularities. LAD: large, wrap around vessel with somewhat ectatic ostial/proximal segment. Proximal to mid LAD has diffuse 30-40% disease. There is a 55-65% lesions in mid LAD involving bifurcation with a small to moderate sized diagonal branch. Rest of LAD has diffuse mild luminal irregularities. RFR/intravascular imaging of LM/proximal to mid LAD: - 6F EBU 3.5 guide via right radial artery - RFR of mid LAD = 0.92 (not significant), no drift upon pullback proximal to distal LM lesion - Runthrough into distal LAD - OCT of LM with suboptimal opacification, therefore IVUS was performed and showed left main MLA = 6.4 mm?? - final angiogram with ANTHONY III flow, 0% residual stenosis and no evidence of complications such as dissection, perforation or thrombosis Given normal RFR of LM/LAD and LM MLA > 6 mm??, we proceed with PCI of severe RPDA lesion. Patient was loaded with 600 mg of clopidogrel. PCI of RPDA: - 6F JR4 guide - Runthrouh into distal RPDA - pre-dilation with 2.5 mm regular balloon - 6F Telescope needed for guide support for distal stent delivery - stent deployed in proximal RPDA ([place] WALTER 2.25 x 15 mm) - stent post-dilation with 2.75 x 12 mm NC balloon - final angiogram with ANTHONY III flow, 0% residual stenosis and no evidence of complications such as dissection, perforation or thrombosis Recommendations: Planned same-day discharge. ??Follow-up with the referring physician. Triple therapy with DOAC< ASA 81 mg and clopidogrel 75 mg daily for 4 weeks. After 4 weeks stop aspirin and continue DOAC + clopidogrel for 6 months. After 6 months replace clopidogrel with ASA 81 mg daily. Medical management of moderate LAD/LM disease. Follow up with outpatient rug hooker, findings discussed in person. Evidence-based optimal medical therapy. Aggressive cardiovascular risk factor modification. Procedure Details The risks and alternatives of the procedures and conscious sedation were explained to the patient and informed consent was obtained. The patient was brought to the ammunition assembly ii laborer and placed on the table. The planned puncture sites were prepped and draped in the usual sterile fashion and a time-out was performed. Right radial artery access. The puncture site was infiltrated with 1% lidocaine. The vessel was accessed using the ultrasound-guided and micropuncture-assisted modified Seldinger technique, a wire was threaded into the vessel, and a 5 Fr sheath was advanced over the wire into the vessel. Right coronary artery angiography. A JR 4 catheter was advanced to the aorta and positioned in the vessel ostium under fluoroscopic guidance. Angiography was performed in multiple projections using hand-injection of contrast. Left coronary artery angiography. A JL 3.5 catheter was advanced to the aorta and positioned in the vessel ostium under fluoroscopic guidance. Angiography was performed in multiple projections using hand-injection of contrast. Left heart catheterization. A JR4 catheter was advanced across the aortic valve and left ventricular pressures were recorded. On the basis of the findings from the diagnostic coronary angiography, the decision was made to proceed with percutaneous coronary intervention, as detailed below. Hemostasis with TR Band. The attending physician performed the procedure and interpreted the results. Please refer to the Procedural Log for details. Coronary Findings Diagnostic Dominance: Right Left Main: The vessel was visualized by angiography and is large in size. Dist LM lesion is 35% stenosed. IVUS was performed on the lesion. Ultrasound supply: CATHETER IVUS RX DIGITAL NISQUALLY SHORT TIP 5FR 0.014IN 150CM [place] [facility]. Minimum lumen area: 6.4 mm??. The lesion is concentric. Left Anterior Descending: The vessel was visualized by angiography and is large in size. The vessel is ectatic. Mid LAD lesion is 60% stenosed. The lesion is located at the bifurcation. A WIRE GUIDE WIRELESS PHYSIOLOGY [id number] PRESSUREWIRE was used. CATHETER GUIDE BACKUP SUPPORT LEFT EXTRA BACKUP SUPPORT CURVE SIZE 3.5 6FR [id number] LAUNCHER Guide Catheter was used. RFR: 0.92 The pre-interventional distal flow is normal (ANTHONY 3). First Diagonal Branch: The vessel was visualized by angiography and is moderate in size. Left Circumflex: The vessel was visualized by angiography and is small in size. There is mild diffuse disease throughout the vessel. Right Coronary Artery: The vessel was visualized by angiography and is large in size. There is mild diffuse disease throughout the vessel. Right Posterior Descending Artery: The vessel was visualized by angiography and is moderate in size. RPDA lesion is 90% stenosed. Intervention No interventions have been documented. Imaging Guidance Imaging guidance used for procedure: fluoroscopy and ultrasound. Ultrasound was used for evaluation of the access site, to confirm selected vessel patency, and for concurrent real-time ultrasound visualization of vascular needle entry. Images were stored in the permanent record. History Fito Diaz is a 59 y.o. male with history of afib on Eliquis, HFpEF, obesity, LAYNE, HTN who was seen by cardiology for evaluation of chest pains. He says the pains are sharp in nature and last for about 30 minutes before resolving. Coronary CTA showed severe LAD stenosis. TTE showed LVEF 60%. He is now referred for [facility], coronary angiography, +/-PCI. us Juan Boswell MD CV CARDIAC CATH PROCEDURES F inal Result * POCT I-STAT Activated Clotting Time, interfaced (02/08/2025 8:51 AM EDT) Only the most recent of3 resultswithin the time period is included. Sample Type, POCT Arterial 02/08/2025 8:52 AM EDT [facility] ACT Average, POCT 244 See Comment Seconds 02/08/2025 8:52 AM EDT [facility] Comment: Therapeutic Range: Baseline: 75-127 Cardiac Catherization Lab: 200-300 EP Lab: 200-400 Perfusion and OR - Cardiac Surgery: 450 Valve replacement: 480 Blood 02/08/2025 8:51 AM EDT 02/08/2025 8:52 AM EDT us Marlen Saenz MD LAB POCT ORDERABLES - DEVICE Final Result [facility] [address] [place] [address], [place] * MOBILE CARDIAC PAIRER (MCOT) 7 DAY MAIL OUT (02/05/2025 8:24 AM EDT) Anatomical Region Laterality Modality Monitor Room Narrative 02/18/2025 10:53 PM EDT ATTENDING ADDENDUM: This was a Mobile Cardiac Forming And Assembling Supervisor (MCOT) 7 Day. ??This study was for Chest pain, unspecified type Palpitations. ?? Findings and conclusions are based on activations and events available for review. Findings: The predominant rhythm was sinus rhythm. Findings and Activations per primary report unless otherwise specified here. Sustained likely atrial flutter was seen (though a 1:1 atrial tachycardia is difficult to exclude). ??Some activations for AF are poor quality and low amplitude making it difficult to discern baseline - AF cannot be excluded in this context. Very numerous episodes of pSVT including sustained SVT up to 86 beats long, up to 153 bpm. There were several patient triggered episodes for review other than baseline. ??These/this generally correlated to sinus with PVCs and in some cases PACS/atrial runs. Sypmtoms reported included the following: palpitations and chest pain. In a few cases patient activations were for sinus without ectopy - one of these was for symptoms while the other two had no symptoms associated with them. Conclusions: See above for details. ??Patient triggered episodes detailed above. ?? Tiki SMITH CV CARDIAC SERVICES PROC EDURES Final Result * (ABNORMAL) Lipid Panel w/Reflex to Direct LDL (02/04/2025 4:32 PM EDT) Only the most recent of2 resultswithin the time period is included. Cholesterol 173 <=199 mg/dL 02/08/2025 10:40 AM EDT [facility] Triglycerides 100 <=149 mg/dL 02/08/2025 10:40 AM EDT [facility] Cholesterol, HDL 45 40 - 59 mg/dL 02/08/2025 10:40 AM EDT [facility] Cholesterol, Non-HDL 128 mg/dL 02/08/2025 10:40 AM EDT [facility] LDL Cholesterol 108(H) <100 mg/dL 02/08/2025 10:40 AM EDT [facility] VLDL 20 mg/dL 02/08/2025 10:40 AM EDT [facility] Cholesterol/HDL Ratio 3.8 <5.0 02/08/2025 10:40 AM EDT [facility] Blood Structure of peripheral vein / Unknown Venipuncture / Unknown 02/04/2025 4:32 PM EDT 02/04/2025 4:47 PM EDT Narrative [facility] - 02/08/2025 10:40 AM EDT Adult Treatment Panel III Guidelines of NCEP 2000 ? Category: ? Total Cholesterol (mg/dL) ?Desirable ?<200 ?Borderline High ? 200-239 ?High ?>=240 ? Category: ? LDL Cholesterol (mg/dL) ?Optimal ?<100 ?Near Optimal/Above Optimal ?100-129 ?Borderline High ? 130-159 ?High ?160-189 ?Very High ? >=190 ? Category: ? HDL Cholesterol (mg/dL) ?Low ?<40 ?High ?>=60 NCEP's Expert Panel on Blood Cholesterol in Children and Adolescents ? Category: ? Total Cholesterol (mg/dL) ?Desirable ?<170 ?Borderline High ? 170-199 ?High ?>=200 ? Category: ? LDL Cholesterol (mg/dL) ?Desirable ?<110 ?Borderline High ? 110-129 ?High ?>=130 us Juan Boswell MD LAB BLOOD ORDERABLES Final R esult [facility] [address] [place] [address], * CBC (02/04/2025 4:32 PM EDT) WBC 8.7 3.8 - 10.8 10*3/uL 02/04/2025 4:58 PM EDT [facility] RBC 4.59 4.20 - 5.80 10*6/uL 02/04/2025 4:58 PM EDT [facility] Hemoglobin 14.7 13.2 - 17.1 g/dL 02/04/2025 4:58 PM EDT [facility] Hematocrit 43.7 38.5 - 50.0 % 02/04/2025 4:58 PM EDT [facility] MCV 95.2 80.0 - 100.0 fL 02/04/2025 4:58 PM EDT [facility] MCH 32.0 27.0 - 33.0 pg 02/04/2025 4:58 PM EDT [facility] MCHC 33.6 32.0 - 36.0 g/dL 02/04/2025 4:58 PM EDT [facility] RDW 11.5 11.0 - 15.0 % 02/04/2025 4:58 PM EDT [facility] Platelets 229 140 - 400 10*3/uL 02/04/2025 4:58 PM EDT [facility] MPV 11.0 7.5 - 12.5 fL 02/04/2025 4:58 PM EDT [facility] Blood Structure of peripheral vein / Unknown Venipuncture / Unknown 02/04/2025 4:32 PM EDT 02/04/2025 4:48 PM EDT us Merary SMITH LAB BLOOD ORDERABLES Final R esult [facility] [address] [place] [address], * Basic metabolic panel (02/04/2025 4:32 PM EDT) NA 138 135 - 145 mmol/L 02/04/2025 5:25 PM EDT [facility] K 4.2 3.5 - 5.3 mmol/L 02/04/2025 5:25 PM EDT [facility] Cl 101 98 - 107 mmol/L 02/04/2025 5:25 PM EDT [facility] CO2 23 22 - 32 mmol/L 02/04/2025 5:25 PM EDT [facility] BUN 18 7 - 23 mg/dL 02/04/2025 5:25 PM EDT [facility] Creatinine 1.21 0.60 - 1.30 mg/dL 02/04/2025 5:25 PM EDT [facility] Glucose 80 65 - 99 mg/dL 02/04/2025 5:25 PM EDT [facility] Calcium 9.7 8.6 - 10.5 mg/dL 02/04/2025 5:25 PM EDT [facility] Anion Gap 14 5 - 15 02/04/2025 5:25 PM EDT [facility] eGFR 68 >=60 mL/min/1. 73m2 02/04/2025 5:25 PM EDT [facility] Comment:The estimated glomer ular filtration rate (eGFR) is calculated using a new formula developed by the NKF-ASN task force to eliminate race-based correction factors. The new formula uses serum/plasma creatinine, age, and gender to determine eGFR. A value below 60mls/min might indicate kidney disease and will be flagged. For additional information, see Santos et al, Am J Kidney Dis. 2021;79(2):268- 288, A Unifying Approach for GFR estimation: Recommendations of the NKF-ASN Task Force on Reassessing the Inclusion of Race in Diagnosing Kidney Disease . Blood Structure of peripheral vein / Unknown Venipuncture / Unknown 02/04/2025 4:32 PM EDT 02/04/2025 4:47 PM EDT us Merary L Kardoos PA LAB BLOOD ORDERABLES Final R esult [facility] [address] [place] [address], * TRANSTHORACIC ECHO (TTE) COMPLETE (02/04/2025 3:51 PM EDT) BSA 2.42 m2 LVIDD 5.5 cm LVIDS 3.5 cm IVS 1.2 cm Relative Wall Thickness 0.42 PW 1.2 cm LV Mass Index 110 g/m2 MV Peak E Reggie 0.52 m/s MV avg E/e' 6.93 MV Peak A Reggie 0.51 m/s E/A ratio 1.00 Lateral e' 0.10 m/s E wave deceleration time 240.0 msec Septal e' 0.05 m/s MV E/E' Tissue Velocity Lateral 5.29 LA Volume Index 36 mL/m2 MV E/e' septal 10.04 LA volume 88 mL TAPSE 1.7 cm LA size 3.7 cm AV peak gradient 5 mmHg Ao peak reggie 1.1 m/s Sinus 3.7 cm Ascending aorta 3.7 cm Aortic Root Z-score -0.40 Ao-asc Z score 0.81 IVC proximal 1.4 cm Dummy BSA 2.35 LV ED Post Wall 1.20 LV ES Dimension 3.50 LV ED Dimension 5.50 LV Ejection Fraction 3D 60 % LV Systolic Volume 3D 61 mL LV Systolic Volume Index 3D 25 mL/m2 LV Diastolic Volume 3D 150 mL LV Diastolic Volume Index 3D 62 mL/m2 LV GLS 3D -22.5 SV 3D 89.5 mL RV diastolic basal diam 2.8 cm RIGHT ATRIAL PRESSURE 3 mmHg Anatomical Region Laterality Modality Heart Echocardiography Narrative 02/04/2025 5:35 PM EDT ?Normal left ventricular systolic function with LVEF 60% by 3D. No regional wall motion abnormality. ?Normal RV size and systolic function. ?Mildly dilated left atrium. ?No significant valvular disease identified. Left Ventricle The left ventricle size is normal. Normal left ventricular wall thickness. Left ventricular mass index is normal. Normal left ventricular wall motion. Left ventricular ejection fraction is in the normal range with visually estimated LVEF 60%. LV Ejection Fraction 3D is 60%. Normal left ventricular diastolic function. Estimated left ventricular filling pressure is normal. Right Ventricle Right ventricle size is normal. Normal right ventricle wall thickness. Normal right ventricular systolic function. TAPSE is normal (>=1.7 cm). Tissue Doppler peak systolic velocity is normal (>9.5 cm/s). Left Atrium Left atrium is mildly dilated. Right Atrium Right atrium is normal in size. IVC/SVC IVC diameter is less than or equal to 21 mm and decreases greater than 50% during inspiration; therefore the estimated right atrial pressure is normal (~3 mmHg). Mitral Valve Mitral valve structure is normal. Trace mitral regurgitation. No mitral stenosis. Tricuspid Valve Tricuspid valve structure is normal. Trace tricuspid regurgitation. No tricuspid stenosis. Aortic Valve There is a normal aortic valve. No aortic regurgitation. No aortic stenosis. Pulmonic Valve Pulmonic valve structure is normal. Trace pulmonic regurgitation. No pulmonic stenosis. Ascending Aorta The sinuses of Valsalva and ascending aorta are normal. Pericardium No pericardial effusion. Pulmonary Artery TR jet was inadequate to estimate pulmonary artery pressure. Atrial Septum No interatrial shunt detected by color flow Doppler. Study Details A complete echo was performed using 2D imaging, color flow Doppler and complete spectral Doppler. The echocardiogram included 3D rendering and interpretation requiring image postprocessing on an independent workstation. Myocardial deformation imaging was performed using [employer]. During the study the apical, parasternal, subcostal and suprasternal view was captured. Overall the study quality was adequate. The study was technically difficult. The study was difficult due to patient's body habitus. Prior Study Prior TTE study available for comparison. Prior study date: 10/24/2020. No significant changes noted compared to the prior study. STRESS ECHO OVERALL FINDINGS Normal RV size and systolic function. Wall Scoring Baseline Score Index: 1.00 The left ventricular wall motion is normal. us Tiki SMITH CV ECHO PROCEDURES Final Result * CT Cardiac Coronary and Calcium Scoring (12/17/2024 2:04 PM EST) Anatomical Region Laterality Modality Heart Computed Tomogra phy 12/17/2024 2:15 PM EST Impressions 12/17/2024 2:[address] coronary calcium score is ??2034. 2. Severe coronary atherosclerotic plaque identified with a maximal stenosis of 70% or greater in the involved coronary arteries. 3. The study will not be sent for FFRct analysis. A(n) Webb actionable finding has been communicated to the ordering or responsible provider via the [employer] system on 12/17/2024 2:36 PM. ??Receipt of this communication by the responsible provider will be documented in [employer] upon receiving acknowledgement if applicable, Message ID [id number]. If this radiology report contains a blank impression section, it is an incomplete radiology report. ??Please contact the interpreting radiologist or applicable radiology division as soon as possible to obtain the completed interpretation. ? Workstation ID: [id number] Narrative 12/17/2024 2:[address] CARDIAC CORONARY AND CALCIUM SCORING, CT LIMITED FOLLOW UP WO CONTRAST INDICATION: Chest pain, nonspecific R07.9 - I10 - Chest pain, unspecified COMPARISON: CT chest April 28, 2019 TECHNIQUE: Prior to and during the administration of intravenous contrast material, ECG-gated CT of the heart was performed from the cardiac base to the apex without complication using retrospective gating with dose modulation. ??A timing bolus was used. ??The patient received the following medications prior to the coronary CTA acquisition: nitroglycerine 0.8 mg nitroglycerine SL. Multiplanar and 3D reformatted images were rendered and reviewed on an advanced processing workstation to further define anatomy and possible pathology. ??Calcium scoring was performed. For radiation dose control at least one of the following techniques was used in this procedure (1) Automated exposure control (2) Adjustment of the mA and/or kV according to patient size (3) Use of iterative reconstruction technique. TECHNICAL QUALITY: excellent FINDINGS: Calcium Score: UNZ=732 FPS=125 LCX=95 LDE=7414 HXKDA=[address] Coronary Calcium Score (Agatston Score): Utilizing data from the Multi-Ethnic Study of Atherosclerosis (https://www.ravi-nhlbi.org/Calcium/input.aspx), based upon the patient's age, gender, and race/ethnicity: Percentage of people of the same gender, age and ethnicity/race with a calcium score greater than zero: 70 Percentage of people of the same gender, age and ethnicity/race with calcium scores less than the patient's: 99 Coronary CTA: The coronary arteries arise in normal position. There is right dominance. Left main: The left main coronary artery has mixed atherosclerotic disease with associated mild stenosis. ??There is a small ramus branch. There appears to be mixed disease proximally within the ramus branch with probable at least mild, if not moderate stenosis. LAD: The left anterior descending artery has mixed disease throughout the proximal, mid as well as extending into the distal segment for a length of approximately 31 mm. Just distal to the origin of the first diagonal branch there is a severe stenosis related to predominantly noncalcified plaque. There is a tender moderate to severe stenosis. It gives off 1 significant (>1.8 mm) diagonal branch. The first diagonal branch is small but grossly patent. The second diagonal branch has mild to moderate mixed atherosclerotic disease with at least a mild stenosis in the proximal segment LCX: The left circumflex artery is a small vessel with a calcified ostial plaque with associated mild stenosis. Mild disease in the proximal segment extending into the first obtuse marginal branch which is also a small vessel. There is at least mild stenosis in the proximal obtuse marginal branch. It gives off 0 significant (>1.8 mm) obtuse marginal branches. RCA: The right coronary artery has diffuse predominantly calcified atherosclerotic plaque particularly in the distal segment extending into the posterior descending coronary artery and proximal portion of the posterior lateral branch. I cannot evaluate the degree of stenosis within the posterior descending coronary artery due to its size but suspect that it is at least moderate. Mild stenoses in the mid and distal right coronary artery. Other Cardiac Findings: Cardiac size Heart size is normal. Valves No valvular calcifications. Pericardium No abnormality. Extra-cardiac findings: ?? There is limited visualization of the thorax secondary to limited z-axis collimation. Included portion of the mediastinum and large vessels: ? Aorta No abnormality. Pulmonary arteries Unremarkable shape and diameter. Esophagus Normal esophagus. Other mediastinal findings No other abnormal mediastinal findings are present. Included lymph nodes: Mediastinal Normal sized lymph nodes, no enlarged lymph nodes. Hilar Normal sized lymph nodes, no enlarged lymph nodes. Others None. Included lung parenchyma: No abnormality. Included airways: No abnormality. Included pleura: No abnormality. Upper abdomen: No abnormality in the visualized upper abdominal structures, within the limitations of examination technique. Included portion of the chest wall and bones: Mild degenerative vertebral disease. FFRct: FFRct coronary analysis will not be ordered. Resulting Agency Comment [id number] Procedure Note Arjun Lovett MD - 12/17/2024 CT CARDIAC CORONARY AND CALCIUM SCORING, CT LIMITED FOLLOW UP [facility] INDICATION: Chest pain, nonspecific R07.9 - I10 - Chest pain,unspecified COMPARISON: CT chest April 28, 2019 TECHNIQUE: Prior to and during the administration of intravenous contrastmaterial, ECG-gated CT of the heart was performed from the cardiac base tothe apex without complication using retrospective gating with dosemodulation. A timing bolus was used. The patient received the followingmedications prior to the coronary CTA acquisition: nitroglycerine 0.8 mgnitroglycerine SL. Multiplanar and 3D reformatted images were rendered and reviewed on anadvanced processing workstation to further define anatomy and possiblepathology. Calcium scoring was performed. For radiation dose control at least one of the following techniques wasused in this procedure (1) Automated exposure control (2) Adjustment ofthe mA and/or kV according to patient size (3) Use of iterativereconstruction technique. TECHNICAL QUALITY: excellent FINDINGS: Calcium Score: RQL=293 KKM=638 LCX=95 NQW=7434 NEYBL=[address] Coronary Calcium Score (Agatston Score): Utilizing data from the Multi-Ethnic Study of Atherosclerosis(https://www.ravi-nhlbi.org/Calcium/input.aspx), based upon the patient'ricky, gender, and race/ethnicity: Percentage of people of the same gender, age and ethnicity/race with acalcium score greater than zero: 70 Percentage of people of the same gender, age and ethnicity/race withcalcium scores less than the patient's: 99 Coronary CTA: The coronary arteries arise in normal position. There is rightdominance. Left main: The left main coronary artery has mixed atherosclerotic diseasewith associated mild stenosis. There is a small ramus branch. Thereappears to be mixed disease proximally within the ramus branch withprobable at least mild, if not moderate stenosis. LAD: The left anterior descending artery has mixed disease throughout theproximal, mid as well as extending into the distal segment for a length ofapproximately 31 mm. Just distal to the origin of the first diagonalbranch there is a severe stenosis related to predominantly noncalcifiedplaque. There is a tender moderate to severe stenosis. It gives off 1significant (>1.8 mm) diagonal branch. The first diagonal branch is smallbut grossly patent. The second diagonal branch has mild to moderate mixedatherosclerotic disease with at least a mild stenosis in the proximalsegment LCX: The left circumflex artery is a small vessel with a calcified ostialplaque with associated mild stenosis. Mild disease in the proximal segmentextending into the first obtuse marginal branch which is also a smallvessel. There is at least mild stenosis in the proximal obtuse marginalbranch. It gives off 0 significant (>1.8 mm) obtuse marginal branches. RCA: The right coronary artery has diffuse predominantly calcifiedatherosclerotic plaque particularly in the distal segment extending intothe posterior descending coronary artery and proximal portion of theposterior lateral branch. I cannot evaluate the degree of stenosis withinthe posterior descending coronary artery due to its size but suspect thatit is at least moderate. Mild stenoses in the mid and distal rightcoronary artery. Other Cardiac Findings: Cardiac size Heart size is normal. Valves No valvular calcifications. Pericardium No abnormality. Extra-cardiac findings: There is limited visualization of the thorax secondary to limited z- axiscollimation. Included portion of the mediastinum and large vessels: Aorta No abnormality. Pulmonary arteries Unremarkable shape and diameter. Esophagus Normal esophagus. Other mediastinal findings No other abnormal mediastinal findings are present. Included lymph nodes: Mediastinal Normal sized lymph nodes, no enlarged lymph nodes. Hilar Normal sized lymph nodes, no enlarged lymph nodes. Others None. Included lung parenchyma: No abnormality. Included airways: No abnormality. Included pleura: No abnormality. Upper abdomen: No abnormality in the visualized upper abdominal structures, within thelimitations of examination technique. Included portion of the chest wall and bones: Mild degenerative vertebral disease. FFRct: FFRct coronary analysis will not be ordered. IMPRESSION: 1. CT coronary calcium score is 2035. 2. Severe coronary atherosclerotic plaque identified with a maximalstenosis of 70% or greater in the involved coronary arteries. 3. The study will not be sent for FFRct analysis. A(n) Webb actionable finding has been communicated to the ordering orresponsible provider via the [employer] system on12/17/2024 2:36 PM. Receipt of this communication by the responsibleprovider will be documented in [employer] uponreceiving acknowledgement if applicable, Message ID [id number]. If this radiology report contains a blank impression section, it is anincomplete radiology report. Please contact the interpreting radiologistor applicable radiology division as soon as possible to obtain thecompleted interpretation. Workstation ID: [id number] Tiki SMITH IMParker CT PROCEDURES Final Result * CT Limited Follow Up WO Contrast (12/17/2024 2:04 PM EST) Anatomical Region Laterality Modality Lower Extremities, Knee Computed Tomography 12/17/2024 2:15 PM EST Impressions 12/17/2024 2:[address] coronary calcium score is ??2034. 2. Severe coronary atherosclerotic plaque identified with a maximal stenosis of 70% or greater in the involved coronary arteries. 3. The study will not be sent for FFRct analysis. A(n) Webb actionable finding has been communicated to the ordering or responsible provider via the [employer] system on 12/17/2024 2:36 PM. ??Receipt of this communication by the responsible provider will be documented in [employer] upon receiving acknowledgement if applicable, Message ID [id number]. If this radiology report contains a blank impression section, it is an incomplete radiology report. ??Please contact the interpreting radiologist or applicable radiology division as soon as possible to obtain the completed interpretation. ? Workstation ID: [id number] Narrative 12/17/2024 2:[address] CARDIAC CORONARY AND CALCIUM SCORING, CT LIMITED FOLLOW UP WO CONTRAST INDICATION: Chest pain, nonspecific R07.9 - I10 - Chest pain, unspecified COMPARISON: CT chest April 28, 2019 TECHNIQUE: Prior to and during the administration of intravenous contrast material, ECG-gated CT of the heart was performed from the cardiac base to the apex without complication using retrospective gating with dose modulation. ??A timing bolus was used. ??The patient received the following medications prior to the coronary CTA acquisition: nitroglycerine 0.8 mg nitroglycerine SL. Multiplanar and 3D reformatted images were rendered and reviewed on an advanced processing workstation to further define anatomy and possible pathology. ??Calcium scoring was performed. For radiation dose control at least one of the following techniques was used in this procedure (1) Automated exposure control (2) Adjustment of the mA and/or kV according to patient size (3) Use of iterative reconstruction technique. TECHNICAL QUALITY: excellent FINDINGS: Calcium Score: ECT=724 TWD=289 LCX=95 MHD=9957 TUFZV=[address] Coronary Calcium Score (Agatston Score): Utilizing data from the Multi-Ethnic Study of Atherosclerosis (https://www.ravi-nhlbi.org/Calcium/input.aspx), based upon the patient's age, gender, and race/ethnicity: Percentage of people of the same gender, age and ethnicity/race with a calcium score greater than zero: 70 Percentage of people of the same gender, age and ethnicity/race with calcium scores less than the patient's: 99 Coronary CTA: The coronary arteries arise in normal position. There is right dominance. Left main: The left main coronary artery has mixed atherosclerotic disease with associated mild stenosis. ??There is a small ramus branch. There appears to be mixed disease proximally within the ramus branch with probable at least mild, if not moderate stenosis. LAD: The left anterior descending artery has mixed disease throughout the proximal, mid as well as extending into the distal segment for a length of approximately 31 mm. Just distal to the origin of the first diagonal branch there is a severe stenosis related to predominantly noncalcified plaque. There is a tender moderate to severe stenosis. It gives off 1 significant (>1.8 mm) diagonal branch. The first diagonal branch is small but grossly patent. The second diagonal branch has mild to moderate mixed atherosclerotic disease with at least a mild stenosis in the proximal segment LCX: The left circumflex artery is a small vessel with a calcified ostial plaque with associated mild stenosis. Mild disease in the proximal segment extending into the first obtuse marginal branch which is also a small vessel. There is at least mild stenosis in the proximal obtuse marginal branch. It gives off 0 significant (>1.8 mm) obtuse marginal branches. RCA: The right coronary artery has diffuse predominantly calcified atherosclerotic plaque particularly in the distal segment extending into the posterior descending coronary artery and proximal portion of the posterior lateral branch. I cannot evaluate the degree of stenosis within the posterior descending coronary artery due to its size but suspect that it is at least moderate. Mild stenoses in the mid and distal right coronary artery. Other Cardiac Findings: Cardiac size Heart size is normal. Valves No valvular calcifications. Pericardium No abnormality. Extra-cardiac findings: ?? There is limited visualization of the thorax secondary to limited z-axis collimation. Included portion of the mediastinum and large vessels: ? Aorta No abnormality. Pulmonary arteries Unremarkable shape and diameter. Esophagus Normal esophagus. Other mediastinal findings No other abnormal mediastinal findings are present. Included lymph nodes: Mediastinal Normal sized lymph nodes, no enlarged lymph nodes. Hilar Normal sized lymph nodes, no enlarged lymph nodes. Others None. Included lung parenchyma: No abnormality. Included airways: No abnormality. Included pleura: No abnormality. Upper abdomen: No abnormality in the visualized upper abdominal structures, within the limitations of examination technique. Included portion of the chest wall and bones: Mild degenerative vertebral disease. FFRct: FFRct coronary analysis will not be ordered. Resulting Agency Comment [id number] Procedure Note Arjun Lovett MD - 12/17/2024 CT CARDIAC CORONARY AND CALCIUM SCORING, CT LIMITED FOLLOW UP [facility] INDICATION: Chest pain, nonspecific R07.9 - I10 - Chest pain,unspecified COMPARISON: CT chest April 28, 2019 TECHNIQUE: Prior to and during the administration of intravenous contrastmaterial, ECG-gated CT of the heart was performed from the cardiac base tothe apex without complication using retrospective gating with dosemodulation. A timing bolus was used. The patient received the followingmedications prior to the coronary CTA acquisition: nitroglycerine 0.8 mgnitroglycerine SL. Multiplanar and 3D reformatted images were rendered and reviewed on anadvanced processing workstation to further define anatomy and possiblepathology. Calcium scoring was performed. For radiation dose control at least one of the following techniques wasused in this procedure (1) Automated exposure control (2) Adjustment ofthe mA and/or kV according to patient size (3) Use of iterativereconstruction technique. TECHNICAL QUALITY: excellent FINDINGS: Calcium Score: YHJ=915 VPG=173 LCX=95 MQQ=8835 DXNXS=[address] Coronary Calcium Score (Agatston Score): Utilizing data from the Multi-Ethnic Study of Atherosclerosis(https://www.ravi-nhlbi.org/Calcium/input.aspx), based upon the patient'ricky, gender, and race/ethnicity: Percentage of people of the same gender, age and ethnicity/race with acalcium score greater than zero: 70 Percentage of people of the same gender, age and ethnicity/race withcalcium scores less than the patient's: 99 Coronary CTA: The coronary arteries arise in normal position. There is rightdominance. Left main: The left main coronary artery has mixed atherosclerotic diseasewith associated mild stenosis. There is a small ramus branch. Thereappears to be mixed disease proximally within the ramus branch withprobable at least mild, if not moderate stenosis. LAD: The left anterior descending artery has mixed disease throughout theproximal, mid as well as extending into the distal segment for a length ofapproximately 31 mm. Just distal to the origin of the first diagonalbranch there is a severe stenosis related to predominantly noncalcifiedplaque. There is a tender moderate to severe stenosis. It gives off 1significant (>1.8 mm) diagonal branch. The first diagonal branch is smallbut grossly patent. The second diagonal branch has mild to moderate mixedatherosclerotic disease with at least a mild stenosis in the proximalsegment LCX: The left circumflex artery is a small vessel with a calcified ostialplaque with associated mild stenosis. Mild disease in the proximal segmentextending into the first obtuse marginal branch which is also a smallvessel. There is at least mild stenosis in the proximal obtuse marginalbranch. It gives off 0 significant (>1.8 mm) obtuse marginal branches. RCA: The right coronary artery has diffuse predominantly calcifiedatherosclerotic plaque particularly in the distal segment extending intothe posterior descending coronary artery and proximal portion of theposterior lateral branch. I cannot evaluate the degree of stenosis withinthe posterior descending coronary artery due to its size but suspect thatit is at least moderate. Mild stenoses in the mid and distal rightcoronary artery. Other Cardiac Findings: Cardiac size Heart size is normal. Valves No valvular calcifications. Pericardium No abnormality. Extra-cardiac findings: There is limited visualization of the thorax secondary to limited z- axiscollimation. Included portion of the mediastinum and large vessels: Aorta No abnormality. Pulmonary arteries Unremarkable shape and diameter. Esophagus Normal esophagus. Other mediastinal findings No other abnormal mediastinal findings are present. Included lymph nodes: Mediastinal Normal sized lymph nodes, no enlarged lymph nodes. Hilar Normal sized lymph nodes, no enlarged lymph nodes. Others None. Included lung parenchyma: No abnormality. Included airways: No abnormality. Included pleura: No abnormality. Upper abdomen: No abnormality in the visualized upper abdominal structures, within thelimitations of examination technique. Included portion of the chest wall and bones: Mild degenerative vertebral disease. FFRct: FFRct coronary analysis will not be ordered. IMPRESSION: 1. CT coronary calcium score is 2034. 2. Severe coronary atherosclerotic plaque identified with a maximalstenosis of 70% or greater in the involved coronary arteries. 3. The study will not be sent for FFRct analysis. A(n) Webb actionable finding has been communicated to the ordering orresponsible provider via the [employer] system on12/17/2024 2:36 PM. Receipt of this communication by the responsibleprovider will be documented in [employer] uponreceiving acknowledgement if applicable, Message ID [id number]. If this radiology report contains a blank impression section, it is anincomplete radiology report. Please contact the interpreting radiologistor applicable radiology division as soon as possible to obtain thecompleted interpretation. Workstation ID: [id number] Tiki SMITH IM CT PROCEDURES Final Result * (ABNORMAL) CBC Auto Differential (12/02/2024 3:14 PM EST) WBC 8.4 3.8 - 10.8 10*3/uL 12/02/2024 3:29 PM EST [facility] RBC 4.72 4.20 - 5.80 10*6/uL 12/02/2024 3:29 PM EST [facility] Hemoglobin 15.2 13.2 - 17.1 g/dL 12/02/2024 3:29 PM EST [facility] Hematocrit 44.7 38.5 - 50.0 % 12/02/2024 3:29 PM EST [facility] MCV 94.7 80.0 - 100.0 fL 12/02/2024 3:29 PM EST [facility] MCH 32.2 27.0 - 33.0 pg 12/02/2024 3:29 PM EST [facility] MCHC 34.0 32.0 - 36.0 g/dL 12/02/2024 3:29 PM EST [facility] RDW 11.3 11.0 - 15.0 % 12/02/2024 3:29 PM EST [facility] Platelets 244 140 - 400 10*3/uL 12/02/2024 3:29 PM EST [facility] MPV 10.8 7.5 - 12.5 fL 12/02/2024 3:29 PM EST [facility] Neutrophil % 62.3 % 12/02/2024 3:29 PM EST [facility] Immature Grans % 0.5 0.0 - 0.9 % 12/02/2024 3:29 PM EST [facility] Lymphocyte % 19.2 % 12/02/2024 3:29 PM EST [facility] Monocyte % 9.3 % 12/02/2024 3:29 PM EST [facility] Eosinophil % 8.5 % 12/02/2024 3:29 PM EST [facility] Basophil % 0.2 % 12/02/2024 3:29 PM EST [facility] Neutrophil # 5.20 1.50 - 7.80 10*3/uL 12/02/2024 3:29 PM EST [facility] Immature Grans # 0.04(H) <=0.03 10*3/uL 12/02/2024 3:29 PM EST [facility] Lymphocyte # 1.60 0.85 - 3.90 10*3/uL 12/02/2024 3:29 PM EST [facility] [employer] [facility] Monocyte # 0.80 0.20 - 0.95 10*3/uL 12/02/2024 3:29 PM EST [facility] Eosinophil # 0.70(H) 0.02 - 0.50 10*3/uL 12/02/2024 3:29 PM EST [facility] Basophil # <0.03 0.00 - 0.20 10*3/uL 12/02/2024 3:29 PM EST [facility] [employer] [facility] nRBC % 0.0 /100 WBCs 12/02/2024 3:29 PM EST [facility] nRBC # <0.01 <0.01 10*3/uL 12/02/2024 3:29 PM EST [facility] Blood Structure of peripheral vein / Unknown Venipuncture / Unknown 12/02/2024 3:14 PM EST 12/02/2024 3:22 PM EST us Juan Boswell MD LAB BLOOD ORDERABLES Final R esult [facility] [employer] [facility] [address] [place] [address], * Lipoprotein A (LPA) (12/02/2024 3:14 PM EST) Lipoprotein 13 <75 nmol/L 12/05/2024 7:02 AM EST [facility] ([facility]) Comment: ? Risk Category ??Optimal ?< 75 nmol/L ??Moderate ?? 75 - 125 nmol/L ??High ?> 125 nmol/L Cardiovascular event risk category cut points (optimal, moderate, high) are based on Luann Durbin JACC 2017;69:692-711. ? Blood Structure of peripheral vein / Unknown Venipuncture / Unknown 12/02/2024 3:14 PM EST 12/02/2024 3:22 PM EST Narrative [employer] - 12/05/2024 7:02 AM EST [facility] Received Date:[id number] Juan Boswell MD LAB BLOOD ORDERABLES Final R esult [facility] MO[facility] [address] [place] [address] 3rd Floor, [place] [address], [employer] [facility] (CHIN) [address] [place] [address], [place] * Hemoglobin A1c (12/02/2024 3:14 PM EST) Hemoglobin A1C 4.7 <5.7 % of total Hgb 12/03/2024 2:05 AM [employer] Comment: For the purpose of screening for the presence of diabetes: <5.7% ? Consistent with the absence of diabetes 5.7-6.4% ?Consistent with increased risk for diabetes ?(prediabetes) > or =6.5% ??Consistent with diabetes This assay result is consistent with a decreased risk of diabetes. Currently, no consensus exists regarding use of hemoglobin A1c for diagnosis of diabetes in children. According to British Diabetes Association (ADA) guidelines, hemoglobin A1c <7.0% represents optimal control in non- diabetic patients. Different metrics may apply to specific patient populations. Standards of Medical Care in Diabetes(ADA). ?? eAG (MG/DL) 88 mg/dL 12/03/2024 2:05 AM [employer] eAG (MMOL/L) 4.9 mmol/L 12/03/2024 2:05 AM [employer] Blood Structure of peripheral vein / Unknown Venipuncture / Unknown 12/02/2024 3:14 PM EST 12/02/2024 3:22 PM EST Narrative [employer] - 12/03/2024 2:05 AM EST [facility] Received Date:[id number] Juan Boswell MD LAB BLOOD ORDERABLES Final R esult [facility] [address] [facility] 3rd Floor, [place] [address], [place] [phone] [employer] [facility] [address] [facility] 3rd Floor, [place] [address], [place] [phone] * (ABNORMAL) Comprehensive Metabolic Panel (12/02/2024 3:14 PM EST) NA 138 135 - 145 mmol/L 12/02/2024 3:55 PM EST [facility] K 4.2 3.5 - 5.3 mmol/L 12/02/2024 3:55 PM EST [facility] Cl 102 98 - 107 mmol/L 12/02/2024 3:55 PM EST [facility] CO2 25 22 - 32 mmol/L 12/02/2024 3:55 PM EST [facility] Anion Gap 11 5 - 15 12/02/2024 3:55 PM EST [facility] Glucose 110(H) 65 - 99 mg/dL 12/02/2024 3:55 PM EST [facility] Creatinine 1.18 0.60 - 1.30 mg/dL 12/02/2024 3:55 PM EST [facility] Calcium 9.1 8.6 - 10.5 mg/dL 12/02/2024 3:55 PM EST [facility] Total Protein 7.6 6.0 - 8.0 g/dL 12/02/2024 3:55 PM EST [facility] Albumin 4.4 3.5 - 5.2 g/dL 12/02/2024 3:55 PM EST [facility] Bilirubin, Total 1.3(H) 0.2 - 1.2 mg/dL 12/02/2024 3:55 PM EST [facility] Alkaline Phosphatase 93 35 - 129 U/L 12/02/2024 3:55 PM EST [facility] [employer] [facility] AST 30 10 - 40 U/L 12/02/2024 3:55 PM EST [facility] [employer] [facility] ALT 29 10 - 40 U/L 12/02/2024 3:55 PM EST [facility] [employer] [facility] BUN 13 7 - 23 mg/dL 12/02/2024 3:55 PM EST [facility] [employer] [facility] eGFR 70 >=60 mL/min/1. 73m2 12/02/2024 3:55 PM EST [facility] [employer] [facility] Comment:The estimated glomer ular filtration rate (eGFR) is calculated using a new formula developed by the NKF-ASN task force to eliminate race-based correction factors. The new formula uses serum/plasma creatinine, age, and gender to determine eGFR. A value below 60mls/min might indicate kidney disease and will be flagged. For additional information, see Tom et al, Am J Kidney Dis. 2021;79(2):268- 288, A Unifying Approach for GFR estimation: Recommendations of the NKF-ASN Task Force on Reassessing the Inclusion of Race in Diagnosing Kidney Disease . Globulin, Total 3.2 2.1 - 4.2 g/dL 12/02/2024 3:55 PM EST [facility] [employer] [facility] A/G Ratio 1.4(L) 1.5 - 3.0 12/02/2024 3:55 PM EST [facility] [employer] [facility] Blood Structure of peripheral vein / Unknown Venipuncture / Unknown 12/02/2024 3:14 PM EST 12/02/2024 3:22 PM EST us Juan Boswell MD LAB BLOOD ORDERABLES Final R esult [facility] [employer] [facility] [address] [place] [address], [place] from Last 3 Months Insurance [facility] Advance Directives Documents on File Type Date Recorded Patient Chain Maker Hand Expl anation Health Care Proxy 04/02/2019 11:16 AM Elizabet Alston * Full Code (Latest Code Status on File) Date Activated Date Inactivated Comments 02/08/2025 6:37 AM 02/08/2025 4:45 PM * Full Code Date Activated Date Inactivated Comments 03/16/2024 3:37 PM 03/17/2024 11:24 AM * Full Code Date Activated Date Inactivated Comments 03/16/2024 9:39 AM 03/16/2024 3:37 PM * Full Code Date Activated Date Inactivated Comments 12/25/2023 2:19 PM 12/27/2023 8:35 PM * Full Code Date Activated Date Inactivated Comments 02/24/2021 11:09 AM 02/24/2021 8:31 PM Healthcare Agents on File Name Relationship Healthcare Agent Relationshi p Communication Elizabet Alston Partner Health Care Agent Care Teams Business Project Manager Relationship Specialty Start Date End Date Jonathan Barnett PA NPI: [id number] [place] [id number] PCP - General 12/14/21
--- OUTSIDE RECORDS SUMMARY | 2025-02-23 17:39 | XMS_ITS | Encounter Summary ---
Author Organization [facility] Address [address] [place] [address] Care Team Providers Care Interpreter Translator Name Role Phone Jonathan Barnett Primary Care Provider [phone] Reason for Visit * Reason Onset Date Comments Reaction to Med 12/26/2020 Encounter Details Date Type Department Care Team (Late st Contact Info) Description 12/26/2020 Telephone [facility] Central Scheduling Department [address] [place] [address] Telephone Intake, Staff Reaction to Med Social History Tobacco Use Types Packs/Day Years [...] Orientation Straight 02/20/2022 9: 34 AM EDT documented as of this encounter Miscellaneous Notes * Telephone Encounter - Suzanne Diaz - 12/27/2020 3:01 PM EST All set, booked with Ingrid for 01/10 * Telephone Encounter - Lindsay Bowman RN - 12/27/2020 1:14 PM EST Called and relayed message. Patient requests atenolol script be sent to [facility]. Nichole, could you set up an appt, in 1-2 weeks with an LUIS MIGUEL? Thanks so much * Telephone Encounter - Lindsay Bowman RN - 12/27/2020 8:18 AM EST Fito is calling because he has noticed since starting dialtizem, patients memory is foggy, he is significantly fatigued and has shortness of breath. He unfortunately cannot work with a foggy brain. Bp 128/78, HR consistently 60. He does not feel like he is in afib. He has shortness of breath with any sort of activity: walking, bending physical activity. He denies any increase in weights or fluid in ankles/abdomen. Please advise. * Telephone Encounter - Raghav Day - 12/26/2020 5:28 PM EST Patient calling states that Dr. So prescribed him Diltiazem and he's having fatigue and shortness of breath. He would like to talk to somebody about getting another script. Also, he is having a Cardio Ablation soon. He would like to know if he should be Covid vaccinated first. Fito can be reached at [phone]. documented in this encounter Plan of Treatment Upcoming Encounters Date Type Department Care Team (Late st Contact Info) Description 03/01/2025 1:40 PM EDT Telehealth [facility] Endocrinology Clinic [address] [place] [address] Dog Bather: Otilia Edwards, PharmD 03/02/2025 8:00 AM EDT Office Visit [facility] 4th floor Cardiology Medicine [address] [place] [address] Dog Bather: Amirah Membreno 03/05/2025 2:00 PM EDT Telehealth [facility] Telehealth [address] [place] [address] Tracie Westbrook NP [address] [place] [address] 03/11/2025 10:00 AM EDT Follow-Up [facility] [place] [facility] [address] [address] Kian Cuello MD [address] [address] 06/09/2025 2:30 PM EDT Office Visit [facility] Endocrinology Clinic [address] [place] [address] Dog Bather: Elana Soni NP [address] [place] [address] 08/09/2025 2:30 PM EDT Follow-Up [facility] 4th floor Cardiology Medicine [address] [place] [address] Dog Bather: Tiki Peña PA [address] [place] [address] 12/13/2025 2:40 PM EST Office Visit [facility] Endocrinology Clinic 7 [address] [place] [address] Henrietta Weeks MD [address] [place] [address] documented as of this encounter Visit Diagnoses Not on filedocumented in this encounter Care Teams Interpreter Translator Relationship Specialty Start Date End Date Jonathan Barnett PA [address] [place] [address] PCP - General 12/14/21 documented as of this encounter
--- OUTSIDE RECORDS SUMMARY | 2025-02-23 17:39 | XMS_ITS | Encounter Summary ---
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 Complaint with mary jane. LUIS Moreira * Telephone Encounter - Eusebia Mcmahon - 01/14/2025 8:55 AM EDT Pt had 1 abnormal event from monitor . Report in director paid media. documented in this encounter Plan of Treatment Upcoming Encounters Date Type Department Care Team (Late st Contact Info) Description 03/01/2025 1:40 PM EDT Telehealth [facility] Endocrinology Clinic [address] [place] [address] Online User Experience Strategist: Otilia Edwards PharmD 03/02/2025 8:00 AM EDT Office Visit [facility] 4th floor Cardiology Medicine [address] [place] [address] Online User Experience Strategist: Amirah Membreno 03/05/2025 2:00 PM EDT Telehealth [facility] [employer] Telehealth [address] [place] [address] Tracie Westbrook NP [address] [place] [address] 03/11/2025 10:00 AM EDT Follow-Up [facility] 85 [place] [facility] [address] [place] [address] Kian Cuello MD [address] [address] 06/09/2025 2:30 PM EDT Office Visit [facility] Endocrinology Clinic [address] [place] [address] Online User Experience Strategist: Elana Soni NP [address] [place] [address] 08/09/2025 2:30 PM EDT Follow-Up [facility] 4th floor Cardiology Medicine [address] [place] [address] Online User Experience Strategist: Tiki Peña PA [address] [place], [place] [id number] 12/13/2025 2:40 PM EST Office Visit [facility] Endocrinology Clinic 7 [address] [place] [address] Henrietta Weeks MD [address] [place] [address] documented as of this encounter Visit Diagnoses Not on filedocumented in this encounter Care Teams Windchill Administrator Relationship Specialty Start Date End Date Jonathan Barnett PA [address] [place] [address] PCP - General 12/14/21 documented as of this encounter
--- OUTSIDE RECORDS SUMMARY | 2025-02-23 17:39 | XMS_ITS | Clinical Summary ---
Author Organization [facility] it Address [address] [place] [address] Care Team Providers Care Warehouse Receiving Clerk Name Role Phone Unavailable Primary Care Provider Unavailabl e Social History Tobacco Use Types Packs/Day Years Used Date Smoking Tobacco: Never Assessed Sex and Gender Information Value Date Recorded Sex Assigned at Not on file Legal Sex Male 4:21 AM EST Gender Identity Not on file Sexual Orientation Not on file Plan of Treatment Health Maintenance Due Date Last Done Comments DTaP,Tdap,and Td Vaccines (1 - Tdap) 1982 Pneumococcal Vaccine: 50+ Ye ars (1 of 1 - PCV) 2013 Zoster Vaccines (1 of 2) 2013 COVID-19 Vaccine ( - 2023-2 5 season) 2024 Influenza Vaccine (Season Ended) 2025 RSV Immunization Adult Patie nts (1 - 1-dose 75+ series) 2038 HIB Vaccines Aged Out No longer eligi ble based on patient's age to complete this topic HPV Vaccines Aged Out No longer eligi ble based on patient's age to complete this topic Hepatitis A Vaccines Aged Out No long er eligible based on patient's age to complete this topic Hepatitis B Vaccines Aged Out No long er eligible based on patient's age to complete this topic IPV Vaccines Aged Out No longer eligi ble based on patient's age to complete this topic MMR Vaccines Aged Out No longer eligi ble based on patient's age to complete this topic Meningococcal ACWY Vaccine Aged Out N o longer eligible based on patient's age to complete this topic Meningococcal B Vaccine Aged Out No l onger eligible based on patient's age to complete this topic Pneumococcal Vaccine: Pediat rics (0 to 5 Years) and At-Risk Patients (6 to 64 Years) Aged Out No longer eligible b ased on patient's age to complete this topic RSV Immunization Patients Un zac 20 months Aged Out No longer eligible b ased on patient's age to complete this topic Varicella Vaccines Aged Out No longer eligible based on patient's age to complete this topic
--- OUTSIDE RECORDS SUMMARY | 2025-02-23 17:39 | XMS_ITS | Encounter Summary ---
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 Not on file Not on file documented as of this encounter Plan of Treatment Upcoming Encounters Date Type Department Care Team (Late st Contact Info) Description 03/01/2025 1:40 PM EDT Telehealth [facility] Endocrinology Clinic [address] [place] [address] Ground Mixer: Otilia Edwards, Adrian 03/02/2025 8:00 AM EDT Office Visit [facility] 4th floor Cardiology Medicine [address] [place] [address] Ground Mixer: Amirah Membreno 03/05/2025 2:00 PM EDT Telehealth [facility] [employer] Telehealth [address] [place] [address] Tracie Westbrook NP [address] [place] [address] 03/11/2025 10:00 AM EDT Follow-Up [facility] [address] [place] [facility] [address] [place] [address] Kian Cuello MD [address] [address] 06/09/2025 2:30 PM EDT Office Visit [facility] Endocrinology Clinic [address] [place] [address] Ground Mixer: Elana Soni NP [address] [place] [address] 08/09/2025 2:30 PM EDT Follow-Up [facility] 4th floor Cardiology Medicine [address] [place] [address] Ground Mixer: Tiki ePña PA [address] [place] [address] 12/13/2025 2:40 PM EST Office Visit [facility] Endocrinology Clinic 7 [address] [place] [address] Henrietta Weeks MD [address] [place] [address] documented as of this encounter Visit Diagnoses Not on filedocumented in this encounter Care Teams Client Service Professional Relationship Specialty Start Date End Date Jonathan Barnett PA [address] [place] [address] PCP - General 12/14/21 documented as of this encounter
--- OUTSIDE RECORDS SUMMARY | 2025-02-23 17:39 | XMS_ITS | Encounter Summary ---
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 Not on file Not on file documented as of this encounter Miscellaneous Notes * Telephone Encounter - Leona Velazquez - 09/21/2022 9:30 AM EST 09/22/2022: Called and spoke to patient he will keep his appointment * Telephone Encounter - Celina Conde - 09/21/2022 9:13 AM EST New pt to clinic Pt has an appt on 09/28 @ 8:30am Pt needs to reschedule this appt - I was unable to accommodate pt per DT directions to send TE to clinic Pt can be reached at; [phone] documented in this encounter Plan of Treatment Upcoming Encounters Date Type Department Care Team (Late st Contact Info) Description 03/01/2025 1:40 PM EDT Telehealth [facility] End[facility] [address] [place] [id number] Technician: Otilia Edwards, Adrian 03/02/2025 8:00 AM EDT Office Visit [facility] 4th floor Cardiology Medicine [address] [place] [address] Technician: Amirah Membreno 03/05/2025 2:00 PM EDT Telehealth [facility] [employer] Telehealth [address] [place] [phone] Tracie Westbrook NP [address] [place] [id number] 03/11/2025 10:00 AM EDT Follow-Up [address] Pulmonology [address] [place] [id number] Kian Cuello MD [address] [place] [phone] 06/09/2025 2:30 PM EDT Office Visit [facility] End[facility]ology [facility] [address] [place] [phone] Technician: Elana Soni NP [address] [place] [phone] 08/09/2025 2:30 PM EDT Follow-Up [facility] 4th floor Cardiology Medicine [address] [place] [address] Ct Technician: Tiki Peña PA [address] [place] [address] 12/13/2025 2:40 PM EST Office Visit [facility] Endocrinology Clinic [address] [place] [address] Henrietta Weeks MD [address] [place] [address] documented as of this encounter Visit Diagnoses Not on filedocumented in this encounter Care Teams Technical Trainer Relationship Specialty Start Date End Date Jonathan Barnett PA [address] [place] [id number] PCP - General 12/14/21 documented as of this encounter
--- OUTSIDE RECORDS SUMMARY | 2025-02-23 17:39 | XMS_ITS | Clinical Summary ---
Author Organization [facility] Address [address] [place] [address] Care Team Providers Care Mailroom Clerk Name Role Phone Jonathan Barnett Primary Care Provider Allergies Active Allergy Reactions Criticality Noted Date [...] of breath. Use with spacer. 8.5 g 5 04/24/20 24 025 Active montelukast (SINGULAIR) 10 [...] every 12 hours. 60 capsule 11 02/06/20 025 Discontinued aspirin chewable tablet 81 mg [...] tikosyn. He is on eliquis for a [id number] of 3 iso of DM2, HTN, and [...] is on AC with Eliquis for a [id number] of 2. For antiarrhythmic control he has [...] Discuss MACE benefits Ozempic instruction provided to , including: purpose and action, New Pen Setup, [...] I have ordered, also we discussed the [employer] mobile device for more rare events that [...] He is interested in some here at [facility]. Thus I referred him to our sleep [...] reached out to sleep medicine doctor in [place] Assessment & Plan (12/01/2020 12:18 PM EST): [...] with his current sleep medicine doctor in [place]. I said that if he is not [...] on August I confirm this appointment in [facility], and encouraged him to attend it. [...] Assessment & Plan (11/20/2023 4:15 PM EST): Fito has symptomatic persistent symptomatic [...] $10 a month for him. Would not private branch exchange service adviser at this time Petey that weight loss [...] PM EDT): Fito has symptomatic persistent symptomatic electrician assistant atrial fibrillation. His symptoms included fatigue [...] EST): Mr. Diaz has symptomatic persistent symptomatic electrician assistant atrial fibrillation. His symptoms included fatigue [...] EDT): Mr. Diaz has symptomatic persistent symptomatic electrician assistant atrial fibrillation. His symptoms included fatigue [...] AM EST): Mr. Diaz has persistent symptomatic electrician assistant atrial fibrillation. His symptoms included fatigue [...] PM EST): Mr. Diaz has persistent symptomatic electrician assistant atrial fibrillation. His symptoms included fatigue [...] PM EST): Mr. Diaz has persistent symptomatic electrician assistant atrial fibrillation. His symptoms included fatigue [...] PM EST): Mr. Diaz has persistent symptomatic electrician assistant atrial fibrillation. His symptoms included fatigue [...] AM EDT): Mr. Diaz has persistent symptomatic electrician assistant atrial fibrillation. His symptoms included fatigue [...] as well as a cardiac CT scan. 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 (Primary Dx); Dyslipidemia (high LDL; low HDL); Chronic heart failure with preserved ejection fraction (HCC); Essential hypertension; Persistent atrial fibrillation (HCC) 02/17/[address] Cardiology Medicine [address] [place] [address] Tower Air Traffic Control Specialist: Marlen Felix MD 02/17/2025 Orders Only [facility] Nuclear Medicine [address] [place] [address] Wicho Cruz MD 02/15/[address] Cardiology Medicine [address] [place] [address] Tower Air Traffic Control Specialist: Juan Velasco MD PAC Patient Request Call Back 02/09/2025 Telephone [facility] 4th floor Cardiology Medicine [address] [place] [phone] Tower Air Traffic Control Specialist: Izabel Dhillon NP PAC Appt Request - Established 02/08/2025 7:30 AM EDT - 02/08/2025 9:05 AM EDT Surgery [facility] Heart and Vascular Interventional Lab [address] [place] [address] Marlen Saenz MD Coronary angiography 02/08/2025 6:35 AM EDT - 02/08/2025 2:45 PM EDT Hospital Encounter [facility] V[facility] Interventional Lab [address] [place] [address] Marlen Saenz MD Coronary artery disease involving jam[place] coronary artery of jamestown heart, unspecified whether angina present (Primary Dx); Angina pectoris, unstable; Coronary artery disease involving [place] coronary artery of [place] heart with unstable angina pectoris Discharge Disposition: Home or Self Care () 02/07/2025 Orders Only [address] floor Cardiology Medicine [address] [place] [address] Tower Air Traffic Control Specialist: Ovi Lisa MD PhD 02/05/2025 Refill [facility] 4th floor Cardiology Medicine [address] [place] [address] Tower Air Traffic Control Specialist: Dana Simms LPN 02/04/2025 3:27 PM EDT - 02/04/2025 11:59 PM EDT Hospital Encounter [facility] Cardiac Ultrasound [address] [place] [phone] Chest pain, unspecified type Discharge Disposition: Home or Self Care () 02/04/2025 Orders Only [facility] 4th floor Cardiology Medicine [address] [place] [address] Tower Air Traffic Control Specialist: Juna Velasco MD 02/04/2025 Orders Only [facility] Heart [facility] Vascular Interventional Lab [address] [place] [address] Shaneka Salcedo, PA 02/04/2025 Telephone [facility] Heart [facility] Vascular Interventional Lab [address] [place] [address] Shaneka Salcedo PA 02/03/2025 Refill [facility] 4th floor Cardiology Medicine [address] [place] [address] Tower Air Traffic Control Specialist: Juan Velasco MD 02/02/2025 Telephone [facility] Heart and Vascular Interventional Lab [address] [place] [address] Shaneka Salcedo, PA 01/14/2025 Telephone [facility] Heart Station [address] [place] [address] Alisia Gibson DO 01/13/2025 Telephone [facility] 4th floor Cardiology Medicine [address] [place] [address] Tower Air Traffic Control Specialist: Juan Velasco MD 01/07/2025 Orders Only [facility] 4th floor Cardiology Medicine [address] [place] [address] Tower Air Traffic Control Specialist: Juan Velasco MD 01/07/2025 Michelle Message [facility] 4th floor Cardiology Medicine [address] [place] [address] Tower Air Traffic Control Specialist: Jesus Delaney Provider pre procedure instructions 01/06/2025 Telephone [facility] 4th floor Cardiology Medicine [address] [place] [address] Tower Air Traffic Control Specialist: Juan Velasco MD 01/06/2025 Documentation [facility] 4th floor Cardiology Medicine [address] [place] [address] Tower Air Traffic Control Specialist: Merary Pereira PA 01/06/2025 Orders Only [facility] 4th floor Cardiology Medicine [address] [place] [address] Tower Air Traffic Control Specialist: Merary Pereira PA Angina pectoris, unstable (Primary Dx) 01/06/2025 Telephone [facility] Endocrinology Clinic [address] [place] [address] Tower Air Traffic Control Specialist: Henrietta Hobson MD Prior Authorization 12/23/2024 10:10 AM EST - 12/23/2024 11:59 PM EST Hospital Encounter [facility] Heart Station [address] [place] [address] Chest pain, unspecified type; Palpitations Discharge Disposition: Home or Self Care () 12/23/2024 myChart Message [facility] HB Revenue Cycle Management [address] [place] [address] Mychart, Generic Provider Pharamcy Account Dispute 12/18/2024 Results Follow-Up [facility] 4th floor Cardiology Medicine [address] [place] [address] Tower Air Traffic Control Specialist: Tiki Peña PA 12/17/2024 1:13 PM EST - 12/17/2024 11:59 PM EST Hospital Encounter [facility] CT Scan [address] [place] [address] Chest pain, unspecified type Discharge Disposition: Home or Self Care () 12/17/2024 Telephone [facility] 4th floor Cardiology Medicine [address] [place] [address] Tower Air Traffic Control Specialist: Juan Velasco MD 12/17/2024 Orders Only [facility] 4th floor Cardiology Medicine [address] [place] [address] Tower Air Traffic Control Specialist: Juan Velasco MD Angina pectoris, unstable (Primary Dx) 12/17/2024 Orders Only [facility] Interventional Radiology [address] [place] [address] Claudia Joyce NP 12/10/2024 Telephone [facility] Endocrinology Clinic [address] [place] [address] Tower Air Traffic Control Specialist: Lizbet Low Prior Authorization (ZEPBOUND) 12/09/2024 2:00 PM EST Office Visit [facility] Endocrinology Clinic [address] [place] [phone] Tower Air Traffic Control Specialist: Henrietta Hobson MD Obesity, endogenous (Primary Dx); LAYNE (obstructive sleep apnea); Type 2 diabetes mellitus without complication, without long-term current use of insulin; Essential hypertension 12/07/2024 myChart Message [facility] HB Revenue Cycle Management [address] [place] [id number] Mychart, Generic Provider Account Review 12/02/2024 2:20 PM EST Follow-Up [address] floor Cardiology Medicine [address] [place] [address] Tower Air Traffic Control Specialist: Juan Velasco MD Dyslipidemia (high LDL; low HDL) (Primary Dx); Persistent atrial fibrillation; SVT (supraventricular tachycardia); Morbid obesity, unspecified obesity type; Chest pain, unspecified type from Last 3 Months Immunizations Immunization Administration Dates Next Due Pneumococcal Polysaccharide Vaccine, 23 Valent 1 12/27/2019 Family History Medical History Relation Name Comments Dementia Father Heart disease Father stents _+ Afib Hyperlipidemia Father Hypertension Father Thyroid disease Mother at 91 Thyroid disease Sister 1 Asthma Sister 2 Breast cancer Sister 3 half sister Diabetes Neg Hx Obesity Neg Hx Relation Name Status Comments Father Mother (Age 93) Sister 1 Sister 2 Alive Sister 3 Alive Social History Tobacco Use Types Packs/Day Years [...] 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 on file Not on file [...] Info) Description 03/01/2025 1:40 PM EDT Telehealth [facility] Endocrinology Clinic [address] [place] [address] Tower Air Traffic Control Specialist: Otilia Edwards, Adrian 03/02/2025 8:00 AM EDT Office Visit [facility] 4th floor Cardiology Medicine [address] [place] [phone] Tower Air Traffic Control Specialist: Amirah Membreno 03/05/2025 2:00 PM EDT Telehealth [facility] [employer] Telehealth [address] [place] [address] Tracie Westbrook NP [address] [place] [address] 03/11/2025 10:00 AM EDT Follow-Up [facility] [address] [place] [facility] [address] [address] Kian Cuello MD [address] [address] 06/09/2025 2:30 PM EDT Office Visit [facility] Endocrinology Clinic [address] [place] [address] Tower Air Traffic Control Specialist: Elana Soni NP [address] [place] [address] 08/09/2025 2:30 PM EDT Follow-Up [facility] 4th floor Cardiology Medicine [address] [place] [address] Tower Air Traffic Control Specialist: Tiki Peña PA [address] [place] [address] 12/13/2025 2:40 PM EST Office Visit [facility] Endocrinology Clinic 7 [address] [place] [address] Henrietta Weeks MD [address] [place] [address] Health Maintenance Due Date Last Done Comments Cologuard 1963 Colon Cancer Screening 1963 Colonoscopy 1963 FOBT / Fit Test 1963 HIV Screening 1963 Hepatitis C Screening 1963 Sigmoidoscopy 1963 Ophthalmology Exam 1973 Urine Microalbumin 1973 DTaP,Tdap,and Td Vaccines (1 - Tdap) 1985 Zoster Vaccines (1 of 2) 2013 Pneumococcal Vaccine: 50+ Years (2 of 2 - PCV) 10/26/2021 10/26/2020 RSV Vaccine (60+ years old and patients) (1 - Risk 60-74 years 1-dose series) 2023 COVID-19 Vaccine (1 - 2023- season) 2024 Alcohol/Substance Use Screening 11/04/2024 Depression Screening and Follow-Up 11/04/2024 Social Drivers of Health Annual Screening 11/04/2024 Hemoglobin A1C 06/01/2025 12/02/2024, 10/05, 09/08/2020, Additional history exists Influenza Vaccine (Season Ended) 2025 11/20/2022 Basic Metabolic Panel 02/04/2026 02/04/2025 , 12/02/2024, 03/17/2024, Additional history exists Hepatitis B Vaccines Aged Out No long er eligible based on patient's age to complete this topic Medical Devices Implanted Type Area Supply Chain Project Manager Device Identifier Shelf Expiration Date Model / Serial / Lot System Closure And Repair Suture-Mediat ed Perclose Prostyle - [id number] Implanted:Qty : 1 on 03/16/2024 by Eddie Mills MD at [facility] [place] [employer]plant [employer] [id number] 01/01/2026 [id number] / / [id number] System Closure And Repair Suture-Mediat ed Perclose Prostyle - [id number] Implanted:Qty : 1 on 03/16/2024 by Eddie Mills MD at [facility] [place] Implant Right: Groin [employer] [id number] 01/01/2026 [id number] / / [id number] System Closure Vascular Venous Mvp 6-12fr Vascade - [id number] Implanted:Qty : 1 on 03/16/2024 by Eddie Mills MD at [facility] [place] Implant Right: Groin [employer] 12/06/2025 [id number] -[id number] / / [id number] System Closure Vascular Venous Mvp 6-12fr Vascade - [id number] Implanted:Qty : 1 on 03/16/2024 by Eddie Mills MD at [facility] [place] Implant Right: Groin [employer] 12/06/2025 [id number] -[id number] / / [id number] Stent Coronary Everolimus-El uting [place] Chromium 2.4tdb85vm Synergy Xd - [id number] Implanted:Qty : 1 on 02/08/2025 by Marlen Saenz MD at [facility] [place] Stent Right: Coronary [employer] [id number] 10/13/2026 [id number] / / [id number] Stent Coronary 2.72tru91jk [place] Rx - [id number] Implanted:Qty : 1 on 02/08/2025 by Marlen Saenz MD at [facility] [place] Stent Right: Coronary Medtronic [id number] 09/20/2027 [id number] / / [id number] Procedures * Due to [place] state law, this organization might not be [...] Routine 02/08/2025 6:50 AM EDT MOBILE CARDIAC ORGANIZATIONAL PSYCHOLOGIST (MCOT) 7 DAY MAIL OUT Routine 02/05/2025 [...] Last 3 Months Results * Due to [place] state law, this organization might not be [...] QTC Interval 458 ms MUSE EKG P Edwards 49 degrees MUSE EKG R Edwards -6 degrees MUSE EKG T Wave Edwards 8 degrees MUSE EKG 02/17/2025 2:11 PM EDT 02/17/2025 7:44 PM EDT Impressions MUSE EKG - 02/17/2025 7:44 PM EDT NORMAL SINUS RHYTHM NORMAL ECG WHEN COMPARED WITH ECG OF 08-FEB-2025 09:42, NO SIGNIFICANT CHANGE WAS FOUND Confirmed by Zoran Jimenez ([id number]) on 02/17/2025 7:44:55 PM us Juan Boswell MD ECG ORDERABLES Final Result MUSE EKG * (ABNORMAL) POCT I-STAT Chemistry 8 Panel, interfaced (02/08/2025 1:30 PM EDT) Sample Type, POCT Venous 025 1:36 PM EDT [facility] Sodium, POCT 138 135 - 145 mmol/L 02/08/2025 1:36 PM EDT [facility] Potassium, POCT 3.5 3.5 - 5.3 mmol/L 02/08/2025 1:36 PM EDT [facility] Chloride, POCT 102 97 - 110 mmol/L 02/08/2025 1:36 PM EDT [facility] TCO2, POCT 22(L) 24 - 32 mmol/L 02/08/2025 1:36 PM EDT [facility] Anion Gap, POCT 14 5 - 15 mmol/L 02/08/2025 1:36 PM EDT [facility] iCA, POCT 4.7 4.6 - 5.3 mg/dL 02/08/2025 1:36 PM EDT [facility] Glucose, POCT 131(H) 70 - 99 mg/dL 02/08/2025 1:36 PM EDT [facility] BUN, POCT 12 7 - 23 mg/dL 02/08/2025 1:36 PM T [facility] Creatinine, POCT 1.0 0.6 - 1.3 mg/dL 02/08/2025 1:36 PM T [facility] eGFR 86 >=60 mL/min/1. 73m2 02/08/2025 1:36 PM T [facility] Comment:The estimated glomer ular filtration rate (eGFR) is calculated using a new formula developed by the NKF-ASN task force to eliminate race-based correction factors. The new formula uses serum/plasma creatinine, age, and gender to determine eGFR. A value below 60mls/min might indicate kidney disease and will be flagged. For additional information, see Tom estrada al, Am J Kidney Dis. 2021;79(2):268- 288, A Unifying Approach for GFR estimation: Recommendations of the NKF-ASN Task Force on Reassessing the Inclusion of Race in Diagnosing Kidney Disease . HCT, POCT 37(L) 42 - 52 % 02/08/2025 1:36 PM EDT [facility] Blood 02/08/2025 1:30 PM EDT 02/08/2025 1:36 PM EDT Narrative [facility] - 02/08/2025 1:36 PM EDT i-STAT analyzer cannot determine presence of hemolysis in sample us Marlen Saenz MD LAB POCT ORDERABLES - DEVICE Final Result [facility] [address] [place] [address], [place] * CORONARY ANGIOGRAPHY, CORONARY INTERVENTION (PCI), [...] delivery - stent deployed in proximal RPDA ([place] WALTER 2.25 x 15 mm) - stent [...] moderate LAD/LM disease. Follow up with outpatient telecommunication engineer, findings discussed in person. Evidence-based optimal medical [...] lesion. Ultrasound supply: CATHETER IVUS RX DIGITAL [place] [employer] SHORT TIP 5FR 0.014IN 150CM [facility]. Minimum lumen area: 6.4 mm??. The lesion is concentric. Left Anterior Descending: The vessel was visualized by angiography and is large in size. The vessel is ectatic. Mid LAD lesion is 60% stenosed. The lesion is located at the bifurcation. A WIRE GUIDE WIRELESS PHYSIOLOGY [id number] PRESSUREWIRE was used. CATHETER GUIDE BACKUP SUPPORT LEFT EXTRA BACKUP SUPPORT CURVE SIZE 3.5 6FR [id number] LAUNCHER Guide Catheter was used. RFR: 0.92 [...] LVEF 60%. He is now referred for [facility], coronary angiography, +/-PCI. us Juan Boswell MD CV CARDIAC CATH PROCEDURES F inal Result * POCT I-STAT Activated Clotting Time, interfaced (02/08/2025 8:51 AM EDT) Only the most recent of3 resultswithin the time period is included. Sample Type, POCT Arterial 02/08/2025 8:52 AM EDT [facility] ACT Average, POCT 244 See Comment Seconds 02/08/2025 8:52 AM EDT [facility] Comment: Therapeutic Range: Baseline: 75-127 Cardiac Catherization Lab: 200-300 EP Lab: 200-400 Perfusion and OR - Cardiac Surgery: 450 Valve replacement: 480 Blood 02/08/2025 8:51 AM EDT 02/08/2025 8:52 AM EDT us Marlen Saenz MD LAB POCT ORDERABLES - DEVICE Final Result [facility] [address] [place] [address], [place] * MOBILE CARDIAC ORGANIZATIONAL PSYCHOLOGIST (MCOT) 7 DAY MAIL OUT (02/05/2025 8:24 AM EDT) Anatomical Region Laterality Modality Monitor Room Narrative 02/18/2025 10:53 PM EDT ATTENDING ADDENDUM: This was a Mobile Cardiac Road Service Locksmith (MCOT) 7 Day. ??This study was for [...] 173 <=199 mg/dL 02/08/2025 10:40 AM EDT [facility] Triglycerides 100 <=149 mg/dL 02/08/2025 10:40 AM EDT [facility] Cholesterol, HDL 45 40 - 59 mg/dL 02/08/2025 10:40 AM EDT [facility] Cholesterol, Non-HDL 128 mg/dL 02/08/2025 10:40 AM EDT [facility] LDL Cholesterol 108(H) <100 mg/dL 02/08/2025 10:40 AM EDT [facility] VLDL 20 mg/dL 02/08/2025 10:40 AM EDT [facility] Cholesterol/HDL Ratio 3.8 <5.0 02/08/2025 10:40 AM EDT [facility] Blood Structure of peripheral vein / Unknown Venipuncture / Unknown 02/04/2025 4:32 PM EDT 02/04/2025 4:47 PM EDT [facility] - 02/08/2025 10:40 AM EDT Adult Treatment Panel III Guidelines of NCEP 2001 ? Category: ? Total Cholesterol (mg/dL) ?Desirable [...] MD LAB BLOOD ORDERABLES Final R esult [facility] [address] [place] [address], * CBC (02/04/2025 4:32 PM EDT) WBC 8.7 3.8 - 10.8 10*3/uL 02/04/2025 4:58 PM EDT [facility] RBC 4.59 4.20 - 5.80 10*6/uL 02/04/2025 4:58 PM EDT [facility] Hemoglobin 14.7 13.2 - 17.1 g/dL 02/04/2025 4:58 PM EDT [facility] [place] [facility] Hematocrit 43.7 38.5 - 50.0 % 02/04/2025 4:58 PM EDT [facility] MCV 95.2 80.0 - 100.0 fL 02/04/2025 4:58 PM EDT [facility] MCH 32.0 27.0 - 33.0 pg 02/04/2025 4:58 PM EDT [facility] MCHC 33.6 32.0 - 36.0 g/dL 02/04/2025 4:58 PM EDT [facility] RDW 11.5 11.0 - 15.0 % 02/04/2025 4:[address] [facility] Platelets 229 140 - 400 10*3/uL 02/04/2025 4:[address] [facility] MPV 11.0 7.5 - 12.5 fL 02/04/2025 4:[address] [facility] Blood Structure of peripheral vein / Unknown Venipuncture / Unknown 02/04/2025 4:32 PM EDT 02/04/2025 4:48 PM EDT us Merary SMITH LAB BLOOD ORDERABLES Final R esult [facility] [address] [place] [address], * Basic metabolic panel (02/04/2025 4:32 PM EDT) NA 138 135 - 145 mmol/L 02/04/2025 5:25 PM EDT [facility] K 4.2 3.5 - 5.3 mmol/L 02/04/2025 5:25 PM EDT [facility] Cl 101 98 - 107 mmol/L 02/04/2025 5:25 PM EDT [facility] CO2 23 22 - 32 mmol/L 02/04/2025 5:25 PM EDT [facility] BUN 18 7 - 23 mg/dL 02/04/2025 5:25 PM EDT [facility] Creatinine 1.21 0.60 - 1.30 mg/dL 02/04/2025 5:25 PM EDT [facility] Glucose 80 65 - 99 mg/dL 02/04/2025 5:25 PM EDT [facility] Calcium 9.7 8.6 - 10.5 mg/dL 02/04/2025 5:25 PM EDT [facility] Anion Gap 14 5 - 15 02/04/2025 5:25 PM EDT [facility] eGFR 68 >=60 mL/min/1. 73m2 02/04/2025 5:25 PM EDT [facility] Comment:The estimated glomer ular [...] EDT 02/04/2025 4:47 PM EDT us Merary SMITH LAB BLOOD ORDERABLES Final R esult [facility] [address] [place] [address], [place] * TRANSTHORACIC ECHO (TTE) COMPLETE (02/04/2025 3:51 [...] workstation. Myocardial deformation imaging was performed using [employer]. During the study the apical, parasternal, subcostal [...] The left ventricular wall motion is normal. Tiki SMITH CV ECHO PROCEDURES Final Result [...] not be sent for FFRct analysis. A(n) [place] actionable finding has been communicated to the ordering or responsible provider via the [employer] system on 12/17/2024 2:36 PM. ??Receipt of this communication by the responsible provider will be documented in [employer] Actionable Findings upon receiving acknowledgement if applicable, Message ID [id number]. If this radiology report contains a blank impression section, it is an incomplete radiology report. ??Please contact the interpreting radiologist or applicable radiology division as soon as possible to obtain the completed interpretation. ? Workstation ID: [id number] Narrative 12/17/2024 2:[address] CARDIAC [...] technique. TECHNICAL QUALITY: excellent FINDINGS: Calcium Score: HUQ=453 GMA=459 LCX=95 GAP=4463 [id number] Coronary Calcium Score [...] will not be ordered. Resulting Agency Comment [id number] Procedure Note Arjun Lovett MD - 12/17/2024 [...] technique. TECHNICAL QUALITY: excellent FINDINGS: Calcium Score: NTF=923 ZPK=220 LCX=95 HOG=5157 ZKDGL=[id number] Coronary Calcium Score [...] IMPRESSION: 1. CT coronary calcium score is 5. 2. Severe coronary atherosclerotic plaque identified with a maximalstenosis of 70% or greater in the involved coronary arteries. 3. The study will not be sent for FFRct analysis. A(n) [place] actionable finding has been communicated to the ordering orresponsible provider via the [employer] system on12/17/2024 2:36 PM. Receipt of this communication by the responsibleprovider will be documented in [employer] uponreceiving acknowledgement if applicable, Message ID [id number]. If this radiology report contains a blank impression section, it is anincomplete radiology report. Please contact the interpreting radiologistor applicable radiology division as soon as possible to obtain thecompleted interpretation. Workstation ID: [id number] T[address] PROCEDURES Final Result [...] not be sent for FFRct analysis. A(n) [place] actionable finding has been communicated to the ordering or responsible provider via the [employer] system on 12/17/2024 2:36 PM. ??Receipt of this communication by the responsible provider will be documented in [employer] upon receiving acknowledgement if applicable, Message ID [id number]. If this radiology report contains a blank impression section, it is an incomplete radiology report. ??Please contact the interpreting radiologist or applicable radiology division as soon as possible to obtain the completed interpretation. ? Workstation ID: [id number] Narrative 12/17/2024 2:[address] CARDIAC [...] technique. TECHNICAL QUALITY: excellent FINDINGS: Calcium Score: ETA=198 PIK=431 LCX=95 CJJ=5890 TGPAO=[address] Coronary Calcium Score [...] will not be ordered. Resulting Agency Comment [id number] Procedure Note Arjun Lovett MD - 12/17/2024 [...] technique. TECHNICAL QUALITY: excellent FINDINGS: Calcium Score: PUF=502 ETG=833 LCX=95 PCP=3084 DSXDH=[address] Coronary Calcium Score [...] not be sent for FFRct analysis. A(n) [place] actionable finding has been communicated to the ordering orresponsible provider via the [employer] system on12/17/2024 2:36 PM. Receipt of this communication by the responsibleprovider will be documented in [employer] uponreceiving acknowledgement if applicable, Message ID [id number]. If this radiology report contains a blank impression section, it is anincomplete radiology report. Please contact the interpreting radiologistor applicable radiology division as soon as possible to obtain thecompleted interpretation. Workstation ID: [id number] Tiki SMITH [facility] CT PROCEDURES Final Result * (ABNORMAL) CBC Auto Differential (12/02/2024 3:14 PM EST) WBC 8.4 3.8 - 10.8 10*3/uL 12/02/2024 3:29 PM EST [facility] RBC 4.72 4.20 - 5.80 10*6/uL 12/02/2024 3:29 PM EST [facility] Hemoglobin 15.2 13.2 - [...] - 3.90 10*3/uL 12/02/2024 3:29 PM EST [facility] Monocyte # 0.80 0.20 - 0.95 10*3/uL 12/02/2024 3:29 PM EST [facility] Eosinophil # 0.70(H) 0.02 - 0.50 10*3/uL 12/02/2024 3:29 PM EST [facility] Basophil # <0.03 0.00 - 0.20 10*3/uL 12/02/2024 3:29 PM EST [facility] nRBC % 0.0 /100 WBCs 12/02/2024 3:29 PM EST [facility] [employer] [facility] nRBC # <0.01 <0.01 10*3/uL 12/02/2024 3:29 PM EST [facility] [employer] [facility] Blood Structure of peripheral vein / Unknown Venipuncture / Unknown 12/02/2024 3:14 PM EST 12/02/2024 3:22 PM EST us Juan Boswell MD LAB BLOOD ORDERABLES Final R esult Performing Organization Address City/[facility]/ZIP Co de Phone Number [facility] [employer] [facility] [address] [place] [address], * Lipoprotein A (LPA) (12/02/2024 3:14 PM EST) Lipoprotein 13 <75 nmol/L 12/05/2024 7:02 AM EST [facility] Comment: ? Risk Category ??Optimal ?< 75 nmol/L ??Moderate ?? 75 - 125 nmol/L ??High ?> 125 nmol/L Cardiovascular event risk category cut points (optimal, moderate, high) are based on Luann Durbin JACC 2017;69:692-711. ? Blood Structure of peripheral vein / Unknown Venipuncture / Unknown 12/02/2024 3:14 PM EST 12/02/2024 3:22 PM EST Narrative [facility] - 12/05/2024 7:02 AM EST [facility] Received Date:[id number] us Juan Boswell MD LAB BLOOD ORDERABLES Final R esult Performing Organization Address City/[facility]/ZIP Co de Phone Number MIESHA [address] Floor, [place] [address], [facility], INCJonny ([place]) [address] [place] [address], [place] * Hemoglobin A1c (12/02/2024 3:14 PM EST) [facility] Signature Hemoglobin A1C 4.7 <5.7 % of total Hgb 12/03/2024 2:05 AM EST [employer] Comment: For the purpose of screening for the presence of diabetes: <5.7% ? Consistent with the absence of diabetes 5.7-6.4% ?Consistent with increased risk for diabetes ?(prediabetes) > or =6.5% ??Consistent with diabetes This assay result is consistent with a decreased risk of diabetes. Currently, no consensus exists regarding use of hemoglobin A1c for diagnosis of diabetes in children. According to [place] Diabetes Association (ADA) guidelines, hemoglobin A1c <7.0% represents optimal control in non- diabetic patients. Different metrics may apply to specific patient populations. Standards of Medical Care in Diabetes(ADA). ?? eAG (MG/DL) 88 mg/dL 12/03/2024 2:05 AM EST [facility] eAG (MMOL/L) 4.9 mmol/L 12/03/2024 2:05 AM [employer] Blood Structure of peripheral vein / Unknown Venipuncture / Unknown 12/02/2024 3:14 PM EST 12/02/2024 3:22 PM EST Narrative [facility] MOON - 12/03/2024 2:05 AM [employer] Received Date: us Juan Boswell MD LAB BLOOD ORDERABLES Final R esult [facility] MOON [address], [address] [place] [address], [facility] [address], [place] [address], * (ABNORMAL) Comprehensive Metabolic Panel (12/02/2024 3:14 [...] 5 - 15 12/02/2024 3:55 PM EST [facility] Glucose 110(H) [...] - 129 U/L 12/02/2024 3:55 PM EST [facility] AST 30 10 - 40 U/L 12/02/2024 3:55 PM EST [facility] ALT 29 10 - 40 U/L 12/02/2024 3:55 PM EST [facility] BUN 13 7 - 23 mg/dL 12/02/2024 3:55 PM EST [facility] [place] [facility] eGFR 70 >=60 mL/min/1. 73m2 12/02/2024 3:55 PM EST [facility] [employer] [facility] Comment:The estimated glomer ular [...] - 4.2 g/dL 12/02/2024 3:55 PM EST [facility] [employer] [facility] [facility] A/G Ratio 1.4(L) 1.5 - 3.0 12/02/2024 3:55 PM EST [facility] [employer] [facility] Blood Structure of peripheral vein / Unknown Venipuncture / Unknown 12/02/2024 3:14 PM EST 12/02/2024 3:22 PM EST us Juan Boswell MD LAB BLOOD ORDERABLES Final R esult [facility] [employer] [facility] [address] [place] [address], from Last [address] [place] [address] [employer] Advance Directives Documents on File Type Date Recorded Patient [facility] Counselor [facility] Health Care Proxy 04/02/2019 11:16 AM Elizabet [...] [place] Partner Health Care Agent Care Teams Mailroom Clerk Relationship Specialty Start Date End Date Jonathan Barnett PA [address] [place] [address] PCP - General 12/14/21
--- OUTSIDE RECORDS SUMMARY | 2025-02-23 17:39 | XMS_ITS | Encounter Summary ---
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 Not on file Not on file documented as of this encounter Plan of Treatment Upcoming Encounters Date Type Department Care Team (Late st Contact Info) Description 03/01/2025 1:40 PM EDT Telehealth [facility] Endocrinology Clinic [address] [place], [place] [phone] Powder Compounder: Otilia Edwards, Adrian 03/02/2025 8:00 AM EDT Office Visit [address] floor Cardiology Medicine [address] [place] [address] Powder Compounder: Amirah Membreno 03/05/2025 2:00 PM EDT Telehealth [facility] [employer] Telehealth [address] [place] [address] Tracie Westbrook NP [address] [place] [address] 03/11/2025 10:00 AM EDT Follow-Up [facility] [address] [place] Pulmonology [address] [place] [address] Kian Cuello MD [address] [address] 06/09/2025 2:30 PM EDT Office Visit [facility] Endocrinology Clinic [address] [place] [address] Powder Compounder: Elana Soni NP [address] [place] [address] 08/09/2025 2:30 PM EDT Follow-Up [facility] 4th floor Cardiology Medicine [address] [place] [address] Powder Compounder: Tiki Peña PA [address] [place] [address] 12/13/2025 2:40 PM EST Office Visit [facility] Endocrinology Clinic 7 [address] [place] [address] Henrietta Weeks MD [address] [place] [address] documented as of this encounter Visit Diagnoses Not on filedocumented in this encounter Care Teams Cashier Payments Received Relationship Specialty Start Date End Date Jonathan Barnett PA [address] [place] [address] PCP - General 12/14/21 documented as of this encounter
--- OUTSIDE RECORDS SUMMARY | 2025-02-23 17:39 | XMS_ITS | Encounter Summary ---
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 Would you mind reaching out when you have a moment? Best number is [phone] Thank you! Stanford documented in this encounter Plan of Treatment Upcoming Encounters Date Type Department Care Team (Late st Contact Info) Description 03/01/2025 1:40 PM EDT Telehealth [facility] Endocrinology Clinic [address] [place] [address] Corporate Pilot: Otilia Edwards, Adrian 03/02/2025 8:00 AM EDT Office Visit [facility] 4th floor Cardiology Medicine [address] [place] [address] Corporate Pilot: Amirah Membreno 03/05/2025 2:00 PM EDT Telehealth [facility] [employer] Telehealth [address] [place] [address] Tracie Westbrook NP [address] [place] [address] 03/11/2025 10:00 AM EDT Follow-Up [address] Pulmonology [address] [place] [address] Kian Cuello MD [address] [address] 06/09/2025 2:30 PM EDT Office Visit [facility] Endocrinology Clinic [address] [place] [address] Corporate Pilot: Elana Soni NP [address] [place] [address] 08/09/2025 2:30 PM EDT Follow-Up [facility] 4th floor Cardiology Medicine [address] [place] [address] Corporate Pilot: Tiki Peña K, PA [address] [place] [address] 12/13/2025 2:40 PM EST Office Visit [facility] Endocrinology Clinic 7 [address] [place] [address] Henrietta Weeks MD [address] [place] [address] documented as of this encounter Visit Diagnoses Not on filedocumented in this encounter Care Teams Mill Controller Relationship Specialty Start Date End Date Jonathan Barnett PA [address] [place] [address] PCP - General 12/14/21 documented as of this encounter
--- OUTSIDE RECORDS SUMMARY | 2025-02-23 17:39 | XMS_ITS | Encounter Summary ---
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 Not on file Not on file documented as of this encounter Plan of Treatment Upcoming Encounters Date Type Department Care Team (Late st Contact Info) Description 03/01/2025 1:40 PM EDT Telehealth [facility] Endocrinology Clinic [address] [place] [address] Operations Developer: Otilia Edwards, Adrian 03/02/2025 8:00 AM EDT Office Visit [facility] 4th floor Cardiology Medicine [address] [place] [address] Operations Developer: Amirah Membreno 03/05/2025 2:00 PM EDT Telehealth [facility] [employer] Telehealth [address] [place] [address] Tracie Westbrook NP [address] [place] [address] 03/11/2025 10:00 AM EDT Follow-Up [facility] [address] [place] Pulmonology [address] [place] [address] Kian Cuello MD [address] [place] [address] 06/09/2025 2:30 PM EDT Office Visit [facility] Endocrinology Clinic [address] [place] [address] Operations Developer: Elana Soni NP [address] [place] [address] 08/09/2025 2:30 PM EDT Follow-Up [facility] 4th floor Cardiology Medicine [address] [place] [address] Operations Developer: Tiki Peña PA [address] [place] [address] 12/13/2025 2:40 PM EST Office Visit [facility] Endocrinology Clinic 7 [address] [place] [address] Henrietta Weeks MD [address] [place] [address] documented as of this encounter Visit Diagnoses Not on filedocumented in this encounter Care Teams Trial Mgr Relationship Specialty Start Date End Date Jonathan Barnett PA [address] [place] [address] PCP - General 12/14/21 documented as of this encounter
--- OUTSIDE RECORDS SUMMARY | 2025-02-23 17:39 | XMS_ITS | Encounter Summary ---
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 Not on file Not on file documented as of this encounter Plan of Treatment Upcoming Encounters Date Type Department Care Team (Late st Contact Info) Description 03/01/2025 1:40 PM EDT Telehealth [facility] Endocrinology Clinic [address] [place] [address] Shingle Sawyer: Otilia Edwards, Adrian 03/02/2025 8:00 AM EDT Office Visit [facility] 4th floor Cardiology Medicine [address] [place] [address] Shingle Sawyer: Amirah Membreno 03/05/2025 2:00 PM EDT Telehealth [facility] [employer] Telehealth [address] [place] [address] Tracie Westbrook NP [address] [place] [address] 03/11/2025 10:00 AM EDT Follow-Up [facility] [address] [place] Pulmonology [address] [place] [address] Kian Cuello MD [address] [address] 06/09/2025 2:30 PM EDT Office Visit [facility] Endocrinology Clinic [address] [place] [address] Shingle Sawyer: Elana Soni NP [address] [place] [address] 08/09/2025 2:30 PM EDT Follow-Up [facility] 4th floor Cardiology Medicine [address] [place] [address] Shingle Sawyer: Tiki Peña PA [address] [place] [address] 12/13/2025 2:40 PM EST Office Visit [facility] Endocrinology Clinic 7 [address] [place] [address] Henrietta Weeks MD [address] [place] [address] documented as of this encounter Visit Diagnoses Not on filedocumented in this encounter Care Teams Section Beamer Relationship Specialty Start Date End Date Jonathan Barnett PA [address] [place] [address] PCP - General 12/14/21 documented as of this encounter
== END 2025-02-23 15:44 | disposition home or self-care (01) ==
LOC: HO.HMCH 14:46
PROVIDERS: PCP Physician Assistant; Visit Provider Physician Assistant
DX: Z23 Encounter for immunization (principal); E88.819 Insulin resistance, unspecified

== ENCOUNTER → 2025-02-23 14:46 | Outpatient (BNVA) | payer OTHER, SELFPAY | PROVIDERS: PCP Physician Assistant; Visit Provider Physician Assistant | DX: Z00.00 Encounter for general adult medical examination without abnormal findings (principal); Z23 Encounter for immunization; I25.10 Atherosclerotic heart disease of native coronary artery without angina pectoris; I48.0 Paroxysmal atrial fibrillation; E88.819 Insulin resistance, unspecified; G47.33 Obstructive sleep apnea (adult) (pediatric); E66.811 Obesity, class 1; Z68.34 Body mass index [BMI] 34.0-34.9, adult; Z79.01 Long term (current) use of anticoagulants; Z99.89 Dependence on other enabling machines and devices; Z13.1 Encounter for screening for diabetes mellitus | CPT/HCPCS: 83036; 90471; 90677; 96127 ==

== ENCOUNTER 2025-03-18 03:10 | Inpatient (IN) | payer OTHER, SELFPAY ==
[2025-03-18] VITALS (18 sets, daily range): BP systolic 64–136; BP diastolic 33–94; PULSE 61–127; RESP 14–20; TEMP 36.1–37.1; O2SAT 94–100; BMI 35.5; BMI 34.3
--- NOTE | 2025-03-18 | ECG_ITS ---
Test Reason : CP Blood Pressure : */* mmHG Vent. Rate : 131 BPM Atrial Rate : * BPM P-R Int : * ms QRS Dur : 86 ms QT Int : 314 ms P-R-T Axes : * -13 46 degrees QTcB Int : 463 ms Atrial fibrillation with rapid ventricular response with premature ventricular or aberrantly conducted complexes Nonspecific ST abnormality Abnormal ECG When compared with ECG of 09-Nov-2024 16:59, Atrial fibrillation has replaced Sinus rhythm Vent. rate has increased by 61 bpm Referred By: Generic ED Physician Electronically Signed By: QUINTON RUTH MD
--- NOTE | ~2025-03-18 | XR_ITS ---
CLINICAL HISTORY: CP CHEST X-RAY FRONTAL VIEW COMPARISON: 11/09/2024. FINDINGS: A single frontal view of the chest was performed. The cardiac size and mediastinal silhouette are within normal limits. The lungs are clear. There are no acute infiltrates or pleural effusions. There is no pneumothorax. IMPRESSION: 1. No acute disease. This document has been electronically signed by: Bill Friend M.D. on 03/18/2025 05:32:56
--- NOTE | 2025-03-18 03:28 | ED.CHESTPAIN ---
HPI - Chest Pain General Chief Complaint: Chest Pain Stated Complaint: CP Time Seen by Provider: 03/18/25 03:26 Source: patient Mode of arrival: ambulatory Limitations: no limitations History of Present Illness ED Provider: DR. Arias HPI narrative: 59-year-old male with PMH significant for paroxysmal AFib on Eliquis, history of ablations x3 at [facility], history of cardioversion x2, HTN, non insulin-dependent type 2, LAYNE on CPAP, recently stent placement in the RCA, came in today for chest pressure in the mid chest started earlier tonight, +palpitation and rapid heartbeat. Pain is in mid chest feel like pressure with no radiation no clear aggravating or relieving factors, no association with shortness of breath. No dyspnea, no orthopnea, no lower extremity swelling. Related Data Home Medications ?Medication ?Instructions ?Recorded ?Confirmed cholecalciferol (vitamin D3) 50 50 mcg PO DAILY 04/17/23 02/23/25 mcg (2,000 unit) tablet cyanocobalamin (vitamin B-12) 1,000 mcg PO DAILY 04/17/23 02/23/25 1,000 mcg tablet losartan 25 mg tablet 25 mg PO DAILY PRN Hypertension 04/21/23 02/23/25 apixaban 5 mg tablet (Eliquis) 5 mg PO BID 04/27/23 02/23/25 metoprolol succinate 50 mg 50 mg PO DAILY PRN heart 07/29/23 02/23/25 tablet,extended release 24 hr palpitations fluticasone propionate 50 2 spray intranasal DAILY 06/24/24 02/23/25 mcg/actuation nasal spray,suspension montelukast 10 mg tablet 10 mg PO DAILY 06/24/24 02/23/25 aspirin 81 mg tablet,delayed 81 mg PO DAILY 02/23/25 02/23/25 release (Adult Aspirin Regimen) atorvastatin 40 mg tablet 40 mg PO DAILY 02/23/25 02/23/25 clopidogrel 75 mg tablet 75 mg PO DAILY 02/23/25 02/23/25 empagliflozin 25 mg tablet 25 mg PO DAILY 02/23/25 02/23/25 (Jardiance) ezetimibe 10 mg tablet 10 mg PO DAILY 02/23/25 02/23/25 isosorbide mononitrate 30 mg 30 mg PO DAILY 02/23/25 02/23/25 tablet,extended release 24 hr nitroglycerin 0.4 mg sublingual 0.4 mg sublingual Q5M PRN 02/23/25 02/23/25 tablet ranolazine 500 mg tablet,extended 500 mg PO BID 02/23/25 02/23/25 release,12 hr tirzepatide (weight loss) 10 mg subcut 02/23/25 02/23/25 mg/0.5 mL subcutaneous pen injector (Zepbound) Previous Rx's ?Medication ?Instructions ?Recorded CPAP (CPAP Machine/Device) #1 ea 09/25/22 albuterol sulfate 90 mcg/actuation 2 puff inhalation QID wheezing 30 02/23/25 aerosol inhaler days #8.5 grams Allergies Allergy/AdvReac Type Severity Reaction Status Date / Time oral contrast AdvReac Vomiting Uncoded 03/18/25 03:23 Review of Systems Review of Systems: All other systems are reviewed and are negative Constitutional: Reports as per HPI and Reports no additional constitutional complaints Eyes: Reports as per HPI and Reports no additional eye complaints Reports system reviewed and no additional complaints, except as documented Cardiovascular: Reports as per HPI and Reports no additional cardiovascular complaints Respiratory: Reports as per HPI and Reports no additional respiratory complaints Gastrointestinal: Reports as per HPI and Reports no additional gastrointestinal complaints Genitourinary: Reports no additional female genitourinary complaints Musculoskeletal: Reports no additional musculoskeletal complaints Skin/Breast: Reports system reviewed and no additional complaints, except as docu Psychiatric: Reports no additional psychiatric complaints Endocrine: Reports no additional endocrine complaints Hematologic/Lymphatic: Reports no additional hematologic/lymphatic complaints Allergic/Immunologic: Reports no additional allergic/immunologic complaints Reports system reviewed and no additional complaints, except as documented and Reports Abnormal speech present [facility] Past Medical History Medical History Obese Family history of gastric cancer Insulin resistance History of COVID-19 Elevated LFTs PAF (paroxysmal atrial fibrillation) LAYNE (obstructive sleep apnea) Diarrhea HTN (hypertension) Surgical History H/O prior ablation treatment History of lymph node excision History of prior ablation treatment Family History Family History Father CAD (coronary artery disease) History of partial colectomy Hypertension CVD (cardiovascular disease) Alzheimers disease Mother Asthma Brother Hepatitis Sister Family history of thyroid problem Breast cancer Paternal Grandfather Stomach cancer Social History Social History Household Members: None Housing: House Are you a primary healthcare management to a significant other at home: No Do you presently have visiting nurse or other home services: No Alcohol intake: never Patient Tobacco Use Status: Never used Tobacco Smoked in Last 30 Days: No e-Cigarette/Vaping Use: Never Used Second Hand Smoke Exposure: No Use of substances other than those prescribed or required for medical reasons: No Advance Directives: No Advance Directives Information Provided: Yes service: No Current occupational status: employed Current occupation: [employer] Cognitive needs: No Hearing needs: No Vision needs: Yes (Glasses) Physical Exam Vital Signs: Vital Signs: Last Vital Signs Temp 97.9 F 03/18/25 04:00 Pulse 95 03/18/25 04:49 Resp 20 03/18/25 04:49 BP 114/84 03/18/25 04:49 Pulse Ox 96 03/18/25 04:49 O2 Del Method Room Air 03/18/25 04:49 BMI result Body Mass Index 35.5 Vital signs have been reviewed and appear to be correct. Blood pressure elevated. Heart rate is elevated Respiratory rate normal. Temperature normal. Oxygen saturation normal. Appearance: Alert. Oriented X3. No acute distress. Head: Normal external exam. Normocephalic. Atraumatic. No Shi signs noted. No raccoon eyes noted Eyes: PERRLA. EOMI. Conjunctiva and sclera normal. Eyelids normal. ENT: TM's Normal. Pharynx normal. Uvula midline. Moist mucous membranes. No trismus noted. No drooling noted. No muffled voice noted. Neck: Normal inspection. Neck supple. FROM. No adenopathy. Thyroid Normal. No meningeal signs. No neck mass noted. CVS: Normal heart rate and rhythm. Heart sound normal. No murmurs noted. Pulses normal throughout. Respiratory: No respiratory distress. Painless inspiration. Breath sounds normal. No wheezes/rales/rhonchi noted. Chest nontender. No accessory muscle usage noted or decreased air movement noted. Abdomen: Soft and nontender. Bowel sounds normal in all 4 quadrants. No distention noted. No organomegaly noted. No visible injury noted. Back: No CVA tenderness. Full range of motion noted. Skin: Skin warm and dry. Normal skin color. Normal skin turgor. No rashes/lesions/lacerations noted. Extremities: No lower extremity edema. Extremities exhibit normal range of motion. Extremities nontender. Neuro: Oriented X 3. Cranial nerve exam: II-XII are grossly intact No motor deficit. No sensory deficit. Reflexes normal. Course Reevaluation(s) Reevaluation #1: Chest pain/rapid atrial fibrillation. Controlled with IV/p.o. metoprolol. Admit to medical surface and get inpatient cardiology consult. Time: 04:54 Medications Administered Discontinued Medications Generic Name Dose Route Start Last Admin Trade Name Freq PRN Reason Stop Dose Admin Lactated Ringer's 1,000 mls @ 999 mls/hr 03/18/25 03:30 03/18/25 04:49 Lr IV 03/18/25 04:30 Infused .Q1H1M STACY Infusion Metoprolol Tartrate 5 mg 03/18/25 03:26 03/18/25 03:32 Metoprolol Tartrate 5 Mg/5 Ml Vial IVPUSH 03/18/25 03:27 5 mg ONCE ONE Administration Protocol Medical Decision Making Differential Diagnosis Differential Diagnoses: The differential diagnosis associated with the presentation includes (AFib, dysrhythmia, ACS, CHF, pneumonia, pneumothorax, pleural effusion, electrolyte derangement, severe anemia.) Admission/Observation Consideration of admission/observation: Escalation of care including admission/observation considered Consult Healthcare Provider Management of the patient was discussed with: Hospitalist (Dr. Mendoza) Lab Data MDM Lab Attestation statement: I reviewed the patient's lab results. 03/18/25 03:31 03/18/25 03:31 Labs: Lab Results 03/18/25 Range/Units 03:31 WBC 8.3 (4.8-10.8) X10*3/uL RBC 4.45 L (4.60-5.80) X10*6/uL Hgb 14.5 (14.0-18.0) g/dl Hct 41.7 L (42.0-52.0) % MCV 93.7 (80.0-98.0) fL MCH 32.6 (27.0-33.0) pg MCHC 34.8 (31.0-36.0) g/dl RDW 12.2 (11.0-16.0) % Plt Count 209 (160-400) X10*3/uL MPV 10.5 (9.4-12.4) fL Immature Gran % (Auto) 0.5 H (0.0-0.4) % Neut % (Auto) 52.2 (45-73) % Lymph % (Auto) 27.4 (20-40) % [place] % (Auto) 10.8 (2-11) % Eos % (Auto) 8.9 H (0-4) % Baso % (Auto) 0.2 (0-2) % Lymph # (Auto) 2.3 (1.2-4.9) X10*3/uL [place] # (Auto) 0.9 (0.1-1.2) X10*3/uL Eos # (Auto) 0.7 H (0.0-0.4) X10*3/uL Baso # (Auto) 0.0 (0.0-0.2) X10*3/uL Abs Immat Gran (auto) 0.04 H (0.00-0.03) X10*3/uL Absolute Neuts (auto) 4.3 (2.0-8.3) x10*3/uL Absolute Nucleated RBC 0.000 (0.0-0.012) X10*3/uL Nucleated RBC % (auto) 0.0 (0.0-0.2) /100WBC PT 13.5 H (10.9-12.4) SEC INR 1.2 H (0.9-1.1) Sodium 141 (135-145) mmol/L Potassium 4.2 (3.3-5.1) mmol/L Chloride 108 (96-108) mmol/L Carbon Dioxide 25 (22-29) mmol/L Anion Gap 12 (12-20) BUN 19 H (9-16) mg/dL Creatinine 1.20 (0.5-1.4) mg/dL Estim Creat Clear Calc 83.5 Estimated GFR > 60 Random Glucose 92 (60-115) mg/dL Calcium 9.2 (8.4-10.2) mg/dL Total Bilirubin 1.8 H (0.0-1.0) mg/dL Direct Bilirubin 0.3 (0.0-0.5) mg/dL AST 73 H (5-37) U/L ALT 97 H (0-40) U/L Alkaline Phosphatase 99 (39-117) U/L Troponin I High Sens < 2.7 (<3.5-35.0) ng/L B-Natriuretic Peptide 94 (<100) pg/mL Total Protein 7.2 (6.5-8.0) g/dL Albumin 4.2 (3.5-5.0) g/dL Lipase 37 (8-78) U/L Influenza Type A (PCR) NEGATIVE (Negative) Influenza Type B (PCR) NEGATIVE (Negative) RSV RNA Qual (PCR) NEGATIVE (Negative) SARS-CoV-2 RNA (RT-PCR) NEGATIVE (Negative) Independent Interpretation I performed an independent interpretation of an: Plain X-Ray Radiology Impression Discussion of test interpretation with radiology: I have reviewed the radiologist's reading. Discharge Plan Discharge Clinical Impression: Chest pain, Atrial fibrillation with RVR Patient Disposition: Admitted As Inpatient Print Language: Bermudian
[2025-03-18] MEDS: Lactated Ringers 1,000 ML 999 ML IV (03:32)
[2025-03-18] MEDS: Metoprolol Tartrate 5 MG/5 ML VIAL IVPUSH (03:32)
[2025-03-18 03:37] LABS: MANUAL DIFF FLAG NO
[2025-03-18 03:39] LABS: Basophils Percent Auto 0.2 % (0-2); Eosinophils Absolute Auto 0.7 X10*3/uL (0.0-0.4); Eosinophils Percent Auto 8.9 % (0-4); Hematocrit 41.7 % (42.0-52.0); Hemoglobin 14.5 g/dl (14.0-18.0); Imm Gran Abs Auto 0.04 X10*3/uL (0.00-0.03); Imm Gran Pct Auto 0.5 % (0.0-0.4); Lymphocytes Absolute Auto 2.3 X10*3/uL (1.2-4.9); Lymphocytes Percent Auto 27.4 % (20-40); Mean Corpuscular HGB Conc 34.8 g/dl (31.0-36.0); Mean Corpuscular Hemoglobin 32.6 pg (27.0-33.0); Mean Corpuscular Volume 93.7 fL (80.0-98.0); Mean Platelet Volume 10.5 fL (9.4-12.4); Monocytes Absolute Auto 0.9 X10*3/uL (0.1-1.2); Monocytes Percent Auto 10.8 % (2-11); Neutrophils Absolute Auto 4.3 x10*3/uL (2.0-8.3); Neutrophils Percent Auto 52.2 % (45-73); Platelet Count 209 X10*3/uL (160-400); Red Blood Count 4.45 X10*6/uL (4.60-5.80); Red Cell Distribution Width 12.2 % (11.0-16.0); White Blood Count 8.3 X10*3/uL (4.8-10.8)
[2025-03-18 03:59] LABS: INTERNATIONAL NORM RATIO 1.2 (0.9-1.1); Prothrombin Time 13.5 SEC (10.9-12.4)
[2025-03-18 04:05] LABS: Alanine Aminotransferase 97 U/L (0-40); Albumin Level 4.2 g/dL (3.5-5.0); Alkaline Phosphatase 99 U/L (39-117); Anion Gap 12 (12-20); Aspartate Amino Transferase 73 U/L (5-37); Bilirubin Direct 0.3 mg/dL (0.0-0.5); Bilirubin Total 1.8 mg/dL (0.0-1.0); Blood Urea Nitrogen 19 mg/dL (9-16); Calcium 9.2 mg/dL (8.4-10.2); Carbon Dioxide 25 mmol/L (22-29); Chloride 108 mmol/L (96-108); Creatinine Clr Calc Pharmacy 83.5; Estimated Glomerular Filt Rate > 60; Glucose Random 92 mg/dL (60-115); Lipase 37 U/L (8-78); Potassium 4.2 mmol/L (3.3-5.1); Sodium 141 mmol/L (135-145); Total Protein 7.2 g/dL (6.5-8.0)
[2025-03-18 04:07] LABS: B Type Natriuretic Peptide 94 pg/mL (<100)
[2025-03-18 04:12] LABS: Troponin-I High Sensitivity < 2.7 ng/L (<3.5-35.0)
[2025-03-18 04:17] LABS: Influenza A PCR NEGATIVE (Negative); Influenza B PCR NEGATIVE (Negative); Resp Syncy Virus RNA Qual PCR NEGATIVE (Negative); SARS COV2 PCR INHOUSE NEGATIVE (Negative)
[2025-03-18 04:58] LABS: Appearance Urine Clear; Color Urine Yellow; Glucose Urine UA >=1000 mg/dL (Negative); Leukocyte Esterase Urine Negative (Negative); Nitrite Urine Negative (Negative); PH 7.5 (5.0-9.0); Specific Gravity - Urine 1.015 (1.005-1.025); UMIC TRIGGER UACC YES; Urine Blood Negative (Negative); Urine Ketones Negative (Negative); Urine Protein Negative (Neg-Trace)
[2025-03-18 05:02] LABS: Bacteria Urine None Seen (None Seen); Hyaline Casts Urine 0-2 /LPF (0-2); RBC Urine 0-2 /HPF (0-2); Squamous Epithelial Cell Urine 0-2 /HPF (0-2); WBC Urine 0-5 /HPF (0-5)
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
[2025-03-18] MEDS: Metoprolol Tartrate 50 MG TABLET PO (05:05)
--- NOTE | 2025-03-18 07:00 | CA_ITS ---
Transthoracic Echocardiogram Patient (Last, First, Middle): Fito Diaz, Gender: Male Date of : 1965 Age: 59 Procedure Date: 03/18/2025 Procedure Type: Transthoracic Echocardiogram Location: ER Height: 180.34 cm Weight: 115.21 kg BSA: 2.33 m2 Heart Rate: bpm BP: 79 / 59 mmHg Employment Interviewer: CHANDRIKA Reese MD: Tatum Pierce [facility] Completions Engineer: Gato Alcaraz MD Symptoms: chest pain Study Quality: Adequate ECG Rhythm: Atrial Fibrillation Conclusions: - 1. Low normal LV ejection fraction 50-55% with moderate LVH 2. Mildly reduced RV systolic function 3. Left atrial size within normal limits on this study 4. Normal cardiac valvular Dopplers 5. Upper limits of normal ascending aortic size at 3.6 cm 6. Normal RV systolic pressure 7. No gross pericardial effusion Findings Left Ventricle Normal left ventricular cavity size. There is moderately increased left ventricular wall thickness. The left ventricular systolic function is low normal. The visually estimated ejection fraction is between 50-55%. Diastolic function is indeterminate on the basis of available data. Right Ventricle Normal right ventricular cavity size. There is mildly decreased right ventricular systolic function. Atria The left atrium is normal in size. There is no evidence of interatrial shunt. The right atrium is normal in size. Aortic Valve Normal aortic valve structure and function. There is no aortic valve stenosis. There is no aortic valve regurgitation. Mitral Valve Normal mitral valve structure and function. There is trace mitral valve regurgitation. There is no mitral valve stenosis. Pulmonic Valve The pulmonic valve was not well visualized. Tricuspid Valve Likely normal tricuspid valve structure and function. There is trace tricuspid valve regurgitation. The right ventricular systolic pressure is normal. The right ventricular systolic pressure is 22 mmHg. Normal right atrial pressure. There is no evidence of pulmonary hypertension. Great Vessels The pulmonary artery was not well visualized. Venous The inferior vena cava is normal in size and collapses greater than 50% with inspiration. Pericardium/Pleural There is no evidence of pericardial effusion. Prior Study Comparison Changes noted compared to prior study dated: 10/27/2023. LV ejection fraction may have marginally improved Measurements 2D Linear Measurements IVSd: 1.56 0.6-0.9/0.6-1.0 cm LVIDd: 2.65 3.9-5.3/4.2-5.9 cm LVIDd Index: 1.14 2.4-3.2/2.2-3.1 cm/m2 LVIDs: 1.99 2.0-3.6 cm LVPWd: 1.37 0.7-1.1 cm LA Diam: 3.90 2.7-3.8/3.0-4.0 cm LAIDs Index: 1.67 1.5-2.3 cm/m2 LV Mass: 161.34 67-162/88-224 g LV Mass Index: 69.24 43-95/49-115 g/m2 LVOT Diam: 2.20 3.0+(-)1.3 cm 2D Systolic Function EF 4C: 54.10 >55% EF 2C: 51.60 >55% EF BiP: 52.40 >55% Mitral Valve MV Pk E: 0.63 MV PK A: 0.58 MV Decel Time: 155.00 E/A: 1.10 E'Lateral: 13.90 E'Medial: 8.96 E/E' Med: 7.10 E/E' Lat: 4.60 PHT: 46.00 MVA PHT: 4.78 Decel Cul[place]on: 4.16 Aortic Valve AoV Pk Reggie: 1.23 AoV Mn Reggie: 0.93 AoV VTI: 0.25 AoV Pk Grad: 6.00 Aov Mn Grad: 4.00 SUZANNE Cont.VTI: 2.54 LVOT LVOT Pk Reggie: 0.94 LVOT Mn Reggie: 0.68 LVOT VTI: 0.17 LVOT Pk Grad: 4.00 LVOT Mn Grad: 2.00 LVOT Diam: 2.20 LVOT Area: 3.80 Diastolic Function MV Pk E: 0.63 MV Pk A: 0.58 E/A: 1.10 E'Medial: 8.96 E/E' Med: 7.10 E' Laterial: 13.90 E/E' Lat: 4.60 Right Ventricle TAPSE (mm): 14.90 TVS' Reggie: 9.13 Tricuspid Valve TR Pk Reggie: 1.85 TR Pk Grad: 14.00 RA Press: 8.00 RVSP: 22.00 Great Vessels Aorta Sinus of Valsalva: 4.10 2.0-3.5 cm Ao Asc: 3.60 2.1-3.4 cm Ao Arch: 3.00 Pulmonary Valve PV Pk Reggie: 0.65 Peak PV Grad: 2.00 FL Pk Reggie: 1.43 Updated in Other Vendor System with Status of Final Gato Alcaraz MD electronically signed on 03/18/2025 12:54:18 PM with status of Final
[2025-03-18] MEDS: 0.9 % Sodium Chloride Flush 3 ML SYRINGE IVFLUSH ×3 (08:15→22:32)
[2025-03-18 08:32] LABS: MANUAL DIFF FLAG NO
[2025-03-18 08:34] LABS: Basophils Percent Auto 0.3 % (0-2); Eosinophils Absolute Auto 0.8 X10*3/uL (0.0-0.4); Hematocrit 41.6 % (42.0-52.0); Hemoglobin 14.8 g/dl (14.0-18.0); Imm Gran Abs Auto 0.03 X10*3/uL (0.00-0.03); Imm Gran Pct Auto 0.3 % (0.0-0.4); Lymphocytes Absolute Auto 2.1 X10*3/uL (1.2-4.9); Lymphocytes Percent Auto 20.9 % (20-40); Mean Corpuscular HGB Conc 35.6 g/dl (31.0-36.0); Mean Corpuscular Hemoglobin 33.3 pg (27.0-33.0); Mean Corpuscular Volume 93.5 fL (80.0-98.0); Mean Platelet Volume 10.5 fL (9.4-12.4); Monocytes Absolute Auto 0.9 X10*3/uL (0.1-1.2); Monocytes Percent Auto 9.4 % (2-11); Neutrophils Absolute Auto 6.1 x10*3/uL (2.0-8.3); Neutrophils Percent Auto 61.1 % (45-73); Platelet Count 200 X10*3/uL (160-400); Red Blood Count 4.45 X10*6/uL (4.60-5.80); Red Cell Distribution Width 12.2 % (11.0-16.0)
[2025-03-18 08:43] LABS: INTERNATIONAL NORM RATIO 1.3 (0.9-1.1); Prothrombin Time 14.7 SEC (10.9-12.4)
--- NOTE | 2025-03-18 08:44 | PHA.MEDREC ---
Pharmacy Consult ? Medication Reconciliation Pharmacy has completed the medication reconciliation. Patient brought medications with him. Last doses was 03/18
[2025-03-18 08:46] LABS: Partial Thromboplastin Time 41.8 SEC (26.0-36.8)
[2025-03-18 08:58] LABS: Troponin-I High Sensitivity < 2.7 ng/L (<3.5-35.0)
[2025-03-18 08:59] LABS: Alanine Aminotransferase 90 U/L (0-40); Albumin Level 4.1 g/dL (3.5-5.0); Alkaline Phosphatase 100 U/L (39-117); Anion Gap 12 (12-20); Aspartate Amino Transferase 58 U/L (5-37); Bilirubin Total 1.9 mg/dL (0.0-1.0); Blood Urea Nitrogen 18 mg/dL (9-16); Carbon Dioxide 20 mmol/L (22-29); Chloride 109 mmol/L (96-108); Cholesterol 52 mg/dL (<200); Creatinine Clr Calc Pharmacy 117.9; Estimated Glomerular Filt Rate > 60; Glucose Random 108 mg/dL (60-115); HDL Cholesterol 35 mg/dL (>40); LDL Cholesterol Calculated -1 mg/dL (<100); Magnesium 2.1 mg/dL (1.6-2.6); Potassium 3.9 mmol/L (3.3-5.1); Sodium 137 mmol/L (135-145); Total Protein 6.9 g/dL (6.5-8.0); Triglycerides 91 mg/dL (<150)
--- NOTE | 2025-03-18 08:59 | P.CONCA_ITS ---
History of Present Illness History of Present Illness Date of Service: 03/18/25 Requesting physician: Ai Fields Consult reason: chest pain and atrial fibrillation Chief complaint: palpitations Narrative: I was consulted to see Fito in cardiology consultation today for symptomatic atrial fibrillation. Complicated past cardiac history. Patient is 59-year-old male with prior history of has had multiple ablation with the last ablation in March of 2024 which was his 3rd ablation done at [facility] in [place]. Patient says that since then about 6 months he had no recurrent atrial fibrillation but starting September he started having recurrent atrial fibrillation in his seems like he was started on therapy with L. However more recently in February he was having ongoing chest pain syndrome and workup revealed coronary disease and he subsequently underwent a cardiac catheterization and was told that he had a 95 which was then stented with a drug-eluting stent. He is currently maintained on triple therapy with Eliquis, aspirin and Plavix. He said he does have higher bleeding tendency being on triple therapy since then. However since his stenting he continued to have ongoing chest pain syndrome and about 2 weeks ago his medicines were adjusted including starting him on Ranexa which led to discontinuation of Tikosyn therapy. He also was started on isosorbide therapy. His history is further complicated by orthostatic hypotension which prevents use of for him and used to convert him back to sinus rhythm and he would have brief episodes of atrial fibrillation. Yesterday however when he came in he woke up with rapid palpitations and chest pain and notice that heart rate was elevated and came to the emergency room and confirmed presence of atrial fibrillation rapid response. His troponins are negative. He was treated with rate control and this morning says he feels reasonably better but knows that it heart rate is still in atrial fibrillation. He has been taking his oral anticoagulation religiously last dose taken last night Eliquis. He is planned to undergo a stress test on Saturday at [facility] to further manage his chest pain syndrome and coronary artery disease. He has prior history of orthostatic hypotension, borderline diabetes but since been started on GLP 1 antagonist he has lost about 65 lb. Despite losing weight he continues to struggle with sleep apnea. He denies any history of congestive heart failure. 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 Review of Systems 2 Constitutional: Constitutional: Reports no additional constitutional complaints Eyes: Eyes: Reports no additional eye complaints Cardiovascular: Cardiovascular: Reports chest pain at rest, Denies leg edema, Reports lightheadedness, Denies Loss of Consciousness, Reports palpitations, Denies dyspnea on exertion and Denies orthopnea Respiratory: Respiratory: Reports no additional respiratory complaints and Denies dyspnea on exertion Gastrointestinal: Gastrointestinal: Reports no additional gastrointestinal complaints Genitourinary: Genitourinary: Reports no additional male genitourinary complaints Musculoskeletal: Musculoskeletal: Reports no additional musculoskeletal complaints Integumentary/Breasts: Skin/Breast: Reports system reviewed and no additional complaints, except as docu Neurologic: Reports system reviewed and no additional complaints, except as documented Psychiatric: Psychiatric: Reports no additional psychiatric complaints Endocrine: Endocrine: Reports no additional endocrine complaints and Reports palpitations PMFSH Past Medical History Medical History Obese Family history of gastric cancer Insulin resistance History of COVID-19 Elevated LFTs PAF (paroxysmal atrial fibrillation) LAYNE (obstructive sleep apnea) Diarrhea HTN (hypertension) Family History Family History Father CAD (coronary artery disease) History of partial colectomy Hypertension CVD (cardiovascular disease) Alzheimers disease Mother Asthma Brother Hepatitis Sister Family history of thyroid problem Breast cancer Paternal Grandfather Stomach cancer Surgical History Surgical History H/O prior ablation treatment History of lymph node excision History of prior ablation treatment Social History Social History Household Members: None Housing: House Are you a primary child care director to a significant other at home: No Do you presently have visiting nurse or other home services: No Alcohol intake: never Patient Tobacco Use Status: Never used Tobacco Smoked in Last 30 Days: No e-Cigarette/Vaping Use: Never Used Second Hand Smoke Exposure: No Use of substances other than those prescribed or required for medical reasons: No Advance Directives: No Advance Directives Information Provided: Yes service: No Current occupational status: employed Current occupation: [employer] Cognitive needs: No Hearing needs: No Vision needs: Yes (Glasses) Travel History Ebola Risk: Travel/Contact With Anyone From Affected Area/s: No Has Patient Experienced Ebola Symptoms: No Meds Allergies Allergy/AdvReac Type Severity Reaction Status Date / Time oral contrast AdvReac Vomiting Uncoded 03/18/25 03:23 Active Medications: Current Medications Acetaminophen (Acetaminophen 325 Mg Tablet) 650 mg PO Q6H PRN PRN Reason: Pain, Mild 1-3,fever,headache Apixaban (Apixaban 5 Mg Tablet) 5 mg PO BID STACY Calcium Carbonate (Calcium Carbonate 750 Mg Tab.Chew) 750 mg PO Q4H PRN PRN Reason: Heartburn Magnesium Hydroxide (Milk Of Magnesia 30 Ml Oral.Susp) 30 ml PO DAILY PRN PRN Reason: Constipation Melatonin (Melatonin 3 Mg Tablet) 6 mg PO BEDTIME PRN PRN Reason: Insomnia Ondansetron HCl (Ondansetron Hcl 4 Mg/2 Ml Vial) 4 mg IVPUSH Q8H PRN PRN Reason: Nausea and Vomiting Senna (Sennosides 8.6 Mg Tablet) 17.2 mg PO BEDTIME STACY Sodium Chloride (0.9 % Sodium Chloride Flush 3 Ml Syringe) 3 ml [facility]USH [facility] Last Admin: 03/18/25 08:15 Dose: 3 ml Home Medications ?Medication ?Instructions ?Recorded ?Confirmed ?Last Taken ?Type cholecalciferol (vitamin D3) 50 125 mcg PO DAILY 04/17/23 03/18/25 03/17/25 History mcg (2,000 unit) tablet apixaban 5 mg tablet (Eliquis) 5 mg PO BID 04/27/23 03/18/25 03/17/25 History aspirin 81 mg tablet,delayed 81 mg PO DAILY 02/23/25 03/18/25 03/17/25 History release (Adult Aspirin Regimen) clopidogrel 75 mg tablet 75 mg PO DAILY 02/23/25 03/18/25 03/17/25 History empagliflozin 25 mg tablet 25 mg PO DAILY 02/23/25 03/18/25 03/17/25 History (Jardiance) ezetimibe 10 mg tablet 10 mg PO DAILY 02/23/25 03/18/25 03/17/25 History isosorbide mononitrate 30 mg 30 mg PO DAILY 02/23/25 03/18/25 03/17/25 History tablet,extended release 24 hr nitroglycerin 0.4 mg sublingual 0.4 mg sublingual Q5M PRN Angina 04/03/18/25 03/17/25 History tablet ranolazine 500 mg tablet,extended 500 mg PO BID 02/23/25 03/18/25 03/17/25 History release,12 hr tirzepatide (weight loss) 10 2.5 mg subcut Q4W 02/23/25 03/18/25 03/16/25 History mg/0.5 mL subcutaneous pen injector (Zepbound) atorvastatin 80 mg tablet 80 mg PO DAILY 03/18/25 03/18/25 03/17/25 History evolocumab 140 mg/mL subcutaneous 140 mg subcut Q2W 03/18/25 03/18/25 03/16/25 History pen injector (Repatha SureClick) metoprolol tartrate 25 mg tablet 25 mg PO BID 03/18/25 03/18/25 03/17/25 History Physical Exam 2 Vital Signs: Vital Signs: Last Vital Signs Temp 97.9 F 03/18/25 04:00 Pulse 113 H 03/18/25 05:05 Resp 20 03/18/25 04:49 BP 116/70 03/18/25 05:05 Pulse Ox 96 03/18/25 04:49 O2 Del Method Room Air 03/18/25 04:49 BMI result Body Mass Index 35.5 Const: General: cooperative, comfortable, no acute distress, alert, awake and Physically active Nutritional Appearance: obese Orientation/consciousness: patient oriented x3 Limitations: no limitations HEENT: Head: Yes normocephalic and Yes atraumatic Neck: Neck: Yes trachea midline, Yes supple and Yes no JVD Resp: Effort & Inspection: normal respiratory effort Auscultation: clear to auscultation bilaterally Cardio: Jugular venous distension: no JVD Rate: tachycardic Rhythm: a bnormal rhythm irregularly irregular Heart sounds: S1 normal heart sound present, S2 normal heart sound present, no click, no gallops and no murmurs GI: Auscultation: normal bowel sounds Skin: General skin exam: no rashes or lesions noted Neuro: General: patient oriented x3 and no focal motor deficits Extrem: General: Yes no clubbing, cyanosis or edema Psych: Appearance: grossly normal Objective Labs and Meds 03/18/25 08:25 03/18/25 03:31 Lab results: Laboratory Results - last 24 hr 03/18/25 03/18/25 03/18/25 03:31 04:50 08:25 WBC 8.3 10.0 RBC 4.45 L 4.45 L Hgb 14.5 14.8 Hct 41.7 L 41.6 L MCV 93.7 93.5 MCH 32.6 33.3 H MCHC 34.8 35.6 RDW 12.2 12.2 Plt Count 209 200 MPV 10.5 10.5 Immature Gran % (Auto) 0.5 H 0.3 Neut % (Auto) 52.2 61.1 Lymph % (Auto) 27.4 20.9 Elmore % (Auto) 10.8 9.4 Eos % (Auto) 8.9 H 8.0 H Baso % (Auto) 0.2 0.3 Lymph # (Auto) 2.3 2.1 Elmore # (Auto) 0.9 0.9 Eos # (Auto) 0.7 H 0.8 H Baso # (Auto) 0.0 0.0 Abs Immat Gran (auto) 0.04 H 0.03 Absolute Neuts (auto) 4.3 6.1 Absolute Nucleated RBC 0.000 0.000 Nucleated RBC % (auto) 0.0 0.0 PT 13.5 H 14.7 H INR 1.2 H 1.3 H APTT 41.8 H Sodium 141 Potassium 4.2 Chloride 108 Carbon Dioxide 25 Anion Gap 12 BUN 19 H Creatinine 1.20 Estim Creat Clear Calc 83.5 Estimated GFR > 60 Random Glucose 92 Calcium 9.2 Total Bilirubin 1.8 H Direct Bilirubin 0.3 AST 73 H ALT 97 H Alkaline Phosphatase 99 Troponin I High Sens < 2.7 B-Natriuretic Peptide 94 Total Protein 7.2 Albumin 4.2 Lipase 37 Urine Color Yellow Urine Appearance Clear Urine pH 7.5 Ur Specific Wol[place] 1.015 Urine Protein Negative Urine Glucose (UA) >=1000 H Urine Ketones Negative Urine Blood Negative Urine Nitrite Negative Ur Leukocyte Esterase Negative Urine RBC 0-2 Urine WBC 0-5 Ur Squamous Epith Cells 0-2 Urine Bacteria None Seen Hyaline Casts 0-2 Influenza Type A (PCR) NEGATIVE Influenza Type B (PCR) NEGATIVE RSV RNA Qual (PCR) NEGATIVE SARS-CoV-2 RNA (RT-PCR) NEGATIVE Atrial fibrillation with rapid ventricular response with premature ventricular or aberrantly conducted complexes Nonspecific ST abnormality Abnormal ECG When compared with ECG of 09-Nov-2024 16:59, Atrial fibrillation has replaced Sinus rhythm Vent. rate has increased by 61 bpm Assessment and Plan (1) Atrial fibrillation with RVR: Status: Acute Current and highly symptomatic atrial fibrillation with chest pain syndrome without IV evidence of acute coronary syndrome or acute myocardial ischemia. His main concern and presentations due to atrial fibrillation. He has been present for many years and has been resistant to treatment including undergoing 3 ablation in the past. He was on Tikosyn therapy which was stopped about 2 weeks ago as per him most likely due to initiation of [place] was in for concern for QT prolongation. This makes it very difficult for management of his atrial fibrillation as I think he will need antiarrhythmic drug therapy to maintain rhythm. At this point time I would suggest that I would pursue rhythm control approach and would perform synchronized cardioversion as he has been continuously taking his oral anticoagulation therapy. Although unfortunately ate this morning and can not do cardioversion for about 8 hours as he will require anesthesia. This was discussed with him. Will pursue cardioversion, synchronized later in the day if possible otherwise will pursued tomorrow morning. This was discussed with him. Risks, benefits, alternatives of the procedure were discussed with him. He understands agrees. In the long run I think he will need to follow up with his electrophysiology but will benefit from antiarrhythmic drug therapy although there are limited options. Would consider Multaq on him which would be safer to use although with ranolazine may need to watch his QT interval. The other option in his discontinue ranolazine therapy and switching him to metoprolol therapy. Reconsider another ablation is a possibility as well. Continue full oral anticoagulation apixaban. Continue CPAP therapy. (2) CAD (coronary artery disease): Qualifiers: Coronary Disease-Associated Artery/Lesion type: [place] artery [place] vs. transplanted heart: [place] heart Associated angina: without angina Q ualified Code(s): I25.10 - Atherosclerotic heart disease of q[place]in coronary artery without angina pectoris Status: Acute CAD with stenting of the RCA about a month ago for chest pain syndrome which has not helped with his chest pain syndrome. He is planned to undergo myocardial perfusion imaging he was started on ranolazine isosorbide although medications limited due to his history of orthostatic hypotension. Since his more than a month I do not think he requires triple therapy. Can switch to just Plavix and Eliquis therapy to reduce bleeding risk continue high-intensity statin therapy. For now will continue ranolazine and hold off on isosorbide therapy but consider metoprolol therapy. It is possible that his chest pain syndrome is not cardiac in origin or could be possibly related to ANOCA. He will follow up with his cardiology team at [facility]. Will follow with you. Greater than 30 minutes was spent in managing his complex care. Procedures Date of Service Date of Service: 03/18/25
--- NOTE | 2025-03-18 09:08 | MHC.EDTECH ---
BP is in low side RN Rose aware.
--- NOTE | 2025-03-18 09:11 | PC.NURSE ---
Dr max notified that pt's BP is low and he feels lightheaded
[2025-03-18 09:14] LABS: Free T4 (Free Thyroxine) 0.91 ng/dL (0.71-1.85)
[2025-03-18] MEDS: Apixaban 5 MG TABLET PO ×2 (09:31→21:15)
--- NOTE | 2025-03-18 09:44 | MHC.EDTECH ---
Manual BP was taken 88/55 DESIREE yoo
[2025-03-18] MEDS: Lactated Ringers 250 ML 999 ML IV (09:51)
--- NOTE | 2025-03-18 09:51 | PC.NURSE ---
Dr max at bedside assessing patient regarding cp and bp
--- NOTE | 2025-03-18 11:34 | MHC.CM.PN ---
CM met with Patient at bedside, in the ED and addressed ELISE with him, providing Patient with the original and a copy will be placed on the chart(Patient has been changed to INPATIENT/No IMM needed). Patient lives alone in a house, uses CPAP, supplied by [facility], and he is functionally independent. Patient's car is here but he may call his Sister for a ride, after his Cardioversion. Home self care is Patient's goal and CM has initiated and will follow for dc planning. PCP/PA is Eulalio Barnett and HCP is Girlfriend/Elizabet.
--- NOTE | 2025-03-18 12:13 | MHC.EDTECH ---
BP was taken 106/76 RN(Rose)aware
[2025-03-18] MEDS: Lactated Ringers 1,000 ML 100 ML IVCONT ×2 (12:40→22:31)
--- NOTE | 2025-03-18 13:08 | PM.EVENT ---
Event Note Date of Service: 03/18/25 Event Note: seen and examined this morning follow up for palpitations bp low, pt feeling dizzy - reports positional dizziness over the past 6 weeks, has orthostatic hypotension and usually wears compression stockings chronic chest pain over past 6 weeks. trops are negative AFib RVR patient received 1 dose of IV metoprolol, rate is better controlled patient follows with [facility] for his cardiac needs and has tried sotalol, flecainide, Cardizem, and currently takes metoprolol only as needed. Tikosyn was recently stopped 2 weeks prior has had difficulty with orthostatic hypotension continue Eliquis Seen by cardiology-plan for cardioversion this afternoon Chest pain no evidence of acute coronary syndrome patient is already on aspirin Plavix and Eliquis - per Cardiology only continue Plavix and Eliquis Continue Ranexa recent PCI early June with [facility] to the RCA, patient has been having more chest pain since stents been placed cardiology consulted initial troponin flat chronic Orthostatic hypotension Ongoing x6 weeks patient has been reporting lower blood pressures at home 90s over 70s, with symptomatic dizziness upon standing patient has been wearing TEDS at home Stop Imdur gentle IV fluid Hypotension due to orthostatic hypotension not due to infection, no sepsis Rectal bleeding H/H stable, will trend DVT prophylaxis: Eliquis PPI prophylaxis: Omeprazole Time Spent With Patient Time: Total time managing care of this patient today ____ minutes.
--- NOTE | 2025-03-18 15:47 | PC.NURSE ---
Pt off the floor to short stay for cardioversion
--- NOTE | 2025-03-18 16:19 | MHC.SHP ---
Pre-Procedural Eval Section A - 24 Hr Update-Section A only Date of Service: 03/18/25 The patient is an INPATIENT: Yes Changes since office visit: Yes Patient answered all questions; No Cold of Flu in the past 2 weeks, No New Medical Problems and No Changes in Medication The patient has been examined within 24 hours of the surgical procedure. The History & Physical has been completed within 30 days and I have reviewed it.: Yes Section B - Complete if H&P > 30 days Chief Complaint: palpitations Allergies: Allergies Allergy/AdvReac Type Severity Reaction Status Date / Time oral contrast AdvReac Severe Vomiting Uncoded 03/18/25 15:52 Plan I have reviewed the history and physical and performed a pertinent physical examination on my patient. No changes have occurred unless specified. Time Spent With Patient Time: Total time managing care of this patient today ____ minutes.
--- NOTE | 2025-03-18 16:21 | PC.NURSE ---
Patient in preop. Last took Jardiance PO yesterday and Zepbound injection [address] Rodrigues made aware. Case to be done in OR per her. Dr. Alcaraz made aware and case deemed emergent (see cardiology addendum).
--- NOTE | 2025-03-18 16:35 | PC.NURSE ---
Pt coming in from home with chest pain, lightheadedness and known afib. he is alert, oriented, calm and cooperative with care. ambulatory with ease. he has an extensive cardiac history including afib on eliquis, plavix and aspirin as well as CAD with stenting. recently he has also been struggling with hypotension which has led to some medication changes. on arrival to the ED he was tachycardic to the 130s in afib, given metoprolol IVP which brought the rate down but also brought his blood pressure way down. he was extremely positionally hypotensive this morning, even when lying down his BPs were in the 80s. small fluid bolus given and he is now on maintenence fluids (he is doing much better, he is now able to walk unassisted). cards saw pt and wanted to cardiovert him. he is at the procedure now. 20g in R AC.
--- NOTE | 2025-03-18 17:51 | PC.NURSE ---
Report given to Aracely Danielle, gambling floor supervisor.
--- NOTE | 2025-03-18 19:10 | P.CONAN_ITS ---
HPI - Anesthesia Eval Consult details Narrative: Cardioversion PMFSH Active Problems Active Problems: All Active Problems Atrial fibrillation with RVR (Acute) Chest pain (Acute) Class 1 obesity (Acute) CAD (coronary artery disease) (Acute) Annual physical exam (Acute) Thoracic spine pain (Acute) Bilateral hip pain (Acute) Encounter for monitoring anti-arrhythmic therapy (Acute) Tubular adenoma of colon (Acute) Status post colonoscopy (Acute) COVID-19 (Acute) Pre-procedure lab exam (Acute) Epigastric abdominal pain (Acute) Pre-op examination (Acute) Positive colorectal cancer screening using Cologuard test (Acute) Viral illness (Acute) Microalbuminuria (Acute) Tinea (Acute) Colon cancer screening (Acute) Afib (Acute) Insulin resistance (Acute) Family history of gastric cancer (Acute) Obese (Acute) LAYNE (obstructive sleep apnea) (Acute) Past Medical History Medical History Family history of gastric cancer Insulin resistance History of COVID-19 Elevated LFTs PAF (paroxysmal atrial fibrillation) Obese LAYNE (obstructive sleep apnea) Diarrhea HTN (hypertension) Functional capacity: independent ambulation Family History Family History Father CAD (coronary artery disease) History of partial colectomy Hypertension CVD (cardiovascular disease) Alzheimers disease Mother Asthma Brother Hepatitis Sister Family history of thyroid problem Breast cancer Paternal Grandfather Stomach cancer Family history of problems with anesthesia: No Surgical History Surgical History (Updated 03/18/25 @ 15:53 by Ce Basurto RN) H/O heart surgery H/O prior ablation treatment History of lymph node excision History of prior ablation treatment History of Problems with Anesthesia: No Social History Social History Household Members: None Housing: House Are you a primary school childcare attendant to a significant other at home: No Do you presently have visiting nurse or other home services: No Alcohol intake: never Patient Tobacco Use Status: Never used Tobacco Smoked in Last 30 Days: No e-Cigarette/Vaping Use: Never Used Second Hand Smoke Exposure: No Use of substances other than those prescribed or required for medical reasons: No Are you DNR?: No Advance Directives: No Advance Directives Information Provided: No Advance Directives on File: No Poor oral hygiene: No (chipped tooth x1 upper left) service: No Current occupational status: employed Current occupation: [employer] Cognitive needs: No Hearing needs: No Vision needs: Yes (Glasses) Meds Allergies Allergy/AdvReac Type Severity Reaction Status Date / Time oral contrast AdvReac Severe Vomiting Uncoded 03/18/25 15:52 Active Medications: Current Medications Acetaminophen (Acetaminophen 325 Mg Tablet) 650 mg PO Q6H PRN PRN Reason: Pain, Mild 1-3,fever,headache Apixaban (Apixaban 5 Mg Tablet) 5 mg PO BID [facility] Last Admin: 03/18/25 09:31 Dose: 5 mg Atorvastatin Calcium (Atorvastatin Calcium 80 Mg Tablet) 80 mg PO DAILY [facility] Calcium Carbonate (Calcium Carbonate 750 Mg Tab.Chew) 750 mg PO Q4H PRN PRN Reason: Heartburn Clopidogrel Bisulfate (Clopidogrel Bisulfate 75 Mg Tablet) 75 mg PO DAILY [facility] Ezetimibe (Ezetimibe 10 Mg Tablet) 10 mg PO DAILY [facility] Lactated Ringer's (Lr) 1,000 mls @ 100 mls/hr IVCONT .Q10H [facility] Last Admin: 03/18/25 12:40 Dose: 100 mls/hr Magnesium Hydroxide (Milk Of Magnesia 30 Ml Oral.Susp) 30 ml PO DAILY PRN PRN Reason: Constipation Melatonin (Melatonin 3 Mg Tablet) 6 mg PO BEDTIME PRN PRN Reason: Insomnia Ondansetron HCl (Ondansetron Hcl 4 Mg/2 Ml Vial) 4 mg IVPUSH Q8H PRN PRN Reason: Nausea and Vomiting Ranolazine (Ranolazine 500 Mg Tab.Er.12h) 500 mg PO BID [facility] Senna (Sennosides 8.6 Mg Tablet) 17.2 mg PO BEDTIME [facility] Sodium Chloride (0.9 % Sodium Chloride Flush 3 Ml Syringe) 3 ml IVFLUSH QSHIFT [facility] Last Admin: 03/18/25 15:04 Dose: Not Given Vitamin D (Cholecalciferol (Vitamin D3) 25 Mcg Tablet) 125 mcg PO DAILY [facility] Home Medications ?Medication ?Instructions ?Recorded ?Confirmed ?Last Taken ?Type cholecalciferol (vitamin D3) 50 125 mcg PO DAILY 04/17/23 03/18/25 03/17/25 History mcg (2,000 unit) tablet apixaban 5 mg tablet (Eliquis) 5 mg PO BID 04/27/23 03/18/25 03/17/25 History aspirin 81 mg tablet,delayed 81 mg PO DAILY 02/23/25 03/18/25 03/17/25 History release (Adult Aspirin Regimen) clopidogrel 75 mg tablet 75 mg PO DAILY 02/23/25 03/18/25 03/17/25 History empagliflozin 25 mg tablet 25 mg PO DAILY 02/23/25 03/18/25 03/17/25 History (Jardiance) ezetimibe 10 mg tablet 10 mg PO DAILY 02/23/25 03/18/25 03/17/25 History isosorbide mononitrate 30 mg 30 mg PO DAILY 02/23/25 03/18/25 03/17/25 History tablet,extended release 24 hr nitroglycerin 0.4 mg sublingual 0.4 mg sublingual Q5M PRN Angina 02/23/25 03/18/25 03/17/25 History tablet ranolazine 500 mg tablet,extended 500 mg PO BID 02/23/25 03/18/25 03/17/25 History release,12 hr tirzepatide (weight loss) 10 2.5 mg subcut Q4W 02/23/25 03/18/25 03/16/25 History mg/0.5 mL subcutaneous pen injector (Zepbound) atorvastatin 80 mg tablet 80 mg PO DAILY 03/18/25 03/18/25 03/17/25 History evolocumab 140 mg/mL subcutaneous 140 mg subcut Q2W 03/18/25 03/18/25 03/16/25 History pen injector (Gil Coyne) metoprolol tartrate 25 mg tablet 25 mg PO BID 03/18/25 03/18/25 03/17/25 History Exam Height,Weight and Vital Signs: Height 5 ft 11 in Weight 115.4 kg Last Vital Signs Temp 97.4 F 03/18/25 15:58 Pulse 94 03/18/25 15:58 Resp 16 03/18/25 15:58 BP 125/83 03/18/25 15:58 Pulse Ox 96 03/18/25 15:58 O2 Del Method Room Air 03/18/25 15:58 Pertinent Lab Results Pertinent Lab Results: Laboratory Tests 05/15/25 05/15/25 05/15/25 03:31 04:50 08:25 WBC 8.3 10.0 RBC 4.45 L 4.45 L Hgb 14.5 14.8 Hct 41.7 L 41.6 L MCV 93.7 93.5 MCH 32.6 33.3 H MCHC 34.8 35.6 RDW 12.2 12.2 Plt Count 209 200 MPV 10.5 10.5 Immature Gran % (Auto) 0.5 H 0.3 Neut % (Auto) 52.2 61.1 Lymph % (Auto) 27.4 20.9 [place] % (Auto) 10.8 9.4 Eos % (Auto) 8.9 H 8.0 H Baso % (Auto) 0.2 0.3 Lymph # (Auto) 2.3 2.1 [place] # (Auto) 0.9 0.9 Eos # (Auto) 0.7 H 0.8 H Baso # (Auto) 0.0 0.0 Abs Immat Gran (auto) 0.04 H 0.03 Absolute Neuts (auto) 4.3 6.1 Absolute Nucleated RBC 0.000 0.000 Nucleated RBC % (auto) 0.0 0.0 PT 13.5 H 14.7 H INR 1.2 H 1.3 H APTT 41.8 H Sodium 141 137 Potassium 4.2 3.9 Chloride 108 109 H Carbon Dioxide 25 20 L Anion Gap 12 12 BUN 19 H 18 H Creatinine 1.20 0.85 Estim Creat Clear Calc 83.5 117.9 Estimated GFR > 60 > 60 Random Glucose 92 108 Calcium 9.2 9.0 Magnesium 2.1 Total Bilirubin 1.8 H 1.9 H Direct Bilirubin 0.3 AST 73 H 58 H ALT 97 H 90 H Alkaline Phosphatase 99 100 Troponin I High Sens < 2.7 < 2.7 B-Natriuretic Peptide 94 Total Protein 7.2 6.9 Albumin 4.2 4.1 Triglycerides 91 Cholesterol 52 LDL Cholesterol, Calc -1 HDL Cholesterol 35 L Lipase 37 TSH 1.80 Free T4 0.91 Urine Color Yellow Urine Appearance Clear Urine pH 7.5 Ur Specific [place] 1.015 Urine Protein Negative Urine Glucose (UA) >=1000 H Urine Ketones Negative Urine Blood Negative Urine Nitrite Negative Ur Leukocyte Esterase Negative Urine RBC 0-2 Urine WBC 0-5 Ur Squamous Epith Cells 0-2 Urine Bacteria None Seen Hyaline Casts 0-2 Influenza Type A (PCR) NEGATIVE Influenza Type B (PCR) NEGATIVE RSV RNA Qual (PCR) NEGATIVE SARS-CoV-2 RNA (RT-PCR) NEGATIVE Airway Mallampati Class: II TM Dist: >3cm Neck ROM: Full Loose/Missing/Broken Teeth: No Heart: IRRR Lungs: CTA Assessment and Plan Assessment Anesthesia Assessment: Anesthesia Plan Discussed Final Anesthetic Review Family History of Problems with Anesthesia: No History of Problems with Anesthesia: No NPO: Yes ASA Class: III Final Preanesthetic Review: No Changes in Pt Med Stat, Meds/Allgs Chart Reviewed, Consent Obtained/Reviewed and Anes Risks/Benef Reviewed Patient Risk: Intermediate Procedure Risk: Low Anesthetic Plan Anesthetic Plan: MAC: Disposition: Standard PACU
--- NOTE | 2025-03-18 19:49 | P.PNCAR_ITS ---
Cardioversion Procedure Note Cardioversion Date of Procedure: 03/18/2025 Ordering Provider: Rita Alcaraz Performing Provider: Rita Alcaraz Indication for Procedure: Symptomatic atrial fibrillation, persistent Pre-Op Diagnosis: Same History: See my consult Consent: Verbal and Written consent was obtained from the patient before starting and after confirming oral anticoagulation use. The patient was made aware of the risk of synchronized cardioversion including benefits and alternatives Procedure: After consent obtained, cardioversion pads were attached in anteroposterior co nfiguration and the patient was sedated by the anesthesia team. Once adequate sedation achieved, patient was delivered 200 joules of biphasic synchronized energy in anteroposterior configuration Complications: None Impression: Successful conversion to sinus rhythm Recommendations: 1. 12 lead EKGs 2. Continue with oral anticoagulation therapy
--- NOTE | 2025-03-18 19:49 | ECG_ITS ---
Test Reason : Status post cardioversion Blood Pressure : */* mmHG Vent. Rate : 61 BPM Atrial Rate : 61 BPM P-R Int : 180 ms QRS Dur : 84 ms QT Int : 436 ms P-R-T Axes : 40 -19 10 degrees QTcB Int : 438 ms Normal sinus rhythm Normal ECG When compared to the previous EKG of Normal sinus rhythm has replaced Atrial fibrillation Referred By: Gato Alcaraz Electronically Signed By: GATO ALCARAZ MD
[2025-03-18] MEDS: Ranolazine 500 MG TAB.ER.12H PO (21:15)
[2025-03-19 02:36] VITALS: BP 109/62; PULSE 56; RESP 18; TEMP 36.6; O2SAT 94
[2025-03-19 05:36] VITALS: BP 115/72; PULSE 58
[2025-03-19 06:46] LABS: INTERNATIONAL NORM RATIO 1.3 (0.9-1.1); Prothrombin Time 14.5 SEC (10.9-12.4)
[2025-03-19 07:00] LABS: Hematocrit 39.6 % (42.0-52.0); Hemoglobin 13.9 g/dl (14.0-18.0); Mean Corpuscular HGB Conc 35.1 g/dl (31.0-36.0); Mean Corpuscular Hemoglobin 32.8 pg (27.0-33.0); Mean Corpuscular Volume 93.4 fL (80.0-98.0); Mean Platelet Volume 10.8 fL (9.4-12.4); Platelet Count 205 X10*3/uL (160-400); Red Blood Count 4.24 X10*6/uL (4.60-5.80); Red Cell Distribution Width 12.5 % (11.0-16.0); White Blood Count 7.6 X10*3/uL (4.8-10.8)
[2025-03-19 07:21] VITALS: BP 98/64; PULSE 64; RESP 16; TEMP 36.6; O2SAT 98
[2025-03-19] MEDS: Apixaban 5 MG TABLET PO (08:24)
[2025-03-19] MEDS: Clopidogrel Bisulfate 75 MG TABLET PO (08:24)
[2025-03-19] MEDS: Ezetimibe 10 MG TABLET PO (08:24)
[2025-03-19] MEDS: Atorvastatin Calcium 80 MG TABLET PO (08:24)
[2025-03-19] MEDS: Cholecalciferol (Vitamin D3) 25 MCG TABLET 125 MCG PO (08:24)
[2025-03-19] MEDS: Ranolazine 500 MG TAB.ER.12H PO (08:24)
--- NOTE | 2025-03-19 10:40 | PM.PNCARD ---
Subjective Subjective Date of Service: 03/19/25 Principal diagnosis: Paroxysmal atrial fibrillation, orthostatic dizziness Interval history: Patient cardioverted last night. Maintaining sinus rhythm. Feeling a lot better. He said he went to the bathroom few times today and did not have any orthostatic lightheadedness. Blood pressure is on the lower side. No bleeding issues. No neurologic events. No chest pain syndrome. Review of Systems Review of Systems Yes all other systems are reviewed and are negative Physical Exam Vital Signs: Last Vital Signs Temp 97.8 F 03/19/25 07:21 Pulse 64 03/19/25 07:21 Resp 16 03/19/25 07:21 BP 98/64 03/19/25 07:21 Pulse Ox 98 03/19/25 07:21 O2 Del Method CPAP 03/19/25 07:21 O2 Flow Rate 6 03/18/25 19:52 BMI result Body Mass Index 34.3 Const General: cooperative, comfortable, no acute distress, alert, awake and Physically active Nutritional Appearance: obese Orientation/consciousness: patient oriented x3 Limitations: no limitations HEENT Head: Yes normocephalic and Yes atraumatic Neck Neck: Yes trachea midline, Yes supple and Yes no JVD Resp Effort & Inspection: normal respiratory effort Auscultation: clear to auscultation bilaterally Cardio Jugular venous distension: no JVD Rate: regular rate Rhythm: regular rhythm Heart sounds: S1 normal heart sound present, S2 normal heart sound present, no click, no gallops and no murmurs GI Auscultation: normal bowel sounds Skin General skin exam: no rashes or lesions noted Neuro General: patient oriented x3 and no focal motor deficits Extrem General: Yes no clubbing, cyanosis or edema Psych Appearance: grossly normal Objective Labs and Meds 03/19/25 06:17 03/18/25 08:25 Lab results: Laboratory Results - last 24 hr 03/19/25 06:17 WBC 7.6 RBC 4.24 L Hgb 13.9 L Hct 39.6 L MCV 93.4 MCH 32.8 MCHC 35.1 RDW 12.5 Plt Count 205 MPV 10.8 Absolute Nucleated RBC 0.000 Nucleated RBC % (auto) 0.0 PT 14.5 H INR 1.3 H Progress Note: A&P Assessment and plan (1) Atrial fibrillation with RVR: Status: Acute Assessment and Plan: Recurrent highly symptomatic atrial fibrillation this man with prior history of significant atrial fibrillation undergoing 3 ablation. This required synchronized cardioversion. I think he needs further intervention for maintenance rhythm with antiarrhythmic drug therapy although treatment options are limited. He is doing well on Tikosyn but currently he is on ranolazine and Tikosyn had to be withheld. 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 Continue full oral anticoagulation with Eliquis. (2) CAD (coronary artery disease): Status: Acute Assessment and Plan: CAD with recent stenting to the RCA for chest pain syndrome and patient continues to have recurrent chest pain syndrome. Plan for further workup for the chest pain syndrome. Unclear whether this is ischemic in nature. His troponins here with chest pain on within normal limits. EKG shows no acute ischemic changes. Alternative etiology for chest pain is likely. This was discussed with him. At this point time I have advised him to stop isosorbide given his lowish blood pressure and orthostatic dizziness. 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 Given that stent is more than a month out I would switch him to oral anticoagulation with a single antiplatelet agent Plavix to reduce bleeding risk. Patient can be discharged from my perspective. Thank you for allowing me to partake in his care Time Spent With Patient Time: Total time managing care of this patient today ____ minutes. Progress Note: Quality Stroke Does the patient have a stroke diagnosis?: No Reason for No Anti-thrombotic by Day Two: N/A - Med Ordered Procedures Date of Service Date of Service: 03/19/25
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
--- NOTE | 2025-03-19 11:24 | MHC.CM.PN ---
DP: PT HAS BEEN MEDICALLY CLEARED FOR DC HOME, NO SERVICES. PT HAS CAR IN LOT AND WOULD LIKE TO DRIVE HOME.
--- NOTE | 2025-03-19 13:43 | HO.POSTANES ---
Post Anesthesia Evaluation Post Anesthesia Evaluation Date of Service: 03/19/25 Vital Signs: Vital Signs Temp Pulse Resp BP Pulse Ox O2 Del Method 03/19/25 07:21 97.8 F 64 16 98/64 98 CPAP 03/19/25 05:36 58 115/72 03/19/25 02:36 97.9 F 56 18 109/62 94 CPAP Anesthesia: Monitored Mental Status: Awake Pain Control: Satisfactory Nausea/Vomiting: None Hydration: Adequate Anesthesia-Related Issues: No Anes. Related Issues
== END 2025-03-19 11:49 | disposition home or self-care (01) | DRG 309 ==
LOC: HO.ED 04:54 → HO.EDOVER 05:03 → HO.IMC 16:22
PROVIDERS: Internal Medicine Cardiovascular Disease; Nurse Practitioner Family; Admitting Provider Student in an Organized Health Care Education/Training Program; Emergency Provider Emergency Medicine; PCP Physician Assistant; Visit Provider Physician Assistant Medical
PROC: 5A2204Z Restoration of Cardiac Rhythm, Single (ICD-10-PCS; principal; 2025-03-18 15:30)
DX: I48.19 Other persistent atrial fibrillation (principal); K62.5 Hemorrhage of anus and rectum; I25.10 Atherosclerotic heart disease of native coronary artery without angina pectoris; I95.1 Orthostatic hypotension; Z95.5 Presence of coronary angioplasty implant and graft; E66.9 Obesity, unspecified; Z71.3 Dietary counseling and surveillance; Z68.34 Body mass index [BMI] 34.0-34.9, adult; Z20.822 Contact with and (suspected) exposure to COVID-19; Z80.0 Family history of malignant neoplasm of digestive organs; Z79.01 Long term (current) use of anticoagulants; Z79.899 Other long term (current) drug therapy
CPT/HCPCS: 0241U; 36415; 71045; 80048; 80053; 80061; 80076; 81001; 83690; 83735; 83880; 84439; 84443; 84484; 85025; 85027; 85610; 85730; 92960; 93005; 93306; 94660; 99285; J1650; J2003; J2704; J7120; Q9957

== ENCOUNTER → 2025-03-18 03:12 | Outpatient (BNV) | payer OTHER, SELFPAY | PROVIDERS: Admitting Provider Student in an Organized Health Care Education/Training Program; Emergency Provider Emergency Medicine; Visit Provider Internal Medicine Cardiovascular Disease | DX: I48.91 Unspecified atrial fibrillation (principal); R94.31 Abnormal electrocardiogram [ECG] [EKG] | CPT/HCPCS: 93010; 93306 ==

== ENCOUNTER → 2025-03-18 03:27 | Outpatient (BNV) | payer OTHER, SELFPAY | PROVIDERS: Admitting Provider Student in an Organized Health Care Education/Training Program; Emergency Provider Emergency Medicine; Visit Provider Radiology Diagnostic Radiology | DX: R07.9 Chest pain, unspecified (principal) | CPT/HCPCS: 71045 ==

== ENCOUNTER → 2025-03-18 04:54 | Outpatient (BNV) | payer OTHER, SELFPAY | PROVIDERS: Admitting Provider Student in an Organized Health Care Education/Training Program; Emergency Provider Emergency Medicine; Visit Provider Nurse Practitioner Family | DX: I48.91 Unspecified atrial fibrillation (principal); I25.10 Atherosclerotic heart disease of native coronary artery without angina pectoris | CPT/HCPCS: 99223; 99239; 99499 ==

== ENCOUNTER → 2025-03-18 04:54 | Outpatient (BNV) | payer OTHER, SELFPAY | PROVIDERS: Admitting Provider Student in an Organized Health Care Education/Training Program; Emergency Provider Emergency Medicine; Visit Provider Internal Medicine Cardiovascular Disease | DX: I48.91 Unspecified atrial fibrillation (principal); I25.10 Atherosclerotic heart disease of native coronary artery without angina pectoris; Z98.890 Other specified postprocedural states | CPT/HCPCS: 92960; 99223; 99232 ==

== ENCOUNTER 2025-03-23 10:19 | Emergency (ER) | payer OTHER, SELFPAY ==
--- NOTE | 2025-03-23 10:23 | ECG_ITS ---
Test Reason : AFIB Blood Pressure : */* mmHG Vent. Rate : 70 BPM Atrial Rate : 70 BPM P-R Int : 168 ms QRS Dur : 86 ms QT Int : 428 ms P-R-T Axes : 34 -16 7 degrees QTcB Int : 462 ms Normal sinus rhythm Normal ECG When compared with ECG of 18-Mar-2025 19:48, Sinus rhythm has replaced Atrial fibrillation Referred By: Generic ED Physician Electronically Signed By: Kam Cooley
[2025-03-23 10:34] VITALS: BP 103/56; PULSE 76; RESP 16; TEMP 36.3; O2SAT 96; BMI 33.1
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
--- NOTE | 2025-03-23 11:14 | PC.NURSE ---
Report recieved. Taken over care at this time.
[2025-03-23 11:41] VITALS: PULSE 65
[2025-03-23 11:43] VITALS: BP 85/55; PULSE 65; RESP 18; TEMP 36.7; O2SAT 95
[2025-03-23 11:44] VITALS: BP 85/55; PULSE 65; RESP 18; TEMP 36.7; O2SAT 95
--- OUTSIDE RECORDS SUMMARY | 2025-03-23 12:19 | XMS_ITS | Encounter Summary ---
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 He is calling to see if you agree with them.He had some low BP. BP was 80/33 at times a bit higher both standing and sitting. ASA was stopped Stop Imdur All other meds remain the same. They will draw an LFT next week. He has a nuc stress test on 03/30 her at [facility]. Fito can be reached at [phone]. Thanks, Zulema * Telephone Encounter - Stacy Adame - 03/19/2025 8:35 AM EDT Hi, Pt admitted to [facility] and was cardioverted yesterday. He is in NSR. He is still dealing with some low BP. He can be reached at [phone]. Thanks, Zulema * Telephone Encounter - Estefany Anne - 03/15/2025 5:22 PM EDT Established pt of Dr. Boswell Patient calling back with Fax number #[phone]. Thank you!! * Telephone Encounter - Toby Kelley - 03/15/2025 4:13 PM EDT Pt called back and was read this message word for word. He doesn't have any follow up questions. He will call us back with the fax number for the lab at [facility] to have the labs done there. * Telephone Encounter - Dana Lopez LPN - 03/15/2025 1:31 PM EDT Lvm for patient to call us back so we can relay message from provider * Telephone Encounter - Toby Kelley - 03/15/2025 8:43 [address] EDT [address] called in because yesterday he was struggling with light headedness when he stood up. Pt states he almost lost consciousness. BP readings provided from yesterday were 60/90 and 56/100 BP today is 126/167 Pt has not had any dizziness today. Best call back is [phone] Flaca Coyne documented in this encounter Plan of Treatment Upcoming Encounters Date Type Department Care Team (Late st Contact Info) Description 03/24/2025 7:15 AM EDT Appointment [facility] Nuclear Medicine [address] [place] [address] 03/24/2025 8:00 AM EDT Appointment [facility] Nuclear Medicine [address] [place] [address] 03/24/2025 9:30 AM EDT Appointment [facility] Nuclear Medicine [address] [place] [address] 03/24/2025 10:45 AM EDT Appointment [facility] Nuclear Medicine [address] [place] [address] 04/06/2025 9:40 AM EDT Telehealth [facility] [employer] Telehealth [address] [place] [address] Yana Holt, PharmAlysha 06/09/2025 2:30 PM EDT Office Visit [facility] Endocrinology [facility] [address] [place] [address] Electrical Engineer Mep: Elana Soni NP [address] [place] [address] 08/09/2025 2:30 PM EDT Follow-Up [facility] 4th floor Cardiology Medicine [address] [place] [address] Electrical Engineer Mep: AmirahTiki Arevalo PA [address] [place] [address] 12/13/2025 2:40 PM EST Office Visit [facility] Endocrinology Clinic 7 [address] [place] [address] Henrietta Weeks MD [address] [place] [address] 03/16/2026 1:00 PM EDT Follow-Up [facility] 85 [place] [facility] [address] [address] Kian Cuello MD [address] [address] documented as of this encounter Visit Diagnoses Not on filedocumented in this encounter Care Teams Merchandise Deliverer Relationship Specialty Start Date End Date Jonathan Barnett PA [address] [place] [address] PCP - General 03/08/25 documented as of this encounter
--- OUTSIDE RECORDS SUMMARY | 2025-03-23 12:19 | XMS_ITS | Encounter Summary ---
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 PT can best be reached at [phone] documented in this encounter Plan of Treatment Upcoming Encounters Date Type Department Care Team (Late st Contact Info) Description 03/24/2025 7:15 AM EDT Appointment [facility] Nuclear Medicine [address] [place] [address] 03/24/2025 8:00 AM EDT Appointment [facility] Nuclear Medicine [address] [place] [address] 03/24/2025 9:30 AM EDT Appointment [facility] Nuclear Medicine [address] [place] [address] 03/24/2025 10:45 AM EDT Appointment [facility] Nuclear Medicine [address] [place] [address] 04/06/2025 9:40 AM EDT Telehealth [facility] [employer] Telehealth [address] [place] [address] Yana Holt, Adrian 06/09/2025 2:30 PM EDT Office Visit [facility] Endocrinology Clinic [address] [place] [address] Upholsterer Assembly Line: Elana Soni NP [address] [place] [address] 08/09/2025 2:30 PM EDT Follow-Up [facility] 4th floor Cardiology Medicine [address] [place] [address] Upholsterer Assembly Line: Tiki Peña PA [address] [place] [address] 12/13/2025 2:40 PM EST Office Visit [facility] Endocrinology Clinic 7 [address] [place] [address] Henrietta Weeks MD [address] [place] [address] 03/16/2026 1:00 PM EDT Follow-Up [facility] 85 [place] [facility] [address] [place] [address] Kian Cuello MD [address] [address] documented as of this encounter Visit Diagnoses Not on filedocumented in this encounter Care Teams Risk Investigator Relationship Specialty Start Date End Date Jonathan Barnett PA [address] [place] [address] PCP - General 03/08/25 documented as of this encounter
--- OUTSIDE RECORDS SUMMARY | 2025-03-23 12:19 | XMS_ITS | Clinical Summary ---
Author Organization [facility] it Address [address] [place] [address] Care Team Providers Care Top Tile Decorator Name Role Phone Unavailable Primary Care Provider [...]
--- OUTSIDE RECORDS SUMMARY | 2025-03-23 12:19 | XMS_ITS | Encounter Summary ---
Author Organization [facility] Address [address] [place] [address] Care Team Providers Care Mall Manager Name Role Phone Jonathan Barnett Primary Care Provider [phone] Reason for Visit * Reason Onset Date Comments Reaction to Med 12/26/2020 Encounter Details Date Type Department Care Team (Late st Contact Info) Description 12/26/2020 Telephone [facility] Central Scheduling Department [address] [place] [address] Telephone Intake, Staff Reaction to Med Social [...] vaccinated first. Fito can be reached at [phone]. documented in this encounter Plan of Treatment Upcoming Encounters Date Type Department Care Team (Late st Contact Info) Description 03/24/2025 7:15 AM EDT Appointment [facility] Nuclear Medicine [address] [place] [address] 03/24/2025 8:00 AM EDT Appointment [facility] Nuclear Medicine [address] [place] [address] 03/24/2025 9:30 AM EDT Appointment [facility] Nuclear Medicine [address] [place] [address] 03/24/2025 10:45 AM EDT Appointment [facility] Nuclear Medicine [address] [place] [address] 04/06/2025 9:40 AM EDT Telehealth [facility] [employer] Telehealth [address] [place] [address] Yana Holt, Adrian 06/09/2025 2:30 PM EDT Office Visit [facility] Endocrinology Clinic [address] [place] [address] Closing Machine Operator: Elana Soni NP [address] [place] [address] 08/09/2025 2:30 PM EDT Follow-Up [facility] 4th floor Cardiology Medicine [address] [place] [address] Closing Machine Operator: Tiki Peña PA [address] [place] [address] 12/13/2025 2:40 PM EST Office Visit [facility] Endocrinology Clinic 7 [address] [place] [address] Henrietta Weeks MD [address] [place] [address] 03/16/2026 1:00 PM EDT Follow-Up [facility] 85 [place] [facility] [address] [address] Kian Cuello MD [address] [address] documented as of this encounter Visit Diagnoses Not on filedocumented in this encounter Care Teams Mall Manager Relationship Specialty Start Date End Date Jonathan Barnett PA [address] [place] [address] [phone] PCP - General 03/08/25 documented as of this encounter
--- OUTSIDE RECORDS SUMMARY | 2025-03-23 12:19 | XMS_ITS | Encounter Summary ---
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 called because he woke up this morning in afib. Pt states he is having some shortness of breath at rest. He denies any dizziness or Cpain. BP today 123/67 HR 60-120 He is asking how to proceed. Best call back is [phone] Thanks Stanford documented in this encounter Plan of Treatment Upcoming Encounters Date Type Department Care Team (Late st Contact Info) Description 03/24/2025 7:15 AM EDT Appointment [facility] Nuclear Medicine [address] [place] [address] 03/24/2025 8:00 AM EDT Appointment [facility] Nuclear Medicine [address] [place] [address] 03/24/2025 9:30 AM EDT Appointment [facility] Nuclear Medicine [address] [place] [address] 03/24/2025 10:45 AM EDT Appointment [facility] Nuclear Medicine [address] [place] [address] 04/06/2025 9:40 AM EDT Telehealth [facility] [employer] Telehealth [address] [place] [address] Yana Holt, PharmAlysha 06/09/2025 2:30 PM EDT Office Visit [facility] Endocrinology Clinic [address] [place] [address] Inspector Radar And Electronics: Elana Soni NP [address] [place] [address] 08/09/2025 2:30 PM EDT Follow-Up [facility] 4th floor Cardiology Medicine [address] [place] [address] Inspector Radar And Electronics: Amirah Jackson, Tiki Ram PA [address] [place] [address] 12/13/2025 2:40 PM EST Office Visit [facility] Endocrinology Clinic 7 [address] [place] [address] Henrietta Weeks MD [address] [place] [address] 03/16/2026 1:00 PM EDT Follow-Up [facility] 85 [place] [facility] [address] [address] Kain Cuello MD [address] [address] documented as of this encounter Visit Diagnoses Not on filedocumented in this encounter Care Teams Office Worker Relationship Specialty Start Date End Date Jonathan Barnett PA [address] [place] [address] PCP - General 03/08/25 documented as of this encounter
--- OUTSIDE RECORDS SUMMARY | 2025-03-23 12:19 | XMS_ITS | Encounter Summary ---
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 Not on file Not on file documented as of this encounter Plan of Treatment Upcoming Encounters Date Type Department Care Team (Late st Contact Info) Description 03/24/2025 7:15 AM EDT Appointment [facility] Nuclear Medicine [address] [place] [address] 03/24/2025 8:00 AM EDT Appointment [facility] Nuclear Medicine [address] [place] [address] 03/24/2025 9:30 AM EDT Appointment [facility] Nuclear Medicine [address] [place] [address] 03/24/2025 10:45 AM EDT Appointment [facility] Nuclear Medicine [address] [place] [address] 04/06/2025 9:40 AM EDT Telehealth [facility] [employer] Telehealth [address] [place] [address] Yana Holt, Adrian 06/09/2025 2:30 PM EDT Office Visit [facility] Endocrinology Clinic [address] [place] [address] Waist Fitter: Elana Soni NP [address] [place] [address] 08/09/2025 2:30 PM EDT Follow-Up [facility] 4th floor Cardiology Medicine [address] [place] [address] Waist Fitter: Tiki Peña PA [address] [place] [address] 12/13/2025 2:40 PM EST Office Visit [facility] Endocrinology Clinic 7 [address] [place] [address] Henrietta Weeks MD [address] [place] [address] 03/16/2026 1:00 PM EDT Follow-Up [facility] 85 [place] [facility] [address] [place] [address] Kian Cuello MD [address] [address] documented as of this encounter Visit Diagnoses Not on filedocumented in this encounter Care Teams Wood Heel Flap Inserter Relationship Specialty Start Date End Date Jonathan Barnett PA [address] [place] [address] PCP - General 03/08/25 documented as of this encounter
--- OUTSIDE RECORDS SUMMARY | 2025-03-23 12:19 | XMS_ITS | Encounter Summary ---
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 on file Not on file documented as of this encounter Plan of Treatment Upcoming Encounters Date Type Department Care Team (Late st Contact Info) Description 03/24/2025 7:15 AM EDT Appointment [facility] Nuclear Medicine [address] [place] [address] [phone] 03/24/2025 8:00 AM EDT Appointment [facility] Nuclear Medicine [address] [place] [address] [phone] 03/24/2025 9:30 AM EDT Appointment [facility] Nuclear Medicine [address] [place] [address] 03/24/2025 10:45 AM EDT Appointment [facility] Nuclear Medicine [address] [place] [address] 04/06/2025 9:40 AM EDT Telehealth [facility] [employer] Telehealth [address] [place] [address] Yana Holt PharmD 06/09/2025 2:30 PM EDT Office Visit [facility] Endocrinology Clinic [address] [place] [address] Computer Education Teacher: Elana Soni NP [address] [place] [address] 08/09/2025 2:30 PM EDT Follow-Up [facility] 4th floor Cardiology Medicine [address] [place] [address] Computer Education Teacher: Tiki Peña PA [address] [place] [address] 12/13/2025 2:40 PM EST Office Visit [facility] Endocrinology Clinic 7 [address] [place] [address] Henrietta Weeks MD [address] [place] [address] 03/16/2026 1:00 PM EDT [facility] 85 [place] [facility] [address] [address] Kian Cuello MD [address] [address] documented as of this encounter Visit Diagnoses Not on filedocumented in this encounter Care Teams Convention Planner Relationship Specialty Start Date End Date Jonathan Barnett PA [address] [place] [address] PCP - General 03/08/25 documented as of this encounter
--- OUTSIDE RECORDS SUMMARY | 2025-03-23 12:19 | XMS_ITS | Encounter Summary ---
Author Organization [facility] Address [address] [place] [address] Care Team Providers Care Tare Worker Name Role Phone Jonathan Barnett Primary Care Provider [phone] Encounter Details Date Type Department Care Team (Late Contact Info) Description 10/04/2022 Wallithart Message [facility] Building [address] [place] [address] LiquidPracticehart, Generic Provider [address] [place], [place] [id number] [facility] specialty pharmacy liaison contact information. 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 Not on file Not on file documented as of this encounter Plan of Treatment Upcoming Encounters Date Type Department Care Team (Late Contact Info) Description 03/24/2025 7:15 AM EDT Appointment [facility] Nuclear Medicine [address] [place] [address] 03/24/2025 8:00 AM EDT Appointment [facility] Nuclear Medicine [address] [place] [address] 03/24/2025 9:30 AM EDT Appointment [facility] Nuclear Medicine 55 [place] [address] 03/24/2025 10:45 AM EDT Appointment [facility] Nuclear Medicine [address] [place] [address] 04/06/2025 9:40 AM EDT Telehealth [facility] [employer] Telehealth [address] [place] [address] Yana Holt, Adrian 06/09/2025 2:30 PM EDT Office Visit [facility] Endocrinology Clinic [address] [place] [address] Light: Elana Soni NP 55 [place] [address] 08/09/2025 2:30 PM EDT Follow-Up [facility] 4th floor Cardiology Medicine [address] [place] [address] Light: Tiik Peña PA 55 [place] [address] 12/13/2025 2:40 PM EST Office Visit [facility] Endocrinology Clinic 7 [address] [place] [address] Henrietta Weeks MD 55 [place] [address] 03/16/2026 1:00 PM EDT Follow-Up [facility] 85 [place] [facility]mon[facility] [address] [place] [address] Kian Cuello MD [address] [address] documented as of this encounter Visit Diagnoses Not on filedocumented in this encounter Care Teams Tare Worker Relationship Specialty Start Date End Date Jonathan Barnett PA [address] [place] [address] PCP - General 03/08/25 documented as of this encounter
--- OUTSIDE RECORDS SUMMARY | 2025-03-23 12:19 | XMS_ITS | Encounter Summary ---
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 Not on file Not on file documented as of this encounter Plan of Treatment Upcoming Encounters Date Type Department Care Team (Late st Contact Info) Description 03/24/2025 7:15 AM EDT Appointment [facility] Nuclear Medicine 55 [place] [address] 03/24/2025 8:00 AM EDT Appointment [facility] Nuclear Medicine 55 [place] [address] 03/24/2025 9:30 AM EDT Appointment [facility] Nuclear Medicine 55 [place] [address] 03/24/2025 10:45 AM EDT Appointment [facility] Nuclear Medicine 55 [place] [address] 04/06/2025 9:40 AM EDT Telehealth [facility] [employer] Telehealth 55 [place] [address] Yana Holt, Adrian 06/09/2025 2:30 PM EDT Office Visit [facility] Endocrinology Clinic 55 [place] [address] Cloth Examiner: Elana Soni NP 55 [place] [address] 08/09/2025 2:30 PM EDT Follow-Up [facility] 4th floor Cardiology Medicine 55 [place] [address] Cloth Examiner: Tiki Peña PA 55 [place] [address] 12/13/2025 2:40 PM EST Office Visit [facility] Endocrinology Clinic 7 55 [place] [address] Henrietta Weeks MD 55 [place] [address] 03/16/2026 1:00 PM EDT Follow-Up [facility] 85 [place] [facility] [address] [address] Kian Cuello MD [address] [address] documented as of this encounter Visit Diagnoses Not on filedocumented in this encounter Care Teams Medical Receptionist Biller Relationship Specialty Start Date End Date Jonathan Barnett PA [address] [place] [address] PCP - General 03/08/25 documented as of this encounter
--- OUTSIDE RECORDS SUMMARY | 2025-03-23 12:19 | XMS_ITS | Encounter Summary ---
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 on file Not on file documented as of this encounter Plan of Treatment Upcoming Encounters Date Type Department Care Team (Late st Contact Info) Description 03/24/2025 7:15 AM EDT Appointment [facility] Nuclear Medicine 55 [place] [address] 03/24/2025 8:00 AM EDT Appointment [facility] Nuclear Medicine [address] [place] [address] 03/24/2025 9:30 AM EDT Appointment [facility] Nuclear Medicine [address] [place] [address] 03/24/2025 10:45 AM EDT Appointment [facility] Nuclear Medicine [address] [place] [address] 04/06/2025 9:40 AM EDT Telehealth [facility] [employer] Telehealth [address] [place] [address] Yana Holt, Adrian 06/09/2025 2:30 PM EDT Office Visit [facility] Endocrinology Clinic 55 [place] [address] Nurse Case Manager: Elana Soni NP 55 [place] [address] 08/09/2025 2:30 PM EDT Follow-Up [facility] 4th floor Cardiology Medicine 55 [place] [address] Nurse Case Manager: Tiki Peña PA 55 [place] [address] 12/13/2025 2:40 PM EST Office Visit [facility] Endocrinology Clinic 7 55 [place] [address] Henrietta Weeks MD 55 [place] [address] 03/16/2026 1:00 PM EDT Follow-Up [facility] 85 [place] [facility]mon[facility] [address] [place] [address] Kian Cuello MD [address] [address] documented as of this encounter Visit Diagnoses Not on filedocumented in this encounter Care Teams Stamps Or Coins Salesperson Relationship Specialty Start Date End Date Jonathan Barnett PA [address] [place] [address] PCP - General 03/08/25 documented as of this encounter
--- OUTSIDE RECORDS SUMMARY | 2025-03-23 12:19 | XMS_ITS | Encounter Summary ---
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 Not on file Not on file documented as of this encounter Plan of Treatment Upcoming Encounters Date Type Department Care Team (Late st Contact Info) Description 03/24/2025 7:15 AM EDT Appointment [facility] Nuclear Medicine 55 [place], [place] [phone] 03/24/2025 8:00 AM EDT Appointment [facility] Nuclear Medicine 55 [place] [address] 03/24/2025 9:30 AM EDT Appointment [facility] Nuclear Medicine 55 [place] [address] 03/24/2025 10:45 AM EDT Appointment [facility] Nuclear Medicine [address] [place] [address] 04/06/2025 9:40 AM EDT Telehealth [facility] [employer] Telehealth [address] [place] [address] Yana Holt, Adrian 06/09/2025 2:30 PM EDT Office Visit [facility] Endocrinology Clinic 55 [place] [address] Soap Slabber: Elana Soni NP 55 [place] [address] 08/09/2025 2:30 PM EDT Follow-Up [facility] 4th floor Cardiology Medicine 55 [place] [address] Soap Slabber: Tiki Peña PA 55 [place] [address] 12/13/2025 2:40 PM EST Office Visit [facility] Endocrinology Clinic 7 55 [place] [address] Henrietta Weeks MD 55 [place] [address] 03/16/2026 1:00 PM EDT Follow-Up [facility] 85 [place] [facility] [address] [place] [address] Kian Cuello MD 85 [facility] [address] [place] [address] documented as of this encounter Visit Diagnoses Not on filedocumented in this encounter Care Teams Advanced Solutions Architect Relationship Specialty Start Date End Date Jonathan Barnett PA [address] [place] [address] PCP - General 03/08/25 documented as of this encounter
--- OUTSIDE RECORDS SUMMARY | 2025-03-23 12:19 | XMS_ITS | Encounter Summary ---
Author Organization [facility] Address [address] [place] [address] Care Team Providers Care Chartered Wealth Manager Name Role Phone Jonathan Barnett Primary Care Provider [phone] Encounter Details Date Type Department Care Team (Late st Contact Info) Description 12/17/2024 Orders Only [facility] Interventional Radiology [address] [place] [address] Claudia Joyce NP 55 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 Not on file Not on file documented as of this encounter Plan of Treatment Upcoming Encounters Date Type Department Care Team (Late st Contact Info) Description 03/24/2025 7:15 AM EDT Appointment [facility] Nuclear Medicine 55 [place] [address] 03/24/2025 8:00 AM EDT Appointment [facility] Nuclear Medicine 55 [place] [address] 03/24/2025 9:30 AM EDT Appointment [facility] Nuclear Medicine 55 [place] [address] 03/24/2025 10:45 AM EDT Appointment [facility] Nuclear Medicine 55 [place] [address] 04/06/2025 9:40 AM EDT Telehealth [facility] [employer] Telehealth 55 [place] [address] Yana Holt PharmD 06/09/2025 2:30 PM EDT Office Visit [facility] Endocrinology Clinic 55 [place] [address] Phlebotomy Instructor: Elana Soni NP 55 [place] [address] 08/09/2025 2:30 PM EDT Follow-Up [facility] 4th floor Cardiology Medicine 55 [place] [address] Phlebotomy Instructor: Tiki Peña PA 55 [place] [address] 12/13/2025 2:40 PM EST Office Visit [facility] Endocrinology Clinic 7 [address] [place] [address] Henrietta Weeks MD 55 [place] [address] 03/16/2026 1:00 PM EDT Follow-Up [facility] 85 [place] Pulmonology [address] [address] Kian Cuello MD [address] [address] documented as of this encounter Visit Diagnoses Not on filedocumented in this encounter Care Teams Chartered Wealth Manager Relationship Specialty Start Date End Date Jonathan Barnett PA [address] [place] [address] PCP - General 03/08/25 documented as of this encounter
--- OUTSIDE RECORDS SUMMARY | 2025-03-23 12:19 | XMS_ITS | Encounter Summary ---
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 Not on file Not on file documented as of this encounter Plan of Treatment Upcoming Encounters Date Type Department Care Team (Late st Contact Info) Description 03/24/2025 7:15 AM EDT Appointment [facility] Nuclear Medicine [address] [place] [phone] 03/24/2025 8:00 AM EDT Appointment [facility] Nuclear Medicine [address] [place] [address] 03/24/2025 9:30 AM EDT Appointment [facility] Nuclear Medicine 55 [place] [address] 03/24/2025 10:45 AM EDT Appointment [facility] Nuclear Medicine [address] [place] [address] 04/06/2025 9:40 AM EDT Telehealth [facility] [employer] Telehealth [address] [place] [address] Yana Holt PharmD 06/09/2025 2:30 PM EDT Office Visit [facility] Endocrinology Clinic 55 [place] [address] Laboratory Engineer: Elana Soni NP 55 [place] [address] 08/09/2025 2:30 PM EDT Follow-Up [facility] 4th floor Cardiology Medicine 55 [place] [address] Laboratory Engineer: Tiki Peña PA [address] [place] [address] 12/13/2025 2:40 PM EST Office Visit [facility] Endocrinology Clinic 7 [address] [place] [address] Henrietta Weeks MD 55 [place] [address] 03/16/2026 1:00 PM EDT Follow-Up [facility] 85 [place] Pulmonology [address] [address] Kian Cuello MD [address] [address] documented as of this encounter Visit Diagnoses Not on filedocumented in this encounter Care Teams Program Support Clerk Relationship Specialty Start Date End Date Jonathan Barnett PA [address] [place] [address] PCP - General 03/08/25 documented as of this encounter
--- OUTSIDE RECORDS SUMMARY | 2025-03-23 12:19 | XMS_ITS | Encounter Summary ---
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 * Telephone Encounter - Toby Kelley - 03/08/2025 3:49 PM EDT Talisha Khalil and Dr. Boswell, Financial clearance at [facility] called because pts [place] test was denied. Reason is the insurance needs to know why the pt cannot complete a treadmill test. Pt is unsure if he should go to his appt tomorrow. Thanks Stanford documented in this encounter Plan of Treatment Upcoming Encounters Date Type Department Care Team (Late st Contact Info) Description 03/24/2025 7:15 AM EDT Appointment [facility] Nuclear Medicine [address] [place] [address] 03/24/2025 8:00 AM EDT Appointment [facility] Nuclear Medicine [address] [place] [address] 03/24/2025 9:30 AM EDT Appointment [facility] Nuclear Medicine [address] [place] [address] 03/24/2025 10:45 AM EDT Appointment [facility] Nuclear Medicine [address] [place] [address] 04/06/2025 9:40 AM EDT Telehealth [facility] [employer] Telehealth [address] [place] [address] Yana Holt, Adrian 06/09/2025 2:30 PM EDT Office Visit [facility] Endocrinology Clinic [address] [place] [address] Supervisor Alum Plant: Elana Soni NP [address] [place] [address] 08/09/2025 2:30 PM EDT Follow-Up [facility] 4th floor Cardiology Medicine [address] [place] [address] Supervisor Alum Plant: Tiki Peña PA 55 [place] [address] 12/13/2025 2:40 PM EST Office Visit [facility] Endocrinology Clinic 7 [address] [place] [address] Henrietta Weeks MD 55 [place] [address] 03/16/2026 1:00 PM EDT Follow-Up [facility] 85 [place] Pulmonology [address] [address] Kian Cuello MD [address] [address] documented as of this encounter Visit Diagnoses Not on filedocumented in this encounter Care Teams Web Applications Programmer Relationship Specialty Start Date End Date Jonathan Barnett PA [address] [place] [address] PCP - General 03/08/25 documented as of this encounter
--- OUTSIDE RECORDS SUMMARY | 2025-03-23 12:19 | XMS_ITS | Encounter Summary ---
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 Complaint with mary jane. LUIS Moreira * Telephone Encounter - Eusebia Mcmahon - 01/14/2025 8:55 AM EDT Pt had 1 abnormal event from monitor . Report in social media editor. documented in this encounter Plan of Treatment Upcoming Encounters Date Type Department Care Team (Late st Contact Info) Description 03/24/2025 7:15 AM EDT Appointment [facility] Nuclear Medicine [address] [place] [address] 03/24/2025 8:00 AM EDT Appointment [facility] Nuclear Medicine [address] [place] [address] 03/24/2025 9:30 AM EDT Appointment [facility] Nuclear Medicine [address] [place] [address] 03/24/2025 10:45 AM EDT Appointment [facility] Nuclear Medicine [address] [place] [address] 04/06/2025 9:40 AM EDT Telehealth [facility] [employer] Telehealth [address] [place] [address] Yana Holt PharmD 06/09/2025 2:30 PM EDT Office Visit [facility] Endocrinology Clinic [address] [place] [address] Customer Manager: Elana Soni NP [address] [place] [address] 08/09/2025 2:30 PM EDT Follow-Up [facility] 4th floor Cardiology Medicine [address] [place] [address] Customer Manager: Amirah Jackson, Tiki Ram PA [address] [place] [address] 12/13/2025 2:40 PM EST Office Visit [facility] Endocrinology Clinic 7 [address] [place] [address] Henrietta Weeks MD 55 [place] [address] 03/16/2026 1:00 PM EDT Follow-Up [facility] 85 [place] [facility]mon[facility] [address] [address] Kian Cuello MD [address] [address] documented as of this encounter Visit Diagnoses Not on filedocumented in this encounter Care Teams Dietetic Tech Relationship Specialty Start Date End Date Jonathan Barnett PA [address] [place] [address] PCP - General 03/08/25 documented as of this encounter
--- OUTSIDE RECORDS SUMMARY | 2025-03-23 12:19 | XMS_ITS | Encounter Summary ---
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 Not on file [...] to clinic Pt can be reached at; [phone] documented in this encounter Plan of Treatment Upcoming Encounters Date Type Department Care Team (Late st Contact Info) Description 03/24/2025 7:15 AM EDT Appointment [facility] Nuclear Medicine [address] [place] [address] 03/24/2025 8:00 AM EDT Appointment [facility] Nuclear Medicine [address] [place] [address] 03/24/2025 9:30 AM EDT Appointment [facility] Nuclear Medicine [address] [place] [address] 03/24/2025 10:45 AM EDT Appointment [facility] Nuclear Medicine [address] [place] [address] 04/06/2025 9:40 AM EDT Telehealth [facility] [employer] Telehealth [address] [place] [address] Yana Holt, Adrian 06/09/2025 2:30 PM EDT Office Visit [facility] Endocrinology Clinic [address] [place] [address] Practice Or Student Teacher: Elana Snoi NP [address] [place] [address] 08/09/2025 2:30 PM EDT Follow-Up [facility] 4th floor Cardiology Medicine [address] [place] [address] Practice Or Student Teacher: Tiki Peña PA [address] [place] [address] 12/13/2025 2:40 PM EST Office Visit [facility] Endocrinology Clinic 7 [address] [place] [address] Henrietta Weeks MD 55 [place] [address] 03/16/2026 1:00 PM EDT Follow-Up [facility] 85 [place] Pulmonology [address] [address] Kian Cuello MD [address] [address] documented as of this encounter Visit Diagnoses Not on filedocumented in this encounter Care Teams Chemistry Instructor Relationship Specialty Start Date End Date Jonathan Barnett PA [address] [place] [address] PCP - General 03/08/25 documented as of this encounter
--- OUTSIDE RECORDS SUMMARY | 2025-03-23 12:19 | XMS_ITS | Clinical Summary ---
Author Organization [facility] Address [address] [place] [address] Care Team Providers Care Roofing Contractor Name Role Phone Jonathan Barnett Primary Care Provider Allergies Active Allergy Reactions Criticality Noted Date Comments Iodinated Contrast Media Nausea,Vomiting 2024 Medications cholecalciferol (VITAMIN D3) 1,000 unit tablet Take 1,000 [...] Active albuterol (PROAIR HFA,VENTOLIN HFA) 90 mcg inhalerIndicati ons:Dyspnea, unspecified type Inhale 2 puffs (180 mcg total) by mouth every 4 hours as needed for wheezing or shortness of breath. Use with spacer. 8.5 g 5 04/24/20 24 025 Active montelukast (SINGULAIR) 10 mg tabletIndicatio ns:Dyspnea, unspecified type Take 1 tablet (10 mg total) by mouth nightly. 30 tablet 11 04/24/20 24 025 Active fluticasone propionate (FLONASE) 50 mcg/actuation nasal sprayIndication s:Postnasal drip Administer 2 sprays into each nostril once a day. 16 g 11 08/04/20 24 Active Additional Information Patient taking differently:2 spray both nostrilsAs needed, Reported on 03/11/2025 empagliflozin (JARDIANCE) 25 mg tablet Take 1 tablet (25 mg total) by mouth once a day. 90 tablet 3 12/02/19 25 Active Zepbound 10 mg/0.5 mL pen injector pen injector Inject 0.5 mL (10 mg total) under the skin per week. Switch from wegovy 2 mL 5 10:52 PM EDT 12/09/19 25 Active nitroglycerin (NITROSTAT) [...] day. 30 tablet 3 02/05/20 25 Active aspirin chewable tablet 81 mg Chew and swallow 1 tablet (81 mg total) by mouth once a day. STOP AFTER 30 DAYS POST CATH. 02/09/20 25 Active clopidogreL (PLAVIX) 75 mg tablet Take 1 tablet (75 mg total) by mouth once a day. 30 tablet 5 5 7:05 PM EDT 02/09/20 25 Active ezetimibe (ZETIA) 10 mg tablet Take 1 tablet (10 mg total) by mouth once a day. 30 tablet 5 5 7:05 PM EDT 02/09/20 25 Active atorvastatin (LIPITOR) 80 mg tablet Take 1 tablet (80 mg total) by mouth once a day. 30 tablet 5 5 7:05 PM EDT 02/09/20 25 Active ranolazine ER (Ranexa) 500 mg tablet Take 1 tablet (500 mg total) by mouth 2 times a day. 60 tablet 3 02/18/20 25 Active Repatha SureClick 140 mg/mL pen injector Inject 1 mL (140 mg total) under the skin every 14 days. 2 mL 2 5 3:52 PM EDT 03/05/20 25 Active predniSONE (DELTASONE) 10 mg tablet Take 5 tabs 13 hours prior to procedure arrival time, then 5 tabs 7 hours prior to procedure arrival time, and then 5 tabs 1 hour prior to procedure arrival time. 15 tablet 02/08/20 25 025 Discontinued (Therapy Completed or No Longer Needed) Active Problems Problem Noted Date Diagnosed Date [...] tikosyn. He is on eliquis for a [id number] of 3 iso of DM2, HTN, and [...] is on AC with Eliquis for a [id number] of 2. For antiarrhythmic control he has [...] K was 4.0, mag 1.9, CrCl 125. 2: No acute overnight events. Patient remains in [...] I have ordered, also we discussed the YongChe mobile device for more rare events that [...] stairs and is stable and not progressing. Hyperlipidemia 09/08/2020 Assessment & Plan (12/02/2024 2:59 PM [...] He is interested in some here at [facility]. Thus I referred him to our [...] reached out to sleep medicine doctor in [place] Assessment & Plan (12/01/2020 12:18 PM EST): [...] with his current sleep medicine doctor in [place]. I said that if he is not [...] lbs after starting Wegovy 2.4mg SQ every Charlie in January 2023. -Wegovy non formulary, will [...] on August I confirm this appointment in epic, and encouraged him to attend it. He [...] $10 a month for him. Would not foreign exchange services manager at this time Petey that weight loss [...] PM EDT): Fito has symptomatic persistent symptomatic care management assistant atrial fibrillation. His symptoms included fatigue [...] EST): Mr. Diaz has symptomatic persistent symptomatic care management assistant atrial fibrillation. His symptoms included fatigue [...] EDT): Mr. Diaz has symptomatic persistent symptomatic care management assistant atrial fibrillation. His symptoms included fatigue [...] AM EST): Mr. Diaz has persistent symptomatic care management assistant atrial fibrillation. His symptoms included fatigue [...] PM EST): Mr. Diaz has persistent symptomatic care management assistant atrial fibrillation. His symptoms included fatigue [...] PM EST): Mr. Diaz has persistent symptomatic care management assistant atrial fibrillation. His symptoms included fatigue [...] PM EST): Mr. Diaz has persistent symptomatic care management assistant atrial fibrillation. His symptoms included fatigue [...] AM EDT): Mr. Diaz has persistent symptomatic care management assistant atrial fibrillation. His symptoms included fatigue [...] Encounters Date Type Department Care Team Description 03/23/[address] Cardiology Medicine [address] [place] [phone] Warehouse Order Puller: Juan Velasco MD 03/15/2025 Orders Only [address] Cardiology Medicine [address] [place] [phone] Warehouse Order Puller: Simran Stewart NP Persistent atrial fibrillation (HCC) (Primary Dx) 03/15/[address] [address] Warehouse Order Puller: Juan Velasco MD 03/12/[address] [address] Warehouse Order Puller: Juan Velasco MD 03/11/2025 10:00 AM EDT Follow-Up [facility] [address] [place] Pulmonology [address] [facility] [address] [place] [phone] Kian Cuello MD LAYNE (obstructive sleep apnea) (Primary Dx) 03/08/[address] Cardiology Medicine [address] [place] [address] Warehouse Order Puller: Lin Stewart NP 03/08/[address] Cardiology [address] [address] Warehouse Order Puller: Juan Velasco MD 03/05/2025 2:00 PM EDT Telehealth [facility] [employer] Telehealth [address] [place] [address] Tracie Westbrook NP Hyperlipidemia, unspecified hyperlipidemia type (Primary Dx); 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 03/05/2025 myChart Message [facility] Telehealth [address] [place] [phone] Tracie Westbrook NP telehealth follow up - Repatha 03/01/2025 1:40 PM EDT Telehealth [facility] Endocrinology Clinic [address] [place] [address] Warehouse Order Puller: Otilia Edwards PharmD 02/19/[address] Cardiology Medicine [address] [place] [phone] Warehouse Order Puller: Juan Velasco MD 02/17/2025 2:00 PM EDT Office Visit [address] Cardiology Medicine [address] [place] [phone] Warehouse Order Puller: Simran Stewart NP 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 (Primary Dx); Dyslipidemia (high LDL; low HDL); Chronic heart failure with preserved ejection fraction (HCC); Essential hypertension; Persistent atrial fibrillation (HCC) 02/17/[address] Cardiology Medicine [address] [place] [phone] Warehouse Order Puller: Marlen Felix MD 02/17/2025 Orders Only [facility] Nuclear Medicine [address] [place] [phone] Wicho Cruz MD 02/15/[address] Cardiology Medicine [address] [place] [phone] Warehouse Order Puller: Juan Velasco MD PAC Patient Request Call Back 02/09/2025 Telephone [facility] 4th floor Cardiology Medicine [address] [place] [address] Warehouse Order Puller: Izabel Dhillon NP PAC Appt Request - Established 02/08/2025 7:30 AM EDT - 02/08/2025 9:05 AM EDT Surgery [facility] Interventional Lab [address] [place] [address] Marlen Saenz MD Coronary angiography 02/08/2025 6:35 AM EDT - 02/08/2025 2:45 PM EDT Hospital Encounter [facility] [address] [place] [address] Marlen Saenz MD Coronary artery disease involving shinnecock coronary artery of shinnecock heart, unspecified whether angina present (Primary Dx); Angina pectoris, unstable; Coronary artery disease involving shinnecock coronary artery of shinnecock heart with unstable angina pectoris Discharge Disposition: Home or Self Care () 02/07/2025 Orders Only [facility] 4th floor Cardiology Medicine [address] [place] [phone] Warehouse Order Puller: Ovi Lisa MD PhD 02/05/2025 Refill [facility] 4th floor Cardiology Medicine [address] [place] [address] Warehouse Order Puller: Dana Simms LPN 02/04/2025 3:27 PM EDT - 02/04/2025 11:59 PM EDT Hospital Encounter [facility] Cardiac Ultrasound [address] [place] [address] Chest pain, unspecified type Discharge Disposition: Home or Self Care () 02/04/2025 Orders Only [facility] 4th floor Cardiology Medicine [address] [place] [address] Warehouse Order Puller: Juan Velasco MD 02/04/2025 Orders Only [facility] [address] [place] [address] Shaneka Salcedo, LUIS 02/04/2025 Telephone [facility] [address] [place] [address] Shaneka Salcedo PA 02/03/2025 Refill [facility] 4th floor Cardiology Medicine [address] [place] [address] Warehouse Order Puller: Juan Velasco MD 02/02/2025 Telephone [facility] [address] [place] [address] Shaneka Salcedo, LUIS 01/14/2025 Telephone [facility] Heart Station [address] [place] [address] Alisia Gibson DO 01/13/2025 Telephone [facility] 4th floor Cardiology Medicine [address] [place] [address] Warehouse Order Puller: Juan Velasco MD 01/07/2025 Orders Only [facility] 4th floor Cardiology Medicine [address] [place] [phone] Warehouse Order Puller: Juan Velasco MD 01/07/2025 myChart Message [facility] 4th floor Cardiology Medicine [address] [place] [phone] Warehouse Order Puller: Amirah Krishnan, Generic Provider pre procedure instructions 01/06/2025 Telephone [facility] 4th floor Cardiology Medicine [address] [place] [phone] Warehouse Order Puller: Juan Velasco MD 01/06/2025 Documentation [facility] 4th floor Cardiology Medicine [address] [place] [phone] Warehouse Order Puller: Merary Pereira PA 01/06/2025 Orders Only [facility] 4th floor Cardiology Medicine [address] [place] [address] Warehouse Order Puller: Merary Pereira PA Angina pectoris, unstable (Primary Dx) 01/06/2025 Telephone [facility] Endocrinology Clinic [address] [place] [address] Warehouse Order Puller: Henrietta Hobson MD Prior Authorization from Last 3 Months Immunizations Immunization Administration [...] 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 file Not on file Not on file Last Filed Vital Signs Vital Sign Reading Time Taken Comments Blood Pressure 106/68 03/11/2025 10:26 AM EDT Pulse 62 03/11/2025 10:26 AM EDT Temperature 36.7 ??C (98.1 ??F) 02/08/2025 6:51 AM ED T Respiratory Rate 17 02/17/2025 2:13 PM EDT Oxygen Saturation 97% 03/11/2025 10:26 AM EDT Inhaled Oxygen Concentration - - Weight 111.6 kg (246 lb) 03/11/2025 10:26 AM EDT Height 180.3 cm (5' 11 ) 03/11/2025 10:26 AM EDT Body Mass Index 34.31 03/11/2025 10:26 AM EDT Plan of Treatment Upcoming Encounters Date Type Department Care Team (Late st Contact Info) Description 03/24/2025 7:15 AM EDT Appointment [facility] Nuclear Medicine [address] [place] [phone] 03/24/2025 8:00 AM EDT Appointment [facility] Nuclear Medicine [address] [place] [address] 03/24/2025 9:30 AM EDT Appointment [facility] Nuclear Medicine [address] [place] [address] 03/24/2025 10:45 AM EDT Appointment [facility] Nuclear Medicine [address] [place] [address] 04/06/2025 9:40 AM EDT Telehealth [facility] Telehealth [address] [place] [address] Yana Holt, Adrian 06/09/2025 2:30 PM EDT Office Visit [facility] Endocrinology Clinic [address] [place] [address] Warehouse Order Puller: Elana Soni NP [address] [place] [address] 08/09/2025 2:30 PM EDT Follow-Up [facility] 4th floor Cardiology Medicine [address] [place] [address] Warehouse Order Puller: Tiki Peña PA [address] [place] [address] 12/13/2025 2:40 PM EST Office Visit [facility] Endocrinology Clinic [address] [place] [address] Henrietta Weeks MD [address] [place] [address] 03/16/2026 1:00 PM EDT Follow-Up [facility] [address] [place] [address] [address] Kian Cuello MD [address] [address] Health Maintenance Due Date Last Done Comments Cologuard 1963 Colon Cancer Screening 1963 Colonoscopy 1963 FOBT / Fit Test 1963 HIV Screening 1963 Hepatitis C Screening 1963 Sigmoidoscopy 1963 Ophthalmology Exam 1973 Urine Microalbumin 1973 DTaP,Tdap,and Td Vaccines (1 - Tdap) 1985 Zoster Vaccines (1 of 2) 2013 RSV Vaccine (60+ years old and patients) (1 - Risk 60-74 years 1-dose series) 2023 COVID-19 Vaccine ( - season) 2024 Alcohol/Substance Use Screening 11/04/2024 Depression Screening and Follow-Up 11/04/2024 Social Drivers of Health Annual Screening 11/04/2024 Hemoglobin A1C 06/01/2025 12/02/2024, 10/05, 09/08/2020, Additional history exists Influenza Vaccine (Season Ended) 2025 11/20/2022 Basic Metabolic Panel 02/04/2026 02/04/2025 , 12/02/2024, 03/17/2024, Additional history exists Pneumococcal Vaccine: 50+ Years Completed 02/23/2025, 10/26/2020 Hepatitis B Vaccines Aged Out No long er eligible based on patient's age to complete this topic Medical Devices Implanted Type Area Certified Scrub Tech Device Identifier Shelf Expiration Date Model / Serial / Lot System Closure And Repair Suture-Mediat ed Perclose Prostyle - [id number] Implanted:Qty : 1 on 03/16/2024 by Eddie Mills MD at [facility] [employer]plant [employer] [id number] 01/01/2026 [id number] / / [id number] System Closure And Repair Suture-Mediat ed Perclose Prostyle - [id number] Implanted:Qty : 1 on 03/16/2024 by Eddie Mills MD at [facility] Implant Right: Groin [employer] [id number] 01/01/202618705-29 / / [id number] System Closure Vascular Venous Mvp 6-12fr Vascade - [id number] Implanted:Qty : 1 on 03/16/2024 by Eddie Mills MD at [facility] Implant Right: Groin [employer] 12/06/2025 [id number] -[id number] / / [id number] System Closure Vascular Venous Mvp 6-12fr Vascade - [id number] Implanted:Qty : 1 on 03/16/2024 by Eddie Mills MD at [facility] Implant Right: Groin [employer] 12/06/2025 [id number] -[id number] / / [id number] Stent Coronary Everolimus-El uting Grover Chromium [id number] Synergy Xd - [id number] Implanted:Qty : 1 on 02/08/2025 by Marlen Saenz MD at [facility] Stent Right: Coronary [employer] [id number] 10/13/2026 [id number] / / [id number] Stent Coronary [id number] [place] [facility] - [id number] Implanted:Qty : 1 on 02/08/2025 by Marlen Saenz MD at [facility] Stent Right: Coronary [employer] [id number] 09/20/2027 [id number] / / [id number] Procedures * Due to [place] state law, this organization might not be [...] Routine 02/08/2025 6:50 AM EDT MOBILE CARDIAC BANQUET WAITER/WAITRESS (MCOT) 7 DAY MAIL OUT Routine 02/05/2025 8:24 AM EDT Chest pain, unspecified type Palpitations LIPID PANEL W/REFLEX TO DIRECT LDL Add-On 02/04/2025 4:32 PM EDT BASIC METABOLIC PANEL Routine 02/04/2025 4:32 PM EDT Angina pectoris, unstable (HCC) CBC Routine 02/04/2025 4:32 PM EDT Angina pectoris, unstable (HCC) TRANSTHORACIC ECHO (TTE) COMPLETE Routine 02/04/2025 3:51 PM EDT Chest pain, unspecified type HEMOGLOBIN A1C Routine 12/02/2024 3:14 PM EST Persistent atrial fibrillation Dyslipidemia (high LDL; low HDL) from Last 3 Months or Most Recently Relevant to Health Maintenance Results * Due to [place] state law, this organization might not be sharing negative HIV tests. * ECG 12 lead (02/17/2025 2:11 PM EDT) Only the most recent of3 resultswithin the time period is included. Ventricular Rate EKG 64 BPM MUSE EKG Atrial Rate 64 BPM MUSE EKG FL Interval 176 ms MUSE EKG QRS Interval 90 ms MUSE EKG QT Interval 444 ms MUSE EKG QTC Interval 458 ms MUSE EKG P [place] 49 degrees MUSE EKG R [place] -6 degrees MUSE EKG T Wave [place] 8 degrees MUSE EKG 02/17/2025 2:11 PM EDT 02/17/2025 7:44 PM EDT Impressions MUSE EKG - 02/17/2025 7:44 PM EDT NORMAL SINUS RHYTHM NORMAL ECG WHEN COMPARED WITH ECG OF 08-FEB-2025 09:42, NO SIGNIFICANT CHANGE WAS FOUND Confirmed by Zoran Jimenez ([id number]) on 02/17/2025 7:44:55 PM us Juan Boswell MD ECG ORDERABLES Final Result MUSE EKG * (ABNORMAL) POCT I-STAT Chemistry 8 Panel, interfaced (02/08/2025 1:30 PM EDT) Sample Type, POCT Venous 025 1:36 PM EDT [facility] Sodium, POCT 138 135 - 145 mmol/L 02/08/2025 1:36 PM EDT [facility] Potassium, POCT 3.5 3.5 - 5.3 mmol/L 02/08/2025 1:36 PM EDT [facility] Chloride, POCT 102 97 - 110 mmol/L 02/08/2025 1:36 PM EDT [facility] TCO2, POCT 22(L) 24 - 32 mmol/L 02/08/2025 1:36 PM EDT [facility] Anion Gap, POCT 14 5 - 15 mmol/L 02/08/2025 1:36 PM EDT [facility] iCA, POCT 4.7 4.6 - 5.3 mg/dL 02/08/2025 1:36 PM EDT [facility] Glucose, POCT 131(H) 70 - 99 mg/dL 02/08/2025 1:36 PM EDT [facility] BUN, POCT 12 7 - 23 mg/dL 02/08/2025 1:36 PM T [facility] Creatinine, POCT 1.0 0.6 - 1.3 mg/dL 02/08/2025 1:36 PM T [facility] eGFR 86 >=60 mL/min/1. 73m2 02/08/2025 1:36 PM T [facility] Comment:The estimated glomer ular filtration rate [...] - 52 % 02/08/2025 1:36 PM EDT [facility] Blood 02/08/2025 1:30 PM EDT 02/08/2025 1:36 PM EDT Narrative [facility] - 02/08/2025 1:36 PM EDT i-STAT analyzer cannot determine presence of hemolysis in sample us Marlen Saenz MD LAB POCT ORDERABLES - DEVICE Final Result [facility] [address] [place] [address], [place] * CORONARY ANGIOGRAPHY, CORONARY INTERVENTION (PCI), [...] delivery - stent deployed in proximal RPDA (Everton WALTER 2.25 x 15 mm) - stent [...] moderate LAD/LM disease. Follow up with outpatient transfer and line up worker, findings discussed in person. Evidence-based optimal medical therapy. Aggressive cardiovascular risk factor modification. Procedure Details The risks and alternatives of the procedures and conscious sedation were explained to the patient and informed consent was obtained. The patient was brought to the senior laboratory technician and placed on the table. The planned [...] lesion. Ultrasound supply: CATHETER IVUS RX DIGITAL TANGIRNAQ SHORT TIP 5FR 0.014IN 150CM LITTLE TRAVERSE EYE. Minimum lumen area: 6.4 mm??. The lesion is concentric. Left Anterior Descending: The vessel was visualized by angiography and is large in size. The vessel is ectatic. Mid LAD lesion is 60% stenosed. The lesion is located at the bifurcation. A WIRE GUIDE WIRELESS PHYSIOLOGY [id number] PRESSUREWIRE was used. CATHETER GUIDE BACKUP SUPPORT LEFT EXTRA BACKUP SUPPORT CURVE SIZE 3.5 6FR [id number] LAUNCHER Guide Catheter was used. RFR: 0.92 [...] LVEF 60%. He is now referred for [facility], coronary angiography, +/-PCI. us Juan Boswell MD CV CARDIAC CATH PROCEDURES F inal Result * POCT I-STAT Activated Clotting Time, interfaced (02/08/2025 8:51 AM EDT) Only the most recent of3 resultswithin the time period is included. Sample Type, POCT Arterial 02/08/2025 8:52 AM EDT [facility] ACT Average, POCT 244 See Comment Seconds 02/08/2025 8:52 AM EDT [facility] Comment: Therapeutic Range: Baseline: 75-127 Cardiac Catherization Lab: 200-300 EP Lab: 200-400 Perfusion and OR - Cardiac Surgery: 450 Valve replacement: 480 Blood 02/08/2025 8:51 AM EDT 02/08/2025 8:52 AM EDT us Marlen Saenz MD LAB POCT ORDERABLES - DEVICE Final Result [facility] [address] [place] [address], [place] * MOBILE CARDIAC BANQUET WAITER/WAITRESS (MCOT) 7 DAY MAIL OUT (02/05/2025 8:24 AM EDT) Anatomical Region Laterality Modality Monitor Room Narrative 02/18/2025 10:53 PM EDT ATTENDING ADDENDUM: This was a Mobile Cardiac Senior Research Engineer (MCOT) 7 Day. ??This study was for [...] details. ??Patient triggered episodes detailed above. ?? us Tiki SMITH CV CARDIAC SERVICES PROC EDURES Final Result * (ABNORMAL) Lipid Panel w/Reflex to Direct LDL (02/04/2025 4:32 PM EDT) Cholesterol 173 <=199 mg/dL 02/08/2025 10:40 AM EDT [facility] Triglycerides 100 <=149 mg/dL 02/08/2025 10:40 AM EDT [facility] Cholesterol, HDL 45 40 - 59 mg/dL 02/08/2025 10:40 AM EDT [facility] Cholesterol, Non-HDL 128 mg/dL 02/08/2025 10:40 AM EDT [facility] LDL Cholesterol 108(H) <100 mg/dL 02/08/2025 10:40 AM EDT [facility] VLDL 20 mg/dL 02/08/2025 10:40 AM EDT [facility] Cholesterol/HDL Ratio 3.8 <5.0 02/08/2025 10:40 AM EDT [facility] Blood Structure of peripheral vein / Unknown Venipuncture / Unknown 02/04/2025 4:32 PM EDT 02/04/2025 4:47 PM EDT Narrative [facility] - 02/08/2025 10:40 AM [...] MD LAB BLOOD ORDERABLES Final R esult [facility] [address] [place] [address], * CBC (02/04/2025 4:32 PM EDT) WBC 8.7 3.8 - 10.8 10*3/uL 02/04/2025 4:58 PM EDT [facility] RBC 4.59 4.20 - 5.80 10*6/uL 02/04/2025 4:58 PM EDT [facility] Hemoglobin 14.7 13.2 - 17.1 g/dL 02/04/2025 4:58 PM EDT [facility] Hematocrit 43.7 38.5 - 50.0 % 02/04/2025 4:58 PM EDT [facility] MCV 95.2 80.0 - 100.0 fL 02/04/2025 4:58 PM EDT [facility] MCH 32.0 27.0 - 33.0 pg 02/04/2025 4:58 PM EDT [facility] MCHC 33.6 32.0 - 36.0 g/dL 02/04/2025 4:58 PM EDT [facility] RDW 11.5 11.0 - 15.0 % 02/04/2025 4:58 PM EDT [facility] Platelets 229 140 - 400 10*3/uL 02/04/2025 4:58 PM EDT [facility] MPV 11.0 7.5 - 12.5 fL 02/04/2025 4:58 PM EDT [facility] Blood Structure of peripheral vein / Unknown Venipuncture / Unknown 02/04/2025 4:32 PM EDT 02/04/2025 4:48 PM EDT us Merary SMITH LAB BLOOD ORDERABLES Final R esult [facility] [address] [place] [address], * Basic metabolic panel (02/04/2025 4:32 PM EDT) NA 138 135 - 145 mmol/L 02/04/2025 5:25 PM EDT [facility] K 4.2 3.5 - 5.3 mmol/L 02/04/2025 5:25 PM EDT [facility] Cl 101 98 - 107 mmol/L 02/04/2025 5:25 PM EDT [facility] CO2 23 22 - 32 mmol/L 02/04/2025 5:25 PM EDT [facility] BUN 18 7 - 23 mg/dL 02/04/2025 5:25 PM EDT [facility] Creatinine 1.21 0.60 - 1.30 mg/dL 02/04/2025 5:25 PM EDT [facility] Glucose 80 65 - 99 mg/dL 02/04/2025 5:25 PM EDT [facility] Calcium 9.7 8.6 - 10.5 mg/dL 02/04/2025 5:25 PM EDT [email or web address] Anion Gap 14 5 - 15 02/04/2025 5:25 PM EDT [facility] eGFR 68 >=60 mL/min/1. 73m2 02/04/2025 5:25 PM EDT [email or web address] Comment:The estimated glomer ular [...] SMITH LAB BLOOD ORDERABLES Final R esult [facility] [address] [place] [address], * TRANSTHORACIC ECHO (TTE) COMPLETE (02/04/2025 3:51 [...] workstation. Myocardial deformation imaging was performed using [employer]. During the study the apical, parasternal, subcostal [...] SMITH CV ECHO PROCEDURES Final Result * Hemoglobin A1c (12/02/2024 3:14 PM EST) Hemoglobin A1C 4.7 <5.7 % of total Hgb 12/03/2024 2:05 AM EST conXt Comment: For the purpose of screening for the presence of diabetes: <5.7% ? Consistent with the absence of diabetes 5.7-6.4% ?Consistent with increased risk for diabetes ?(prediabetes) > or =6.5% ??Consistent with diabetes This assay result is consistent with a decreased risk of diabetes. Currently, no consensus exists regarding use of hemoglobin A1c for diagnosis of diabetes in children. According to [place] [employer] (ADA) guidelines, hemoglobin A1c <7.0% represents optimal control in non- diabetic patients. Different metrics may apply to specific patient populations. Standards of Medical Care in Diabetes(ADA). ?? eAG (MG/DL) 88 mg/dL 12/03/2024 2:05 AM EST conXt eAG (MMOL/L) 4.9 mmol/L 12/03/2024 2:05 AM EST conXt Blood Structure of peripheral vein / Unknown Venipuncture / Unknown 12/02/2024 3:14 PM EST 12/02/2024 3:22 PM EST Narrative MIESHA MOON - 12/03/2024 2:05 AM EST [facility] Received Date:[id number] us Juan Boswell MD LAB BLOOD ORDERABLES Final R esult MIESHA MOON [address] [facility] [address], [place] [address], [employer] 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
--- OUTSIDE RECORDS SUMMARY | 2025-03-23 12:19 | XMS_ITS | Encounter Summary ---
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 Would you mind reaching out when you have a moment? Best number is [phone] Thank you! [place] documented in this encounter Plan of Treatment Upcoming Encounters Date Type Department Care Team (Late st Contact Info) Description 03/24/2025 7:15 AM EDT Appointment [facility] Nuclear Medicine [address] [place] [phone] 03/24/2025 8:00 AM EDT Appointment [facility] Nuclear Medicine [address] [place] [phone] 03/24/2025 9:30 AM EDT Appointment [facility] Nuclear Medicine [address] [place] [phone] 03/24/2025 10:45 AM EDT Appointment [facility] Nuclear Medicine [address] [place] [phone] 04/06/2025 9:40 AM EDT Telehealth [facility] [employer] Telehealth [address] [place] [phone] Yana Holt, Adrian 06/09/2025 2:30 PM EDT Office Visit [facility] Endocrinology Clinic [address] [place] [phone] Thermal Cutting Tracer Machine Operator: Elana Soni NP [address] [place] [phone] 08/09/2025 2:30 PM EDT Follow-Up [facility] 4th floor Cardiology Medicine [address] [place] [phone] Thermal Cutting Tracer Machine Operator: Tiki Peña PA [address] [place] [phone] 12/13/2025 2:40 PM EST Office Visit [facility] Endocrinology Clinic [address] [place] [address] Henrietta Weeks MD [address] [place] [address] 03/16/2026 1:00 PM EDT Follow-Up [facility] [address] [address] Kian Cuello MD [address] [address] documented as of this encounter Visit Diagnoses Not on filedocumented in this encounter Care Teams Nozzle Operator Relationship Specialty Start Date End Date Jonathan Barnett PA [address] [place] [phone] PCP - General 03/08/25 documented as of this encounter
--- OUTSIDE RECORDS SUMMARY | 2025-03-23 12:20 | XMS_ITS | Referral Summary ---
Author Organization [facility] Address [address] [place] [address] Care Team Providers Care Music Store Manager Name Role Phone Jonathan Barnett Primary Care Provider [phone] Encounters Date Type Department Care Team Description 03/23/[address] Cardiology Medicine [address] [place] [address] [phone] Interlocking Installer: Juan Velasco MD 03/15/2025 Orders Only [address] Cardiology Medicine [address] [place] [address] [phone] Interlocking Installer: Simran Stewart NP Persistent atrial fibrillation (HCC) (Primary Dx) 03/15/[address] Cardiology Medicine [address] [place] [address] 24398 Interlocking Installer: Juan Velasco MD 03/12/[address] floor Cardiology Medicine [address] [place] [address] 42558 Interlocking Installer: Juan Velasco MD 03/11/2025 10:00 AM EDT Follow-Up [facility] [address] Pulmon[facility] [address] [place] [phone] Kian Cuello MD LAYNE (obstructive sleep apnea) (Primary Dx) 03/08/[address] floor Cardiology Medicine [address] [place] [address] 46265 Interlocking Installer: Lin Stewart NP 03/08/[address] floor Cardiology Medicine [address] [place] [address] 43215 Interlocking Installer: Juan Velasco MD 03/05/2025 myChart Message [facility] [employer] Telehealth [address] [place] [address] [phone] Tracie Westbrook NP telehealth follow up - Repatha 03/05/2025 2:00 PM EDT Telehealth [facility] [employer] [address] [address] Tracie Westbrook NP Hyperlipidemia, unspecified hyperlipidemia type (Primary Dx); Coronary artery disease involving [place] coronary artery of [place] heart without angina pectoris 03/01/2025 1:40 PM EDT Telehealth [facility] End[facility]ology [facility] [address] [place] [address] 59014 Interlocking Installer: Otilia Edwards, Adrian 02/19/[address] floor Cardiology Medicine [address] [place] [address] 53527 Interlocking Installer: Juan Velasco MD 02/17/[address] floor Cardiology Medicine [address] [place] [address] 45374 Interlocking Installer: Marlen Felix MD 02/17/2025 Orders Only [facility] Nuclear Medicine [address] [place] [address] 13320 Wicho Cruz MD 02/17/2025 2:00 PM EDT Office Visit [address] floor Cardiology Medicine [address] [place] [phone] Interlocking Installer: Simran Stewart NP Coronary artery disease involving [place] coronary artery of [place] heart without angina pectoris (Primary Dx); Dyslipidemia (high LDL; low HDL); Chronic heart failure with preserved ejection fraction (HCC); Essential hypertension; Persistent atrial fibrillation (HCC) 02/15/2025 Telephone [facility] 4th floor Cardiology Medicine [address] [place] [address] 26232 Interlocking Installer: Juan Velasco MD PAC Patient Request Call Back 02/09/2025 Telephone [facility] 4th floor Cardiology Medicine [address] [place] [address] 80229 Interlocking Installer: Izabel Dhillon NP PAC Appt Request - Established 02/08/2025 7:30 AM EDT - 02/08/2025 9:05 AM EDT Surgery [facility] Heart and Vascular Interventional Lab [address] [place] [address] 22753 Marlen Saenz MD Coronary angiography 02/08/2025 6:35 AM EDT - 02/08/2025 2:45 PM EDT Hospital Encounter [facility] Heart and Vascular Interventional Lab [address] [place] [address]73 Marlen Saenz MD Coronary artery disease involving [place] coronary artery of [place] heart, unspecified whether angina present (Primary Dx); Angina pectoris, unstable; Coronary artery disease involving [place] coronary artery of [place] heart with unstable angina pectoris Discharge Disposition: Home or Self Care (01) 02/07/2025 Orders Only [address] floor Cardiology Medicine [address] [place] [address] 42663 Interlocking Installer: Ovi Lisa MD PhD 02/05/2025 Refill [facility] 4th floor Cardiology Medicine [address] [place] [address] 86886 Interlocking Installer: Dana Simms LPN 02/04/2025 Orders Only [facility] 4th floor Cardiology Medicine [address] [place] [address] Interlocking Installer: Juan Velasco MD 02/04/2025 Orders Only [facility] Heart and Vascular Interventional Lab [address] [place] [address] Shaneka Salcedo PA 02/04/2025 Telephone [facility] Heart and Vascular Interventional Lab [address] [place] [address] Shaneka Salcedo PA 02/04/2025 3:27 PM EDT - 02/04/2025 11:59 PM EDT Hospital Encounter [facility] Cardiac Ultrasound [address] [place] [address] Chest pain, unspecified type Discharge Disposition: Home or Self Care () 02/03/2025 Refill [facility] 4th floor Cardiology Medicine [address] [place] [address] Interlocking Installer: Juan Velasco MD 02/02/2025 Telephone [facility] Heart and Vascular Interventional Lab [address] [place] [address] 66769 Shaneka Salcedo PA 01/14/2025 Telephone [facility] Heart Station [address] [place] [address] Alisia Gibson DO 01/13/2025 Telephone [facility] 4th floor Cardiology Medicine [address] [place] [address] Interlocking Installer: Juan Velasco MD 01/07/2025 Orders Only [facility] 4th floor Cardiology Medicine [address] [place] [address] Interlocking Installer: Juan Velasco MD 01/07/2025 myChart Message [facility] 4th floor Cardiology Medicine [address] [place] [address] Interlocking Installer: Jesus Delaney Provider pre procedure instructions 01/06/[address] Cardiology Medicine [address] [place] [address] 32882 Interlocking Installer: Juan Velasco MD 01/06/[address] Cardiology Medicine [address] [place] [address] [phone] Interlocking Installer: Merary Pereira PA 01/06/2025 Orders Only [address] Cardiology Medicine [address] [place] [address] [phone] Interlocking Installer: Merary Pereira PA Angina pectoris, unstable (Primary Dx) 01/06/2025 Telephone [facility]ology [facility] [address] [place] [address]83 Interlocking Installer: Henrietta Hobson MD Prior Authorization from Last 3 Months Allergies Active Allergy [...] 5 minutes as needed for chest pain. March repeat 1 tab every 5 min, up to 3 doses total 30 tablet 12/17/19 25 026 Active isosorbide mononitrate ER [...] mouth once a day. 30 tablet 5 7:05 PM EDT 02/09/20 25 Active [...] tikosyn. He is on eliquis for a [id number] of 3 iso of DM2, HTN, and [...] Wegovy. Unfortunately he recently lost access to [employer] with recent changes, and as he has [...] is on AC with Eliquis for a [id number] of 2. For antiarrhythmic control he has [...] I have ordered, also we discussed the mLED device for more rare events that are [...] reached out to sleep medicine doctor in [place] Assessment & Plan (12/01/2020 12:18 PM EST): [...] with his current sleep medicine doctor in [place]. I said that if he is not [...] on August I confirm this appointment in [facility], and encouraged him to attend it. He [...] $10 a month for him. Would not military exchange wireless manager at this time Petey that weight [...] PM EDT): Fito has symptomatic persistent symptomatic internal medicine physician assistant atrial fibrillation. His symptoms included fatigue [...] EST): Mr. Diaz has symptomatic persistent symptomatic internal medicine physician assistant atrial fibrillation. His symptoms included fatigue [...] EDT): Mr. Diaz has symptomatic persistent symptomatic internal medicine physician assistant atrial fibrillation. His symptoms included fatigue [...] AM EST): Mr. Diaz has persistent symptomatic internal medicine physician assistant atrial fibrillation. His symptoms included fatigue [...] PM EST): Mr. Diaz has persistent symptomatic internal medicine physician assistant atrial fibrillation. His symptoms included fatigue [...] PM EST): Mr. Diaz has persistent symptomatic internal medicine physician assistant atrial fibrillation. His symptoms included fatigue [...] PM EST): Mr. Diaz has persistent symptomatic internal medicine physician assistant atrial fibrillation. His symptoms included fatigue [...] AM EDT): Mr. Diaz has persistent symptomatic internal medicine physician assistant atrial fibrillation. 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 on file [...] Info) Description 03/24/2025 7:15 AM EDT Appointment [facility] Nuclear Medicine [address] [place] [address] 03/24/2025 8:00 AM EDT Appointment [facility] Nuclear Medicine [address] [place] [address] 03/24/2025 9:30 AM EDT Appointment [facility] Nuclear Medicine [address] [place] [address] 03/24/2025 10:45 AM EDT Appointment [facility] Nuclear Medicine [address] [place] [address] 04/06/2025 9:40 AM EDT Telehealth [facility] [employer] Telehealth [address] [place] [address] Yana Holt, Adrian 06/09/2025 2:30 PM EDT Office Visit [facility] [address] [place] [address] Interlocking Installer: Elana Soni NP [address] [place] [address] 08/09/2025 2:30 PM EDT Follow-Up [facility] 4th floor Cardiology Medicine [address] [place] [address] Interlocking Installer: Tiki Peña PA [address] [place] [address] 12/13/2025 2:40 PM EST Office Visit [facility] End[facility]ology [facility] 7 [address] [place] [address] Henrietta Weeks MD [address] [place] [address] 03/16/2026 1:00 PM EDT Follow-Up [facility] [address] [facility] [address] [place] [address] Kian Cuello MD [address] [facility] [address] [place] [address] Medical Devices Implanted Type Area Social Work Job Titles Device Identifier Shelf Expiration Date Model / Serial / Lot System Closure And Repair Suture-Mediat ed Perclose Prostyle - [id number] Implanted:Qty : 1 on 03/16/2024 by Eddie Mills MD at [facility] Implant [employer] [id number] 01/01/2026 [id number] / / [id number] System Closure And Repair Suture-Mediat ed Perclose Prostyle - [id number] Implanted:Qty : 1 on 03/16/2024 by Eddie Mills MD at [facility] Implant Right: Groin [employer] [id number] 01/01/2026 [id number] / / [id number] System Closure Vascular Venous Mvp 6-12fr Vascade - [id number] Implanted:Qty : 1 on 03/16/2024 by Eddie Mills MD at [facility] Implant Right: Groin [employer] 12/06/2025 [id number] -[id number] / / [id number] System Closure Vascular Venous Mvp 6-12fr Vascade - [id number] Implanted:Qty : 1 on 03/16/2024 by Eddie Mills MD at [facility] Implant Right: Groin [employer] 12/06/2025 [id number] -[id number] / / [id number] Stent Coronary Everolimus-El uting [place] Chromium 2.6rvq40mp Synergy Xd - [id number] Implanted:Qty : 1 on 02/08/2025 by Marlen Saenz MD at [facility] Stent Right: Coronary [employer] [id number] 10/13/2026 [id number] / / [id number] Stent Coronary 2.25sqn02si [place] Rx - [id number] Implanted:Qty : 1 on 02/08/2025 by Marlen Saenz MD at [facility] Stent Right: Coronary [employer] [id number] 09/20/2027 [id number] / / [id number] Procedures * Due to [place] state law, this organization might not be [...] pectoris, unstable (HCC) CARDIAC CATHETERIZATION Routine 02/09/20 25 9:29 AM EDT Angina pectoris, unstable (HCC) CARDIAC CATHETERIZATION Routine 02/09/20 25 9:29 AM EDT Angina pectoris, unstable (HCC) CARDIAC CATHETERIZATION Routine 02/09/20 25 9:29 AM EDT Angina pectoris, unstable (HCC) POCT I-STAT ACTIVATED CLOTTING TIME Routine 02/08/2025 8:51 AM EDT POCT I-STAT ACTIVATED CLOTTING TIME Routine 02/08/2025 8:27 AM EDT POCT I-STAT ACTIVATED CLOTTING TIME Routine 02/08/2025 8:14 AM EDT ECG 12-LEAD Routine 02/08/2025 6:50 AM EDT MOBILE CARDIAC CITY DESIGNER (MCOT) 7 DAY MAIL OUT Routine 02/05/2025 [...] to Health Maintenance Results * Due to [place] state law, this organization might not be sharing negative HIV tests. * ECG 12 lead (02/17/2025 2:11 PM EDT) Only the most recent of3 resultswithin the time period is included. Ventricular Rate EKG 64 BPM MUSE EKG Atrial Rate 64 BPM MUSE EKG VT Interval 176 ms MUSE EKG QRS Interval 90 ms MUSE EKG QT Interval 444 ms MUSE EKG QTC Interval 458 ms MUSE EKG P [place] 49 degrees MUSE EKG R [place] -6 degrees MUSE EKG T Wave [place] 8 degrees MUSE EKG 02/17/2025 2:11 PM EDT 02/17/2025 7:44 PM EDT Impressions MUSE EKG - 02/17/2025 7:44 PM EDT NORMAL SINUS RHYTHM NORMAL ECG WHEN COMPARED WITH ECG OF 08-FEB-2025 09:42, NO SIGNIFICANT CHANGE WAS FOUND Confirmed by Zoran Jimenez ([id number]) on 02/17/2025 7:44:55 PM us Juan Boswell MD ECG ORDERABLES Final Result MUSE EKG * (ABNORMAL) POCT I-STAT Chemistry 8 Panel, interfaced (02/08/2025 1:30 PM EDT) Sample Type, POCT Venous 025 1:36 PM EDT [facility] Sodium, POCT 138 135 - 145 mmol/L 02/08/2025 1:36 PM EDT [facility] Potassium, POCT 3.5 3.5 - 5.3 mmol/L 02/08/2025 1:36 PM EDT [facility] Chloride, POCT 102 97 - 110 mmol/L 02/08/2025 1:36 PM EDT [facility] TCO2, POCT 22(L) 24 - 32 mmol/L 02/08/2025 1:36 PM EDT [facility] Anion Gap, POCT 14 5 - 15 mmol/L 02/08/2025 1:36 PM EDT [facility] iCA, POCT 4.7 4.6 - 5.3 mg/dL 02/08/2025 1:36 PM EDT [facility] Glucose, POCT 131(H) 70 - 99 mg/dL 02/08/2025 1:36 PM EDT [facility] BUN, POCT 12 7 - 23 mg/dL 02/08/2025 1:36 PM EDT [facility] Creatinine, POCT 1.0 0.6 - 1.3 mg/dL 02/08/2025 1:36 PM EDT [facility] eGFR 86 >=60 mL/min/1. 73m2 02/08/2025 1:36 PM EDT [facility] Comment:The estimated glomer ular filtration [...] - 52 % 02/08/2025 1:36 PM EDT [facility] Blood 02/08/2025 1:30 PM EDT 02/08/2025 1:36 PM EDT Narrative [facility] - 02/08/2025 1:36 PM EDT i-STAT analyzer cannot determine presence of hemolysis in sample us Marlen Saenz MD LAB POCT ORDERABLES - DEVICE Final Result [facility] [address] [place] [address], [place] * CORONARY ANGIOGRAPHY, CORONARY INTERVENTION (PCI), [...] delivery - stent deployed in proximal RPDA (Jackson WALTER 2.25 x 15 mm) - stent [...] moderate LAD/LM disease. Follow up with outpatient practice billing associate, findings discussed in person. Evidence-based optimal medical therapy. Aggressive cardiovascular risk factor modification. Procedure Details The risks and alternatives of the procedures and conscious sedation were explained to the patient and informed consent was obtained. The patient was brought to the microbiology lab assistant and placed on the table. The planned [...] lesion. Ultrasound supply: CATHETER IVUS RX DIGITAL SILETZ TRIBE SHORT TIP 5FR 0.014IN 150CM [facility]. Minimum lumen area: 6.4 mm??. The lesion is concentric. Left Anterior Descending: The vessel was visualized by angiography and is large in size. The vessel is ectatic. Mid LAD lesion is 60% stenosed. The lesion is located at the bifurcation. A WIRE GUIDE WIRELESS PHYSIOLOGY [id number] PRESSUREWIRE was used. CATHETER GUIDE BACKUP SUPPORT LEFT EXTRA BACKUP SUPPORT CURVE SIZE 3.5 6FR [id number] LAUNCHER Guide Catheter was used. RFR: 0.92 [...] LVEF 60%. He is now referred for [facility], coronary angiography, +/-PCI. us Juan Boswell MD CV CARDIAC CATH PROCEDURES F inal Result * POCT I-STAT Activated Clotting Time, interfaced (02/08/2025 8:51 AM EDT) Only the most recent of3 resultswithin the time period is included. Sample Type, POCT Arterial 02/08/2025 8:52 AM EDT [facility] ACT Average, POCT 244 See Comment Seconds 02/08/2025 8:52 AM EDT [facility] Comment: Therapeutic Range: Baseline: 75-127 Cardiac Catherization Lab: 200-300 EP Lab: 200-400 Perfusion and OR - Cardiac Surgery: 450 Valve replacement: 480 Blood 02/08/2025 8:51 AM EDT 02/08/2025 8:52 AM EDT us Marlen Saenz MD LAB POCT ORDERABLES - DEVICE Final Result [facility] [address] [place] [address], [place] * MOBILE CARDIAC CITY DESIGNER (MCOT) 7 DAY MAIL OUT (02/05/2025 8:24 AM EDT) Anatomical Region Laterality Modality Monitor Room Narrative 02/18/2025 10:53 PM EDT ATTENDING ADDENDUM: This was a Mobile Cardiac Personal Trainer (MCOT) 7 Day. ??This study was for [...] 173 <=199 mg/dL 02/08/2025 10:40 AM EDT [facility] Triglycerides 100 <=149 mg/dL 02/08/2025 10:40 AM EDT [facility] Cholesterol, HDL 45 40 - 59 mg/dL 02/08/2025 10:40 AM EDT [facility] Cholesterol, Non-HDL 128 mg/dL 02/08/2025 10:40 AM EDT [facility] LDL Cholesterol 108(H) <100 mg/dL 02/08/2025 10:40 AM EDT [facility] VLDL 20 mg/dL 02/08/2025 10:40 AM EDT [facility] Cholesterol/HDL Ratio 3.8 <5.0 02/08/2025 10:40 AM EDT [facility] Blood Structure of peripheral vein / Unknown Venipuncture / Unknown 02/04/2025 4:32 PM EDT 02/04/2025 4:47 PM EDT Narrative [facility] - 02/08/2025 10:40 AM [...] MD LAB BLOOD ORDERABLES Final R esult [facility] [address] [place] [address], * CBC (02/04/2025 4:32 PM EDT) WBC 8.7 3.8 - 10.8 10*3/uL 02/04/2025 4:58 PM EDT [facility] RBC 4.59 4.20 - 5.80 10*6/uL 02/04/2025 4:58 PM EDT [facility] Hemoglobin 14.7 13.2 - 17.1 g/dL 02/04/2025 4:58 PM EDT [facility] Hematocrit 43.7 38.5 - 50.0 % 02/04/2025 4:58 PM EDT [facility] MCV 95.2 80.0 - 100.0 fL 02/04/2025 4:58 PM EDT [facility] MCH 32.0 27.0 - 33.0 pg 02/04/2025 4:58 PM EDT [facility] MCHC 33.6 32.0 - 36.0 g/dL 02/04/2025 4:58 PM EDT [facility] RDW 11.5 11.0 - 15.0 % 02/04/2025 4:58 PM EDT [facility] Platelets 229 140 - 400 10*3/uL 02/04/2025 4:58 PM EDT [facility] MPV 11.0 7.5 - 12.5 fL 02/04/2025 4:58 PM EDT [facility] Blood Structure of peripheral vein / Unknown Venipuncture / Unknown 02/04/2025 4:32 PM EDT 02/04/2025 4:48 PM EDT us Merary SMITH LAB BLOOD ORDERABLES Final R esult [id number] [address] [place] [address], * Basic metabolic panel (02/04/2025 4:32 PM EDT) NA 138 135 - 145 mmol/L 02/04/2025 5:25 PM EDT [facility] K 4.2 3.5 - 5.3 mmol/L 02/04/2025 5:25 PM EDT [facility] Cl 101 98 - 107 mmol/L 02/04/2025 5:25 PM EDT [facility] CO2 23 22 - 32 mmol/L 02/04/2025 5:25 PM EDT [facility] BUN 18 7 - 23 mg/dL 02/04/2025 5:25 PM EDT [facility] Creatinine 1.21 0.60 - 1.30 mg/dL 02/04/2025 5:25 PM EDT [facility] Glucose 80 65 - 99 mg/dL 02/04/2025 5:25 PM EDT [facility] Calcium 9.7 8.6 - 10.5 mg/dL 02/04/2025 5:25 PM EDT [facility] Anion Gap 14 5 - 15 02/04/2025 5:25 PM EDT [facility] eGFR 68 >=60 mL/min/1. 73m2 02/04/2025 5:25 PM EDT [facility] Comment:The estimated glomer ular [...] 4:32 PM EDT 02/04/2025 4:47 PM EDT Merary SMITH LAB BLOOD ORDERABLES Final R esult [facility] [address] [place] [address], * TRANSTHORACIC ECHO (TTE) COMPLETE (02/04/2025 3:51 [...] workstation. Myocardial deformation imaging was performed using [employer]. During the study the apical, parasternal, subcostal [...] of total Hgb 12/03/2024 2:05 AM EST [email or web address] Comment: For the purpose of screening for the presence of diabetes: <5.7% ? Consistent with the absence of diabetes 5.7-6.4% ?Consistent with increased risk for diabetes ?(prediabetes) > or =6.5% ??Consistent with diabetes This assay result is consistent with a decreased risk of diabetes. Currently, no consensus exists regarding use of hemoglobin A1c for diagnosis of diabetes in children. According to [place] Diabetes Association (ADA) guidelines, hemoglobin A1c <7.0% represents optimal control in non- diabetic patients. Different metrics may apply to specific patient populations. Standards of Medical Care in Diabetes(ADA). ?? eAG (MG/DL) 88 mg/dL 12/03/2024 2:05 AM EST [email or web address] eAG (MMOL/L) 4.9 mmol/L 12/03/2024 2:05 AM EST [email or web address] Blood Structure of peripheral vein / Unknown Venipuncture / Unknown 12/02/2024 3:14 PM EST 12/02/2024 3:22 PM EST Narrative [employer] [facility] - 12/03/2024 2:05 AM EST [facility] Received Date: us Juan Boswell MD LAB BLOOD ORDERABLES Final R esult [facility] [address] [facility] [address], [place] [address], [place] [phone] [facility] [address] [facility] [address], [place] [address], from Last 3 Months or Most Recently Relevant to Health Maintenance Insurance Advance Directives Documents on File Type Date Recorded Patient Belt Sander Stone Expl anation Health Care Proxy 04/02/2019 11:16 AM Elizabet Alecia * Full Code (Latest Code Status on [...] Relationship Healthcare Agent Relationshi p Communication Elizabet Alecia Partner Health Care Agent Care Teams Music Store Manager Relationship Specialty Start Date End Date Jonathan Barnett PA [address] [place] [address] PCP - General 03/08/25
== END 2025-03-23 11:44 | disposition home or self-care (01) ==
PROVIDERS: Emergency Provider Emergency Medicine; PCP Physician Assistant
DX: I48.0 Paroxysmal atrial fibrillation (principal); R00.2 Palpitations; I25.10 Atherosclerotic heart disease of native coronary artery without angina pectoris; Z79.899 Other long term (current) drug therapy
CPT/HCPCS: 93005; 99283; 99284

== ENCOUNTER → 2025-03-23 10:23 | Outpatient (BNV) | payer OTHER, SELFPAY | PROVIDERS: Emergency Provider Emergency Medicine; PCP Physician Assistant; Visit Provider Internal Medicine Cardiovascular Disease | DX: I48.91 Unspecified atrial fibrillation (principal) | CPT/HCPCS: 93010 ==

== ENCOUNTER 2025-03-26 16:22 | Outpatient (REF) | payer OTHER, SELFPAY ==
[2025-03-26 17:35] LABS: Alanine Aminotransferase 122 U/L (0-40); Albumin Level 4.3 g/dL (3.5-5.0); Alkaline Phosphatase 113 U/L (39-117); Aspartate Amino Transferase 71 U/L (5-37); Bilirubin Direct 0.3 mg/dL (0.0-0.5); Bilirubin Total 1.9 mg/dL (0.0-1.0)
[2025-03-26 17:58] LABS: Prostate Specific Antigen Scr 0.44 ng/mL (<0.05-4.0)
== END 2025-03-26 16:23 | disposition home or self-care (01) ==
LOC: HO.LAB 16:22
PROVIDERS: Absent Provider Physician Assistant; PCP Physician Assistant; Visit Provider Physician Assistant Medical
DX: R74.8 Abnormal levels of other serum enzymes (principal); Z12.5 Encounter for screening for malignant neoplasm of prostate
CPT/HCPCS: 36415; 80076; 84153

== ENCOUNTER 2025-04-02 08:24 | Outpatient (AMB) | payer OTHER, SELFPAY ==
--- OUTSIDE RECORDS SUMMARY | 2025-04-02 08:27 | XMS_ITS | Encounter Summary ---
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 PT can best be reached at [phone] documented in this encounter Plan of Treatment Upcoming Encounters Date Type Department Care Team (Late st Contact Info) Description 04/06/2025 9:40 AM EDT Telehealth [facility] [employer] Telehealth [address] [place] [address] Yana Holt PharmD 04/28/2025 8:00 AM EDT Office Visit [facility] 4th floor Cardiology Medicine [address] [place] [address] Product Safety Consultant: Luis M Rizo PA [address] [place] [address] 06/09/2025 2:30 PM EDT Office Visit [facility] Endocrinology Clinic [address] [place] [address] Product Safety Consultant: Elana Soni NP [address] [place] [address] 08/09/2025 2:30 PM EDT Follow-Up [address] floor Cardiology Medicine [address] [place] [address] Product Safety Consultant: Tiki Peña PA [address] [place] [address] 12/13/2025 2:40 PM EST Office Visit [facility] Endocrinology Clinic [address] [place] [address] Henrietta Weeks MD [address] [place] [address] 03/16/2026 1:00 PM EDT Follow-Up [facility] [address] [facility] [place] [id number] Kian Cuello MD [address] [facility] [address] [place] [address] documented as of this encounter Visit Diagnoses Not on filedocumented in this encounter Care Teams World Travel Counselor Relationship Specialty Start Date End Date Jonathan Barnett PA [address] [place] [id number] PCP - General 03/08/25 documented as of this encounter
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
[2025-04-02 08:32] VITALS: BP 120/66; PULSE 63; TEMP 36.2; O2SAT 98; BMI 33.8
== END 2025-04-02 09:34 | disposition home or self-care (01) ==
LOC: HO.HMCH 08:25
PROVIDERS: PCP Physician Assistant; Visit Provider Nurse Practitioner Family
DX: I48.91 Unspecified atrial fibrillation (principal); R07.9 Chest pain, unspecified

== ENCOUNTER → 2025-04-02 08:24 | Outpatient (BNVA) | payer OTHER, SELFPAY | PROVIDERS: PCP Physician Assistant; Visit Provider Nurse Practitioner Family ==

== ENCOUNTER 2025-06-15 12:58 | Emergency (ER) | payer OTHER, SELFPAY ==
--- NOTE | 2025-06-15 | ECG_ITS ---
Test Reason : chest pain Blood Pressure : */* mmHG Vent. Rate : 122 BPM Atrial Rate : * BPM P-R Int : * ms QRS Dur : 86 ms QT Int : 350 ms P-R-T Axes : * -18 33 degrees QTcB Int : 498 ms Atrial fibrillation with rapid ventricular response with premature ventricular or aberrantly conducted complexes Abnormal ECG When compared with ECG of 23-Mar-2025 10:23, Atrial fibrillation has replaced Sinus rhythm Vent. rate has increased by 52 bpm Referred By: Generic ED Physician Electronically Signed By: Kam Cooley
--- NOTE | ~2025-06-15 | XR_ITS ---
EXAMINATION: XR CHEST 1 VIEW HISTORY: chest pain COMPARISON: Comparison is made with the prior examination dated 03/18/2025. FINDINGS: A single AP portable view of the chest performed at 1:22 PM is submitted. There are low lung volumes. The lungs are clear. There is no pleural effusion, pneumothorax, or pulmonary vascular congestion. The heart is normal in size. The bones are intact. XR/XR chest 1V IMPRESSION: Low lung volumes. No acute cardiopulmonary abnormality. Electronically signed by: Wicho Gray MD 06/15/2025 01:41 PM EDT
--- NOTE | 2025-06-15 13:08 | ED.GENADULT ---
HPI - General Adult General Chief complaint: Chest Pain Stated complaint: chest pain afib Time Seen by Provider: 06/15/25 13:16 Related Data Home Medications ?Medication ?Instructions ?Recorded ?Confirmed cholecalciferol (vitamin D3) 50 125 mcg PO DAILY 04/17/23 04/02/25 mcg (2,000 unit) tablet apixaban 5 mg tablet (Eliquis) 5 mg PO BID 04/27/23 04/02/25 clopidogrel 75 mg tablet 75 mg PO DAILY 02/23/25 04/02/25 empagliflozin 25 mg tablet 25 mg PO DAILY 02/23/25 04/02/25 (Jardiance) ezetimibe 10 mg tablet 10 mg PO DAILY 02/23/25 04/02/25 nitroglycerin 0.4 mg sublingual 0.4 mg sublingual Q5M PRN Angina 02/23/25 04/02/25 tablet ranolazine 500 mg tablet,extended 500 mg PO BID 02/23/25 04/02/25 release,12 hr tirzepatide (weight loss) 10 2.5 mg subcut Q4W 02/23/25 04/02/25 mg/0.5 mL subcutaneous pen injector (Zepbound) atorvastatin 80 mg tablet 80 mg PO DAILY 03/18/25 04/02/25 evolocumab 140 mg/mL subcutaneous 140 mg subcut Q2W 03/18/25 04/02/25 pen injector (Repatha SureClick) metoprolol tartrate 25 mg tablet 25 mg PO BID 03/18/25 04/02/25 Previous Rx's ?Medication ?Instructions ?Recorded CPAP (CPAP Machine/Device) #1 ea 09/25/22 albuterol sulfate 90 mcg/actuation 2 puff inhalation QID wheezing 30 02/23/25 aerosol inhaler days #8.5 grams Allergies Allergy/AdvReac Type Severity Reaction Status Date / Time Iodinated Contrast Media AdvReac Severe Vomiting Verified 06/15/25 13:14 (Contrast Dye) [facility] Past Medical History Medical History CAD (coronary artery disease) Family history of gastric cancer Insulin resistance History of COVID-19 Elevated LFTs PAF (paroxysmal atrial fibrillation) Obese LAYNE (obstructive sleep apnea) Diarrhea HTN (hypertension) Surgical History H/O heart surgery H/O prior ablation treatment History of lymph node excision History of prior ablation treatment Family History Family History Father CAD (coronary artery disease) History of partial colectomy Hypertension CVD (cardiovascular disease) Alzheimers disease Mother Asthma Brother Hepatitis Sister Family history of thyroid problem Breast cancer Paternal Grandfather Stomach cancer Social History Social History Household Members: Other Housing: House Are you a primary healthcare specialist to a significant other at home: No Do you presently have visiting nurse or other home services: No Alcohol intake: never Patient Tobacco Use Status: Never used Tobacco e-Cigarette/Vaping Use: Never Used Second Hand Smoke Exposure: No Do you have a plan to hurt others: No Plan service: No Current occupational status: employed Current occupation: [employer] Cognitive needs: No Hearing needs: No Vision needs: Yes (Glasses) Physical Exam ED Vital Signs: Vital Signs - 24 hr 06/15/25 13:09 06/15/25 13:41 Temperature 98.2 F Pulse Rate 120 H 104 H Respiratory Rate 18 13 Blood Pressure 105/65 93/62 Pulse Oximetry 97 98 Oxygen Delivery Method Room Air Room Air BMI result Body Mass Index 31.5 Course Course Course Narrative: Rapid medical examination performed in triage by Vilma Lewis PA-C. Patient is a 59 year old assigned male at presenting to the emergency department with chest pain. Patient states that he has been having increased issues with his atrial fib over the last month and now he is having chest pain. Detailed physical exam and review of systems are deferred to the bench inspector. EKG, labs, imaging ordered. Patient placed back in the waiting room pending room availability and results. Medications Administered Generic Name Dose Route Start Last Admin Trade Name Freq PRN Reason Stop Dose Admin Sodium Chloride 1,000 mls @ 999 mls/hr 06/15/25 13:28 06/15/25 13:36 Ns IVCONT 06/15/25 14:28 999 mls/hr .Q1H1M ONE Administration Discontinued Medications Generic Name Dose Route Start Last Admin Trade Name Freq PRN Reason Stop Dose Admin Metoprolol Tartrate 2.5 mg 06/15/25 13:27 06/15/25 13:33 Metoprolol Tartrate 5 Mg/5 Ml Vial IVPUSH 06/15/25 13:28 2.5 mg ONCE ONE Administration Protocol Medical Decision Making Lab Data 06/15/25 13:26 06/15/25 13:25 Labs: Lab Results 06/15/25 Range/Units 13:26 WBC 7.9 (4.8-10.8) X10*3/uL RBC 4.50 L (4.60-5.80) X10*6/uL Hgb 14.8 (14.0-18.0) g/dl Hct 43.4 (42.0-52.0) % MCV 96.4 (80.0-98.0) fL MCH 32.9 (27.0-33.0) pg MCHC 34.1 (31.0-36.0) g/dl RDW 11.7 (11.0-16.0) % Plt Count 234 (160-400) X10*3/uL MPV 10.2 (9.4-12.4) fL Immature Gran % (Auto) 0.3 (0.0-0.4) % Neut % (Auto) 61.6 (45-73) % Lymph % (Auto) 22.1 (20-40) % Taney % (Auto) 8.3 (2-11) % Eos % (Auto) 7.4 H (0-4) % Baso % (Auto) 0.3 (0-2) % Lymph # (Auto) 1.7 (1.2-4.9) X10*3/uL Taney # (Auto) 0.7 (0.1-1.2) X10*3/uL Eos # (Auto) 0.6 H (0.0-0.4) X10*3/uL Baso # (Auto) 0.0 (0.0-0.2) X10*3/uL Abs Immat Gran (auto) 0.02 (0.00-0.03) X10*3/uL Absolute Neuts (auto) 4.9 (2.0-8.3) x10*3/uL Absolute Nucleated RBC 0.000 (0.0-0.012) X10*3/uL Nucleated RBC % (auto) 0.0 (0.0-0.2) /100WBC Discharge Plan Discharge Prescriptions: No Action (DME) CPAP Machine/Device Device See Rx Instructions .Route Qty: 1 0RF Rx Instructions: As directed cholecalciferol (vitamin D3) 50 mcg (2,000 unit) Tablet 125 mcg PO DAILY atorvastatin 80 mg tablet 80 mg PO DAILY Repatha SureClick 140 mg/mL pen injector 140 mg subcut Q2W metoprolol tartrate 25 mg Tablet 25 mg PO BID Eliquis 5 mg tablet 5 mg PO BID ranolazine 500 mg tablet extended release 12 hr 500 mg PO BID ezetimibe 10 mg tablet 10 mg PO DAILY clopidogrel 75 mg tablet 75 mg PO DAILY Zepbound 10 mg/0.5 mL pen injector 2.5 mg subcut Q4W Jardiance 25 mg tablet 25 mg PO DAILY albuterol sulfate 90 mcg/actuation HFA aerosol inhaler 2 puff INHALATION QID 30 Days Qty: 8.5 0RF nitroglycerin 0.4 mg tablet, sublingual 0.4 mg sublingual Q5M PRN (Reason: Angina) Rx Instructions: do not exceed 3 doses per episode Print Language: Guinean
[2025-06-15 13:09] VITALS: BP 105/65; PULSE 120; RESP 18; TEMP 36.8; O2SAT 97; BMI 31.5
--- NOTE | 2025-06-15 13:30 | ED_ITS ---
HPI - Chest Pain General Chief Complaint: Chest Pain Stated Complaint: chest pain afib Time Seen by Provider: 06/15/25 13:16 Source: patient Mode of arrival: wheelchair Limitations: no limitations History of Present Illness ED Provider: Dr. Love Fritz HPI narrative: Patient comes to the emergency room complaining of palpitations that started a few hours ago. Also complaining of chest pain and dizziness. Patient states that he has history atrial fibrillation. Patient has had 3 ablations and is frequently in and out of AFib. Patient states that the last time he was in AFib was approximately a week ago. Then he got a root canal and his AFib stopped for about a week. Patient currently on antibiotics. Patient states that today he started having palpitations, chest pressure, took 2 nitroglycerin pills and 50 mg of metoprolol altogether. When patient arrived, patient's blood pressure was in the mid 80s, feeling lightheaded. Patient did not pass out. At this time, patient's blood pressure in the mid 90s, states that he is feeling a bit better, in triage, patient's heart rate goes between 100 and 130. Patient states that he no longer has chest pressure or pain. No shortness of breath. Patient states that he is compliant with his medications, takes metoprolo only prn, takes daily Plavix, Eliquis and dofetilide (Tykosyn), states his evaluation assistant is in [facility]. Related Data Home Medications ?Medication ?Instructions ?Recorded ?Confirmed cholecalciferol (vitamin D3) 50 125 mcg PO DAILY 04/1704/02/25 mcg (2,000 unit) tablet apixaban 5 mg tablet (Eliquis) 5 mg PO BID 04/27/23 clopidogrel 75 mg tablet 75 mg PO DAILY 02/23/2503/06 empagliflozin 25 mg tablet 25 mg PO DAILY 02/23/25 (Jardiance) ezetimibe 10 mg tablet 10 mg PO DAILY 02/23/2503/06 nitroglycerin 0.4 mg sublingual 0.4 mg sublingual Q5M PRN Angina 02/23/25 04/02/25 tablet ranolazine 500 mg tablet,extended 500 mg PO BID 04/02/25 release,12 hr tirzepatide (weight loss) 10 2.5 mg subcut Q4W 5 04/02/25 mg/0.5 mL subcutaneous pen injector (Zepbound) atorvastatin 80 mg tablet 80 mg PO DAILY 03/18/2503/06 evolocumab 140 mg/mL subcutaneous 140 mg subcut Q2W 04/02/25 pen injector (Repatha SureClick) metoprolol tartrate 25 mg tablet 25 mg PO BID 03/18/25 04/02/25 Previous Rx's ?Medication ?Instructions ?Recorded CPAP (CPAP Machine/Device) #1 ea 09/25/22 albuterol sulfate 90 mcg/actuation 2 puff inhalation Q ID wheezing 30 02/23/25 aerosol inhaler days #8.5 grams Allergies Allergy/AdvReac Type Severity Reaction Status Date / Time Iodinated Contrast Media AdvReac Severe Vomiting Verified 06/15/25 13:14 (Contrast Dye) Review of Systems 2 Review of Systems: Constitutional : No Weight loss, No Fever, No Chills, No Night Sweats, No Fatigue, No Malaise ENT/Mouth : No Hearing loss, No Ear Pain, No Nasal Congestion, No Sinus Pain, No Hoarseness, No sore throat, No Rhinorrhea, No Swallowing Difficulty Eyes: No Eye Pain, No Swelling, No Redness, No Foreign Body, No Discharge, No Vision Changes Cardiovascular : Complaining of chest pain that starting to resolve after taking 2 sublingual tablets of nitroglycerin, complaining of ongoing palpitations Respiratory : No Cough, No Sputum, No Wheezing, No Smoke Exposure, No Dyspnea Gastrointestinal : No Nausea, No Vomiting, No Diarrhea, No Constipation, No abdominal Pain, No Hematochezia, No Melena Genitourinary : no irregular bleeding, No Dysuria, No Urinary Frequency, No Hematuria, No Urinary Incontinence, No Urgency, No Flank Pain, No Urinary Flow Changes, No Hesitancy Musculoskeletal : No joint pain, No Myalgias, No Joint Swelling Skin : No Skin Lesions, No rash Neuro : No Weakness, No Numbness, No Paresthesias, No Loss of Consciousness, No Dizziness, No Headache Psych : No Anxiety/Panic, No Depression, No SI/HI/AH/VH, No Social Issues, Heme/Lymph: No Bruising, No Bleeding,No Lymphadenopathy Endocrine : No Polyuria, No Polydipsia, No Temperature Intolerance [facility] Past Medical History Medical History CAD (coronary artery disease) Family history of gastric cancer Insulin resistance History of COVID-19 Elevated LFTs PAF (paroxysmal atrial fibrillation) Obese LAYNE (obstructive sleep apnea) Diarrhea HTN (hypertension) Surgical History H/O heart surgery H/O prior ablation treatment History of lymph node excision History of prior ablation treatment Family History Family History Father CAD (coronary artery disease) History of partial colectomy Hypertension CVD (cardiovascular disease) Alzheimers disease Mother Asthma Brother Hepatitis Sister Family history of thyroid problem Breast cancer Paternal Grandfather Stomach cancer Social History Social History Household Members: Other Housing: House Are you a primary acute care clinical nurse specialist to a significant other at home: No Do you presently have visiting nurse or other home services: No Alcohol intake: never Patient Tobacco Use Status: Never used Tobacco Smoked in Last 30 Days: No e-Cigarette/Vaping Use: Never Used Second Hand Smoke Exposure: No Use of substances other than those prescribed or required for medical reasons: No Advance Directives: Yes Advance Directives Information Provided: Yes Advance Directives on File: No Do you have a plan to hurt others: No Plan service: No Current occupational status: employed Current occupation: [employer] Cognitive needs: No Hearing needs: No Vision needs: Yes (Glasses) Physical Exam 2 Exam: Exam: Appearance: Alert. Oriented X3. No acute distress. Eyes: Pupils equal, round and reactive to light. ENT: Pharynx normal. Neck: Normal inspection. Neck supple. No lymph nodes noted. No crepitus CVS: Patient's heart rate irregularly irregular, heart rate between 95 of to 130. Pulses normal. Normal S1 and S2 Respiratory: No respiratory distress. Breath sounds normal. No Wheezing. No rales Abdomen: Soft and nontender. No rigidity. No distention. Skin: Skin warm and dry. Normal skin color. Normal skin turgor. Extremities: No lower extremity edema. No Lacerations. No Rash Neuro: Oriented X 3. No motor deficit. No sensory deficit. Moving all extremities. No slurred speech. CN 2 through 12 grossly intact Psych: calm, cooperative, a bit anxious Vital Signs: Vital Signs: Last Vital Signs Temp 97.8 F 06/15/25 14:02 Pulse 59 06/15/25 14:02 Resp 14 06/15/25 14:02 BP 102/70 06/15/25 14:02 Pulse Ox 97 06/15/25 14:02 O2 Del Method Room Air 06/15/25 14:02 BMI result Body Mass Index 31.5 Course Course Course Narrative: Rapid medical examination performed in triage by Vilma Lewis PA-C. Patient is a 59 year old assigned male at presenting to the emergency department with chest pain. Patient states that he has been having increased issues with his atrial fib over the last month and now he is having chest pain. Detailed physical exam and review of systems are deferred to the boxing inspector. EKG, labs, imaging ordered. Patient placed back in the waiting room pending room availability and results. Medications Administered Discontinued Medications Generic Name Dose Route Start Last Admin Trade Name Nickq PRN Reason Stop Dose Admin Sodium Chloride 1,000 mls @ 999 mls/hr 06/15/25 13:28 06/15/25 13:54 Ns IVCONT 06/15/25 14:28 Infused .Q1H1M ONE Infusion Sodium Chloride 1,000 mls @ 999 mls/hr 06/15/25 14:00 06/15/25 13:55 Ns IV 06/15/25 15:00 999 mls/hr .Q1H1M STACY Administration Metoprolol Tartrate 2.5 mg 06/15/25 13:27 06/15/25 13:33 Metoprolol Tartrate 5 Mg/5 Ml Vial IVPUSH 06/15/25 13:28 2.5 mg ONCE ONE Administration Protocol Medical Decision Making Medical Decision Making MDM Narrative: On arrival, it was noted that patient's blood pressure was in the mid 80s. 30 minutes ago, prior to arrival, patient took 2 tablets of nitroglycerin and 50 mg of p.o. metoprolol. Patient woke from the car feeling lightheaded, likely secondary to hypotension due to medication side-effect. Once patient was placed in the bed, patient's blood pressure increased to the mid 90s, patient receiving IV fluids. Patient's blood pressure improved to 105/65. Heart rate still in the 120s, patient received a 2.5 mg of metoprolol IV. Overall, patient has history of atrial fibrillation hard to treat. Patient has had 3 ablations and continues having breakthrough AFib episodes. At this time, patient no longer having chest pain or shortness of breath, heart rate anywhere between 95-120. My interpretation of labs: No significant abnormality in patient's hematology After 2.5 mg of IV metoprolol, patient's heart rate improved to the 60s, blood pressure 105 systolic. Patient overall feeling better. My interpretation of labs: No significant abnormality in patient's hematology, normal chemistry, LFTs chronically mildly elevated, at baseline, troponin negative EKG 2.: Sinus rhythm, heart rate 67, no ST segment depression or elevation, no T-wave inversion, QTC 500. Patient was walked around the emergency room, heart rate increased to 114, then returned to 59. Patient asymptomatic, states that he feels well. Blood pressure 102/70 At this time, we will not change any of patient's medications, patient instructed to follow-up with his evaluation assistant that [facility]. Patient agrees with plan Differential Diagnosis Differential Diagnoses: The differential diagnosis associated with the presentation includes (Atrial fibrillation, atrial flutter, SVT) Admission/Observation Consideration of admission/observation: Escalation of care including admission/observation considered (Given patient's past medical history, vitals and presentation, admission was considered) Lab Data MDM Lab Attestation statement: I reviewed the patient's lab results. 06/15/25 13:26 06/15/25 13:25 Labs: Lab Results 06/15/25 06/15/25 Range/Units 13:25 13:26 WBC 7.9 (4.8-10.8) X10*3/uL RBC 4.50 L (4.60-5.80) X10*6/uL Hgb 14.8 (14.0-18.0) g/dl Hct 43.4 (42.0-52.0) % MCV 96.4 (80.0-98.0) fL MCH 32.9 (27.0-33.0) pg MCHC 34.1 (31.0-36.0) g/dl RDW 11.7 (11.0-16.0) % Plt Count 234 (160-400) X10*3/uL MPV 10.2 (9.4-12.4) fL Immature Gran % (Auto) 0.3 (0.0-0.4) % Neut % (Auto) 61.6 (45-73) % Lymph % (Auto) 22.1 (20-40) % [place] % (Auto) 8.3 (2-11) % Eos % (Auto) 7.4 H (0-4) % Baso % (Auto) 0.3 (0-2) % Lymph # (Auto) 1.7 (1.2-4.9) X10*3/uL [place] # (Auto) 0.7 (0.1-1.2) X10*3/uL Eos # (Auto) 0.6 H (0.0-0.4) X10*3/uL Baso # (Auto) 0.0 (0.0-0.2) X10*3/uL Abs Immat Gran (auto) 0.02 (0.00-0.03) X10*3/uL Absolute Neuts (auto) 4.9 (2.0-8.3) x10*3/uL Absolute Nucleated RBC 0.000 (0.0-0.012) X10*3/uL Nucleated RBC % (auto) 0.0 (0.0-0.2) /100WBC PT 13.8 H (10.9-12.4) SEC INR 1.2 H (0.9-1.1) Sodium 142 (135-145) mmol/L Potassium 4.0 (3.3-5.1) mmol/L Chloride 109 H (96-108) mmol/L Carbon Dioxide 25 (22-29) mmol/L Anion Gap 12 (12-20) BUN 14 (9-16) mg/dL Creatinine 1.03 (0.5-1.4) mg/dL Estim Creat Clear Calc 91.8 Estimated GFR > 60 Random Glucose 104 (60-115) mg/dL Calcium 9.3 (8.4-10.2) mg/dL Magnesium 2.3 (1.6-2.6) mg/dL Total Bilirubin 2.4 H (0.0-1.0) mg/dL AST 48 H (5-37) U/L ALT 57 H (0-40) U/L Alkaline Phosphatase 115 (39-117) U/L Troponin I High Sens < 2.7 (<3.5-35.0) ng/L B-Natriuretic Peptide 157 H (<100) pg/mL Total Protein 7.3 (6.5-8.0) g/dL Albumin 4.6 (3.5-5.0) g/dL Influenza Type A (PCR) NEGATIVE (Negative) Influenza Type B (PCR) NEGATIVE (Negative) RSV RNA Qual (PCR) NEGATIVE (Negative) SARS-CoV-2 RNA (RT-PCR) NEGATIVE (Negative) Independent Interpretation I performed an independent interpretation of an: EKG and Plain X-Ray Radiology Impression Discussion of test interpretation with radiology: I have reviewed the radiologist's reading. Radiologist Impression: A single AP portable view of the chest performed at 1:22 PM is submitted. There are low lung volumes. The lungs are clear. There is no pleural effusion, pneumothorax, or pulmonary vascular congestion. The heart is normal in size. The bones are intact. XR/XR chest 1V IMPRESSION: Low lung volumes. No acute cardiopulmonary abnormality. Critical Care Time Critical Care Time Critical Care Time: Yes Total Critical Care Time: 50 Attestation: I have personally provided critical care time. Time includes review of lab data, radiology results, discussion with consultants, and monitoring for potential decompensation. Intervention performed as documented. Discharge Plan Discharge Clinical Impression: Atrial fibrillation with RVR, Acute hypotension, Medication side effect Patient Disposition: Home, Self-Care Additional Instructions: Please follow-up with your primary care physician and with your evaluation assistant tomorrow. If you have any worsening or new symptoms, please return to the emergency room or call 911 Prescriptions: No Action (DME) CPAP Machine/Device Device See Rx Instructions .Route Qty: 1 0RF Rx Instructions: As directed cholecalciferol (vitamin D3) 50 mcg (2,000 unit) Tablet 125 mcg PO DAILY atorvastatin 80 mg tablet 80 mg PO DAILY Repatha SureClick 140 mg/mL pen injector 140 mg subcut Q2W metoprolol tartrate 25 mg Tablet 25 mg PO BID Eliquis 5 mg tablet 5 mg PO BID ranolazine 500 mg tablet extended release 12 hr 500 mg PO BID ezetimibe 10 mg tablet 10 mg PO DAILY clopidogrel 75 mg tablet 75 mg PO DAILY Zepbound 10 mg/0.5 mL pen injector 2.5 mg subcut Q4W Jardiance 25 mg tablet 25 mg PO DAILY albuterol sulfate 90 mcg/actuation HFA aerosol inhaler 2 puff INHALATION QID 30 Days Qty: 8.5 0RF nitroglycerin 0.4 mg tablet, sublingual 0.4 mg sublingual Q5M PRN (Reason: Angina) Rx Instructions: do not exceed 3 doses per episode Print Language: Malagasy
[2025-06-15 13:31] LABS: MANUAL DIFF FLAG NO
[2025-06-15 13:37] LABS: Hematocrit 43.4 % (42.0-52.0); Hemoglobin 14.8 g/dl (14.0-18.0); Imm Gran Abs Auto 0.02 X10*3/uL (0.00-0.03); Imm Gran Pct Auto 0.3 % (0.0-0.4); Lymphocytes Absolute Auto 1.7 X10*3/uL (1.2-4.9); Mean Corpuscular HGB Conc 34.1 g/dl (31.0-36.0); Mean Corpuscular Hemoglobin 32.9 pg (27.0-33.0); Mean Corpuscular Volume 96.4 fL (80.0-98.0); NRBC Abs Auto 0.000 X10*3/uL (0.0-0.012); NRBC Pct Auto 0.0 /100WBC (0.0-0.2); Platelet Count 234 X10*3/uL (160-400); Red Blood Count 4.50 X10*6/uL (4.60-5.80); White Blood Count 7.9 X10*3/uL (4.8-10.8)
[2025-06-15 13:41] VITALS: BP 93/62; PULSE 104; PULSE 97; RESP 13; O2SAT 98
--- NOTE | 2025-06-15 13:43 | PC.ADMIT ---
Pt roomed and placed on full monitor frequent PVCs Provider aware. Runs of PVCs up to 5 in a row. Pt statesw chest tightness present- BP low, provider aware. IVF infusing. Pt on phone with relative.
[2025-06-15 13:45] VITALS: BP 99/61
[2025-06-15 13:50] LABS: INTERNATIONAL NORM RATIO 1.2 (0.9-1.1); Prothrombin Time 13.8 SEC (10.9-12.4)
[2025-06-15 13:51] LABS: Alanine Aminotransferase 57 U/L (0-40); Albumin Level 4.6 g/dL (3.5-5.0); Alkaline Phosphatase 115 U/L (39-117); Anion Gap 12 (12-20); Aspartate Amino Transferase 48 U/L (5-37); Blood Urea Nitrogen 14 mg/dL (9-16); Calcium 9.3 mg/dL (8.4-10.2); Carbon Dioxide 25 mmol/L (22-29); Chloride 109 mmol/L (96-108); Creatinine Clr Calc Pharmacy 91.8; Estimated Glomerular Filt Rate > 60; Magnesium 2.3 mg/dL (1.6-2.6); Potassium 4.0 mmol/L (3.3-5.1); Sodium 142 mmol/L (135-145); Total Protein 7.3 g/dL (6.5-8.0)
--- NOTE | 2025-06-15 13:51 | ECG_ITS ---
Test Reason : RYTHM CHECK Blood Pressure : */* mmHG Vent. Rate : 67 BPM Atrial Rate : 67 BPM P-R Int : 174 ms QRS Dur : 90 ms QT Int : 474 ms P-R-T Axes : 9 -16 4 degrees QTcB Int : 500 ms Normal sinus rhythm Prolonged QT Abnormal ECG When compared with ECG of 15-Jun-2025 13:00, Sinus rhythm has replaced Atrial fibrillation Vent. rate has decreased by 55 bpm Inverted T waves have replaced nonspecific T wave abnormality in Inferior leads Referred By: Love Fritz Electronically Signed By: Kam Cooley
[2025-06-15 13:57] LABS: Troponin-I High Sensitivity < 2.7 ng/L (<3.5-35.0)
[2025-06-15 14:02] VITALS: BP 102/70; PULSE 59; RESP 14; TEMP 36.6; O2SAT 97
[2025-06-15 14:09] LABS: Resp Syncy Virus RNA Qual PCR NEGATIVE (Negative); SARS COV2 PCR INHOUSE NEGATIVE (Negative)
[2025-06-15 14:11] LABS: B Type Natriuretic Peptide 157 pg/mL (<100)
--- OUTSIDE RECORDS SUMMARY | 2025-06-15 14:57 | XMS_ITS | Clinical Summary ---
Author Organization [facility] ity Address [address] [place] [address] Care Team Providers Care Facilities Plant Engineer Name Role Phone Unavailable Primary Care Provider [...] Vaccine ( - 2023-2 5 season) 2024 Depression Screening 11/04/2024 Influenza Vaccine (#1) 2025 RSV Immunization Adult Patie nts (1 [...]
--- OUTSIDE RECORDS SUMMARY | 2025-06-15 14:57 | XMS_ITS | Encounter Summary ---
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 PT can best be reached at [phone] documented in this encounter Plan of Treatment Upcoming Encounters Date Type Department Care Team (Late st Contact Info) Description 06/29/2025 4:00 PM EDT Follow-Up [facility] [address] [place] [address] Plaster Form Maker: Juan Land MD [address] [place] [address] Suki Garcia MD [address] [place] [id number] 07/09/2025 8:40 AM EDT Telehealth [facility] [employer] Telehealth [address] [place] [id number] Tracie Westbrook NP [address] [place] [phone] 08/09/2025 2:30 PM EDT Follow-Up [facility] 4th floor Cardiology Medicine [address] [place] [address] Plaster Form Maker: Tiki Peña PA [address] [place] [phone] 09/17/2025 2:00 PM EST Office Visit [facility] [address] [place] [address] Elana Kaye NP [address] [place] [address] 12/13/2025 2:40 PM EST Office Visit [facility] Endocrinology [facility] [address] [place] [address] Henrietta Weeks MD [address] [place] [address] 03/11/2026 11:20 AM EDT Office Visit [facility] [address] [place] [address] Henrietta Weeks MD [address] [place] [address] 03/16/2026 1:00 PM EDT Follow-Up [facility] [place] [facility] [address] [address] Kian Cuello MD [address] [address] documented as of this encounter Visit Diagnoses Not on filedocumented in this encounter Care Teams Packager Machine Relationship Specialty Start Date End Date Jonathan Barnett PA [address] [place] [phone] PCP - General 03/08/25 documented as of this encounter
--- NOTE | 2025-06-15 15:00 | MHC.EDTECH ---
Patient's heart rate was 60 bpm at resting and increased to 114 pbm while walking.
[2025-06-15 15:58] VITALS: BP 114/64; PULSE 58; RESP 13; TEMP 36.6; O2SAT 98
[2025-06-15 16:04] VITALS: BP 114/64; PULSE 58; RESP 13; TEMP 36.6; O2SAT 98
== END 2025-06-15 16:19 | disposition home or self-care (01) ==
PROVIDERS: Physician Assistant Medical; Emergency Provider Emergency Medicine
DX: I48.91 Unspecified atrial fibrillation (principal); I95.89 Other hypotension; T44.7X5A Adverse effect of beta-adrenoreceptor antagonists, initial encounter; Y92.9 Unspecified place or not applicable; Z79.899 Other long term (current) drug therapy; Z79.01 Long term (current) use of anticoagulants; I10 Essential (primary) hypertension; Z03.818 Encounter for observation for suspected exposure to other biological agents ruled out
CPT/HCPCS: 36415; 71045; 80053; 83735; 83880; 84484; 85025; 85610; 87637; 93005; 96361; 96374; 99285; J0616

== ENCOUNTER → 2025-06-15 13:00 | Outpatient (BNV) | payer OTHER, SELFPAY | PROVIDERS: Emergency Provider Emergency Medicine; Visit Provider Internal Medicine Cardiovascular Disease | DX: I48.91 Unspecified atrial fibrillation (principal); R94.31 Abnormal electrocardiogram [ECG] [EKG]; Z13.6 Encounter for screening for cardiovascular disorders | CPT/HCPCS: 93010 ==

== ENCOUNTER → 2025-06-15 13:10 | Outpatient (BNV) | payer OTHER, SELFPAY | PROVIDERS: Emergency Provider Emergency Medicine; Visit Provider Radiology Diagnostic Radiology | DX: R07.9 Chest pain, unspecified (principal) | CPT/HCPCS: 71045 ==

== ENCOUNTER 2025-06-30 10:47 | Outpatient (AMB) | payer OTHER, SELFPAY ==
--- OUTSIDE RECORDS SUMMARY | 2025-06-29 16:00 | XMS_ITS | Encounter Summary ---
Author Organization [facility] Address [address] [place] [address] Care Team Providers Care Tension Worker Name Role Phone Jonathan Barnett Primary Care Provider [phone] Reason for Visit * Consultation (Urgent) - Authorized Specialty Diagnoses / Procedures Referred By Lenin t Referred To Contact Pulmonary Disease / Pulmonary Diagnoses Hypoxemia Juan Boswell MD [address] [place] [address] Phone: tel: fax: Miguel Rogers DO [address] [place] [address] Phone: tel: fax: Referral ID Status Reason Start Date Expiration Date Visits Requested Visits Authorized [id number] Authorized Specialty Services Required 06/22/2025 06/22/2026 6 6 Encounter Details Date Type Department Care Team (Late st Contact Info) Description 06/29/2025 4:00 PM EDT Follow[facility]Up [facility] [address] [place] [address] Cardiac Catheterization Technologist: Juan Land MD [address] [place] [address] Suki Garcia MD [address] [place] [address] [place] [address] Postnasal drip; Dyspnea, unspecified type Social History Tobacco Use Types Packs/Day Years [...] Industry 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 Start Date Job End Date [employer]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 Case discussed with the resident/fellow and I agree with the findings and plan as documented in the resident's/fellow's note. Normal pulmonary function testing and lack of dyspnea with exertion argues against pulmonary disease. Orthopnea and desaturation with supineposition are classically related to heart failure and/or truncal obesity; normal lung volumes argueagainst significant neuromuscular weakness. Will communicate with his sleep physician about the possibility of nocturnal oximetry. * Suki Garcia MD - 06/29/2025 4:15 PM EDT Images from the original note were not included. Pulmonary Clinic Visit HISTORY OF PRESENT ILLNESS: Mr. Diaz is a 59 y.o. male with LAYNE on CPAP, HTN, HLD, afib on Eliquia, s/p cryoablation (04/2019),s/p ablation 03/16, T2DM, HFpEF (EF 55-60%), hiatal hernia, and prior cervical spinal cord injury in 1992 with residual right index finger numbness who presents for follow-up of dyspnea. Briefly, his dyspnea seemed to be work environment related especially when placed under a vent at the [employer]. He was recommended to trial off Flonase nasal spray and Singulair. He reports hypoxia to low 80s when lying down as he starts to become sleepy and will be in afib with RVR at the same time,per his reports. He is concerned that he needs oxygen while sleeping. During the day, his oxygen sats are stable when sitting or standing but lying down he will desat even while awake. He states going to the hospital last week for afib with RVR to >200 bpm. He reports being evaluated by the dentist for a dental infection requiring antibiotics about a week ago. He has mild shortness of breath during these events. He is on Zepbound for weight loss and has lost over 70 lbs and still working on losing 30-40 lbs. He had an urgent PCI placed to the [facility] 11/2024 and is currently on Eliquis and Plavix. He has beenfollowing along with cardiology closely. LAYNE: He sees Dr. Kian Cuello for LAYNE. He reports compliance with his machine. Hospitalizations: ~20-24 yrs ago - [facility] in [facility] for paO2 48. He reports he was a case study. Conclusion was there was dysfunction of the small capillaries. He had another admission forlow paO2 in 2005 [place]. He improved with oxygen. He was admitted at [facility] 03/05 with acute hypoxic respiratory failure and chest pain and received nebs with improvement. He did have one dose of steroids. Denies intubation and reports he was not treated for infection. Walking pneumonia in about 2020? fall followed by COVID-19 in fall 2021. Smoking/substance use: Never smoked. Pets: He has 2 dogs - 14 yrs and 3 yrs. No hx of birds as pets. Not allergic to any animals. Allergies: None that he is aware of. Occupation: Works in the [employer]. There is no-smoking there but his shortness of breath appears worse at work when the vent turns on. He reports his co- workers are also having symptoms. 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 2 have semi-finished basements and 1 unfinished. Home: No carpet, just hardwood and rugs. He lives in a 125 - 150 yrs old. He rents out his rooms, no sick contacts. Family hx: Brother and sister with asthma. 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 He reports he is constantly working on remodeling houses and walking his dogs. PAST MEDICAL HISTORY: Past Medical History: Diagnosis Date Cervical spinal cord injury (HCC) 02/17/2019 c6 transverse process 1993; managed nonoperatively, recovered now with right index finger numbness unchanged x30 years Essential hypertension 12/14/2021 GERD (gastroesophageal reflux disease) well controlled Hiatal hernia 02/17/2019 LAYNE on CPAP 02/17/2019 Persistent atrial fibrillation (HCC) 02/17/2019 dx 12/2018 on eliquis Type 2 diabetes mellitus (HCC) 10/23/23 HA1C 4.6 MEDICATIONS: Current Outpatient Medications: albuterol (PROAIR HFA,VENTOLIN HFA) 90 mcg inhaler, Inhale 2 puffs (180 mcg total) by mouth every 4hours as needed for wheezing or shortness of breath. Use with spacer., Disp: 8.5 g, Rfl: 5 apixaban (ELIQUIS) 5 mg tablet, Take 1 tablet (5 mg total) by mouth every 12 hours., Disp: 180 tablet, Rfl: 3 atorvastatin (LIPITOR) 80 mg tablet, Take 1 tablet (80 mg total) by mouth once a day., Disp: 30 tablet, Rfl: 5 cholecalciferol (VITAMIN D3) 1,000 unit tablet, Take 1,000 Units by mouth daily., Disp: , Rfl: clopidogreL (PLAVIX) 75 mg tablet, Take 1 tablet (75 mg total) by mouth once a day., Disp: 30 tablet, Rfl: 5 dofetilide (TIKOSYN) 500 mcg capsule, Take 1 capsule (500 mcg total) by mouth 2 times a day., Disp:180 capsule, Rfl: 0 empagliflozin (JARDIANCE) 25 mg tablet, Take 1 tablet (25 mg total) by mouth once a day., Disp: 90 tablet, Rfl: 3 ezetimibe (ZETIA) 10 mg tablet, Take 1 tablet (10 mg total) by mouth once a day., Disp: 30 tablet, Rfl: 5 fluticasone propionate (FLONASE) 50 mcg/actuation nasal spray, Administer 2 sprays into each nostril once a day., Disp: 16 g, Rfl: 11 isosorbide mononitrate ER (IMDUR) 30 mg tablet, Take 0.5 tablets (15 mg total) by mouth once a day., Disp: , Rfl: losartan (COZAAR) 25 mg tablet, PRN high BP, Disp: , Rfl: metoprolol tartrate (LOPRESSOR) 50 mg tablet, Take 1 tablet (50 mg total) by mouth 2 times a day asneeded (Afib episode)., Disp: 30 tablet, Rfl: 3 montelukast (SINGULAIR) 10 mg tablet, Take 1 tablet (10 mg total) by mouth nightly., Disp: 30 tablet, Rfl: 11 nitroglycerin (NITROSTAT) 0.4 mg SL tablet, Place 1 tablet (0.4 mg total) under the tongue every 5 minutes as needed for chest pain. May repeat 1 tab every 5 min, up to 3 doses total, Disp: 30 tablet, Rfl: 3 pyridoxine (VITAMIN B6) 25 mg tablet, Take 25 mg by mouth once a day., Disp: , Rfl: Repatha SureClick 140 mg/mL pen injector, Inject 1 mL (140 mg total) under the skin every 14 days.,Disp: 2 mL, Rfl: 2 Zepbound 10 mg/0.5 mL pen injector pen injector, Inject 0.5 mL (10 mg total) under the skin per week. Switch from wegovy, Disp: 2 mL, Rfl: 5 ALLERGIES: Iodinated contrast media SOCIAL HISTORY: reports that he has never smoked. He has never been exposed to tobacco smoke. He has never used smokeless tobacco. He reports that he does not currently use alcohol. He reports that he does not use drugs. FAMILY HISTORY: family history includes Asthma in his sister; Breast cancer in his sister; Dementia in his father; Heart disease in his father; Hyperlipidemia in his father; Hypertension in his father; Thyroid disease in his mother and sister. IMMUNIZATIONS: Immunization History Administered Date(s) Administered Pneumococcal Polysaccharide Vaccine, 23 Valent 10/26/2020 PHYSICAL EXAM: BP 122/81 (BP Location: Left arm, Patient Position: Sitting) Pulse 71 Resp 18 Wt 105.7 kg (233 lb) SpO2 99% BMI 32.50 kg/m?? Physical Exam Vitals and nursing note reviewed. Constitutional: General: He is not in acute distress. Appearance: Normal appearance. He is overweight. HENT: Head: Normocephalic and atraumatic. Nose: Nose normal. Mouth/Throat: Mouth: Mucous membranes are moist. Pharynx: Oropharynx is clear. Eyes: Extraocular Movements: Extraocular movements intact. Conjunctiva/sclera: Conjunctivae normal. Pupils: Pupils are equal, round, and reactive to light. Cardiovascular: Rate and Rhythm: Normal rate and regular rhythm. Pulses: Normal pulses. Heart sounds: Murmur heard. Pulmonary: Effort: Pulmonary effort is normal. No respiratory distress. Breath sounds: Normal breath sounds. No wheezing. Abdominal: General: Abdomen is flat. Bowel sounds are normal. Palpations: Abdomen is soft. Skin: General: Skin is warm and dry. Capillary Refill: Capillary refill takes less than 2 seconds. Neurological: General: No focal deficit present. Mental Status: He is alert and oriented to person, place, and time. Psychiatric: Mood and Affect: Mood normal. Behavior: Behavior normal. DATA: LABS: No results found for this or any previous visit (from the past 24 hours). CXR (04/14/2024) PFT (05/11/2024): There is no ventilatory impairment demonstrated by spirometry and lung volumes. The findings are within normal limits. The individual DLCO efforts meet ATS/ERS acceptability, and meet repeatability standards. Increases in the measured diffusing capacity (DLco) suggest increased pulmonary blood volume. Increases in the DLco can be seen in polycythemia, asthma, obesity (if present), mild left heart failure,left to right shunt, and pulmonary hemorrhage. Suggest clinical correlation. IMPRESSIONS: 1. Dyspnea and cough, improving 2. Nocturnal hypoxia? 58 yoa male with significant cardiac history who presents with x1 month of dyspnea with associated cough likely due to reactive airway disease with environmental trigger being the ventilation at his work in the [employer]. His symptoms are stable with albuterol, flonase, and singulair. He is now having nocturnal and positional hypoxia that seems to coincide around the times of his afib with RVR as well. It is also possible when he is in RVR that his pulse ox does not read adequately thus gives a false low. He has no history of pulm hypertension that we can see but is at risk. He may benefit from nocturnal oxygen with his CPAP. He declined trending pulse ox today. RECOMMENDATIONS: 1. Refilled Flonase nasal spray and Singulair daily. 2. Albuterol prn shortness of breath or wheezing. 3. We continue to encourage discussed positioning not under the vent at work would be helpful as that is a triggers. 4. We will contact Dr. Cuello regarding evaluation of nocturnal supplemental oxygen. 5. Patient to follow-up prn if symptoms return. Plan discussed with Dr. Marino. Suki Garcia MD Pulmonary & Critical Care Fellow Pager #[phone] documented in this encounter Plan of Treatment Upcoming Encounters Date Type Department Care Team (Late st Contact Info) Description 07/09/2025 8:40 AM EDT Telehealth [facility] Telehealth [address] [place] [address] Tracie Westbrook NP [address] [place] [address] 08/09/2025 2:30 PM EDT Follow-Up [facility] 4th floor Cardiology Medicine [address] [place] [address] Cardiac Catheterization Technologist: Tiki Peña PA [address] [place] [address] 09/17/2025 2:00 PM EST Office Visit [facility] Endocr[facility]ology [facility] 7 [address] [place] [address] Elana Kaye NP [address] [place] [address] 12/13/2025 2:40 PM EST Office Visit [facility] 7 [address] [place] [address] Henrietta Weeks MD [address] [place] [address] 03/11/2026 11:20 AM EDT Office Visit [facility] 7 [address] [place] [address] Henrietta Weeks MD [address] [place] [address] 03/16/2026 1:00 PM EDT Follow-Up [facility] [address] [place] [facility] [address] [address] Kian Cuello MD [address] [address] documented as of this encounter Results * Due to [place] state law, this organization might not be sharing negative HIV tests. * X-Ray Chest 2 Views (06/29/2025 5:21 PM EDT) Anatomical Region Laterality Modality Body Computed Radiogr aphy 06/30/2025 9:58 AM EDT Impressions 06/30/2025 9:59 AM EDT No change. Negative. Heart normal. Lungs clear.. If this radiology report contains a blank impression section, it is an incomplete radiology report. Please contact the interpreting radiologist or applicable radiology division as soon as possible to obtain the completed interpretation. Workstation ID: [id number] Narrative 06/30/2025 9:59 AM EDT COMPARISON: 04/14/2024 FINDINGS AND Resulting Agency Comment [id number] Procedure Note Rober Shin MD - 06/30/2025 COMPARISON: 04/14/2024 FINDINGS AND IMPRESSION: No change. Negative. Heart normal. Lungs clear.. If this radiology report contains a blank impression section, it is anincomplete radiology report. Please contact the interpreting radiologistor applicable radiology division as soon as possible to obtain thecompleted interpretation. Workstation ID: [id number] us Juan Boswell MD IMG XR PROCEDURES Final Resu lt documented in this encounter Visit Diagnoses Diagnosis Postnasal drip Dyspnea, unspecified type Dyspnea, unspecified type documented in this encounter Care Teams Tension Worker Relationship Specialty Start Date End Date Jonathan Barnett PA [address] [place] [id number] PCP - General 03/08/25 documented as of this encounter
--- OUTSIDE RECORDS SUMMARY | 2025-06-29 16:57 | XMS_ITS | Encounter Summary ---
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 Use with spacer. 8.5 g 5 06/29/2025 apixaban (ELIQUIS) 5 mg tablet Take 1 tablet (5 mg total) by mouth every 12 hours. 180 tablet 3 12/27/2023 atorvastatin (LIPITOR) 80 mg tablet Take 1 tablet (80 mg total) by mouth once a day. 30 tablet 5 06/09/2025 1:52 PM EDT 02/08/2025 cholecalciferol (VITAMIN D3) 1,000 unit tablet Take 1,000 Units by mouth daily. clopidogreL (PLAVIX) 75 mg tablet Take 1 tablet (75 mg total) by mouth once a day. 30 tablet 5 06/09/2025 1:52 PM EDT 02/08/2025 empagliflozin (JARDIANCE) 25 mg tablet Take 1 tablet (25 mg total) by mouth once a day. 90 tablet 3 12/02/2024 ezetimibe (ZETIA) 10 mg tablet Take 1 tablet (10 mg total) by mouth once a day. 30 tablet 5 06/09/2025 1:52 PM EDT 02/08/2025 fluticasone propionate (FLONASE) 50 mcg/actuation nasal sprayIndications: Postnasal drip Administer 2 sprays into each nostril once a day. 16 g 11 06/29/2025 isosorbide mononitrate ER (IMDUR) 30 mg tablet Take 0.5 tablets (15 mg total) by mouth once a day. 03/30/2025 losartan (COZAAR) 25 mg tablet PRN high BP 06/02/2023 metoprolol tartrate (LOPRESSOR) 50 mg tablet Take 1 tablet (50 mg total) by mouth 2 times a day as needed (Afib episode). 30 tablet 3 11/20/2023 nitroglycerin (NITROSTAT) 0.[address] 1 tablet (0.4 mg total) under the tongue every 5 minutes as needed for chest pain. May repeat 1 tab every 5 min, up to 3 doses total 30 tablet 3 12/17/2024 pyridoxine (VITAMIN B6) 25 mg tablet Take 25 mg by mouth once a day. Repatha SureClick 140 mg/mL pen injector Inject 1 mL (140 mg total) under the skin every 14 days. 2 mL 2 06/24/2025 7:04 PM EDT 04/06/2025 Zepbound 10 mg/0.5 mL pen injector pen injector Inject 0.5 mL (10 mg total) under the skin per week. Switch from wegovy 2 mL 5 06/24/2025 7:04 PM EDT 05/24/2025 documented as of this encounter Plan of Treatment Upcoming Encounters Date Type Department Care Team (Late st Contact Info) Description 07/09/2025 8:40 AM EDT Telehealth [facility] Telehealth [address] [place] [address] Tracie Westbrook NP [address] [place] [address] 08/09/2025 2:30 PM EDT Follow-Up [facility] 4th floor Cardiology Medicine [address] [place] [address] International Flight Attendant: Tiki Peña PA [address] [place] [address] 09/17/2025 2:00 PM EST Office Visit [facility] Endocrinology Clinic 7 [address] [place] [address] Elana Kaye NP [address] [place] [address] 12/13/2025 2:40 PM EST Office Visit [facility] Endocrinology Clinic 7 [address] [place] [address] Henrietta Weeks MD [address] [place] [address] 03/11/2026 11:20 AM EDT Office Visit [facility] Endocrinology Clinic 7 [address] [place] [address] Henrietta Weeks MD [address] [place] [address] 03/16/2026 1:00 PM EDT Follow-Up [facility] [address] [place] [facility] 85 [facility] [address] [place] [address] Kian Cuello MD [address] [address] documented as of this encounter Procedures * Due to [facility] law, this organization might not be sharing negative HIV tests. Procedure Name Priority Date/Time Associated Diagnosis Comments XR CHEST 2 VW Routine 06/29/2025 5:21 PM EDT Dyspnea, unspecified type documented in this encounter Results * Due to [facility] law, this organization might not be sharing [...] to obtain the completed interpretation. Workstation ID: [id number] Narrative 06/30/2025 9:59 AM EDT COMPARISON: 04/14/2024 FINDINGS AND Resulting Agency Comment [id number] Procedure Note Rober Shin MD - 06/30/2025 COMPARISON: 04/14/2024 FINDINGS AND IMPRESSION: No change. Negative. Heart normal. Lungs clear.. If this radiology report contains a blank impression section, it is anincomplete radiology report. Please contact the interpreting radiologistor applicable radiology division as soon as possible to obtain thecompleted interpretation. Workstation ID: [id number] us Juan Boswell MD IMG XR PROCEDURES Final Resu lt documented in this encounter Visit Diagnoses Diagnosis Dyspnea, unspecified type documented in this encounter Care Teams Restaurant Service Manager Relationship Specialty Start Date End Date Jonathan Barnett PA [address] [place] [id number] PCP - General 03/08/25 documented as of this encounter
--- NOTE | 2025-06-30 10:58 | A.OFFPC_ITS ---
Vital Signs 06/30/25 11:01 Height 5 ft 11 in Weight 234 lb 6 oz BMI 32.7 BP 124/80 Blood Pressure Location Lt brachial Position Sitting Pulse 67 Pulse Source Pulse Oximeter Oxygen Delivery Method Room Air Intake Visit Reasons: follow up Health Services Administrator Required: No Allergies Iodinated Contrast Media (Contrast Dye) Adverse Reaction (Severe, Verified 06/30/25 11:22) Vomiting Medication List - Last Reconciled 06/30/25 by Jonathan Barnett PA-C albuterol sulfate 90 mcg/actuation 2 puffs inhalation QID 30 days apixaban (Eliquis) 5 mg PO BID atorvastatin 80 mg PO DAILY cholecalciferol (vitamin D3) 125 mcg PO DAILY clopidogrel 75 mg PO DAILY CPAP (CPAP Machine/Device) As directed empagliflozin (Jardiance) 25 mg PO DAILY evolocumab (Repatha SureClick) 140 mg subcut Q2W ezetimibe 10 mg PO DAILY metoprolol tartrate 25 mg PO BID nitroglycerin 0.4 mg sublingual Q5M PRN ranolazine ER 500 mg PO BID tirzepatide (weight loss) (Zepbound) 2.5 mg subcut Q4W Tobacco use date assessed: 06/30/25 Dental Screening Dental Screen Date: 06/30/25 Did you have a dental visit in the last 12 months?: No Did you have a dental problem in the last 6 months where you did not have access to dental care?: No Was dental information given to patient?: No HPI follow up HPI Details Patient is a 59-year-old male here today for follow-up visit. Patient has a past medical history significant for AFib, LAYNE, hip dysplasia. Patient recently seen at the ER for acute hypotension and found to have AFib with RVR. Was given IV metoprolol and IV fluids. Previously had dental work done and was on antibiotics which may have caused his AFib with RVR Coronary artery disease: Patient has coronary artery stent. He continues to follow cardiology in [facility]. Continues with Repatha injections and high dose statin therapy. AFIB: Cavernous seeing a lockstitch sleeve setter ( Dr So) [facility] though has not followed up his lockstitch sleeve setter..? Continues on Eliquis 5 mg b.i.d. without any overt signs of bleeding. Has recently under went a new cardiac full field ablation procedure which has worked tremendously. He continues on CPAP therapy on a nightly basis with good effect .. Obese/insulin resistance : Was prescribed zepbound his insulin resistance by Endocrinology at [facility]. Has been restarted on zepbound and feels his weight is maintained .. Environmental allergies: Was found to have an environmental allergy at his job related to air vents. He was started on montelukast which has resolved his rhinitis and cough. .. Hypertension: Blood pressure acceptable today in office , blood pressure has been much better controlled since AFib has been controlled. [facility] Medical History CAD (coronary artery disease) Family history of gastric cancer Insulin resistance History of COVID-19 Elevated LFTs PAF (paroxysmal atrial fibrillation) Obese LAYNE (obstructive sleep apnea) Diarrhea HTN (hypertension) Surgical History H/O heart surgery H/O prior ablation treatment History of lymph node excision History of prior ablation treatment Family History Father CAD (coronary artery disease) History of partial colectomy Hypertension CVD (cardiovascular disease) Alzheimers disease Mother Asthma Brother Hepatitis Sister Family history of thyroid problem Breast cancer Paternal Grandfather Stomach cancer Social History Household Members: Other Housing: House Are you a primary care provider to a significant other at home: No Do you presently have visiting nurse or other home services: No Alcohol intake: never Patient Tobacco Use Status: Never used Tobacco e-Cigarette/Vaping Use: Never Used Second Hand Smoke Exposure: No service: No Current occupational status: employed Current occupation: [employer] [place] Cognitive needs: No Hearing needs: No Vision needs: Yes (Glasses) Questionnaire PHQ-9 Over the last 2 weeks, how often have you been bothered by any of the following problems? 1. Little interest or pleasure in doing things: not at all 2. Feeling down, depressed, or hopeless: not at all 3. Trouble falling or staying asleep, or sleeping too much: nearly every day 4. Feeling tired or having little energy: more than half the days 5. Poor appetite or overeating: not at all 6. Feeling bad about yourself - or that you are a failure or have let yourself or your family down: not at all 7. Trouble concentrating on things, such as reading the newspaper or watching television: not at all 8. Moving or speaking so slowly that other people could have noticed. Or the opposite - being so fidgety or restless that you have been moving around a lot more than usual: not at all 9. Thoughts that you would be better off or of hurting yourself in some way: not at all Total score: 5 Depression Screening Interpretation: Positive Depression Screening Follow-up: Existing condition Depression Screening Done: Yes 72129 - PHQ-9 Billing: Yes Source: Developed by Drs. Wicho Zimmer, Sera Roche, Kolton Bowles and colleagues, with an educational joni from [employer]. Thrive Questionnaire Date Thrive assessed: 02/22/25 I am a: Patient What is your living situation today?: I choose not to answer this question Within the past 12 months, did the food you bought not last and you didn't have the money to get more?: Never true Within the past 12 months, did you worry whether your food would run out before you got money to buy more?: Never true Do you have trouble paying for medicines?: I choose not to answer this question Do you have trouble getting transportation to medical appointments?: No Do you have trouble paying your heating and electricity bill?: No Do you have trouble taking care of your child, family member or friend?: No Do you have trouble with day-to-day activities such as bathing, preparing meals, shopping, managing finances, etc.?: No Are you currently unemployed and looking for a job?: No Are you interested in more education?: No Please select the resources that you would like help with: None Currently or been in a relationship where the following occur: No concerns reported THRIVE Score: 0 AUDIT C Alcohol Use Questionnaire (AUDIT-C) 1. How often do you have a drink containing alcohol?: Never 3. How often do you have six or more drinks on one occasion?: Never Total Score: 0 ENZO-7 AMB Questionnaire ENZO-7 Date ENZO - 7 assessed: 06/30/25 Feeling nervous, anxious, or on edge: 0 = Not at all Not being able to stop or control worryin = Not at all Worrying too much about different things: 0 = Not at all Trouble relaxin = Not at all Being so restless that it is hard to sit still: 0 = Not at all Becoming easily annoyed or irritable: 0 = Not at all Feeling afraid as if something awful might happen: 0 = Not at all Total ENZO-7 score (0-4 normal; 5-9 mild; 10-14 moderate; 15-21 severe): 0 Source: Developed by Drs. Wicho Zimmer, Sera Roche, Kolton Bowles and colleagues, with an educational joni from [employer]. ENZO-7 Assessment Billing ENZO-7 Assessment Tool: ENZO-7 Assessment 55233 Review of Systems Const Denies headache(s) Eyes Denies loss of vision ENT Denies vertigo, Denies dizziness, Denies headache(s) and Denies sore throat Card Denies chest pain, Denies leg edema and Denies lightheadedness Resp Denies cough, Denies hemoptysis and Denies wheezing GI Denies abdominal pain, Denies melena, Denies constipation, Denies diarrhea and Denies vomiting Denies dysuria, Denies urinary frequency and Denies urinary urgency Musc Denies arthralgias, Denies joint swelling, Denies numbness and Denies tingling Neuro Denies Abnormal speech present, Denies behavioral changes, Denies vertigo, Denies dizziness, Denies headache(s), Denies loss of vision, Denies memory loss, Denies numbness and Denies tingling Psych Denies anxiety, Denies behavioral changes, Denies depression, Denies memory loss and Denies panic attacks Fish/Lymph Denies easy bleeding and Denies easy bruising Aller/Immun Denies wheezing Physical exam (Primary Care) Vital Signs: Last Vital Signs Pulse 67 06/30/25 11:01 BP 124/80 06/30/25 11:01 Oxygen Delivery Method Room Air 06/30/25 11:01 BMI result Body Mass Index 32.7 BMI Assessment/Plan discussion: High BMI High, discussed plan: lifestyle, weight reduction, dietary and physical activity Tobacco/Smoking Status: Tobacco use Status Tobacco use date assessed 06/30/25 06/30/25 11:06 Patient Tobacco Use Status Never used Tobacco 06/30/25 10:59 e-Cigarette/Vaping Use Never Used 06/30/25 10:59 PHQ-9: PHQ-9 Score PHQ-9: Total score 5 06/30/25 11:29 Depression Screening Interpretation: Positive Depression Screening Follow-up: Existing condition Thrive Assessment: Date of Thrive Assessment Date Thrive assessed 02/22/25 06/30/25 10:59 Currently or been in a relationship where the following occur: No concerns reported Const General: healthy appearing, no acute distress, alert and awake Nutritional Appearance: well nourished Orientation/consciousness: oriented to person, oriented to place and oriented to time HENMT Ears: TM's normal bilaterally General nose exam: Normal nasal mucous membranes and turbinates present Eyes Conjunctivae: conjunctivae normal Sclerae: sclerae normal Pupils: Equal, round and reactive pupils present Neck Neck: Yes no lymphadenopathy and Yes no JVD Thyroid: Thyroid normal Carotids: no bruits Resp Effort & Inspection: normal respiratory effort and not tachypneic Auscultation: no crackles, no rales, no rhonchi and no wheezes Cardio Rate: regular rate Rhythm: regular rhythm Heart sounds: no murmurs and normal S1 and S2 GI Palpation (GI): Soft to palpation, nontender, no hepatomegaly and no splenomegaly Auscultation: normal bowel sounds Skin General skin exam: no rashes or lesions noted and dry skin Neuro General: oriented to person, oriented to place and oriented to time Cranial nerves: Yes Equal, round and reactive pupils present Speech: No Abnormal speech present Gait exam (Neuro): Normal gait present Motor exam (neuro): no tremor noted Extrem Right upper extremity: full ROM Left upper extremity: full ROM Right lower extremity: full ROM; no edema Left lower extremity: full ROM; no edema Psych Mental Status: mental status grossly normal Speech and movement: Normal speech and movement present Affect: normal affect Attitude: cooperative Thought process: Normal thought process present Coding Level of Care Code Est Pt Level 4 (94430) Diagnoses Coronary artery disease involving [place] coronary artery of [place] heart without angina pectoris I25.10 Associated angina: without angina Coronary Disease-Associated Artery/Lesion type: [place] artery [place] vs. transplanted heart: [place] heart Paroxysmal atrial fibrillation I48.0 Atrial fibrillation type: paroxysmal Insulin resistance E88.81 LAYNE (obstructive sleep apnea) G47.33 Class 1 obesity E66.811 Additional Codes ENZO-7 Assessment Billing - ENZO-7 Assessment Tool: ENZO-7 Assessment 11958 ([id number]) PHQ-9 - 68626 - PHQ-9 Billing: Yes ([id number]) Assessment & Plan Assessment & Plan (1) CAD (coronary artery disease): Code(s): I25.10 - Atherosclerotic heart disease of [place] coronary artery without angina pectoris Category: Medical Qualifiers: Associated angina: without angina Coronary Disease-Associated Artery/Lesion type: [place] artery [place] vs. transplanted heart: [place] heart Qualified Code(s): I25.10 - Atherosclerotic heart disease of [place] coronary artery without angina pectoris Plan: Followed by lockstitch sleeve setter [facility]. Has a coronary artery stent. At high potency statin aspirin, Repatha, clopidogrel Goal LDL to be below 55 (2) Afib: Comment: Ablation x2 unsuccessful-recent ED visit with chest pain Code(s): I48.91 - Unspecified atrial fibrillation Category: Medical Qualifiers: Atrial fibrillation type: paroxysmal Qualified Code(s): I48.0 - Paroxysmal atrial fibrillation Plan: Patient continues to see cardiology in [place]. He is anticoagulated with Eliquis at this time without any overt signs of bleeding besides occasional bright red blood per rectum.- of note does have internal hemorrhoids. He has undergone multiple cardiac procedures including ablation x3 Also he is under rate and rhythm control with metoprolol and ranolazine (3) Insulin resistance: Code(s): E88.81 - Metabolic syndrome and other insulin resistance Category: Medical Plan: Continues to see an track laying machine operator at [facility]. Continues on GLP 1. Has been maintaining weight loss. Most recent A1c at 4.1. (4) LAYNE (obstructive sleep apnea): Comment: CPAP, further eval testing pending at [facility] Code(s): G47.33 - Obstructive sleep apnea (adult) (pediatric) Category: Medical Plan: Continues to use CPAP on a nightly basis with good effect. (5) Class 1 obesity: Code(s): E66.811 - Obesity, class 1 Category: Medical Plan: Patient does understand his BMI is over 30 will continue working on trying to be more physically active and adapting to better eating habits. He continues on a GLP 1 and will up titrate with his track laying machine operator. Has benefitted significan tly from GLP 1 therapy Orders: Orders TDaP Immunization Today Z23 - Encounter for immunization Medications: New Boostrix Tdap (diphth,pertus(acell),tetanus) 0.5 mL IM ONCE 0.5 mL 0RF NS Z23 - Encounter for immunization
[2025-06-30 11:01] VITALS: BP 124/80; PULSE 67; BMI 32.7
--- OUTSIDE RECORDS SUMMARY | 2025-06-30 11:40 | XMS_ITS | Encounter Summary ---
Author Organization [facility] Address [address] [place] [address] Care Team Providers Care Coreroom Foundry Laborer Name Role Phone Jonathan Barnett Primary Care Provider [phone] Reason for Visit * Reason Onset Date Comments Reaction to Med 12/26/2020 Encounter Details Date Type Department Care Team (Late st Contact Info) Description 12/26/2020 Telephone [facility] Central Scheduling Department [address] [place] [address] Telephone Intake, Staff Reaction to Med Social [...] He unfortunately cannot work with a foggy brain.Bp 128/78, HR consistently 60. He does not feel like he is in afib. He has shortness of breath withany sort of activity: walking, bending physical activity. [...] vaccinated first. Fito can be reached at [phone]. documented in this encounter Plan of Treatment Upcoming Encounters Date Type Department Care Team (Late st Contact Info) Description 07/09/2025 8:40 AM EDT Telehealth [facility] [employer] Telehealth [address] [place] [address] Tracie Westbrook NP [address] [place] [address] 08/09/2025 2:30 PM EDT Follow-Up [facility] 4th floor Cardiology Medicine [address] [place] [address] Coke Drawer Hand: Tiki Peña, LUIS [address] [place] [address] 09/17/2025 2:00 PM EST Office Visit [facility] Endocrinology Clinic 7 [address] [place] [address] Elana Kaye NP [address] [place] [address] 12/13/2025 2:40 PM EST Office Visit [facility] Endocrinology Clinic 7 [address] [place] [address] Henrietta Weeks MD [address] [place] [address] 03/11/2026 11:20 AM EDT Office Visit [facility] Endocrinology Clinic 7 [address] [place] [address] Henrietta Weeks MD [address] [place] [address] 03/16/2026 1:00 PM EDT Follow-Up [facility] 85 [place] [facility] [address] [place] [address] Kian Cuello MD [address] [address] documented as of this encounter Visit Diagnoses Not on filedocumented in this encounter Care Teams Coreroom Foundry Laborer Relationship Specialty Start Date End Date Jonathan Barnett PA [address] [place] [address] PCP - General 03/08/25 documented as of this encounter
--- OUTSIDE RECORDS SUMMARY | 2025-06-30 11:40 | XMS_ITS | Encounter Summary ---
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 Not on file Not on file documented as of this encounter Plan of Treatment Upcoming Encounters Date Type Department Care Team (Late st Contact Info) Description 07/09/2025 8:40 AM EDT Telehealth [facility] [employer] Telehealth [address] [place] [address] Tracie Westbrook NP 55 [facility] Digital Medicine [place], [place] [phone] 08/09/2025 2:30 PM EDT Follow-Up [facility] 4th floor Cardiology Medicine [address] [place] [address] Trash Collector: Tiki Peña PA [address] [place] [address] 09/17/2025 2:00 PM EST Office Visit [facility] Endocrinology Clinic 7 [address] [place] [address] Elana Kaye NP [address] [place] [address] 12/13/2025 2:40 PM EST Office Visit [facility] Endocrinology Clinic 7 [address] [place] [address] Henrietta Weeks MD [address] [place] [address] 03/11/2026 11:20 AM EDT Office Visit [facility] Endocrinology Clinic 7 [address] [place] [address] Henrietta Weeks MD [address] [place] [address] 03/16/2026 1:00 PM EDT Follow-Up [facility] 85 [place] [facility] [address] [address] Kian Cuello MD [address] [address] documented as of this encounter Visit Diagnoses Not on filedocumented in this encounter Care Teams Coding Auditor Relationship Specialty Start Date End Date Jonathan Barnett PA [address] [place] [address] PCP - General 03/08/25 documented as of this encounter
--- OUTSIDE RECORDS SUMMARY | 2025-06-30 11:40 | XMS_ITS | Encounter Summary ---
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 Pt can be reached at [phone] Thanks, Ellice * Telephone Encounter - Elana Hunter - 06/21/2025 1:15 PM EDT Talisha Boswell, Pt is returning your call. Best call back [phone] Thank you * Telephone Encounter - Jenn Boswell - 06/15/2025 11:44 AM EDT [address] is calling because he is wondering if he can take his Nitroglycerin with his Metoprolol. Pt also states he has been experiencing Cpain and AFIB for the past 20 mins. Pt states his BP is 130/102. HR being high at 212 and as low as 38. O2 bouncing around between 80-90. Pt states he usually takes Metoprolol to get him out of AFIB but he is wondering if he can take theMetoprolol while being on the Nitroglycerin. Best call back is [phone]. Jenn Thayer. documented in this encounter Plan of Treatment Upcoming Encounters Date Type Department Care Team (Late st Contact Info) Description 07/09/2025 8:40 AM EDT Telehealth [facility]- [employer] Telehealth [address] [place] [address] Tracie Wsetbrook NP [address] [place] [address] 08/09/2025 2:30 PM EDT Follow-Up [facility] 4th floor Cardiology Medicine [address] [place] [address] Contact Center Consultant: Tiki Peña PA [address] [place] [address] 09/17/2025 2:00 PM EST Office Visit [facility] Endocrinology Clinic 7 [address] [place] [address] Elana Kaye NP [address] [place] [address] 12/13/2025 2:40 PM EST Office Visit [facility] Endocrinology Clinic 7 [address] [place] [address] Henrietta Weeks MD [address] [place] [address] 03/11/2026 11:20 AM EDT Office Visit [facility] Endocrinology Clinic 7 [address] [place] [address] Henrietta Weeks MD [address] [place] [address] 03/16/2026 1:00 PM EDT Follow-Up [facility] 85 [place] [facility] [address] [place] [address] Kian Cuello MD [address] [address] documented as of this encounter Visit Diagnoses Not on filedocumented in this encounter Care Teams Electrician Supervisor Relationship Specialty Start Date End Date Jonathan Barnett PA [address] [place] [address] [id number] PCP - General 03/08/25 documented as of this encounter
--- OUTSIDE RECORDS SUMMARY | 2025-06-30 11:40 | XMS_ITS | Clinical Summary ---
Author Organization [facility] Address [address] [place] [address] Care Team Providers Care Account Processor Name Role Phone Unavailable Primary Care Provider [...]
--- OUTSIDE RECORDS SUMMARY | 2025-06-30 11:40 | XMS_ITS | Encounter Summary ---
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 Not on file Not on file documented as of this encounter Plan of Treatment Upcoming Encounters Date Type Department Care Team (Late st Contact Info) Description 07/09/2025 8:40 AM EDT Telehealth [facility] [employer] Telehealth [address] [place] [address] Tracie Westbrook NP [address] [place] [address] 08/09/2025 2:30 PM EDT Follow-Up [facility] 4th floor Cardiology Medicine [address] [place] [address] Water Resource Engineering Specialist: Tiki Peña PA [address] [place] [address] 09/17/2025 2:00 PM EST Office Visit [facility] Endocrinology Clinic 7 [address] [place] [address] Elana Kaye NP [address] [place] [address] 12/13/2025 2:40 PM EST Office Visit [facility] Endocrinology Clinic 7 [address] [place] [address] Henrietta Weeks MD [address] [place] [address] 03/11/2026 11:20 AM EDT Office Visit [facility] Endocrinology Clinic 7 [address] [place] [address] Henrietta Weeks MD [address] [place] [address] 03/16/2026 1:00 PM EDT Follow-Up [facility] 85 [place] [facility] [address] [place] [address] Kian Cuello MD [address] [address] documented as of this encounter Visit Diagnoses Not on filedocumented in this encounter Care Teams Media Relations Intern Relationship Specialty Start Date End Date Jonathan Barnett PA [address] [place] [address] PCP - General 03/08/25 documented as of this encounter
--- OUTSIDE RECORDS SUMMARY | 2025-06-30 11:40 | XMS_ITS | Encounter Summary ---
Author Organization [facility] Address [address] [place] [address] Care Team Providers Care Hand Ii Blocker Name Role Phone Jonathan Barnett Primary Care Provider [phone] Encounter Details Date Type Department Care Team (Late st Contact Info) Description 10/04/2022 Mybandstockhart Message [facility] ACC Building [address] [place] [address] [employer], Generic Provider [address] [place] [id number] [facility] specialty pharmacy liaison contact information. 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 Not on file Not on file documented as of this encounter Plan of Treatment Upcoming Encounters Date Type Department Care Team (Late st Contact Info) Description 07/09/2025 8:40 AM EDT Telehealth [facility] [employer] Telehealth [address] [place] [address] Tracie Westbrook NP [address], [place] [id number] 08/09/2025 2:30 PM EDT Follow-Up [facility] 4th floor Cardiology Medicine [address] [place] [address] Social Media Project Manager: Tiki Peña PA [address] [place] [address] 09/17/2025 2:00 PM EST Office Visit [facility] Endocrinology Clinic [address] [place] [address] Elana Kaye NP [address] [place] [address] 12/13/2025 2:40 PM EST Office Visit [facility] Endocrinology Clinic [address] [place] [address] Henrietta Weeks MD [address] [place] [address] 03/11/2026 11:20 AM EDT Office Visit [facility] Endocrinology Clinic [address] [place] [address] Henrietta Weeks MD [address] [place] [address] 03/16/2026 1:00 PM EDT Follow-Up [facility] [address] [place] Pulmonology [address] [place] [id number] Kian Cuello MD [address] [address] documented as of this encounter Visit Diagnoses Not on filedocumented in this encounter Care Teams Hand Ii Blocker Relationship Specialty Start Date End Date Jonathan Barnett PA [address] [place] [id number] PCP - General 03/08/25 documented as of this encounter
--- OUTSIDE RECORDS SUMMARY | 2025-06-30 11:40 | XMS_ITS | Encounter Summary ---
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 Not on file Not on file documented as of this encounter Plan of Treatment Upcoming Encounters Date Type Department Care Team (Late st Contact Info) Description 07/09/2025 8:40 AM EDT Telehealth [facility] [employer] Telehealth [address] [place] [address] Tracie Westbrook NP [address] [place] [address] 08/09/2025 2:30 PM EDT Follow-Up [facility] 4th floor Cardiology Medicine [address] [place] [address] Salvage Machine Operator: Tiki Peña PA [address] [place] [address] 09/17/2025 2:00 PM EST Office Visit [facility] Endocrinology Clinic 7 [address] [place] [address] Elana Kaye NP [address] [place] [address] 12/13/2025 2:40 PM EST Office Visit [facility] Endocrinology Clinic 7 [address] [place] [address] Henrietta Weeks MD [address] [place] [address] 03/11/2026 11:20 AM EDT Office Visit [facility] Endocrinology Clinic 7 [address] [place] [address] Henrietta Weeks MD [address] [place] [address] 03/16/2026 1:00 PM EDT Follow-Up [facility] 85 [place] Pulmonology [address] [place] [id number] Kian Cuello MD [address] [address] documented as of this encounter Visit Diagnoses Not on filedocumented in this encounter Care Teams Heat Transfer Technician Relationship Specialty Start Date End Date Jonathan Barnett PA [address] [place] [id number] PCP - General 03/08/25 documented as of this encounter
--- OUTSIDE RECORDS SUMMARY | 2025-06-30 11:40 | XMS_ITS | Clinical Summary ---
Author Organization [facility] Address [address] [place] [address] Care Team Providers Care Embroidery Cutter Name Role Phone Jonathan Barnett Primary Care Provider [phone] Allergies Active Allergy Reactions Criticality Noted Date [...] mg by mouth once a day. Active montelukast (SINGULAIR) 10 mg tabletIndicatio ns:Dyspnea, unspecified type Take 1 tablet (10 mg total) by mouth nightly. 30 tablet 11 04/24/20 24 Active empagliflozin (JARDIANCE) 25 mg tablet Take 1 tablet (25 mg total) by mouth once a day. 90 tablet 3 12/02/19 25 Active nitroglycerin (NITROSTAT) 0.[address] 1 tablet (0.4 mg total) under the tongue every 5 minutes as needed for chest pain. May repeat 1 tab every 5 min, up to 3 doses total 30 tablet 3 12/17/19 25 02/13/2 026 Active clopidogreL (PLAVIX) 75 mg tablet Take 1 tablet (75 mg total) by mouth once a day. 30 tablet 5 5 1:52 PM EDT 02/09/20 25 Active ezetimibe (ZETIA) 10 mg tablet Take 1 tablet (10 mg total) by mouth once a day. 30 tablet 5 5 1:52 PM EDT 02/09/20 25 Active atorvastatin (LIPITOR) 80 mg tablet Take 1 tablet (80 mg total) by mouth once a day. 30 tablet 5 1:52 PM EDT 02/09/20 25 Active dofetilide (TIKOSYN) 500 mcg capsule Take 1 capsule (500 mcg total) by mouth 2 times a day. 180 capsule 03/30/20 25 Active isosorbide mononitrate ER (IMDUR) 30 mg tablet Take 0.5 tablets (15 mg total) by mouth once a day. 03/30/20 25 Active Repatha SureClick 140 mg/mL pen injector Inject 1 mL (140 mg total) under the skin every 14 days. 2 mL 2 7:04 PM EDT 04/06/20 25 Active Zepbound 10 mg/0.5 mL pen injector pen injector Inject 0.5 mL (10 mg total) under the skin per week. Switch from wegovy 2 mL 5 7:04 PM EDT 05/24/20 25 Active fluticasone propionate (FLONASE) 50 mcg/actuation nasal sprayIndication s:Postnasal drip Administer 2 sprays into each nostril once a day. 16 g 06/29/20 25 026 Active albuterol (PROAIR HFA,VENTOLIN HFA) 90 mcg inhalerIndicati ons:Dyspnea, unspecified type Inhale 2 puffs (180 mcg total) by mouth every 4 hours as needed for wheezing or shortness of breath. Use with spacer. 8.5 g 06/29/20 25 026 Active fluticasone propionate (FLONASE) 50 mcg/actuation nasal sprayIndication s:Postnasal drip Administer 2 sprays into each nostril once a day. 16 g 06/29/20 25 025 Discontinued albuterol (PROAIR HFA,VENTOLIN HFA) 90 mcg inhalerIndicati ons:Dyspnea, unspecified type Inhale 2 puffs (180 mcg total) by mouth every 4 hours as needed for wheezing or shortness of breath. Use with spacer. 8.5 g 5 06/29/20 25 025 Discontinued Active Problems Problem Noted Date [...] tikosyn. He is on eliquis for a [id number] of 3 iso of DM2, HTN, and [...] is on AC with Eliquis for a [id number] of 2. For antiarrhythmic control he has [...] I have ordered, also we discussed the Linkua mobile device for more rare events that [...] He is interested in some here at [facility]. Thus I referred him to our sleep [...] reached out to sleep medicine doctor in [place] Assessment & Plan (12/01/2020 12:18 PM EST): [...] with his current sleep medicine doctor in [place]. I said that if he is not [...] on August I confirm this appointment [facility], and encouraged him to attend it. [...] status post cryoablation in 2019, and redo Katie fib ablation in 2020. At repeat ablation, [...] $10 a month for him. Would not acid changer at this time Petey that weight loss [...] PM EDT): Fito has symptomatic persistent symptomatic producer assistant atrial fibrillation. His symptoms included fatigue [...] EST): Mr. Diaz has symptomatic persistent symptomatic producer assistant atrial fibrillation. His symptoms included fatigue [...] EDT): Mr. Diaz has symptomatic persistent symptomatic producer assistant atrial fibrillation. His symptoms included fatigue [...] AM EST): Mr. Diaz has persistent symptomatic producer assistant atrial fibrillation. His symptoms included fatigue [...] PM EST): Mr. Diaz has persistent symptomatic producer assistant atrial fibrillation. His symptoms included fatigue [...] PM EST): Mr. Diaz has persistent symptomatic producer assistant atrial fibrillation. His symptoms included fatigue [...] PM EST): Mr. Diaz has persistent symptomatic producer assistant atrial fibrillation. His symptoms included fatigue [...] AM EDT): Mr. Diaz has persistent symptomatic producer assistant atrial fibrillation. His symptoms included fatigue [...] Encounters Date Type Department Care Team Description 06/30/2025 Results Follow-Up [facility] [address] [place] [address] Home Weatherizing Worker: Suki Bundy MD 06/29/2025 4:57 PM EDT - 06/29/2025 11:59 PM EDT Hospital Encounter [facility] Xray [address] [place] [address] Dyspnea, unspecified type Discharge Disposition: Home or Self Care (01) 06/29/2025 4:00 PM EDT Follow-Up [facility] [address] [place] [address] Home Weatherizing Worker: Juan Land MD Nguyen, Suong Thi, MD Postnasal drip; Dyspnea, unspecified type 06/15/[address] floor Cardiology Medicine [address] [place] [address] Home Weatherizing Worker: Juan Velasco MD 06/14/2025 Orders Only [facility] 4th floor Cardiology Medicine [address] [place] [address] Home Weatherizing Worker: Juan Velasco MD Hypoxemia (Primary Dx) 06/11/2025 Telephone [facility] 4th floor Cardiology Medicine [address] [place] [address] Home Weatherizing Worker: Amirah Membreno Telephone Intake, Staff 06/09/2025 2:30 PM EDT Office Visit [facility] [address] [place] [address] Home Weatherizing Worker: Elana Soni NP Obesity, endogenous (Primary Dx); Essential hypertension; High risk medication use; Angina pectoris, unstable (HCC); Persistent atrial fibrillation (HCC); Coronary artery disease involving [place] coronary artery of [place] heart, unspecified whether angina present 05/21/2025 Refill [facility] [address] [place] [address] Home Weatherizing Worker: Henrietta Hobson MD 04/28/2025 8:00 AM EDT Office Visit [address] Cardiology Medicine [address] [place] [address] Home Weatherizing Worker: Luis M Rizo PA Hypoxia (Primary Dx); Persistent atrial fibrillation (HCC); Chest pain, unspecified type 04/14/[address] Cardiology Medicine [address] [place] [address] Home Weatherizing Worker: Juan Velasco MD 04/08/[address] Cardiology Medicine [address] [place] [address] Home Weatherizing Worker: Juan Velasco MD 04/06/2025 9:40 AM EDT Telehealth [facility] Telehealth [address] [place] [address] Yana Holt PharmD Hyperlipidemia, unspecified hyperlipidemia type (Primary Dx); Coronary artery disease involving [place] coronary artery of [place] heart without angina pectoris 04/01/[address] Cardiology Medicine [address] [place] [address] Home Weatherizing Worker: Trena Echols RN 03/30/2025 Orders Only [address] floor Cardiology Medicine [address] [place] [address] Home Weatherizing Worker: Simran Stewart NP Paroxysmal atrial fibrillation (HCC) (Primary Dx) from Last 3 Months Immunizations Immunization Administration [...] 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 on file Not on file Last Filed Vital Signs Vital Sign Reading Time Taken Comments Blood Pressure 122/81 06/29/2025 4:25 PM EDT Pulse 71 06/29/2025 4:25 PM EDT Temperature 36.7 C (98.1 F) 02/08/2025 6:51 AM EDT Respiratory Rate 18 06/29/2025 4:25 PM EDT Oxygen Saturation 99% 06/29/2025 4:25 PM EDT Inhaled Oxygen Concentration - - Weight 105.7 kg (233 lb) 06/29/2025 4:25 PM EDT Height 180.3 cm (5' 11 ) 06/09/2025 2:22 PM EDT Body Mass Index 32.5 06/09/2025 2:22 PM EDT Plan of Treatment Upcoming Encounters Date Type Department Care Team (Late st Contact Info) Description 07/09/2025 8:40 AM EDT Telehealth [facility] Telehealth [address] [place] [address] [phone] Tracie Westbrook NP [address] [place] [address] 08/09/2025 2:30 PM EDT Follow-Up [facility] 4th floor Cardiology Medicine [address] [place] [address] Home Weatherizing Worker: Tiki Peña PA [address] [place] [address] 09/17/2025 2:00 PM EST Office Visit [facility] 7 [address] [place] [address] Elana Kaye NP [address] [place] [address] 12/13/2025 2:40 PM EST Office Visit [facility] 7 [address] [place] [address] Henrietta Weeks MD [address] [place] [address] 03/11/2026 11:20 AM EDT Office Visit [facility] 7 [address] [place] [address] Henrietta Weeks MD [address] [place] [address] 03/16/2026 1:00 PM EDT Follow-Up [facility] [address] [place] [facility] [address] [place] [address] Kian Cuello MD [address] [address] Health Maintenance Due Date Last Done Comments [...] 10/05, 09/08/2020, Additional history exists Influenza Vaccine (#1) 2025 11/20/2022 Basic Metabolic Panel 04/01/2026 04/01/2025 , 02/04/2025, 12/02/2024, Additional history exists Pneumococcal Vaccine: 50+ Years Completed 02/23/2025, 10/26/2020 Hepatitis B Vaccines Aged Out No long er eligible based on patient's age to complete this topic Medical Devices Implanted Type Area Geography Instructor Device Identifier Shelf Expiration Date Model / Serial / Lot System Closure And Repair Suture-Mediat ed Perclose Prostyle - [id number] Implanted:Qty : 1 on 03/16/2024 by Eddie Mills MD at [facility] Implant [employer] [id number] 01/01/2026 [id number] / / [id number] System Closure And Repair Suture-Mediat ed Perclose Prostyle - [id number] Implanted:Qty : 1 on 03/16/2024 by Eddie Mills MD at [facility] Implant Right: Groin [employer] [id number] 01/01/2026 [id number] / / [id number] System Closure Vascular Venous Mvp 6-12fr Vascade - [id number] Implanted:Qty : 1 on 03/16/2024 by Eddie Mills MD at [facility] Implant Right: Groin [employer]ORE 12/06/2025 [id number] -[id number] / / [id number] System Closure Vascular Venous Mvp 6-12fr Vascade - [id number] Implanted:Qty : 1 on 03/16/2024 by Eddie Mills MD at [facility] Implant Right: Groin [employer] 12/06/2025 [id number] -[id number] / / [id number] Stent Coronary Everolimus-El uting Craig Chromium 2.0sks95vh Synergy Xd - [id number] Implanted:Qty : 1 on 02/08/2025 by Marlen Saenz MD at [facility] Stent Right: Coronary [employer] [id number] 10/13/2026 [id number] / / [id number] Stent Coronary 2.58gky23qk Talala Lykens Rx - [id number] Implanted:Qty : 1 on 02/08/2025 by Marlen Saenz MD at [facility] Stent Right: Coronary Medtronic [id number] 09/20/2027 [id number] / / [id number] Procedures * Due to [place] state law, this organization might not be sharing negative HIV tests. Procedure Name Priority Date/Time Associated Diagnosis Comments XR CHEST 2 VW Routine 06/29/2025 5:21 PM EDT Dyspnea, unspecified type ECG 12-LEAD Routine 04/28/2025 8:12 AM EDT Persistent atrial fibrillation (HCC) CBC AUTO DIFFERENTIAL Routine 04/01/2025 2:32 PM EDT Persistent atrial fibrillation (HCC) BASIC METABOLIC PANEL Routine 04/01/2025 2:32 PM EDT Paroxysmal atrial fibrillation (HCC) MAGNESIUM Routine 04/01/2025 2:32 PM EDT Paroxysmal atrial fibrillation (HCC) ECG 12-LEAD Routine 04/01/2025 1:42 PM EDT Paroxysmal atrial fibrillation (HCC) HEMOGLOBIN A1C Routine 12/02/2024 3:14 PM EST Persistent atrial fibrillation Dyslipidemia (high LDL; low HDL) from Last 3 Months or Most Recently Relevant to Health Maintenance Results * Due to [place] state law, this organization might not be [...] to obtain the completed interpretation. Workstation ID: [id number] Narrative 06/30/2025 9:59 AM EDT COMPARISON: 04/14/2024 FINDINGS AND Resulting Agency Comment [id number] Procedure Note Rober Shin MD - 06/30/2025 COMPARISON: 04/14/2024 FINDINGS AND IMPRESSION: No change. Negative. Heart normal. Lungs clear.. If this radiology report contains a blank impression section, it is anincomplete radiology report. Please contact the interpreting radiologistor applicable radiology division as soon as possible to obtain thecompleted interpretation. Workstation ID: [id number] us Juan Boswell MD IMG XR PROCEDURES Final Resu lt * ECG 12 lead (04/28/2025 8:12 AM EDT) Only the most recent of2 resultswithin the time period is included. Ventricular Rate EKG 58 BPM MUSE EKG Atrial Rate 58 BPM MUSE EKG OH Interval 170 ms MUSE EKG QRS Interval 90 ms MUSE EKG QT Interval 474 ms MUSE EKG QTC Interval 465 ms MUSE EKG P [place] 40 degrees MUSE EKG R [place] -12 degrees MUSE EKG T Wave [place] 18 degrees MUSE EKG 04/28/2025 8:12 AM EDT 05/07/2025 3:03 PM EDT Impressions MUSE EKG - 05/08/2025 8:35 AM EDT SINUS BRADYCARDIA OTHERWISE NORMAL ECG WHEN COMPARED WITH ECG OF 01-APR-2025 13:42, NO SIGNIFICANT CHANGE WAS FOUND Confirmed by Aubrey Ricketts ([id number]) on 05/07/2025 3:03:13 PM Narrative Procedure Note Aubrey Ricketts MD - 05/08/2025 IMPRESSION: SINUS BRADYCARDIA OTHERWISE NORMAL ECG WHEN COMPARED WITH ECG OF 01-APR-2025 13:42, NO SIGNIFICANT CHANGE WAS FOUND Confirmed by Aubrey Ricketts ([id number]) on 05/07/2025 3:03:13 PM us Juan Boswell MD ECG ORDERABLES Final Result MUSE EKG * (ABNORMAL) CBC Auto Differential (04/01/2025 2:32 PM EDT) WBC 7.8 3.8 - 10.8 10*3/uL 04/01/2025 3:41 PM EDT [facility] RBC 4.41 4.20 - 5.80 10*6/uL 04/01/2025 3:41 PM EDT [facility] Hemoglobin 14.4 13.2 - 17.1 g/dL 04/01/2025 3:41 PM EDT [facility] Hematocrit 42.4 38.5 - 50.0 % 04/01/2025 3:41 PM EDT [facility] MCV 96.1 80.0 - 100.0 fL 04/01/2025 3:41 PM EDT [facility] MCH 32.7 27.0 - 33.0 pg 04/01/2025 3:41 PM EDT [facility] MCHC 34.0 32.0 - 36.0 g/dL 04/01/2025 3:41 PM EDT [facility] RDW 12.4 11.0 - 15.0 % 04/01/2025 3:41 PM EDT [facility] Platelets 247 140 - 400 10*3/uL 04/01/2025 3:41 PM EDT [facility] MPV 11.0 7.5 - 12.5 fL 04/01/2025 3:41 PM EDT [facility] Neutrophil % 57.7 % 04/01/2025 3:41 PM EDT [facility] Immature Grans % 0.6 0.0 - 0.9 % 04/01/2025 3:41 PM EDT [facility] Lymphocyte % 23.9 % 04/01/2025 3:41 PM EDT [facility] Monocyte % 9.7 % 04/01/2025 3:41 PM EDT [facility] Eosinophil % 7.8 % 04/01/2025 3:41 PM EDT [facility] Basophil % 0.3 % 04/01/2025 3:41 PM EDT [facility] Neutrophil # 4.52 1.50 - 7.80 10*3/uL 04/01/2025 3:41 PM EDT [facility] Immature Grans # 0.05(H) <=0.03 10*3/uL 04/01/2025 3:41 PM EDT [facility] Lymphocyte # 1.90 0.85 - 3.90 10*3/uL 04/01/2025 3:41 PM EDT [facility] Monocyte # 0.80 0.20 - 0.95 10*3/uL 04/01/2025 3:41 PM EDT [facility] Eosinophil # 0.60(H) 0.02 - 0.50 10*3/uL 04/01/2025 3:41 PM EDT [facility] Basophil # <0.03 0.00 - 0.20 10*3/uL 04/01/2025 3:41 PM EDT [facility] nRBC % 0.0 /100 WBCs 04/01/2025 3:41 PM EDT [facility] nRBC # <0.01 <0.01 10*3/uL 04/01/2025 3:41 PM EDT [facility] Blood Structure of peripheral vein / Unknown Venipuncture / Unknown 04/01/2025 2:32 PM EDT 04/01/2025 3:31 PM EDT Sim[facility] Oconnell F[facility] [employer] LAB BLOOD ORDERABLES Final Result Performing Organization Address City/[facility]/ZIP Co de Phone Number [facility] [address] [place] [address], * Magnesium (04/01/2025 2:32 PM EDT) MG 2.3 1.6 - 2.4 mg/dL 04/01/2025 4:09 PM EDT [facility] Blood Structure of peripheral vein / Unknown Venipuncture / Unknown 04/01/2025 2:32 PM EDT 04/01/2025 3:31 PM EDT Simran Oconnell FLOOR BROKER LAB BLOOD ORDERABLES Final Result Performing Organization Address [facility] Co de Phone Number [facility] [address] [place] [address], * Basic metabolic panel (04/01/2025 2:32 PM EDT) NA 140 135 - 145 mmol/L 04/01/2025 4:09 PM EDT [facility] K 4.2 3.5 - 5.3 mmol/L 04/01/2025 4:09 PM EDT [facility] Cl 105 98 - 107 mmol/L 04/01/2025 4:09 PM EDT [facility] CO2 23 22 - 32 mmol/L 04/01/2025 4:09 PM EDT [facility] BUN 15 7 - 23 mg/dL 04/01/2025 4:09 PM EDT [facility] Creatinine 1.08 0.60 - 1.30 mg/dL 04/01/2025 4:[address] [facility] Glucose 83 65 - 99 mg/dL 04/01/2025 4:09 PM EDT [facility] Calcium 9.3 8.6 - 10.5 mg/dL 04/01/2025 4:09 PM EDT [facility] Anion Gap 12 5 - 15 04/01/2025 4:09 PM EDT [facility] eGFR 78 >=60 mL/min/1. 73m2 04/01/2025 4:09 PM EDT [facility] Comment:The estimated glomer ular [...] peripheral vein / Unknown Venipuncture / Unknown 04/01/2025 2:32 PM EDT 04/01/2025 3:31 PM EDT us Simran Oconnell FLOOR BROKER LAB BLOOD ORDERABLES Final Result [facility] [address] [place] [address], * Hemoglobin A1c (12/02/2024 3:14 PM EST) Hemoglobin A1C 4.7 <5.7 % of total Hgb 12/03/2024 2:05 AM EST [facility] Comment: For the purpose of screening for the presence of diabetes: <5.7% Consistent with the absence of diabetes 5.7-6.4% Consistent with increased risk for diabetes (prediabetes) > or =6.5% Consistent with diabetes This assay result is consistent with a decreased risk of diabetes. Currently, no consensus exists regarding use of hemoglobin A1c for diagnosis of diabetes in children. According to [place] Diabetes Association (ADA) guidelines, hemoglobin A1c <7.0% represents optimal control in non- diabetic patients. Different metrics may apply to specific patient populations. Standards of Medical Care in Diabetes(ADA). eAG (MG/DL) 88 mg/dL 12/03/2024 2:05 AM EST [employer] eAG (MMOL/L) 4.9 mmol/L 12/03/2024 2:05 AM [employer] Blood Structure of peripheral vein / Unknown Venipuncture / Unknown 12/02/2024 3:14 PM EST 12/02/2024 3:22 PM EST [facility] - 12/03/2024 2:05 AM EST [facility] Received Date: us Juan Boswell MD LAB BLOOD ORDERABLES Final R esult [facility] [address] [facility] [address]rd Floor, [place] [address], [facility] [facility] [address] [facility] [address] [facility], [place] [address], from Last 3 Months or Most Recently Relevant to Health Maintenance [place] [address] [place] [address] Advance Directives Documents on File Type Date Recorded Patient Lathmaker Expl anation Health Care Proxy 04/02/2019 11:16 [...] [place] Partner Health Care Agent Care Teams Embroidery Cutter Relationship Specialty Start Date End Date Jonathan Barnett PA [address] [place], [place] [phone] PCP - General 03/08/25
--- OUTSIDE RECORDS SUMMARY | 2025-06-30 11:40 | XMS_ITS | Encounter Summary ---
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 Not on file Not on file documented as of this encounter Plan of Treatment Upcoming Encounters Date Type Department Care Team (Late st Contact Info) Description 07/09/2025 8:40 AM EDT Telehealth [facility] Telehealth [address] [place] [address] [phone] Tracie Westbrook NP [address] [place] [address] 08/09/2025 2:30 PM EDT Follow-Up [facility] 4th floor Cardiology Medicine [address] [place] [address] Scribing Machine Operator: Tiki Peña PA [address] [place] [address] 09/17/2025 2:00 PM EST Office Visit [facility] 7 [address] [place] [address] Elaan Kaye NP [address] [place] [address] 12/13/2025 2:40 PM EST Office Visit [facility] 7 [address] [place] [address] Henrietta Weeks MD [address] [place] [address] 03/11/2026 11:20 AM EDT Office Visit [facility] 7 [address] [place] [address] Henrietta Weeks MD [address] [place] [address] 03/16/2026 1:00 PM EDT Follow-Up [facility] [place] [facility] [address] [address] Kian Cuello MD [address] [address] documented as of this encounter Visit Diagnoses Not on filedocumented in this encounter Care Teams Gm Relationship Specialty Start Date End Date Jonathan Barnett PA [address] [place] [address] PCP - General 03/08/25 documented as of this encounter
--- OUTSIDE RECORDS SUMMARY | 2025-06-30 11:40 | XMS_ITS | Encounter Summary ---
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 * Telephone Encounter - Ofelia Simentalgos - 06/11/2025 4:32 PM EDT Pt is est w/ Dr. Boswell Pt called in regarding call he received from angela RAMÍREZ, regarding AFIB Please call pt @ [phone] Thank you documented in this encounter Plan of Treatment Upcoming Encounters Date Type Department Care Team (Late st Contact Info) Description 07/09/2025 8:40 AM EDT Telehealth [facility] [employer] Telehealth [address] [place] [address] Tracie Westbrook NP [address] [place] [address] 08/09/2025 2:30 PM EDT Follow-Up [facility] 4th floor Cardiology Medicine [address] [place] [address] Senior Solutions Consultant: Tiki Peña PA [address] [place] [address] 09/17/2025 2:00 PM EST Office Visit [facility] Endocrinology Clinic 7 [address] [place] [address] Elana Kaye NP [address] [place] [address] 12/13/2025 2:40 PM EST Office Visit [facility] Endocrinology Clinic 7 [address] [place] [address] Henrietta Weeks MD [address] [place] [address] 03/11/2026 11:20 AM EDT Office Visit [facility] Endocrinology Clinic 7 [address] [place] [address] Henrietta Weeks MD [address] [place] [address] 03/16/2026 1:00 PM EDT Follow-Up [facility] 85 [place] Pulmonology [address] [address] Kian Cuello MD [address] [address] documented as of this encounter Visit Diagnoses Not on filedocumented in this encounter Care Teams Echo Vascular Tech Relationship Specialty Start Date End Date Jonathan Barnett PA [address] [place] [address] PCP - General 03/08/25 documented as of this encounter
--- OUTSIDE RECORDS SUMMARY | 2025-06-30 11:40 | XMS_ITS | Encounter Summary ---
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 PT can best be reached at [phone] documented in this encounter Plan of Treatment Upcoming Encounters Date Type Department Care Team (Late st Contact Info) Description 07/09/2025 8:40 AM EDT Telehealth [facility] [employer] Telehealth [address] [place] [address] Tracie Westbrook NP [address] [place] [address] 08/09/2025 2:30 PM EDT Follow-Up [facility] 4th floor Cardiology Medicine [address] [place] [address] Computer Systems Software Engineer: Amirah Jackson, LUIS Herrera [address] [place] [address] 09/17/2025 2:00 PM EST Office Visit [facility] Endocrinology Clinic 7 [address] [place] [address] Elana Kaye NP 55 [place] [address] 12/13/2025 2:40 PM EST Office Visit [facility] Endocrinology Clinic 7 [address] [place] [address] Henrietta Weeks MD [address] [place] [address] 03/11/2026 11:20 AM EDT Office Visit [facility] Endocrinology Clinic 7 [address] [place] [address] Henrietta Weeks MD [address] [place] [address] 03/16/2026 1:00 PM EDT Follow-Up [facility] 85 [place] [facility] [address] [place] [address] Kian Cuello MD [address] [address] documented as of this encounter Visit Diagnoses Not on filedocumented in this encounter Care Teams Child Protection Specialist Relationship Specialty Start Date End Date Jonathan Barnett PA [address] [place] [address] PCP - General 03/08/25 documented as of this encounter
--- OUTSIDE RECORDS SUMMARY | 2025-06-30 11:40 | XMS_ITS | Encounter Summary ---
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 Complaint with mary jane. LUIS Moreira * Telephone Encounter - Eusebia Mcmahon - 01/14/2025 8:55 AM EDT Pt had 1 abnormal event from monitor . Report in multimedia authoring specialist. documented in this encounter Plan of Treatment Upcoming Encounters Date Type Department Care Team (Late st Contact Info) Description 07/09/2025 8:40 AM EDT Telehealth [facility] [employer] Telehealth [address] [place] [address] Tracie Westbrook NP [address] [place] [address] 08/09/2025 2:30 PM EDT Follow-Up [facility] 4th floor Cardiology Medicine [address] [place] [address] Larry Operator: Tiki Peña PA [address] [place] [address] 09/17/2025 2:00 PM EST Office Visit [facility] Endocrinology Clinic 7 [address] [place] [address] Elana Kaye NP [address] [place] [address] 12/13/2025 2:40 PM EST Office Visit [facility] Endocrinology Clinic 7 [address] [place] [address] Henrietta Weeks MD [address] [place] [address] 03/11/2026 11:20 AM EDT Office Visit [facility] Endocrinology Clinic 7 [address] [place] [address] Henrietta Weeks MD [address] [place] [address] 03/16/2026 1:00 PM EDT Follow-Up [facility] 85 [place] Pulmonology [address] [address] Kian Cuello MD [address] [address] documented as of this encounter Visit Diagnoses Not on filedocumented in this encounter Care Teams Pipeline Maintenance Supervisor Relationship Specialty Start Date End Date Jonathan Barnett PA [address] [place] [address] PCP - General 03/08/25 documented as of this encounter
--- OUTSIDE RECORDS SUMMARY | 2025-06-30 11:40 | XMS_ITS | Encounter Summary ---
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 file Not on file documented as of this encounter Plan of Treatment Upcoming Encounters Date Type Department Care Team (Late st Contact Info) Description 07/09/2025 8:40 AM EDT Telehealth [facility] [employer] Telehealth [address] [place], [place] [phone] Tracie Westbrook NP 55 [place], [place] [phone] 08/09/2025 2:30 PM EDT Follow-Up [facility] 4th floor Cardiology Medicine [address] [place] [address] Contract Associate: Tiki Peña PA [address] [place] [address] 09/17/2025 2:00 PM EST Office Visit [facility] Endocrinology Clinic 7 [address] [place] [address] Elana aKye NP [address] [place] [address] 12/13/2025 2:40 PM EST Office Visit [facility] Endocrinology Clinic 7 [address] [place] [address] Henrietta Weeks MD [address] [place] [address] 03/11/2026 11:20 AM EDT Office Visit [facility] Endocrinology Clinic 7 [address] [place] [address] Henrietta Weeks MD [address] [place] [address] 03/16/2026 1:00 PM EDT Follow-Up [facility] [address] [place] [facility] [address] [place] [address] Kian Cuello MD [address] [address] documented as of this encounter Visit Diagnoses Not on filedocumented in this encounter Care Teams Merchandise Flow Team Member Relationship Specialty Start Date End Date Jonathan Barnett PA [address] [place] [address] PCP - General 03/08/25 documented as of this encounter
--- OUTSIDE RECORDS SUMMARY | 2025-06-30 11:40 | XMS_ITS | Encounter Summary ---
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 Not on [...] to clinic Pt can be reached at; [phone] documented in this encounter Plan of Treatment Upcoming Encounters Date Type Department Care Team (Late st Contact Info) Description 07/09/2025 8:40 AM EDT Telehealth [facility] [employer] Telehealth [address] [place] [address] Tracie Westbrook NP [address] [place] [address] 08/09/2025 2:30 PM EDT Follow-Up [facility] 4th floor Cardiology Medicine [address] [place] [address] Check Airman: Tiki Peña PA [address] [place] [address] 09/17/2025 2:00 PM EST Office Visit [facility] Endocrinology Clinic 7 [address] [place] [address] Elana Kaye NP [address] [place] [address] 12/13/2025 2:40 PM EST Office Visit [facility] Endocrinology Clinic 7 [address] [place] [address] Henrietta Weeks MD [address] [place] [address] 03/11/2026 11:20 AM EDT Office Visit [facility] Endocrinology Clinic 7 [address] [place] [address] Henrietta Weeks MD [address] [place] [address] 03/16/2026 1:00 PM EDT Follow-Up [facility] 85 [place] Pulmonology [address] [address] Kian Cuello MD [address] [address] documented as of this encounter Visit Diagnoses Not on filedocumented in this encounter Care Teams Academic Services Coordinator Relationship Specialty Start Date End Date Jonathan Barnett PA [address] [place] [address] PCP - General 03/08/25 documented as of this encounter
--- OUTSIDE RECORDS SUMMARY | 2025-06-30 11:40 | XMS_ITS | Encounter Summary ---
Author Organization [facility] Address [address] [place] [address] Care Team Providers Care Sustainability Director Name Role Phone Jonathan Barnett Primary Care Provider [phone] Encounter Details Date Type Department Care Team (Late st Contact Info) Description 06/30/2025 Results Follow-Up [facility]- [facility] [address] [place], [place] [phone] Bar Tacker Sewing Machine: Bill Garcia, Suki Figueroa MD 55 [facility] [place] [address] Social History Tobacco Use Types Packs/Day Years [...] 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 file Not on file documented as of this encounter Plan of Treatment Upcoming Encounters Date Type Department Care Team (Late st Contact Info) Description 07/09/2025 8:40 AM EDT Telehealth [facility] [employer] Telehealth [address] [place], [place] [phone] Tracie Westbrook NP [address] [place] [address] 08/09/2025 2:30 PM EDT Follow-Up [facility] 4th floor Cardiology Medicine [address] [place] [address] Bar Tacker Sewing Machine: Amirah Jackson, LUIS Herrera [address] [place] [address] 09/17/2025 2:00 PM EST Office Visit [facility] Endocrinology Clinic 7 [address] [place] [address] Elana Kaye NP 55 [place] [address] 12/13/2025 2:40 PM EST Office Visit [facility] Endocrinology Clinic 7 [address] [place] [address] Henrietta Weeks MD 55 [place] [address] 03/11/2026 11:20 AM EDT Office Visit [facility] Endocrinology Clinic 7 [address] [place] [address] Henrietta Weeks MD 55 [place] [address] 03/16/2026 1:00 PM EDT Follow-Up [facility] 85 [place] [facility] [address] [place] [address] Kian Cuello MD [address] [address] documented as of this encounter Visit Diagnoses Not on filedocumented in this encounter Care Teams Sustainability Director Relationship Specialty Start Date End Date Jonathan Barnett PA [address] [place] [address] PCP - General 03/08/25 documented as of this encounter
== END 2025-06-30 11:34 | disposition home or self-care (01) ==
LOC: HO.HMCH 10:48
PROVIDERS: Visit Provider Physician Assistant
DX: I25.10 Atherosclerotic heart disease of native coronary artery without angina pectoris (principal); I48.0 Paroxysmal atrial fibrillation; E66.811 Obesity, class 1; Z68.32 Body mass index [BMI] 32.0-32.9, adult; E88.81 Metabolic syndrome and other insulin resistance; G47.33 Obstructive sleep apnea (adult) (pediatric)

== ENCOUNTER → 2025-06-30 10:47 | Outpatient (BNVA) | payer OTHER, SELFPAY | PROVIDERS: Visit Provider Physician Assistant | DX: G47.33 Obstructive sleep apnea (adult) (pediatric) (principal); I48.91 Unspecified atrial fibrillation; I10 Essential (primary) hypertension; I25.10 Atherosclerotic heart disease of native coronary artery without angina pectoris; I48.0 Paroxysmal atrial fibrillation; E88.819 Insulin resistance, unspecified; E66.811 Obesity, class 1; Z68.32 Body mass index [BMI] 32.0-32.9, adult | CPT/HCPCS: 96127 ==